=== PATIENT | male | born 1935 | race Caucasian/White ===

== ENCOUNTER 2022-12-15 14:58 | Emergency (ER) | payer MEDICARE ==
[2022-12-15] MEDS ORDERED: VERSED 5 MG/5 ML IV ONE (14:59)
[2022-12-15] MEDS ORDERED: Cordarone 150 MG/3 ML Injection IV ONE (14:59)
[2022-12-15] MEDS ORDERED: Cordarone 150 MG/3 ML Injection*** 150 MG in D5w 100ML Mini Bag 100 ML 100 ML IV ONE (15:03)
[2022-12-15] MEDS ORDERED: BABY ASPIRIN 81 MG CHEW PO ONE (15:03)
[2022-12-15] MEDS ORDERED: NEXTERONE 360 MG/200 ML BAG 360 MG/200 ML PLAST..BAG IV ONE ×2 (15:09→20:39)
[2022-12-15] MEDS ORDERED: Sodium Chloride 0.9% 1000 ML 1,000 ML IV SCH (15:15)
--- NOTE | 2022-12-15 15:29 | ERPHSYRPT ---
- History of Present Illness Time Seen by Provider: 12/15/22 15:24 Historian: patient, family Exam Limitations: clinical condition Physician History: Patient is an 87-year-old white male who presents with a complaint of chest pain. 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 The reports that he has had approximately 7 episodes of dizziness over the last couple of days this 1 did not resolve and this 1 caused chest pain. 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 Timing/Duration: yesterday Activities at Onset: other (Working on farm equipment) Quality: fullness, pressure Location: substernal Severity of Pain-Max: severe Severity of Pain-Current: none Modifying Factors: Improves With: exertion, nitroglycerin (2 nitroglycerin taken after the pain started was ineffective), aspirin (He has taken his usual daily aspirin.) Associated Symptoms: shortness of breath, dizziness Nitro Today/Relief: 0.4 mg x 2 (No help) Aspirin Treatment Today: 81 mg x 1 Allergies/Adverse Reactions: No Known Drug Allergies Allergy (Unverified 12/15/22 15:02) - Review of Systems Constitutional: Weakness, Other (Diaphoresis), No Fever, No Chills Eyes: No Symptoms Ears, Nose, & Throat: No Symptoms Respiratory: No Cough, No Dyspnea Cardiac: Chest Pain, No Edema, No Syncope Abdominal/Gastrointestinal: No Abdominal Pain, No Nausea, No Vomiting, No Diarrhea Genitourinary Symptoms: No Dysuria Musculoskeletal: No Back Pain, No Neck Pain Skin: No Rash Neurological: No Dizziness, No Focal Weakness, No Sensory Changes Psychological: No Symptoms Endocrine: No Symptoms All Other Systems: Reviewed and Negative - Nursing Vital Signs Nursing Vital Signs: Initial Vital Signs Temperature 95.8 F 12/15/22 15:03 Pulse Rate 172 H 12/15/22 15:03 Respiratory Rate 25 H 12/15/22 15:03 Blood Pressure 81/51 12/15/22 15:03 O2 Sat by Pulse Oximetry 94 L 12/15/22 15:03 Pain Scale Pain Intensity 0 - Physical Exam General Appearance: severe distress, other (Diaphoretic and ashen) Eye Exam: PERRL/EOMI, eyes nml inspection Ears, Nose, Throat Exam: normal ENT inspection, moist mucous membranes Neck Exam: normal inspection, non-tender, supple, full range of motion Respiratory Exam: normal breath sounds, lungs clear, No respiratory distress Cardiovascular Exam: tachycardia (Rate of 150) Gastrointestinal/Abdomen Exam: soft, No tenderness, No mass Back Exam: normal inspection, No CVA tenderness, No vertebral tenderness Extremity Exam: normal inspection, normal range of motion Neurologic Exam: alert, oriented x 3, cooperative Skin Exam: diaphoresis, pale SpO2 Interpretation: normal SpO2: 95 O2 Delivery: Room Air - Course Nursing assessment & vital signs reviewed: Yes EKG Interpreted by Me: RATE (patient had a wide-complex tachycardia consistent with V. tach rate of 150. After a 150 mg bolus of amiodarone patient was cardioverted after 4 mg of Versed at 100 J to a normal sinus rhythm with frequent PVCs. Second EKG did show some nonspecific ST-T wave changes.) - Radiology Exams Chest X-ray Interpretation: Reviewed by me Ordered Tests: Active Orders 24 hr Category Date Time Status EKG-ER Only STAT Care 12/15/22 15:03 Active IV Insertion STAT Care 12/15/22 15:03 Active CHEST 1 VIEW (PORTABLE) Stat Exams 12/15/22 15:04 Completed CBC W DIFF Stat Lab 12/15/22 15:15 Completed CMP Stat Lab 12/15/22 15:15 Completed D-DIMER QUANTITATIVE Stat Lab 12/15/22 15:15 Completed Lactic Acid Stat Lab 12/15/22 15:03 Completed MAGNESIUM Stat Lab 12/15/22 15:15 Completed NT PRO BNPII Stat Lab 12/15/22 15:15 Completed PROTIME WITH INR Stat Lab 12/15/22 15:15 Completed PTT Stat Lab 12/15/22 15:15 Completed TROPONIN Q4H Lab 12/15/22 15:15 Completed TROPONIN Q4H Lab 12/15/22 19:15 Ordered TROPONIN Q4H Lab 12/15/22 23:15 Ordered UA W/RFX UR CULTURE Stat Lab 12/15/22 16:03 Received Standby STAT RT 12/15/22 15:15 Completed Medication Summary Generic Name Dose Route Start Last Admin Trade Name Freq PRN Reason Stop Dose Admin Sodium Chloride 1,000 mls @ 50 mls/hr 12/15/22 15:15 12/15/22 15:55 Sodium Chloride 0.9% 1000 Ml IV 01/14/23 15:14 50 mls/hr .Q20H BOB Administration Discontinued Medications Generic Name Dose Route Start Last Admin Trade Name Dean PRN Reason Stop Dose Admin Amiodarone HCl 150 mg 12/15/22 14:59 Amiodarone Hcl 150 Mg/3 Ml Vial IV 12/15/22 15:00 .STK-MED ONE Aspirin 324 mg 12/15/22 15:03 12/15/22 15:52 Aspirin 81 Mg Tab.Chew PO 12/15/22 15:04 324 mg STAT ONE Administration Amiodarone HCl/Dextrose Confirm 12/15/22 15:09 Nexterone 360 Mg/200 Ml Bag Administered 12/15/22 15:10 Dose 360 mg in 200 mls @ ud IV .STK-MED ONE Amiodarone HCl 150 mg/ 103 mls @ 618 mls/hr 12/15/22 15:03 Dextrose IV 12/15/22 15:12 STAT ONE Midazolam HCl 5 mg 12/15/22 14:59 Midazolam Hcl 5 Mg/5 Ml Vial IV 12/15/22 15:00 .STK-MED ONE Lab/Rad Data: Laboratory Result Diagrams 12/15/22 15:15 12/15/22 15:15 Laboratory Results 12/15/22 12/15/22 12/15/22 Range/Units 15:15 15:15 15:15 WBC (4.0-10.5) x10^3/uL RBC (4.1-5.6) x10^6/uL Hgb (12.5-18.0) g/dL Hct (42-50) % MCV (78-100) fL MCH (26-32) pg MCHC (32-36) g/dL RDW (11.5-14.0) % Plt Count (150-450) x10^3/uL MPV (7.5-11.0) fL Gran % (36.0-66.0) % Immature Gran % (Auto) (0.00-0.4) % Nucleat RBC Rel Count (0.00-0.1) % Eos # (Auto) (0-0.5) x10^3/uL Immature Gran # (Auto) (0.00-0.03) x10^3u/L Absolute Lymphs (auto) (1.0-4.6) x10^3/uL Absolute Monos (auto) (0.0-1.3) x10^3/uL Absolute Nucleated RBC (0.00-0.01) x10^3u/L Lymphocytes % (24.0-44.0) % Monocytes % (0.0-12.0) % Eosinophils % (0.00-5.0) % Basophils % (0.0-0.4) % Absolute Granulocytes (1.4-6.9) x10^3/uL Basophils # (0-0.4) x10^3/uL PT 11.4 (9.4-12.5) SECONDS INR 1.05 (0.8-3.0) APTT 27.2 (25.1-36.5) SECONDS D-Dimer 1.47 H* (0.0-0.50) mg/L Sodium (137-145) mmol/L Potassium (3.5-5.1) mmol/L Chloride (98-107) mmol/L Carbon Dioxide (22-30) mmol/L Anion Gap (5-15) MEQ/L BUN (9-20) mg/dL Creatinine (0.66-1.25) mg/dL Estimated GFR ML/MIN Glucose (74-106) mg/dL Lactic Acid (0.4-2.0) Calcium (8.4-10.2) mg/dL Magnesium (1.6-2.3) mg/dL Total Bilirubin (0.2-1.3) mg/dL AST (17-59) U/L ALT (0-50) U/L Alkaline Phosphatase (38-126) U/L Troponin I 4.890 H* (0.000-0.034) ng/mL NT-Pro-B Natriuret Pep 5770 (<300) pg/mL Serum Total Protein (6.3-8.2) g/dL Albumin (3.5-5.0) g/dL 12/15/22 12/15/22 12/15/22 Range/Units 15:15 15:15 15:03 WBC 6.7 (4.0-10.5) x10^3/uL RBC 4.04 L (4.1-5.6) x10^6/uL Hgb 12.7 (12.5-18.0) g/dL Hct 40.0 L (42-50) % MCV 99.0 (78-100) fL MCH 31.4 (26-32) pg MCHC 31.8 L (32-36) g/dL RDW 14.2 H (11.5-14.0) % Plt Count 176 (150-450) x10^3/uL MPV 9.8 (7.5-11.0) fL Gran % 68.5 H (36.0-66.0) % Immature Gran % (Auto) 0.1 (0.00-0.4) % Nucleat RBC Rel Count 0.0 (0.00-0.1) % Eos # (Auto) 0.07 (0-0.5) x10^3/uL Immature Gran # (Auto) 0.01 (0.00-0.03) x10^3u/L Absolute Lymphs (auto) 1.40 (1.0-4.6) x10^3/uL Absolute Monos (auto) 0.59 (0.0-1.3) x10^3/uL Absolute Nucleated RBC 0.00 (0.00-0.01) x10^3u/L Lymphocytes % 20.9 L (24.0-44.0) % Monocytes % 8.8 (0.0-12.0) % Eosinophils % 1.0 (0.00-5.0) % Basophils % 0.7 (0.0-0.4) % Absolute Granulocytes 4.57 (1.4-6.9) x10^3/uL Basophils # 0.05 (0-0.4) x10^3/uL PT (9.4-12.5) SECONDS INR (0.8-3.0) APTT (25.1-36.5) SECONDS D-Dimer (0.0-0.50) mg/L Sodium 141 (137-145) mmol/L Potassium 4.1 (3.5-5.1) mmol/L Chloride 107 (98-107) mmol/L Carbon Dioxide 20 L (22-30) mmol/L Anion Gap 18.2 H (5-15) MEQ/L BUN 19 (9-20) mg/dL Creatinine 0.98 (0.66-1.25) mg/dL Estimated GFR > 60.0 ML/MIN Glucose 177 H (74-106) mg/dL Lactic Acid 3.0 H (0.4-2.0) Calcium 8.7 (8.4-10.2) mg/dL Magnesium 1.8 (1.6-2.3) mg/dL Total Bilirubin 1.20 (0.2-1.3) mg/dL AST 64 H (17-59) U/L ALT 58 H (0-50) U/L Alkaline Phosphatase 65 (38-126) U/L Troponin I (0.000-0.034) ng/mL NT-Pro-B Natriuret Pep (<300) pg/mL Serum Total Protein 7.1 (6.3-8.2) g/dL Albumin 4.1 (3.5-5.0) g/dL - Progress Progress: improved Air Movement: good Blood Culture(s) Obtained: No Antibiotics given: No Discussed with Dr.: Other (Dr. Apolinar Alberts hr administrator. He excepted this patient for admission at [facility] we are presently awaiting a bed notification from them. Plan is to transfer him expeditiously to the [facility].) Counseled pt/family regarding: lab results, diagnosis, need for follow-up Medical Desision Making - Independent Historian Additional History obtained from: Spouse, Family - Discussion of managment Care discussed with:: specialist (Dr. Apolinar Alberts) Reviewed:: Test results Agreed on:: Treatment plan, need for follow-up Will see patient: in hospital - Diagnostic Testing Diagnostic test were ordered, analyzed, and reviewed by me: Yes Radiological Interpretation: Interpreted by me - Risk of complications The pt has a high risk of morbidity or mortality based on: Drug therapy requiring intensive monitoring for toxicity, Decision regarding hospitilization or escalation of hosp level of care - Departure Departure Disposition: Transfer (Transfer will be made to the [address]) Clinical Impression: Ventricular tachycardia, Encounter for cardioversion procedure Condition: Critical Critical Care Time: Yes Critical Care Time(excluding separately billable procedures): Critical 30-74 mins (70 min) Referrals: HELEN OWENS [Primary Care Provider] - Follow up/PCP as directed
[2022-12-15 15:33] LABS: Absolute Neutrophil Ct (ANC) 4.57 x10^3/uL (1.4-6.9); BASOPHIL % 0.7 % (0.0-0.4); Basophil (Absolute #) 0.05 x10^3/uL (0-0.4); Eosinophil (Absolute #) 0.07 x10^3/uL (0-0.5); Hemoglobin 12.7 g/dL (12.5-18.0); IMMATURE GRAN # 0.01 x10^3u/L (0.00-0.03); IMMATURE GRAN % 0.1 % (0.00-0.4); Lymphocytes % 20.9 % (24.0-44.0); Mean Corpuscular Hemoglobin 31.4 pg (26-32); Mean Corpuscular Hgb Concent. 31.8 g/dL (32-36); Mean Platelet Volume 9.8 fL (7.5-11.0); Monocyte (Absolute #) 0.59 x10^3/uL (0.0-1.3); Monocytes % 8.8 % (0.0-12.0); Neutrophil % 68.5 % (36.0-66.0); Platelet Count 176 x10^3/uL (150-450); Red Blood Count 4.04 x10^6/uL (4.1-5.6); Red Cell Distribution Width 14.2 % (11.5-14.0); White Blood Count 6.7 x10^3/uL (4.0-10.5)
[2022-12-15 15:49] LABS: ALBUMIN 4.1 g/dL (3.5-5.0); ALKALINE PHOSPHATASE 65 U/L (38-126); ANION GAP 18.2 MEQ/L (5-15); BLOOD UREA NITROGEN 19 mg/dL (9-20); CHLORIDE 107 mmol/L (98-107); Calcium 8.7 mg/dL (8.4-10.2); Carbon Dioxide 20 mmol/L (22-30); Creatinine 1 0.98 mg/dL (0.66-1.25); EST GLOMERULAR FILTRATION RATE > 60.0 ML/MIN; Glucose 177 mg/dL (74-106); MAGNESIUM 1.8 mg/dL (1.6-2.3); Potassium 4.1 mmol/L (3.5-5.1); SGOT/AST 64 U/L (17-59); SGPT/ALT 58 U/L (0-50); SODIUM 141 mmol/L (137-145); Total Protein 7.1 g/dL (6.3-8.2)
[2022-12-15 15:58] LABS: INR 1.05 (0.8-3.0); PROTIME 11.4 SECONDS (9.4-12.5); PTT 27.2 SECONDS (25.1-36.5)
[2022-12-15 16:15] LABS: D-DIMER QUANTITATIVE 1.47 mg/L (0.0-0.50)
--- NOTE | 2022-12-15 16:23 | XRAY ---
Indication: Chest pain. Comparison: None Portable chest demonstrates mild right infrahilar infiltrate versus atelectasis without large effusion. Heart not enlarged for AP portable technique with left AICD. 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
[2022-12-15 16:41] LABS: Appearance Clear (Clear); Bilirubin Negative (Negative); Blood Negative (Negative); Glucose, Urine Negative (Negative); Ketones Negative (Negative); Leukocyte Esterase Negative (Negative); Nitrite Negative (Negative); Protein,Urine Dip 100 (Negative)
[2022-12-15 16:43] LABS: ADD URINE CULTURE? NO (NO); Bacteria Few /HPF (None Seen); Epithelial Cells Few /HPF (None Seen); Hyaline Casts 0-2 /LPF (0-2); RBC 0-2 /HPF (0-5)
[2022-12-15 17:10] VITALS: O2SAT 98
[2022-12-15 20:00] LABS: TROPONIN 7.75 ng/mL (0.000-0.034)
[2022-12-15 20:03] VITALS: BP 125/65; PULSE 62
[2022-12-15] MEDS ORDERED: NEXTERONE 360 MG/200 ML BAG 360 MG/200 ML PLAST..BAG IV SCH (20:45)
== END 2022-12-15 21:06 | disposition short-term general hospital (02) ==
LOC: ED 14:58
DX: I47.20 Ventricular tachycardia, unspecified (principal); R07.9 Chest pain, unspecified; R42 Dizziness and giddiness
CPT/HCPCS: 36000; 36415; 71045; 80053; 81001; 83605; 83735; 83880; 84484; 85025; 85379; 85610; 85730; 92960; 93005; 94799; 99285; 99291; J0282; J2250; A9270-GY

== ENCOUNTER 2023-12-12 10:24 | Observation (INO) | payer MEDICARE ==
--- NOTE | 2023-12-12 10:25 | ERPHSYRPT ---
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 Symptoms of dizziness and weakness were worse today and therefore his daughter brought him into the emergency department for evaluation. 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 Patient has a history of chronic congestive heart failure, hyperlipidemia and hypertension. Patient denies any pain. Specifically, he denies headache, he denies chest pain and he has no abdominal pain. Patient has not had any nausea vomiting or diarrhea symptoms. Timing/Duration: week(s) (4), intermittent, worse Associated Symptoms: loss of appetite, weakness, No nausea, No vomiting, No abdominal pain, No shortness of breath, No cough, No chest pain, No fever Allergies/Adverse Reactions: No Known Drug Allergies Allergy (Verified 12/12/23 10:48) Home Medications: Amiodarone HCl 200 mg [Cordarone 200 MG] 1 tab PO DAILY 12/12/23 [History] Carvedilol [Coreg ] 1 tab PO BID 12/12/23 [History] Finasteride 5 mg [Proscar 5 MG] 1 tab PO DAILY 12/12/23 [History] Leflunomide/Diclofenac Sodium [Lefluniclo 20 mg Tab-1% Gel Kt] 1 tab PO WEEKLY 12/12/23 [History] Levothyroxine Sodium 25 Mcg [Synthroid 25 Mcg] 1 tab PO DAILY 12/12/23 [History] Rosuvastatin Calcium 1 tab PO HS 12/12/23 [History] Silodosin 1 tab PO DAILY 12/12/23 [History] Spironolactone 25 mg [Aldactone 25 MG] 1 tab PO DAILY 12/12/23 [History] Hx Influenza Vaccination/Date Given: No Hx Pneumococcal Vaccination/Date Given: No Travel Risk - International Travel Have you traveled outside of the country in past 3 weeks: No - Emerging Infectious Disease Are you exhibiting symptoms associated with any current EIDs: No - Review of Systems Constitutional: Weakness Eyes: No Symptoms Ears, Nose, & Throat: No Symptoms Respiratory: No Symptoms Cardiac: No Symptoms Abdominal/Gastrointestinal: No Symptoms Genitourinary Symptoms: No Symptoms Musculoskeletal: No Symptoms Skin: No Symptoms Neurological: Dizziness Psychological: No Symptoms Endocrine: No Symptoms Hematologic/Lymphatic: No Symptoms Immunological/Allergic: No Symptoms All Other Systems: Reviewed and Negative - Past Medical History Pertinent Past Medical History: Yes ENT History: No Pertinent History Cardiac History: Congestive Heart Failure, High Cholesterol, Hypertension Endocrine Medical History: No Pertinent History Musculoskeletal History: Other GI Medical History: No Pertinent History History: No Pertinent History Psycho-Social History: No Pertinent History Male Reproductive Disorders: No Pertinent History Other Medical History: Chronic heart failure - Past Surgical History Past Surgical History: Yes Neuro Surgical History: No Pertinent History Cardiac: Cardiac Catheterization, Pacemaker Respiratory: No Pertinent History Gastrointestinal: No Pertinent History Genitourinary: No Pertinent History Musculoskeletal: No Pertinent History Male Surgical History: No Pertinent History - Social History Smoking Status: Never smoker Exposure to second hand smoke: No Drug Use: none Patient Lives Alone: No - Nursing Vital Signs Nursing Vital Signs: Initial Vital Signs Temperature 97.0 F 12/12/23 11:07 Pulse Rate 67 12/12/23 11:07 Respiratory Rate 20 12/12/23 11:07 Blood Pressure 124/84 12/12/23 11:07 O2 Sat by Pulse Oximetry 96 12/12/23 11:07 Pain Scale Pain Intensity 0 - Physical Exam General Appearance: no apparent distress, alert, obese Eye Exam: PERRL/EOMI, eyes nml inspection Ears, Nose, Throat Exam: normal ENT inspection, dry mucous membranes Neck Exam: normal inspection, non-tender, supple, full range of motion Respiratory Exam: normal breath sounds, lungs clear, airway intact, No chest tenderness, No respiratory distress Cardiovascular Exam: regular rate/rhythm, normal heart sounds, normal peripheral pulses Gastrointestinal/Abdomen Exam: soft, normal bowel sounds, No tenderness Rectal Exam: not done Back Exam: normal inspection, normal range of motion, No CVA tenderness, No vertebral tenderness Extremity Exam: normal inspection, normal range of motion, pelvis stable Neurologic Exam: alert, oriented x 3, cooperative, clinical trials data coordinator II-XII nml as tested, normal mood/affect, nml cerebellar function, nml station & gait, sensation nml Skin Exam: normal color, warm, dry Lymphatic Exam: No adenopathy SpO2 Interpretation: normal O2 Delivery: Room Air - Course Nursing assessment & vital signs reviewed: Yes EKG Interpreted by Me: RATE (74), prolonged QT interval (Also prolonged CA interval. Patient has atrial paced complexes and paired ventricular premature complexes. Compared to 12/15/2022 twelve-lead EKG, there is no longer normal sinus rhythm there is persistent ventricular premature complex and persistent CA interval prolongation. More irregular patter), Left Bundle Branch Block Ordered Tests: Active Orders 24 hr Category Date Time Status Cellular Biologist STAT Care 12/12/23 11:13 Active EKG-ER Only STAT Care 12/12/23 11:12 Active IV Insertion STAT Care 12/12/23 11:12 Active Pulse Oximetry (ED) STAT Care 12/12/23 11:12 Active CHEST 1 VIEW (PORTABLE) Stat Exams 12/12/23 11:13 Taken HEAD WITHOUT CONTRAST [CT] Stat Exams 12/12/23 11:14 Completed BLOOD CULTURE Stat Lab 12/12/23 11:40 Received CBC W DIFF Stat Lab 12/12/23 11:33 Completed CMP Stat Lab 12/12/23 11:33 Completed CULTURE,URINE Stat Lab 12/12/23 12:48 Received MAGNESIUM Stat Lab 12/12/23 11:33 Completed NT PRO BNPII Stat Lab 12/12/23 11:33 Completed TROPONIN Q4H Lab 12/12/23 11:33 Completed TROPONIN Q4H Lab 12/12/23 14:10 Completed TROPONIN Q4H Lab 12/12/23 19:15 Ordered TSH [TSH, 3RD Generation] Stat Lab 12/12/23 11:33 Completed UA W/RFX UR CULTURE Stat Lab 12/12/23 12:48 Completed Medication Summary Generic Name Dose Route Start Last Admin Trade Name Freq PRN Reason Stop Dose Admin Sodium Chloride 1,000 mls @ 100 mls/hr 12/12/23 11:15 12/12/23 11:24 Sodium Chloride 0.9% 1000 Ml IV 01/11/24 11:14 100 mls/hr .Q10H BOB Administration Discontinued Medications Generic Name Dose Route Start Last Admin Trade Name Freq PRN Reason Stop Dose Admin Ceftriaxone Sodium 1 gm in 100 mls @ 200 mls/hr 12/12/23 13:53 12/12/23 14:32 Rocephin 1 Gm / 100 Ml Nacl IV 12/12/23 14:22 Infused STAT ONE Infusion Ceftriaxone Sodium Confirm 12/12/23 14:02 Rocephin 1 Gm / 100 Ml Nacl Administered 12/12/23 14:03 Dose 1 gm in 100 mls @ ud IV .STK-MED ONE Lab/Rad Data: Laboratory Result Diagrams 12/12/23 11:33 12/12/23 11:33 Laboratory Results 12/12/23 12/12/23 12/12/23 Range/Units 14:10 12:48 11:33 WBC (4.23-9.07) x10^3/uL RBC (4.63-6.08) x10^6/uL Hgb (13.7-17.5) g/dL Hct (40.1-51.0) % MCV (79.0-92.2) fL MCH (25.7-32.2) pg MCHC (32.3-36.5) g/dL RDW (11.6-14.4) % Plt Count (163-337) x10^3/uL MPV (9.4-12.4) fL Gran % (34.0-67.9) % Immature Gran % (Auto) (0.001-0.429) % Nucleat RBC Rel Count (0.00-0.2) % Eos # (Auto) (0.04-0.54) x10^3/uL Immature Gran # (Auto) (0.001-0.031) x10^3u/L Absolute Lymphs (auto) (1.32-3.57) x10^3/uL Absolute Monos (auto) (0.30-0.82) x10^3/uL Absolute Nucleated RBC (0.00-0.012) x10^3u/L Lymphocytes % (21.8-53.1) % Monocytes % (5.3-12.2) % Eosinophils % (0.8-7.0) % Basophils % (0.2-1.2) % Absolute Granulocytes (1.78-5.38) x10^3/uL Basophils # (0.01-0.08) x10^3/uL Sodium (135-145) mmol/L Potassium (3.5-5.1) mmol/L Chloride (98-107) mmol/L Carbon Dioxide (22-30) mmol/L Anion Gap (5-15) MEQ/L BUN (9-20) mg/dL Creatinine (0.66-1.25) mg/dL Estimated GFR ML/MIN Glucose (74-106) mg/dL Calcium (8.4-10.2) mg/dL Magnesium (1.6-2.3) mg/dL Total Bilirubin (0.2-1.3) mg/dL AST (17-59) U/L ALT (0-50) U/L Alkaline Phosphatase (38-126) U/L Troponin I 0.069 H* (0.000-0.033) ng/mL NT-Pro-B Natriuret Pep (<300) pg/mL Serum Total Protein (6.3-8.2) g/dL Albumin (3.5-5.0) g/dL Free T4 1.24 (0.78-2.19) ng/dL TSH 3rd Generation (0.470-4.680) mIU/L Urine Color Yellow (Yellow) Urine Appearance Clear (Clear) Urine pH 5.5 (4.6-8.0) Ur Specific [place] 1.010 (1.005-1.030) Urine Protein Negative (Negative) Urine Glucose (UA) Negative (Negative) mg/dL Urine Ketones Negative (Negative) Urine Blood Negative (Negative) Urine Nitrite Negative (Negative) Urine Bilirubin Negative (Negative) Urine Urobilinogen 0.2 (0.2) mg/dL Ur Leukocyte Esterase Moderate A (Negative) U Hyaline Cast (Auto) 3-5 A (0-2) /LPF Urine Microscopic RBC 0-2 (0-5) /HPF Urine Microscopic WBC 21-50 A (0-5) /HPF Ur Epithelial Cells None Seen (None Seen) /HPF Urine Bacteria None Seen (None Seen) /HPF Urine Yeast (Budding) Few A (None Seen) /HPF Urine Culture Reflexed YES (NO) Influenza Type A Ag (NEGATIVE) Influenza Type B Ag (NEGATIVE) RSV (PCR) (NEGATIVE) SARS-CoV-2 (PCR) (NEGATIVE) 12/12/23 12/12/23 12/12/23 Range/Units 11:33 11:33 11:33 WBC (4.23-9.07) x10^3/uL RBC (4.63-6.08) x10^6/uL Hgb (13.7-17.5) g/dL Hct (40.1-51.0) % MCV (79.0-92.2) fL MCH (25.7-32.2) pg MCHC (32.3-36.5) g/dL RDW (11.6-14.4) % Plt Count (163-337) x10^3/uL MPV (9.4-12.4) fL Gran % (34.0-67.9) % Immature Gran % (Auto) (0.001-0.429) % Nucleat RBC Rel Count (0.00-0.2) % Eos # (Auto) (0.04-0.54) x10^3/uL Immature Gran # (Auto) (0.001-0.031) x10^3u/L Absolute Lymphs (auto) (1.32-3.57) x10^3/uL Absolute Monos (auto) (0.30-0.82) x10^3/uL Absolute Nucleated RBC (0.00-0.012) x10^3u/L Lymphocytes % (21.8-53.1) % Monocytes % (5.3-12.2) % Eosinophils % (0.8-7.0) % Basophils % (0.2-1.2) % Absolute Granulocytes (1.78-5.38) x10^3/uL Basophils # (0.01-0.08) x10^3/uL Sodium (135-145) mmol/L Potassium (3.5-5.1) mmol/L Chloride (98-107) mmol/L Carbon Dioxide (22-30) mmol/L Anion Gap (5-15) MEQ/L BUN (9-20) mg/dL Creatinine (0.66-1.25) mg/dL Estimated GFR ML/MIN Glucose (74-106) mg/dL Calcium (8.4-10.2) mg/dL Magnesium (1.6-2.3) mg/dL Total Bilirubin (0.2-1.3) mg/dL AST (17-59) U/L ALT (0-50) U/L Alkaline Phosphatase (38-126) U/L Troponin I 0.074 H* (0.000-0.033) ng/mL NT-Pro-B Natriuret Pep (<300) pg/mL Serum Total Protein (6.3-8.2) g/dL Albumin (3.5-5.0) g/dL Free T4 (0.78-2.19) ng/dL TSH 3rd Generation 8.141 H (0.470-4.680) mIU/L Urine Color (Yellow) Urine Appearance (Clear) Urine pH (4.6-8.0) Ur Specific [place] (1.005-1.030) Urine Protein (Negative) Urine Glucose (UA) (Negative) mg/dL Urine Ketones (Negative) Urine Blood (Negative) Urine Nitrite (Negative) Urine Bilirubin (Negative) Urine Urobilinogen (0.2) mg/dL Ur Leukocyte Esterase (Negative) U Hyaline Cast (Auto) (0-2) /LPF Urine Microscopic RBC (0-5) /HPF Urine Microscopic WBC (0-5) /HPF Ur Epithelial Cells (None Seen) /HPF Urine Bacteria (None Seen) /HPF Urine Yeast (Budding) (None Seen) /HPF Urine Culture Reflexed (NO) Influenza Type A Ag NEGATIVE (NEGATIVE) Influenza Type B Ag NEGATIVE (NEGATIVE) RSV (PCR) NEGATIVE (NEGATIVE) SARS-CoV-2 (PCR) NEGATIVE (NEGATIVE) 12/12/23 12/12/23 Range/Units 11:33 11:33 WBC 7.9 (4.23-9.07) x10^3/uL RBC 3.74 L (4.63-6.08) x10^6/uL Hgb 11.2 L (13.7-17.5) g/dL Hct 36.5 L (40.1-51.0) % MCV 97.6 H (79.0-92.2) fL MCH 29.9 (25.7-32.2) pg MCHC 30.7 L (32.3-36.5) g/dL RDW 15.3 H (11.6-14.4) % Plt Count 163 (163-337) x10^3/uL MPV 9.2 L (9.4-12.4) fL Gran % 70.3 H (34.0-67.9) % Immature Gran % (Auto) 0.4 (0.001-0.429) % Nucleat RBC Rel Count 0.0 (0.00-0.2) % Eos # (Auto) 0.11 (0.04-0.54) x10^3/uL Immature Gran # (Auto) 0.03 (0.001-0.031) x10^3u/L Absolute Lymphs (auto) 1.01 L (1.32-3.57) x10^3/uL Absolute Monos (auto) 1.13 H (0.30-0.82) x10^3/uL Absolute Nucleated RBC 0.00 (0.00-0.012) x10^3u/L Lymphocytes % 12.8 L (21.8-53.1) % Monocytes % 14.3 H (5.3-12.2) % Eosinophils % 1.4 (0.8-7.0) % Basophils % 0.8 (0.2-1.2) % Absolute Granulocytes 5.54 H (1.78-5.38) x10^3/uL Basophils # 0.06 (0.01-0.08) x10^3/uL Sodium 141 (135-145) mmol/L Potassium 4.8 (3.5-5.1) mmol/L Chloride 110 H (98-107) mmol/L Carbon Dioxide 21 L (22-30) mmol/L Anion Gap 15.4 H (5-15) MEQ/L BUN 31 H (9-20) mg/dL Creatinine 1.33 H (0.66-1.25) mg/dL Estimated GFR 51.7 ML/MIN Glucose 103 (74-106) mg/dL Calcium 8.9 (8.4-10.2) mg/dL Magnesium 2.0 (1.6-2.3) mg/dL Total Bilirubin 0.60 (0.2-1.3) mg/dL AST 23 (17-59) U/L ALT 14 (0-50) U/L Alkaline Phosphatase 60 (38-126) U/L Troponin I (0.000-0.033) ng/mL NT-Pro-B Natriuret Pep 1790 (<300) pg/mL Serum Total Protein 6.2 L (6.3-8.2) g/dL Albumin 3.3 L (3.5-5.0) g/dL Free T4 (0.78-2.19) ng/dL TSH 3rd Generation (0.470-4.680) mIU/L Urine Color (Yellow) Urine Appearance (Clear) Urine pH (4.6-8.0) Ur Specific [place] (1.005-1.030) Urine Protein (Negative) Urine Glucose (UA) (Negative) mg/dL Urine Ketones (Negative) Urine Blood (Negative) Urine Nitrite (Negative) Urine Bilirubin (Negative) Urine Urobilinogen (0.2) mg/dL Ur Leukocyte Esterase (Negative) U Hyaline Cast (Auto) (0-2) /LPF Urine Microscopic RBC (0-5) /HPF Urine Microscopic WBC (0-5) /HPF Ur Epithelial Cells (None Seen) /HPF Urine Bacteria (None Seen) /HPF Urine Yeast (Budding) (None Seen) /HPF Urine Culture Reflexed (NO) Influenza Type A Ag (NEGATIVE) Influenza Type B Ag (NEGATIVE) RSV (PCR) (NEGATIVE) SARS-CoV-2 (PCR) (NEGATIVE) - Progress Progress: improved, re-examined Progress Note: 12/12/23 11:55 My medical decision making and the [facility] based on review of the patient's past medical history, review the patient's medication list, review of patient drug allergy list, history of present illness and physical findings on examination. The workup in this patient includes placement of intravenous line, twelve-lead EKG, CBC, CMP, BNP, troponin level, chest x-ray, thyroid function test, CT scan of the head, urinalysis, magnesium level. 12/12/23 12:02 Differential diagnosis includes but not limited to arrhythmia, myocardial infarction, urinary tract infection, dehydration, electrolyte abnormalities, viral illness, depression, intracranial abnormality 12/12/23 13:26 I interpreted the patient's laboratory data results. The patient does have mild anemia that is likely chronic, he does have evidence of subclinical hypothyroidism with a normal T4 and an elevated TSH. His troponin level is mildly elevated at 0.074. I interpreted the patient's preliminary chest x-ray. There is a question of right base atelectasis versus early infiltrate and no evidence of pleural effusions. When compared to chest x-ray dated 12/15/2022, there is no significant difference. CT scan of the head without contrast was interpreted by the radiologist and I reviewed the impression. The impression states area of encephalomalacia in the right frontal lobe. This is likely a sequela of a previous vascular event. Patient has chronic microvascular ischemia and senile changes. 12/12/23 15:[address] Negron, the telehospitalist on-call at this time. I reviewed the patient presenting complaint, the patient's medical history, and the results of the patient's workup including the EKG findings, troponin findings, thyroid findings and the urinalysis findings. We will place this patient in observation and repeat laboratory data workup, including serial troponin levels and treat the urine infection with Levaquin intravenously. 12/12/23 15:23 I did interpret the patient's second (3-hour) twelve-lead EKG that was performed on 12/12/2023 at 1515. The heart rate is 60 bpm, there is atrial paced rhythm. There is normal axis deviation and normal intervals without evidence of any acute ischemic changes. The QTc is 465. Counseled pt/family regarding: lab results, diagnosis, rad results Medical Desision Making - Independent Historian Additional History obtained from: Child - Discussion of managment Care discussed with:: hospitalist Reviewed:: Test results, Need for additional workup Agreed on:: place in obs Will see patient: in hospital - Diagnostic Testing Diagnostic test were ordered, analyzed, and reviewed by me: Yes Radiological Interpretation: Interpreted by me - Risk of complications The pt has a high risk of morbidity or mortality based on: Decision regarding hospitilization or escalation of hosp level of care - Departure Departure Disposition: Observation Clinical Impression: UTI (urinary tract infection), Subclinical hypothyroidism, Elevated troponin Condition: Fair Critical Care Time: No Referrals: LUIS F VEGAS NP [Primary Care Provider] - Follow up/PCP as directed
[2023-12-12] MEDS ORDERED: Sodium Chloride 0.9% 1000 ML 1,000 ML ONE (11:23)
[2023-12-12] MEDS: Sodium Chloride 0.9% 1000 ML 1,000 ML IV SCH ×2 (11:24→20:44)
[2023-12-12 11:52] LABS: Absolute Neutrophil Ct (ANC) 5.54 x10^3/uL (1.78-5.38); BASOPHIL % 0.8 % (0.2-1.2); Basophil (Absolute #) 0.06 x10^3/uL (0.01-0.08); Eosinophil % 1.4 % (0.8-7.0); Eosinophil (Absolute #) 0.11 x10^3/uL (0.04-0.54); Hematocrit 36.5 % (40.1-51.0); Hemoglobin 11.2 g/dL (13.7-17.5); IMMATURE GRAN # 0.03 x10^3u/L (0.001-0.031); IMMATURE GRAN % 0.4 % (0.001-0.429); Lymphocyte (Absolute #) 1.01 x10^3/uL (1.32-3.57); Lymphocytes % 12.8 % (21.8-53.1); Mean Cell Volume 97.6 fL (79.0-92.2); Mean Corpuscular Hemoglobin 29.9 pg (25.7-32.2); Mean Corpuscular Hgb Concent. 30.7 g/dL (32.3-36.5); Mean Platelet Volume 9.2 fL (9.4-12.4); Monocyte (Absolute #) 1.13 x10^3/uL (0.30-0.82); Monocytes % 14.3 % (5.3-12.2); Neutrophil % 70.3 % (34.0-67.9); Platelet Count 163 x10^3/uL (163-337); Red Blood Count 3.74 x10^6/uL (4.63-6.08); Red Cell Distribution Width 15.3 % (11.6-14.4); White Blood Count 7.9 x10^3/uL (4.23-9.07)
[2023-12-12 12:11] LABS: ALBUMIN 3.3 g/dL (3.5-5.0); ANION GAP 15.4 MEQ/L (5-15); BILIRUBIN,TOTAL 0.6 mg/dL (0.2-1.3); Calcium 8.9 mg/dL (8.4-10.2); Creatinine 1 1.33 mg/dL (0.66-1.25); EST GLOMERULAR FILTRATION RATE 51.7 ML/MIN; Potassium 4.8 mmol/L (3.5-5.1); Total Protein 6.2 g/dL (6.3-8.2)
[2023-12-12 12:23] LABS: INFLUENZA A NEGATIVE (NEGATIVE); INFLUENZA B NEGATIVE (NEGATIVE); RESPIRATORY SYNCTIAL VIRUS NEGATIVE (NEGATIVE); SARS-CoV-2 Xpert Express NEGATIVE (NEGATIVE)
--- NOTE | 2023-12-12 13:21 | XRAY ---
CLINICAL HISTORY: Weakness; confusion COMPARISON: None. TECHNIQUE: An axial non-contrast CT scan of the brain was performed from the skull base to the high parietal region. Coronal and Sagittal reformat were obtained. One of the following dose reduction techniques was utilized for this exam: Automated exposure control, adjustment of the mA and/or kV according to patient size, and use of iterative reconstruction. FINDINGS: No intracerebral or extra axial hematoma. In the right frontal lobe, an area of encephalomalacia is identified, likely a sequela of a previous vascular event. There are few tiny ill-defined [id number] areas noted in the subcortical white matter bilaterally, suggestive of microvascular ischemic changes. The ventricular system, cortical sulci and basal cisterns are prominent and consistent with senile changes. No midline shifts or deformity. Normal CT appearance of the posterior fossa structures namely the cerebellar hemispheres, brainstem and cerebellar peduncles. The cerebello-pontine angles are clear. The pituitary gland, the pineal gland, the optic chiasm is unremarkable. The osseous structures in the skull base are unremarkable. No definite calvarium fractures. Few cysts are seen along the inferior wall of the left maxillary sinus. The rest scanned paranasal sinuses are clear. IMPRESSION: An area of encephalomalacia in the right frontal lobe is identified, likely a sequela of a previous vascular event. MRI DWI/Stroke protocol is advised to rule out acute ischemic infarction. Chronic microvascular ischemic and senile changes are noted. Electronically Signed by: Cecil Witt MD. (12/12/2023 13:16:34 EDT)
[2023-12-12 13:33] LABS: Appearance Clear (Clear); Bacteria None Seen /HPF (None Seen); Bilirubin Negative (Negative); Blood Negative (Negative); Epithelial Cells None Seen /HPF (None Seen); Glucose, Urine Negative (Negative); Ketones Negative (Negative); Leukocyte Esterase Moderate (Negative); Nitrite Negative (Negative); Ph 5.5 (4.6-8.0); Protein,Urine Dip Negative (Negative); RBC 0-2 /HPF (0-5); Urobilinogen 0.2 mg/dL (0.2); WBC 21-50 /HPF (0-5)
[2023-12-12 13:34] LABS: ADD URINE CULTURE? YES (NO); Budding Yeast Few /HPF (None Seen)
[2023-12-12] MEDS: ROCEPHIN 1 GM / 100 ML NaCl 1 GM/100 ML IVPB IV ONE (14:02)
[2023-12-12] MEDS ORDERED: ROCEPHIN 1 GM / 100 ML NaCl 1 GM/100 ML IVPB IV ONE (14:02)
[2023-12-12] MEDS ORDERED: TYLENOL 325 MG PO PRN (16:52)
[2023-12-12] MEDS ORDERED: Zofran 4 MG/2 ML VIAL IV PRN (16:52)
--- NOTE | 2023-12-12 17:15 | PCM.HP ---
History of Present Illness - Chief Complaint Chief Complaint: Elevated troponins, dizziness, unsteady gait Date: 12/12/23 History of Present Illness: Mr. Brewer is an 88 year old male with a pmhx of CHF, HLD, HTN, and VTach (pacemaker/defib) who presented to ED after experiencing about a two to three week history of intermittent dizziness and weakness that has gotten worse today. He endorses that he has sudden bouts of dizziness and trouble maintaining balance when episodes occurs. He denies room-spinning sensation, visual changes, cp, or feeling faint. He does report his legs feel "rubbery" at times and he has been having increased shortness of breath with a non-productive cough. 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 He follows with Dr. Burt (cardiology) at [facility] and reports that he recently had his pacemaker interrogated in August and it was working properly. In ED, vitals stable. EKG per ED physician interpretation atrial paced rhythm at 60bpm, no ST elevation/deviations. 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 MRI DWI/Stroke protocol is advised to rule out acute ischemic infarction. Chest xray with right base atelectasis vs early infiltrate. Lab findings remarkable for macrocytic anemia, wit hgb at 11.2, Gap acidosis, elevated troponin 0.069<0.074, TSH elevated, UA suspicious for infection, and PB. Ceftriaxone given in ED. The entirety of this encounter was performed via Telemedicine" This visit was performed using real-time audio and video connection between my location and thepatients locationwith the assistance of a surrogateat the patients location. Written or verbal consent was obtained from the patient/guardian to perform this visit using[employer] technology. Any patient questions regarding the telemedicine interaction were answered. - Review of Systems Constitutional: Fatigue, Weakness Eyes: No Symptoms Ears, Nose, & Throat: No Symptoms Respiratory: Cough, Short Of Breath Cardiac: No Symptoms Abdominal/Gastrointestinal: No Symptoms Genitourinary Symptoms: No Symptoms Musculoskeletal: No Symptoms Skin: No Symptoms Neurological: Dizziness, Gait Changes Psychological: No Symptoms Endocrine: No Symptoms Hematologic/Lymphatic: No Symptoms Immunological/Allergic: No Symptoms Medications & Allergies Home Medications: Home Medication List Amiodarone HCl 200 mg [Cordarone 200 MG] 1 tab PO DAILY 12/12/23 [History Confirmed 12/12/23] Carvedilol [Coreg ] 1 tab PO BID 12/12/23 [History Confirmed 12/12/23] Finasteride 5 mg [Proscar 5 MG] 1 tab PO DAILY 12/12/23 [History Confirmed 12/12/23] Leflunomide/Diclofenac Sodium [Lefluniclo 20 mg Tab-1% Gel Kt] 1 tab PO WEEKLY 12/12/23 [History Confirmed 12/12/23] Levothyroxine Sodium 25 Mcg [Synthroid 25 Mcg] 1 tab PO DAILY 12/12/23 [History Confirmed 12/12/23] Rosuvastatin Calcium 1 tab PO HS 12/12/23 [History Confirmed 12/12/23] Silodosin 1 tab PO DAILY 12/12/23 [History Confirmed 12/12/23] Spironolactone 25 mg [Aldactone 25 MG] 1 tab PO DAILY 12/12/23 [History Confirmed 12/12/23] Allergies/Adverse Reactions: Allergies Allergy/AdvReac Type Severity Reaction Status Date / Time No Known Drug Allergies Allergy Verified 12/12/23 10:48 - Past Medical History Past Medical History: Yes ENT History: No Pertinent History Cardiac History: Congestive Heart Failure, High Cholesterol, Hypertension Endocrine Medical History: No Pertinent History Musculoskelatal History: Other GI Medical History: No Pertinent History History: No Pertinent History Pyscho-Social History: No Pertinent History Male Reproductive Disorders: No Pertinent History Comment: Chronic heart failure - Past Surgical History Past Surgical History: Yes Neuro Surgical History: No Pertinent History Cardiac History: Cardiac Catheterization, Pacemaker Respiratory Surgery: No Pertinent History GI Surgical History: No Pertinent History Genitourinary Surgical Hx: No Pertinent History Musculskeletal Surgical Hx: No Pertinent History Male Surgical History: No Pertinent History - Social History Smoking Status: Never smoker Exposure to second hand smoke: No Alcohol: None Drug Use: none - Social Determinants of Health Will the patient participate in the screening: Yes Do you worry about a steady place to live?: No Do you have any problems with any of the following?: No known problems In the past 12 months,have you had to go without utilities?: No Have you or anyone in your house had to go without enough: No Transportation Issues: No Has anyone in your support network made you feel unsafe?: No - Physical Exam Vital Signs: Vital Signs - 24 hr Temp Pulse Resp BP BP Pulse Ox 12/12/23 16:02 74 20 111/51 92 L 12/12/23 15:30 80 12 152/127 95 12/12/23 15:01 148/79 12/12/23 14:30 60 30 H 135/62 87 L 12/12/23 14:00 78 15 134/80 96 12/12/23 13:31 69 15 131/60 91 L 12/12/23 13:00 66 23 126/63 95 12/12/23 12:30 64 17 123/71 97 12/12/23 12:25 66 13 106/47 95 12/12/23 11:12 96 12/12/23 11:10 60 15 124/84 96 12/12/23 11:07 97.0 F 67 20 124/84 96 General Appearance: no apparent distress Neurologic Exam: alert, oriented x 3, cooperative Eye Exam: PERRL/EOMI Ears, Nose, Throat Exam: normal ENT inspection Neck Exam: normal inspection Respiratory Exam: normal breath sounds, lungs clear Cardiovascular Exam: regular rate/rhythm, normal heart sounds Gastrointestinal/Abdomen Exam: soft, normal bowel sounds Rectal Exam: deferred Back Exam: normal inspection Extremity Exam: normal inspection Skin Exam: normal color Results - Labs Lab/Micro Results: Lab Results-Last 24 Hours 12/12/23 12/12/23 12/12/23 Range/Units 11:33 11:33 11:33 WBC 7.9 (4.23-9.07) x10^3/uL RBC 3.74 L (4.63-6.08) x10^6/uL Hgb 11.2 L (13.7-17.5) g/dL Hct 36.5 L (40.1-51.0) % MCV 97.6 H (79.0-92.2) fL MCH 29.9 (25.7-32.2) pg MCHC 30.7 L (32.3-36.5) g/dL RDW 15.3 H (11.6-14.4) % Plt Count 163 (163-337) x10^3/uL MPV 9.2 L (9.4-12.4) fL Gran % 70.3 H (34.0-67.9) % Immature Gran % (Auto) 0.4 (0.001-0.429) % Nucleat RBC Rel Count 0.0 (0.00-0.2) % Eos # (Auto) 0.11 (0.04-0.54) x10^3/uL Immature Gran # (Auto) 0.03 (0.001-0.031) x10^3u/L Absolute Lymphs (auto) 1.01 L (1.32-3.57) x10^3/uL Absolute Monos (auto) 1.13 H (0.30-0.82) x10^3/uL Absolute Nucleated RBC 0.00 (0.00-0.012) x10^3u/L Lymphocytes % 12.8 L (21.8-53.1) % Monocytes % 14.3 H (5.3-12.2) % Eosinophils % 1.4 (0.8-7.0) % Basophils % 0.8 (0.2-1.2) % Absolute Granulocytes 5.54 H (1.78-5.38) x10^3/uL Basophils # 0.06 (0.01-0.08) x10^3/uL Sodium 141 (135-145) mmol/L Potassium 4.8 (3.5-5.1) mmol/L Chloride 110 H (98-107) mmol/L Carbon Dioxide 21 L (22-30) mmol/L Anion Gap 15.4 H (5-15) MEQ/L BUN 31 H (9-20) mg/dL Creatinine 1.33 H (0.66-1.25) mg/dL Estimated GFR 51.7 ML/MIN Glucose 103 (74-106) mg/dL Calcium 8.9 (8.4-10.2) mg/dL Magnesium 2.0 (1.6-2.3) mg/dL Total Bilirubin 0.60 (0.2-1.3) mg/dL AST 23 (17-59) U/L ALT 14 (0-50) U/L Alkaline Phosphatase 60 (38-126) U/L Troponin I 0.074 H* (0.000-0.033) ng/mL NT-Pro-B Natriuret Pep 1790 (<300) pg/mL Serum Total Protein 6.2 L (6.3-8.2) g/dL Albumin 3.3 L (3.5-5.0) g/dL Free T4 (0.78-2.19) ng/dL TSH 3rd Generation (0.470-4.680) mIU/L Urine Color (Yellow) Urine Appearance (Clear) Urine pH (4.6-8.0) Ur Specific [place] (1.005-1.030) Urine Protein (Negative) Urine Glucose (UA) (Negative) mg/dL Urine Ketones (Negative) Urine Blood (Negative) Urine Nitrite (Negative) Urine Bilirubin (Negative) Urine Urobilinogen (0.2) mg/dL Ur Leukocyte Esterase (Negative) U Hyaline Cast (Auto) (0-2) /LPF Urine Microscopic RBC (0-5) /HPF Urine Microscopic WBC (0-5) /HPF Ur Epithelial Cells (None Seen) /HPF Urine Bacteria (None Seen) /HPF Urine Yeast (Budding) (None Seen) /HPF Urine Culture Reflexed (NO) Influenza Type A Ag (NEGATIVE) Influenza Type B Ag (NEGATIVE) RSV (PCR) (NEGATIVE) SARS-CoV-2 (PCR) (NEGATIVE) 12/12/23 12/12/23 12/12/23 Range/Units 11:33 11:33 11:33 WBC (4.23-9.07) x10^3/uL RBC (4.63-6.08) x10^6/uL Hgb (13.7-17.5) g/dL Hct (40.1-51.0) % MCV (79.0-92.2) fL MCH (25.7-32.2) pg MCHC (32.3-36.5) g/dL RDW (11.6-14.4) % Plt Count (163-337) x10^3/uL MPV (9.4-12.4) fL Gran % (34.0-67.9) % Immature Gran % (Auto) (0.001-0.429) % Nucleat RBC Rel Count (0.00-0.2) % Eos # (Auto) (0.04-0.54) x10^3/uL Immature Gran # (Auto) (0.001-0.031) x10^3u/L Absolute Lymphs (auto) (1.32-3.57) x10^3/uL Absolute Monos (auto) (0.30-0.82) x10^3/uL Absolute Nucleated RBC (0.00-0.012) x10^3u/L Lymphocytes % (21.8-53.1) % Monocytes % (5.3-12.2) % Eosinophils % (0.8-7.0) % Basophils % (0.2-1.2) % Absolute Granulocytes (1.78-5.38) x10^3/uL Basophils # (0.01-0.08) x10^3/uL Sodium (135-145) mmol/L Potassium (3.5-5.1) mmol/L Chloride (98-107) mmol/L Carbon Dioxide (22-30) mmol/L Anion Gap (5-15) MEQ/L BUN (9-20) mg/dL Creatinine (0.66-1.25) mg/dL Estimated GFR ML/MIN Glucose (74-106) mg/dL Calcium (8.4-10.2) mg/dL Magnesium (1.6-2.3) mg/dL Total Bilirubin (0.2-1.3) mg/dL AST (17-59) U/L ALT (0-50) U/L Alkaline Phosphatase (38-126) U/L Troponin I (0.000-0.033) ng/mL NT-Pro-B Natriuret Pep (<300) pg/mL Serum Total Protein (6.3-8.2) g/dL Albumin (3.5-5.0) g/dL Free T4 1.24 (0.78-2.19) ng/dL TSH 3rd Generation 8.141 H (0.470-4.680) mIU/L Urine Color (Yellow) Urine Appearance (Clear) Urine pH (4.6-8.0) Ur Specific [place] (1.005-1.030) Urine Protein (Negative) Urine Glucose (UA) (Negative) mg/dL Urine Ketones (Negative) Urine Blood (Negative) Urine Nitrite (Negative) Urine Bilirubin (Negative) Urine Urobilinogen (0.2) mg/dL Ur Leukocyte Esterase (Negative) U Hyaline Cast (Auto) (0-2) /LPF Urine Microscopic RBC (0-5) /HPF Urine Microscopic WBC (0-5) /HPF Ur Epithelial Cells (None Seen) /HPF Urine Bacteria (None Seen) /HPF Urine Yeast (Budding) (None Seen) /HPF Urine Culture Reflexed (NO) Influenza Type A Ag NEGATIVE (NEGATIVE) Influenza Type B Ag NEGATIVE (NEGATIVE) RSV (PCR) NEGATIVE (NEGATIVE) SARS-CoV-2 (PCR) NEGATIVE (NEGATIVE) 12/12/23 12/12/23 Range/Units 12:48 14:10 WBC (4.23-9.07) x10^3/uL RBC (4.63-6.08) x10^6/uL Hgb (13.7-17.5) g/dL Hct (40.1-51.0) % MCV (79.0-92.2) fL MCH (25.7-32.2) pg MCHC (32.3-36.5) g/dL RDW (11.6-14.4) % Plt Count (163-337) x10^3/uL MPV (9.4-12.4) fL Gran % (34.0-67.9) % Immature Gran % (Auto) (0.001-0.429) % Nucleat RBC Rel Count (0.00-0.2) % Eos # (Auto) (0.04-0.54) x10^3/uL Immature Gran # (Auto) (0.001-0.031) x10^3u/L Absolute Lymphs (auto) (1.32-3.57) x10^3/uL Absolute Monos (auto) (0.30-0.82) x10^3/uL Absolute Nucleated RBC (0.00-0.012) x10^3u/L Lymphocytes % (21.8-53.1) % Monocytes % (5.3-12.2) % Eosinophils % (0.8-7.0) % Basophils % (0.2-1.2) % Absolute Granulocytes (1.78-5.38) x10^3/uL Basophils # (0.01-0.08) x10^3/uL Sodium (135-145) mmol/L Potassium (3.5-5.1) mmol/L Chloride (98-107) mmol/L Carbon Dioxide (22-30) mmol/L Anion Gap (5-15) MEQ/L BUN (9-20) mg/dL Creatinine (0.66-1.25) mg/dL Estimated GFR ML/MIN Glucose (74-106) mg/dL Calcium (8.4-10.2) mg/dL Magnesium (1.6-2.3) mg/dL Total Bilirubin (0.2-1.3) mg/dL AST (17-59) U/L ALT (0-50) U/L Alkaline Phosphatase (38-126) U/L Troponin I 0.069 H* (0.000-0.033) ng/mL NT-Pro-B Natriuret Pep (<300) pg/mL Serum Total Protein (6.3-8.2) g/dL Albumin (3.5-5.0) g/dL Free T4 (0.78-2.19) ng/dL TSH 3rd Generation (0.470-4.680) mIU/L Urine Color Yellow (Yellow) Urine Appearance Clear (Clear) Urine pH 5.5 (4.6-8.0) Ur Specific [place] 1.010 (1.005-1.030) Urine Protein Negative (Negative) Urine Glucose (UA) Negative (Negative) mg/dL Urine Ketones Negative (Negative) Urine Blood Negative (Negative) Urine Nitrite Negative (Negative) Urine Bilirubin Negative (Negative) Urine Urobilinogen 0.2 (0.2) mg/dL Ur Leukocyte Esterase Moderate A (Negative) U Hyaline Cast (Auto) 3-5 A (0-2) /LPF Urine Microscopic RBC 0-2 (0-5) /HPF Urine Microscopic WBC 21-50 A (0-5) /HPF Ur Epithelial Cells None Seen (None Seen) /HPF Urine Bacteria None Seen (None Seen) /HPF Urine Yeast (Budding) Few A (None Seen) /HPF Urine Culture Reflexed YES (NO) Influenza Type A Ag (NEGATIVE) Influenza Type B Ag (NEGATIVE) RSV (PCR) (NEGATIVE) SARS-CoV-2 (PCR) (NEGATIVE) - Radiology Impressions Radiology Exams & Impressions: Radiology Procedures Category Date Time Status CHEST 1 VIEW (PORTABLE) Stat Exams 12/12/23 11:13 Taken HEAD WITHOUT CONTRAST [CT] Stat Exams 12/12/23 11:14 Completed - Other Procedures and Tests Respiratory Therapy 12/12/23 16:52 EKG REPEAT IN AM Assessment/Plan (1) UTI (urinary tract infection) Current Visit: Yes Status: Acute Assessment & Plan: -suspicious for infection -ceftriaxone given in ED, will continue and follow culture Code(s): N39.0 - URINARY TRACT INFECTION, SITE NOT SPECIFIED (2) Dizziness Current Visit: Yes Status: Acute Assessment & Plan: -CT head showing an 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, likely a sequela of a previous vascular event - follow up OP -no MRI with pacemaker -orthostatic vitals -tele -EKG -atrial paced, no ST elevations/deviations -med review -PT/OT consult -Echo - nothing recent on file - [place] with [place] -consider pacemaker interrogation -TSH elevated, will adjust Synthroid dose- of note TSH level was 20.200 10/02/23 - pt was started on 25mcg at that time per daughter Code(s): R42 - DIZZINESS AND GIDDINESS (3) Anemia, macrocytic Current Visit: Yes Status: Acute Assessment & Plan: -macrocytic -iron studies -trend Code(s): D53.9 - NUTRITIONAL ANEMIA, UNSPECIFIED (4) PB (acute kidney injury) Current Visit: Yes Status: Acute Assessment & Plan: -Most likely secondary to hypovolemia -gentle hydration -hold spironolactone -avoid RADHIKA/ARB/NSAIDs/diuretics Code(s): N17.9 - ACUTE KIDNEY FAILURE, UNSPECIFIED (5) Acidosis, unspecified Current Visit: Yes Status: Acute Assessment & Plan: -mild, continue to trend Code(s): E87.20 - ACIDOSIS, UNSPECIFIED (6) Elevated troponin Current Visit: Yes Status: Acute Assessment & Plan: -Denies CP - may be 2/2 to renal insufficiency -BNP at 1790 -downtrending 0.069<0.074 - trend -EKG -atrial paced with no ST elevation/deviation Code(s): R79.89 - OTHER SPECIFIED ABNORMAL FINDINGS OF BLOOD CHEMISTRY (7) CHF (congestive heart failure) Current Visit: Yes Status: Acute Assessment & Plan: -No echo on file - will obtain records - echo when available if not done recently -continue home meds -cxr right base atelectasis versus early infiltrate and no evidence of pleural e ffusions Code(s): I50.9 - HEART FAILURE, UNSPECIFIED (8) HTN (hypertension) Current Visit: Yes Status: Acute Assessment & Plan: -pt states BP has been running low at home, will monitor - current read is 111/51 -Check orthostatic vitals Code(s): I10 - ESSENTIAL (PRIMARY) HYPERTENSION (9) HLD (hyperlipidemia) Current Visit: Yes Status: Acute Assessment & Plan: -continue statin VTE: lovenox PPI: protonix Dispo: 1-2 days Full Code Code(s): E78.5 - HYPERLIPIDEMIA, UNSPECIFIED Telemedicine Encounter - Telemedicine Encounter Telemedicine Encounter: The entirety of this encounter was performed via Telemedicine"
--- NOTE | 2023-12-12 20:47 | XRAY ---
Indication: Weakness. Comparison: October 02, 2023 Portable chest again hyperinflated. No focal infiltrate, consolidation, or large effusion. Heart not enlarged for AP portable technique again with left AICD. Bony thorax intact again with osteopenia and degenerative changes. Impression: Continued nonacute hyperinflated chest with chronic features.
--- NOTE | 2023-12-13 06:03 | PCM.NOTE ---
Date and Time: 12/13/23601 Subjective Assessment: HPI: Mr. Brewer is an 88 year old male with a pmhx of CHF, HLD, HTN, and VTach (pacemaker/defib) who presented to ED after experiencing about a two to three week history of intermittent dizziness and weakness that has gotten worse today. He endorses that he has sudden bouts of dizziness and trouble maintaining balance when episodes occurs. He denies room-spinning sensation, visual changes, cp, or feeling faint. He does report his legs feel "rubbery" at times and he has been having increased shortness of breath with a non-productive cough. 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 He follows with Dr. Burt (cardiology) at [facility] and reports that he recently had his pacemaker interrogated in August and it was working properly. In ED, vitals stable. EKG per ED physician interpretation atrial paced rhythm at 60bpm, no ST elevation/deviations. 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 MRI DWI/Stroke protocol is advised to rule out acute ischemic infarction. Chest xray with right base atelectasis vs early infiltrate. Lab findings remarkable for macrocytic anemia, wit hgb at 11.2, Gap acidosis, elevated troponin 0.0 69<0.074, TSH elevated, UA suspicious for infection, and PB. Ceftriaxone given in ED. Objective Data Vital Signs: Vital Signs - 24 hr Temp Pulse Resp BP BP Pulse Ox 12/13/23 04:20 61 18 93 L 12/13/23 04:00 97.5 F 65 26 H 169/85 88 L 12/12/23 23:40 97.8 F 60 20 150/68 95 12/12/23 19:58 97.3 F 60 18 120/56 96 12/12/23 16:45 97.6 F 60 19 133/63 99 12/12/23 16:02 74 20 111/51 92 L 12/12/23 15:30 80 12 152/127 95 12/12/23 15:01 148/79 12/12/23 14:30 60 30 H 135/62 87 L 12/12/23 14:00 78 15 134/80 96 12/12/23 13:31 69 15 131/60 91 L 12/12/23 13:00 66 23 126/63 95 12/12/23 12:30 64 17 123/71 97 12/12/23 12:25 66 13 106/47 95 12/12/23 11:12 96 12/12/23 11:10 60 15 124/84 96 12/12/23 11:07 97.0 F 67 20 124/84 96 Pain Assessment - Last Documented Pain Intensity 0 Intake and Output: Intake & Output 12/10/23 12/11/23 12/12/23 12/13/23 11:59 11:59 11:59 11:59 Intake Total 1547 Balance 1547 Weight 77.2 kg 79 kg Lab Results: Lab Results-Last 24 Hours 12/12/23 12/12/23 12/12/23 Range/Units 11:33 11:33 11:33 WBC 7.9 (4.23-9.07) x10^3/uL RBC 3.74 L (4.63-6.08) x10^6/uL Hgb 11.2 L (13.7-17.5) g/dL Hct 36.5 L (40.1-51.0) % MCV 97.6 H (79.0-92.2) fL MCH 29.9 (25.7-32.2) pg MCHC 30.7 L (32.3-36.5) g/dL RDW 15.3 H (11.6-14.4) % Plt Count 163 (163-337) x10^3/uL MPV 9.2 L (9.4-12.4) fL Gran % 70.3 H (34.0-67.9) % Immature Gran % (Auto) 0.4 (0.001-0.429) % Nucleat RBC Rel Count 0.0 (0.00-0.2) % Eos # (Auto) 0.11 (0.04-0.54) x10^3/uL Immature Gran # (Auto) 0.03 (0.001-0.031) x10^3u/L Absolute Lymphs (auto) 1.01 L (1.32-3.57) x10^3/uL Absolute Monos (auto) 1.13 H (0.30-0.82) x10^3/uL Absolute Nucleated RBC 0.00 (0.00-0.012) x10^3u/L Lymphocytes % 12.8 L (21.8-53.1) % Monocytes % 14.3 H (5.3-12.2) % Eosinophils % 1.4 (0.8-7.0) % Basophils % 0.8 (0.2-1.2) % Absolute Granulocytes 5.54 H (1.78-5.38) x10^3/uL Basophils # 0.06 (0.01-0.08) x10^3/uL Sodium 141 (135-145) mmol/L Potassium 4.8 (3.5-5.1) mmol/L Chloride 110 H (98-107) mmol/L Carbon Dioxide 21 L (22-30) mmol/L Anion Gap 15.4 H (5-15) MEQ/L BUN 31 H (9-20) mg/dL Creatinine 1.33 H (0.66-1.25) mg/dL Estimated GFR 51.7 ML/MIN Glucose 103 (74-106) mg/dL Calcium 8.9 (8.4-10.2) mg/dL Magnesium 2.0 (1.6-2.3) mg/dL Total Bilirubin 0.60 (0.2-1.3) mg/dL AST 23 (17-59) U/L ALT 14 (0-50) U/L Alkaline Phosphatase 60 (38-126) U/L Troponin I 0.074 H* (0.000-0.033) ng/mL NT-Pro-B Natriuret Pep 1790 (<300) pg/mL Serum Total Protein 6.2 L (6.3-8.2) g/dL Albumin 3.3 L (3.5-5.0) g/dL Free T4 (0.78-2.19) ng/dL TSH 3rd Generation (0.470-4.680) mIU/L Urine Color (Yellow) Urine Appearance (Clear) Urine pH (4.6-8.0) Ur Specific [place] (1.005-1.030) Urine Protein (Negative) Urine Glucose (UA) (Negative) mg/dL Urine Ketones (Negative) Urine Blood (Negative) Urine Nitrite (Negative) Urine Bilirubin (Negative) Urine Urobilinogen (0.2) mg/dL Ur Leukocyte Esterase (Negative) U Hyaline Cast (Auto) (0-2) /LPF Urine Microscopic RBC (0-5) /HPF Urine Microscopic WBC (0-5) /HPF Ur Epithelial Cells (None Seen) /HPF Urine Bacteria (None Seen) /HPF Urine Yeast (Budding) (None Seen) /HPF Urine Culture Reflexed (NO) Influenza Type A Ag (NEGATIVE) Influenza Type B Ag (NEGATIVE) RSV (PCR) (NEGATIVE) SARS-CoV-2 (PCR) (NEGATIVE) 12/12/23 12/12/23 12/12/23 Range/Units 11:33 11:33 11:33 WBC (4.23-9.07) x10^3/uL RBC (4.63-6.08) x10^6/uL Hgb (13.7-17.5) g/dL Hct (40.1-51.0) % MCV (79.0-92.2) fL MCH (25.7-32.2) pg MCHC (32.3-36.5) g/dL RDW (11.6-14.4) % Plt Count (163-337) x10^3/uL MPV (9.4-12.4) fL Gran % (34.0-67.9) % Immature Gran % (Auto) (0.001-0.429) % Nucleat RBC Rel Count (0.00-0.2) % Eos # (Auto) (0.04-0.54) x10^3/uL Immature Gran # (Auto) (0.001-0.031) x10^3u/L Absolute Lymphs (auto) (1.32-3.57) x10^3/uL Absolute Monos (auto) (0.30-0.82) x10^3/uL Absolute Nucleated RBC (0.00-0.012) x10^3u/L Lymphocytes % (21.8-53.1) % Monocytes % (5.3-12.2) % Eosinophils % (0.8-7.0) % Basophils % (0.2-1.2) % Absolute Granulocytes (1.78-5.38) x10^3/uL Basophils # (0.01-0.08) x10^3/uL Sodium (135-145) mmol/L Potassium (3.5-5.1) mmol/L Chloride (98-107) mmol/L Carbon Dioxide (22-30) mmol/L Anion Gap (5-15) MEQ/L BUN (9-20) mg/dL Creatinine (0.66-1.25) mg/dL Estimated GFR ML/MIN Glucose (74-106) mg/dL Calcium (8.4-10.2) mg/dL Magnesium (1.6-2.3) mg/dL Total Bilirubin (0.2-1.3) mg/dL AST (17-59) U/L ALT (0-50) U/L Alkaline Phosphatase (38-126) U/L Troponin I (0.000-0.033) ng/mL NT-Pro-B Natriuret Pep (<300) pg/mL Serum Total Protein (6.3-8.2) g/dL Albumin (3.5-5.0) g/dL Free T4 1.24 (0.78-2.19) ng/dL TSH 3rd Generation 8.141 H (0.470-4.680) mIU/L Urine Color (Yellow) Urine Appearance (Clear) Urine pH (4.6-8.0) Ur Specific [place] (1.005-1.030) Urine Protein (Negative) Urine Glucose (UA) (Negative) mg/dL Urine Ketones (Negative) Urine Blood (Negative) Urine Nitrite (Negative) Urine Bilirubin (Negative) Urine Urobilinogen (0.2) mg/dL Ur Leukocyte Esterase (Negative) U Hyaline Cast (Auto) (0-2) /LPF Urine Microscopic RBC (0-5) /HPF Urine Microscopic WBC (0-5) /HPF Ur Epithelial Cells (None Seen) /HPF Urine Bacteria (None Seen) /HPF Urine Yeast (Budding) (None Seen) /HPF Urine Culture Reflexed (NO) Influenza Type A Ag NEGATIVE (NEGATIVE) Influenza Type B Ag NEGATIVE (NEGATIVE) RSV (PCR) NEGATIVE (NEGATIVE) SARS-CoV-2 (PCR) NEGATIVE (NEGATIVE) 12/12/23 12/12/23 12/12/23 Range/Units 12:48 14:10 18:15 WBC (4.23-9.07) x10^3/uL RBC (4.63-6.08) x10^6/uL Hgb (13.7-17.5) g/dL Hct (40.1-51.0) % MCV (79.0-92.2) fL MCH (25.7-32.2) pg MCHC (32.3-36.5) g/dL RDW (11.6-14.4) % Plt Count (163-337) x10^3/uL MPV (9.4-12.4) fL Gran % (34.0-67.9) % Immature Gran % (Auto) (0.001-0.429) % Nucleat RBC Rel Count (0.00-0.2) % Eos # (Auto) (0.04-0.54) x10^3/uL Immature Gran # (Auto) (0.001-0.031) x10^3u/L Absolute Lymphs (auto) (1.32-3.57) x10^3/uL Absolute Monos (auto) (0.30-0.82) x10^3/uL Absolute Nucleated RBC (0.00-0.012) x10^3u/L Lymphocytes % (21.8-53.1) % Monocytes % (5.3-12.2) % Eosinophils % (0.8-7.0) % Basophils % (0.2-1.2) % Absolute Granulocytes (1.78-5.38) x10^3/uL Basophils # (0.01-0.08) x10^3/uL Sodium (135-145) mmol/L Potassium (3.5-5.1) mmol/L Chloride (98-107) mmol/L Carbon Dioxide (22-30) mmol/L Anion Gap (5-15) MEQ/L BUN (9-20) mg/dL Creatinine (0.66-1.25) mg/dL Estimated GFR ML/MIN Glucose (74-106) mg/dL Calcium (8.4-10.2) mg/dL Magnesium (1.6-2.3) mg/dL Total Bilirubin (0.2-1.3) mg/dL AST (17-59) U/L ALT (0-50) U/L Alkaline Phosphatase (38-126) U/L Troponin I 0.069 H* 0.071 H* (0.000-0.033) ng/mL NT-Pro-B Natriuret Pep (<300) pg/mL Serum Total Protein (6.3-8.2) g/dL Albumin (3.5-5.0) g/dL Free T4 (0.78-2.19) ng/dL TSH 3rd Generation (0.470-4.680) mIU/L Urine Color Yellow (Yellow) Urine Appearance Clear (Clear) Urine pH 5.5 (4.6-8.0) Ur Specific [place] 1.010 (1.005-1.030) Urine Protein Negative (Negative) Urine Glucose (UA) Negative (Negative) mg/dL Urine Ketones Negative (Negative) Urine Blood Negative (Negative) Urine Nitrite Negative (Negative) Urine Bilirubin Negative (Negative) Urine Urobilinogen 0.2 (0.2) mg/dL Ur Leukocyte Esterase Moderate A (Negative) U Hyaline Cast (Auto) 3-5 A (0-2) /LPF Urine Microscopic RBC 0-2 (0-5) /HPF Urine Microscopic WBC 21-50 A (0-5) /HPF Ur Epithelial Cells None Seen (None Seen) /HPF Urine Bacteria None Seen (None Seen) /HPF Urine Yeast (Budding) Few A (None Seen) /HPF Urine Culture Reflexed YES (NO) Influenza Type A Ag (NEGATIVE) Influenza Type B Ag (NEGATIVE) RSV (PCR) (NEGATIVE) SARS-CoV-2 (PCR) (NEGATIVE) Radiology Exams: Radiology Procedures Category Date Time Status CHEST 1 VIEW (PORTABLE) Stat Exams 12/12/23 11:13 Completed HEAD WITHOUT CONTRAST [CT] Stat Exams 12/12/23 11:14 Completed Assessment/Plan (1) UTI (urinary tract infection) Current Visit: Yes Status: Acute Assessment & Plan: -suspicious for infection -ceftriaxone given in ED, will continue and follow culture Code(s): N39.0 - URINARY TRACT INFECTION, SITE NOT SPECIFIED (2) Dizziness Current Visit: Yes Status: Acute Assessment & Plan: -CT head showing an 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 Stevensr -consider pacemaker interrogation -TSH elevated, will adjust Synthroid dose- of note TSH level was 20.200 10/02/23 - pt was started on 25mcg at that time per daughter Code(s): R42 - DIZZINESS AND GIDDINESS (3) Anemia, macrocytic Current Visit: Yes Status: Acute Assessment & Plan: -macrocytic -iron studies -trend Code(s): D53.9 - NUTRITIONAL ANEMIA, UNSPECIFIED (4) PB (acute kidney injury) Current Visit: Yes Status: Acute Assessment & Plan: -Most likely secondary to hypovolemia -gentle hydration -hold spironolactone -avoid RADHIKA/ARB/NSAIDs/diuretics Code(s): N17.9 - ACUTE KIDNEY FAILURE, UNSPECIFIED (5) Acidosis, unspecified Current Visit: Yes Status: Acute Assessment & Plan: -mild, continue to trend Code(s): E87.20 - ACIDOSIS, UNSPECIFIED (6) Elevated troponin Current Visit: Yes Status: Acute Assessment & Plan: -Denies CP - may be 2/2 to renal insufficiency -BNP at 1790 -downtrending 0.069<0.074 - trend -EKG -atrial paced with no ST elevation/deviation Code(s): R79.89 - OTHER SPECIFIED ABNORMAL FINDINGS OF BLOOD CHEMISTRY (7) CHF (congestive heart failure) Current Visit: Yes Status: Acute Assessment & Plan: -No echo on file - will obtain records - echo when available if not done recently -continue home meds -cxr right base atelectasis versus early infiltrate and no evidence of pleural effusions Code(s): I50.9 - HEART FAILURE, UNSPECIFIED (8) HTN (hypertension) Current Visit: Yes Status: Acute Assessment & Plan: -pt states BP has been running low at home, will monitor - current read is 111/51 -Check orthostatic vitals Code(s): I10 - ESSENTIAL (PRIMARY) HYPERTENSION (9) HLD (hyperlipidemia) Current Visit: Yes Status: Acute Assessment & Plan: -continue statin VTE: lovenox PPI: protonix Dispo: 1-2 days Full Code Code(s): N39.0 - URINARY TRACT INFECTION, SITE NOT SPECIFIED (2) Dizziness Current Visit: Yes Status: Acute Code(s): R42 - DIZZINESS AND GIDDINESS (3) Anemia, macrocytic Current Visit: Yes Status: Acute Code(s): D53.9 - NUTRITIONAL ANEMIA, UNSPECIFIED (4) PB (acute kidney injury) Current Visit: Yes Status: Acute Code(s): N17.9 - ACUTE KIDNEY FAILURE, UNSPECIFIED (5) Acidosis, unspecified Current Visit: Yes Status: Acute Code(s): E87.20 - ACIDOSIS, UNSPECIFIED (6) Elevated troponin Current Visit: Yes Status: Acute Code(s): R79.89 - OTHER SPECIFIED ABNORMAL FINDINGS OF BLOOD CHEMISTRY (7) CHF (congestive heart failure) Current Visit: Yes Status: Acute Code(s): I50.9 - HEART FAILURE, UNSPECIFIED (8) HTN (hypertension) Current Visit: Yes Status: Acute Code(s): I10 - ESSENTIAL (PRIMARY) HYPERTENSION (9) HLD (hyperlipidemia) Current Visit: Yes Status: Acute Code(s): E78.5 - HYPERLIPIDEMIA, UNSPECIFIED
[2023-12-13 06:31] LABS: Absolute Neutrophil Ct (ANC) 6.34 x10^3/uL (1.78-5.38); BASOPHIL % 0.6 % (0.2-1.2); Basophil (Absolute #) 0.05 x10^3/uL (0.01-0.08); Eosinophil % 1.5 % (0.8-7.0); Eosinophil (Absolute #) 0.13 x10^3/uL (0.04-0.54); Hematocrit 35.4 % (40.1-51.0); Hemoglobin 11.1 g/dL (13.7-17.5); IMMATURE GRAN # 0.04 x10^3u/L (0.001-0.031); IMMATURE GRAN % 0.5 % (0.001-0.429); Lymphocyte (Absolute #) 1.03 x10^3/uL (1.32-3.57); Mean Cell Volume 95.9 fL (79.0-92.2); Mean Corpuscular Hemoglobin 30.1 pg (25.7-32.2); Mean Corpuscular Hgb Concent. 31.4 g/dL (32.3-36.5); Mean Platelet Volume 8.8 fL (9.4-12.4); Monocytes % 11.6 % (5.3-12.2); Neutrophil % 73.8 % (34.0-67.9); Platelet Count 179 x10^3/uL (163-337); Red Blood Count 3.69 x10^6/uL (4.63-6.08); Red Cell Distribution Width 15.2 % (11.6-14.4); White Blood Count 8.6 x10^3/uL (4.23-9.07)
[2023-12-13 06:54] LABS: ANION GAP 11.1 MEQ/L (5-15); BILIRUBIN,TOTAL 0.6 mg/dL (0.2-1.3); Calcium 8.3 mg/dL (8.4-10.2); Creatinine 1 1.09 mg/dL (0.66-1.25); EST GLOMERULAR FILTRATION RATE 65.7 ML/MIN; Potassium 4.1 mmol/L (3.5-5.1)
[2023-12-13] MEDS: ROCEPHIN 2 GM/100 ML NACL 2 GM/100 ML IVPB IV SCH (09:18)
[2023-12-13] MEDS: ENOXAPARIN SODIUM SQ SCH (09:25)
[2023-12-13] MEDS ORDERED: Levofloxacin 500MG/100ML D5W 500 MG/100 ML BAG IV SCH (10:00)
--- NOTE | 2023-12-13 11:41 | PCM.DS ---
Discharge Summary Date of Admission: 12/12/23 16:41 Date of Discharge: 12/13/23 Admitting Physician: GEN ROSADO MD Primary Care Provider: LUIS F VEGAS Allergies Allergies No Known Drug Allergies Allergy (Verified 12/12/23 10:48) Hospital Summary - Hospital Course Hospital Course: HPI: Mr. Brewer is an 88 year old male with a pmhx of CHF, HLD, HTN, and VTach (pacemaker/defib) who presented to ED after experiencing about a two to three week history of intermittent dizziness and weakness that has gotten worse today. He endorses that he has sudden bouts of dizziness and trouble maintaining balance when episodes occurs. He denies room-spinning sensation, visual changes, cp, or feeling faint. He does report his legs feel "rubbery" at times and he has been having increased shortness of breath with a non-productive cough. 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 He follows with Dr. Burt (cardiology) at [facility] and reports that he recently had his pacemaker interrogated in August and it was working properly. In ED, vitals stable. EKG per ED physician interpretation atrial paced rhythm at 60bpm, no ST elevation/deviations. 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 MRI DWI/Stroke protocol is advised to rule out acute ischemic infarction. Chest xray with right base atelectasis vs early infiltrate. Lab findings remarkable for macrocytic anemia, wit hgb at 11.2, Gap acidosis, elevated troponin 0.069<0.074, TSH elevated, UA suspicious for infection, and PB. Ceftriaxone given in ED. Patient doing well after overnight hydration/antibiotics. No further dizziness. Labs and vitals stable. Requesting discharge. Patient advised follow up with PCP will need to have TSH level evaluated and recheck urine for resolution of UTI. Will send home on cefdinir. Patient agreeable to plan and ready for discharge. 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 Greene -consider pacemaker interrogation -TSH elevated, will adjust Synthroid dose- of note TSH level was 20.200 10/02/23 - pt was started on 25mcg at that time per daughter- pt to follow up with pcp Code(s): R42 - DIZZINESS AND GIDDINESS (3) Anemia, macrocytic Current Visit: Yes Status: Acute Assessment & Plan: -macrocytic -iron studies -trend Code(s): D53.9 - NUTRITIONAL ANEMIA, UNSPECIFIED (4) PB (acute kidney injury) Current Visit: Yes Status: Acute Assessment & Plan: -Most likely secondary to hypovolemia -gentle hydration -hold spironolactone -avoid RADHIKA/ARB/NSAIDs/diuretics 12/12: -resolved Code(s): N17.9 - ACUTE KIDNEY FAILURE, UNSPECIFIED (5) Acidosis, unspecified Current Visit: Yes Status: Acute Assessment & Plan: -mild, continue to trend Code(s): E87.20 - ACIDOSIS, UNSPECIFIED (6) Elevated troponin Current Visit: Yes Status: Acute Assessment & Plan: -Denies CP - may be 2/2 to renal insufficiency -BNP at 1790 -downtrending 0.069<0.074 - trend -EKG -atrial paced with no ST elevation/deviation Code(s): R79.89 - OTHER SPECIFIED ABNORMAL FINDINGS OF BLOOD CHEMISTRY (7) CHF (congestive heart failure) Current Visit: Yes Status: Acute Assessment & Plan: -No echo on file - will obtain records - echo when available if not done recently -continue home meds -cxr right base atelectasis versus early infiltrate and no evidence of pleural effusions Code(s): I50.9 - HEART FAILURE, UNSPECIFIED (8) HTN (hypertension) Current Visit: Yes Status: Acute Assessment & Plan: -pt states BP has been running low at home, will monitor - current read is 111/51 -Check orthostatic vitals Code(s): I10 - ESSENTIAL (PRIMARY) HYPERTENSION (9) HLD (hyperlipidemia) Current Visit: Yes Status: Acute Assessment & Plan: -continue statin I spent 35 minutes [id number] with the patient on the day of discharge performing discharge exam, discussing hospital stay and discharge instructions with patient and caregivers, preparation of discharge records, prescriptions & referral forms and addressing any questions/concerns the patient had as documented above. - Vitals & Intake/Output Vital Signs: Vital Signs Temperature 97.6 F 12/13/23 08:00 Pulse Rate 64 12/13/23 08:00 Respiratory Rate 18 12/13/23 08:00 Blood Pressure 140/67 12/13/23 08:00 O2 Sat by Pulse Oximetry 91 L 12/13/23 08:00 Intake & Output: Intake & Output 12/10/23 12/11/23 12/12/23 12/13/23 11:59 11:59 11:59 11:59 Intake Total 1787 Balance 1787 Weight 77.2 kg 79 kg - Lab Result Diagrams: 12/13/23 06:20 12/13/23 06:20 Lab Results-Last 24 Hrs: Lab Results-Last 24 Hours 12/12/23 12/12/23 12/12/23 Range/Units 11:33 11:33 11:33 WBC 7.9 (4.23-9.07) x10^3/uL RBC 3.74 L (4.63-6.08) x10^6/uL Hgb 11.2 L (13.7-17.5) g/dL Hct 36.5 L (40.1-51.0) % MCV 97.6 H (79.0-92.2) fL MCH 29.9 (25.7-32.2) pg MCHC 30.7 L (32.3-36.5) g/dL RDW 15.3 H (11.6-14.4) % Plt Count 163 (163-337) x10^3/uL MPV 9.2 L (9.4-12.4) fL Gran % 70.3 H (34.0-67.9) % Immature Gran % (Auto) 0.4 (0.001-0.429) % Nucleat RBC Rel Count 0.0 (0.00-0.2) % Eos # (Auto) 0.11 (0.04-0.54) x10^3/uL Immature Gran # (Auto) 0.03 (0.001-0.031) x10^3u/L Absolute Lymphs (auto) 1.01 L (1.32-3.57) x10^3/uL Absolute Monos (auto) 1.13 H (0.30-0.82) x10^3/uL Absolute Nucleated RBC 0.00 (0.00-0.012) x10^3u/L Lymphocytes % 12.8 L (21.8-53.1) % Monocytes % 14.3 H (5.3-12.2) % Eosinophils % 1.4 (0.8-7.0) % Basophils % 0.8 (0.2-1.2) % Absolute Granulocytes 5.54 H (1.78-5.38) x10^3/uL Basophils # 0.06 (0.01-0.08) x10^3/uL Sodium 141 (135-145) mmol/L Potassium 4.8 (3.5-5.1) mmol/L Chloride 110 H (98-107) mmol/L Carbon Dioxide 21 L (22-30) mmol/L Anion Gap 15.4 H (5-15) MEQ/L BUN 31 H (9-20) mg/dL Creatinine 1.33 H (0.66-1.25) mg/dL Estimated GFR 51.7 ML/MIN Glucose 103 (74-106) mg/dL Calcium 8.9 (8.4-10.2) mg/dL Magnesium 2.0 (1.6-2.3) mg/dL Total Bilirubin 0.60 (0.2-1.3) mg/dL AST 23 (17-59) U/L ALT 14 (0-50) U/L Alkaline Phosphatase 60 (38-126) U/L Troponin I 0.074 H* (0.000-0.033) ng/mL NT-Pro-B Natriuret Pep 1790 (<300) pg/mL Serum Total Protein 6.2 L (6.3-8.2) g/dL Albumin 3.3 L (3.5-5.0) g/dL Free T4 (0.78-2.19) ng/dL TSH 3rd Generation (0.470-4.680) mIU/L Urine Color (Yellow) Urine Appearance (Clear) Urine pH (4.6-8.0) Ur Specific [place] (1.005-1.030) Urine Protein (Negative) Urine Glucose (UA) (Negative) mg/dL Urine Ketones (Negative) Urine Blood (Negative) Urine Nitrite (Negative) Urine Bilirubin (Negative) Urine Urobilinogen (0.2) mg/dL Ur Leukocyte Esterase (Negative) U Hyaline Cast (Auto) (0-2) /LPF Urine Microscopic RBC (0-5) /HPF Urine Microscopic WBC (0-5) /HPF Ur Epithelial Cells (None Seen) /HPF Urine Bacteria (None Seen) /HPF Urine Yeast (Budding) (None Seen) /HPF Urine Culture Reflexed (NO) Influenza Type A Ag (NEGATIVE) Influenza Type B Ag (NEGATIVE) RSV (PCR) (NEGATIVE) SARS-CoV-2 (PCR) (NEGATIVE) 12/12/23 12/12/23 12/12/23 Range/Units 11:33 11:33 11:33 WBC (4.23-9.07) x10^3/uL RBC (4.63-6.08) x10^6/uL Hgb (13.7-17.5) g/dL Hct (40.1-51.0) % MCV (79.0-92.2) fL MCH (25.7-32.2) pg MCHC (32.3-36.5) g/dL RDW (11.6-14.4) % Plt Count (163-337) x10^3/uL MPV (9.4-12.4) fL Gran % (34.0-67.9) % Immature Gran % (Auto) (0.001-0.429) % Nucleat RBC Rel Count (0.00-0.2) % Eos # (Auto) (0.04-0.54) x10^3/uL Immature Gran # (Auto) (0.001-0.031) x10^3u/L Absolute Lymphs (auto) (1.32-3.57) x10^3/uL Absolute Monos (auto) (0.30-0.82) x10^3/uL Absolute Nucleated RBC (0.00-0.012) x10^3u/L Lymphocytes % (21.8-53.1) % Monocytes % (5.3-12.2) % Eosinophils % (0.8-7.0) % Basophils % (0.2-1.2) % Absolute Granulocytes (1.78-5.38) x10^3/uL Basophils # (0.01-0.08) x10^3/uL Sodium (135-145) mmol/L Potassium (3.5-5.1) mmol/L Chloride (98-107) mmol/L Carbon Dioxide (22-30) mmol/L Anion Gap (5-15) MEQ/L BUN (9-20) mg/dL Creatinine (0.66-1.25) mg/dL Estimated GFR ML/MIN Glucose (74-106) mg/dL Calcium (8.4-10.2) mg/dL Magnesium (1.6-2.3) mg/dL Total Bilirubin (0.2-1.3) mg/dL AST (17-59) U/L ALT (0-50) U/L Alkaline Phosphatase (38-126) U/L Troponin I (0.000-0.033) ng/mL NT-Pro-B Natriuret Pep (<300) pg/mL Serum Total Protein (6.3-8.2) g/dL Albumin (3.5-5.0) g/dL Free T4 1.24 (0.78-2.19) ng/dL TSH 3rd Generation 8.141 H (0.470-4.680) mIU/L Urine Color (Yellow) Urine Appearance (Clear) Urine pH (4.6-8.0) Ur Specific [place] (1.005-1.030) Urine Protein (Negative) Urine Glucose (UA) (Negative) mg/dL Urine Ketones (Negative) Urine Blood (Negative) Urine Nitrite (Negative) Urine Bilirubin (Negative) Urine Urobilinogen (0.2) mg/dL Ur Leukocyte Esterase (Negative) U Hyaline Cast (Auto) (0-2) /LPF Urine Microscopic RBC (0-5) /HPF Urine Microscopic WBC (0-5) /HPF Ur Epithelial Cells (None Seen) /HPF Urine Bacteria (None Seen) /HPF Urine Yeast (Budding) (None Seen) /HPF Urine Culture Reflexed (NO) Influenza Type A Ag NEGATIVE (NEGATIVE) Influenza Type B Ag NEGATIVE (NEGATIVE) RSV (PCR) NEGATIVE (NEGATIVE) SARS-CoV-2 (PCR) NEGATIVE (NEGATIVE) 12/12/23 12/12/23 12/12/23 Range/Units 12:48 14:10 18:15 WBC (4.23-9.07) x10^3/uL RBC (4.63-6.08) x10^6/uL Hgb (13.7-17.5) g/dL Hct (40.1-51.0) % MCV (79.0-92.2) fL MCH (25.7-32.2) pg MCHC (32.3-36.5) g/dL RDW (11.6-14.4) % Plt Count (163-337) x10^3/uL MPV (9.4-12.4) fL Gran % (34.0-67.9) % Immature Gran % (Auto) (0.001-0.429) % Nucleat RBC Rel Count (0.00-0.2) % Eos # (Auto) (0.04-0.54) x10^3/uL Immature Gran # (Auto) (0.001-0.031) x10^3u/L Absolute Lymphs (auto) (1.32-3.57) x10^3/uL Absolute Monos (auto) (0.30-0.82) x10^3/uL Absolute Nucleated RBC (0.00-0.012) x10^3u/L Lymphocytes % (21.8-53.1) % Monocytes % (5.3-12.2) % Eosinophils % (0.8-7.0) % Basophils % (0.2-1.2) % Absolute Granulocytes (1.78-5.38) x10^3/uL Basophils # (0.01-0.08) x10^3/uL Sodium (135-145) mmol/L Potassium (3.5-5.1) mmol/L Chloride (98-107) mmol/L Carbon Dioxide (22-30) mmol/L Anion Gap (5-15) MEQ/L BUN (9-20) mg/dL Creatinine (0.66-1.25) mg/dL Estimated GFR ML/MIN Glucose (74-106) mg/dL Calcium (8.4-10.2) mg/dL Magnesium (1.6-2.3) mg/dL Total Bilirubin (0.2-1.3) mg/dL AST (17-59) U/L ALT (0-50) U/L Alkaline Phosphatase (38-126) U/L Troponin I 0.069 H* 0.071 H* (0.000-0.033) ng/mL NT-Pro-B Natriuret Pep (<300) pg/mL Serum Total Protein (6.3-8.2) g/dL Albumin (3.5-5.0) g/dL Free T4 (0.78-2.19) ng/dL TSH 3rd Generation (0.470-4.680) mIU/L Urine Color Yellow (Yellow) Urine Appearance Clear (Clear) Urine pH 5.5 (4.6-8.0) Ur Specific [place] 1.010 (1.005-1.030) Urine Protein Negative (Negative) Urine Glucose (UA) Negative (Negative) mg/dL Urine Ketones Negative (Negative) Urine Blood Negative (Negative) Urine Nitrite Negative (Negative) Urine Bilirubin Negative (Negative) Urine Urobilinogen 0.2 (0.2) mg/dL Ur Leukocyte Esterase Moderate A (Negative) U Hyaline Cast (Auto) 3-5 A (0-2) /LPF Urine Microscopic RBC 0-2 (0-5) /HPF Urine Microscopic WBC 21-50 A (0-5) /HPF Ur Epithelial Cells None Seen (None Seen) /HPF Urine Bacteria None Seen (None Seen) /HPF Urine Yeast (Budding) Few A (None Seen) /HPF Urine Culture Reflexed YES (NO) Influenza Type A Ag (NEGATIVE) Influenza Type B Ag (NEGATIVE) RSV (PCR) (NEGATIVE) SARS-CoV-2 (PCR) (NEGATIVE) 12/13/23 12/13/23 Range/Units 06:20 06:20 WBC 8.6 (4.23-9.07) x10^3/uL RBC 3.69 L (4.63-6.08) x10^6/uL Hgb 11.1 L (13.7-17.5) g/dL Hct 35.4 L (40.1-51.0) % MCV 95.9 H (79.0-92.2) fL MCH 30.1 (25.7-32.2) pg MCHC 31.4 L (32.3-36.5) g/dL RDW 15.2 H (11.6-14.4) % Plt Count 179 (163-337) x10^3/uL MPV 8.8 L (9.4-12.4) fL Gran % 73.8 H (34.0-67.9) % Immature Gran % (Auto) 0.5 H (0.001-0.429) % Nucleat RBC Rel Count 0.0 (0.00-0.2) % Eos # (Auto) 0.13 (0.04-0.54) x10^3/uL Immature Gran # (Auto) 0.04 H (0.001-0.031) x10^3u/L Absolute Lymphs (auto) 1.03 L (1.32-3.57) x10^3/uL Absolute Monos (auto) 1.00 H (0.30-0.82) x10^3/uL Absolute Nucleated RBC 0.00 (0.00-0.012) x10^3u/L Lymphocytes % 12.0 L (21.8-53.1) % Monocytes % 11.6 (5.3-12.2) % Eosinophils % 1.5 (0.8-7.0) % Basophils % 0.6 (0.2-1.2) % Absolute Granulocytes 6.34 H (1.78-5.38) x10^3/uL Basophils # 0.05 (0.01-0.08) x10^3/uL Sodium 142 (135-145) mmol/L Potassium 4.1 (3.5-5.1) mmol/L Chloride 114 H (98-107) mmol/L Carbon Dioxide 20 L (22-30) mmol/L Anion Gap 11.1 (5-15) MEQ/L BUN 24 H (9-20) mg/dL Creatinine 1.09 (0.66-1.25) mg/dL Estimated GFR 65.7 ML/MIN Glucose 94 (74-106) mg/dL Calcium 8.3 L (8.4-10.2) mg/dL Magnesium (1.6-2.3) mg/dL Total Bilirubin 0.60 (0.2-1.3) mg/dL AST 20 (17-59) U/L ALT 13 (0-50) U/L Alkaline Phosphatase 59 (38-126) U/L Troponin I (0.000-0.033) ng/mL NT-Pro-B Natriuret Pep 2820 (<300) pg/mL Serum Total Protein 6.0 L (6.3-8.2) g/dL Albumin 3.0 L (3.5-5.0) g/dL Free T4 (0.78-2.19) ng/dL TSH 3rd Generation (0.470-4.680) mIU/L Urine Color (Yellow) Urine Appearance (Clear) Urine pH (4.6-8.0) Ur Specific [place] (1.005-1.030) Urine Protein (Negative) Urine Glucose (UA) (Negative) mg/dL Urine Ketones (Negative) Urine Blood (Negative) Urine Nitrite (Negative) Urine Bilirubin (Negative) Urine Urobilinogen (0.2) mg/dL Ur Leukocyte Esterase (Negative) U Hyaline Cast (Auto) (0-2) /LPF Urine Microscopic RBC (0-5) /HPF Urine Microscopic WBC (0-5) /HPF Ur Epithelial Cells (None Seen) /HPF Urine Bacteria (None Seen) /HPF Urine Yeast (Budding) (None Seen) /HPF Urine Culture Reflexed (NO) Influenza Type A Ag (NEGATIVE) Influenza Type B Ag (NEGATIVE) RSV (PCR) (NEGATIVE) SARS-CoV-2 (PCR) (NEGATIVE) - Radiology Exams Ordered Rad Exams-Entire Visit: Radiology Procedures Category Date Time Status CHEST 1 VIEW (PORTABLE) Stat Exams 12/12/23 11:13 Completed HEAD WITHOUT CONTRAST [CT] Stat Exams 12/12/23 11:14 Completed - Procedures and Test Procedures and Tests throughout Hospitalization: Therapy Orders & Screens 12/12/23 16:52 EKG REPEAT IN AM Comment: 12/12/23 17:26 PT Eval & Treat ( Order) ONCE Reason for Eval:: weakness/unsteady gait Diagnosis: Elevated troponins, dizziness, unsteady gait Respiratory Therapy Consult ONCE Comment: Reason For Exam: Diagnosis: Elevated troponins, dizziness, unsteady gait OT Eval and Treat (MD Order) ONCE Comment: Physician Instructions: Reason For Exam: Diagnosis: Elevated troponins, dizziness, unsteady gait Discharge Exam General Appearance: no apparent distress Neurologic Exam: alert, oriented x 3, cooperative Eye Exam: PERRL Ears, Nose, Throat Exam: normal ENT inspection Neck Exam: normal inspection Respiratory Exam: normal breath sounds, lungs clear Cardiovascular Exam: regular rate/rhythm, normal heart sounds Gastrointestinal/Abdomen Exam: soft, normal bowel sounds Male Genitalia Exam: deferred Rectal Exam: deferred Extremity Exam: normal inspection Skin Exam: normal color Final Diagnosis/Problem List - Final Discharge Diagnosis/Problem (1) UTI (urinary tract infection) Current Visit: Yes Status: Acute Code(s): N39.0 - URINARY TRACT INFECTION, SITE NOT SPECIFIED (2) Dizziness Current Visit: Yes Status: Resolved Code(s): R42 - DIZZINESS AND GIDDINESS (3) Anemia, macrocytic Current Visit: Yes Status: Chronic Code(s): D53.9 - NUTRITIONAL ANEMIA, UNSPECIFIED (4) PB (acute kidney injury) Current Visit: Yes Status: Resolved Code(s): N17.9 - ACUTE KIDNEY FAILURE, UNSPECIFIED (5) Acidosis, unspecified Current Visit: Yes Status: Resolved Code(s): E87.20 - ACIDOSIS, UNSPECIFIED (6) Elevated troponin Current Visit: Yes Status: Acute Code(s): R79.89 - OTHER SPECIFIED ABNORMAL FINDINGS OF BLOOD CHEMISTRY (7) CHF (congestive heart failure) Current Visit: Yes Status: Chronic Code(s): I50.9 - HEART FAILURE, UNSPECIFIED (8) HTN (hypertension) Current Visit: Yes Status: Chronic Code(s): I10 - ESSENTIAL (PRIMARY) HYPERTENSION (9) HLD (hyperlipidemia) Current Visit: Yes Status: Chronic Code(s): E78.5 - HYPERLIPIDEMIA, UNSPECIFIED - Discharge Disposition: Home, Self-Care Condition: Stable Prescriptions: New Cefdinir 300 mg PO BID 7 Days #14 cap Continue Spironolactone 25 mg [Aldactone 25 MG] 1 tab PO DAILY Rosuvastatin Calcium 1 tab PO HS Levothyroxine Sodium 25 Mcg [Synthroid 25 Mcg] 1 tab PO DAILY Leflunomide/Diclofenac Sodium [Lefluniclo 20 mg Tab-1% Gel Kt] 1 tab PO WEEKLY Finasteride 5 mg [Proscar 5 MG] 1 tab PO DAILY Carvedilol [Coreg ] 1 tab PO BID Amiodarone HCl 200 mg [Cordarone 200 MG] 1 tab PO DAILY Silodosin 1 tab PO HS Follow up with: LUIS F VEGAS NP [Primary Care Provider] - COOPER GUTIERREZ MD [Family Provider] -
[2023-12-13 12:28] VITALS: BP 173/75; PULSE 70; RESP 17; TEMP 97.7; O2SAT 94
== END 2023-12-13 11:30 | disposition home or self-care (01) ==
LOC: ED 10:24 → MED SURG 16:41
PROVIDERS: ADMIT Internal Medicine; ATTEND Internal Medicine
DX: N39.0 Urinary tract infection, site not specified (principal); I11.0 Hypertensive heart disease with heart failure; I50.9 Heart failure, unspecified; E78.5 Hyperlipidemia, unspecified; R42 Dizziness and giddiness; D53.9 Nutritional anemia, unspecified; N17.9 Acute kidney failure, unspecified; E87.20 Acidosis, unspecified; R79.89 Other specified abnormal findings of blood chemistry; B96.5 Pseudomonas (aeruginosa) (mallei) (pseudomallei) as the cause of diseases classified elsewhere; R26.2 Difficulty in walking, not elsewhere classified; Z79.899 Other long term (current) drug therapy; Z86.79 Personal history of other diseases of the circulatory system
CPT/HCPCS: 0241U; 36000; 36415; 70450; 71045; 80053; 81001; 83735; 83880; 84439; 84443; 84484; 85025; 87040; 87077; 87086; 87186; 93005; 93041; 93268; 94760; 96360; 96365; 99285; G0378; Q3014; J0696; J1650

== ENCOUNTER 2024-02-28 07:10 | Emergency (ER) | payer MEDICARE ==
--- NOTE | 2024-02-28 07:28 | ERPHSYRPT ---
- History of Present Illness Time Seen by Provider: 02/28/24 07:28 Source: patient Exam Limitations: no limitations Physician History: 88-year-old male brought to the emergency department by his daughter. Patient has been weak and confused over the past 2 days. He has recently been under treatment for UTI and previously before that was sick with an upper respiratory infection. Daughter reports over the past 2 days he has become increasingly weak and confused. He has a history of congestive heart failure, but reports this has been well-controlled. History is difficult to obtain from patient as he continues to drowse off during questioning. He does deny any current source of pain, but does report shortness of breath. His oxygen saturation on arrival was in the 60s with good waveform. He was placed on a nonrebreather 100% and remained in the 70s. RT was called for possible BiPAP, but by the time they got to the room his oxygen saturation had improved to 100% on nonrebreather. After discussing CODE STATUS with the daughter she says that he is full code at this time. Timing/Duration: day(s) (2), worse Activities at Onset: rest Severity of Dyspnea-Max: severe Severity of Dyspnea-Current: severe Possible Cause: occasional episodes Modifying Factors: Improves With: oxygen. Worsens With: deep breath, exertion, lying down Associated Symptoms: constant, edema, insomnia, weakness, leg swelling, No chest pain/discomfort, No fever, No wheezing Allergies/Adverse Reactions: No Known Drug Allergies Allergy (Verified 02/28/24 09:03) Home Medications: Amiodarone HCl 200 mg [Cordarone 200 MG] 1 tab PO DAILY 12/12/23 [History] Carvedilol [Coreg ] 6.25 mg PO BID 12/12/23 [History] Finasteride 5 mg [Proscar 5 MG] 1 tab PO DAILY 12/12/23 [History] Levothyroxine Sodium 25 Mcg [Synthroid 25 Mcg] 50 mcg PO DAILY 12/12/23 [History] Rosuvastatin Calcium 20 mg PO HS 12/12/23 [History] Silodosin 8 mg PO HS 12/12/23 [History] Spironolactone 25 mg [Aldactone 25 MG] 1 tab PO DAILY 12/12/23 [History] Aspirin 81 mg PO DAILY 02/28/24 [History] Leflunomide [Arava] 20 mg PO UD 02/28/24 [History] Nitroglycerin 0.4 mg (Ed) [Nitrostat 0.4 MG (ED)] 0.4 mg SL UD 02/28/24 [History] Sacubitril/Valsartan [Entresto 24 mg-26 mg Tablet] 1 tab PO UD 02/28/24 [History] Hx Influenza Vaccination/Date Given: No Hx Pneumococcal Vaccination/Date Given: No Travel Risk - Emerging Infectious Disease Are you exhibiting symptoms associated with any current EIDs: No - Review of Systems All Other Systems: Reviewed and Negative - Past Medical History Pertinent Past Medical History: Yes Neurological History: TIA ENT History: No Pertinent History Cardiac History: Congestive Heart Failure, High Cholesterol, Hypertension Respiratory History: CHF Endocrine Medical History: Hypothyroidism Musculoskeletal History: Other GI Medical History: No Pertinent History History: No Pertinent History Psycho-Social History: No Pertinent History Male Reproductive Disorders: No Pertinent History Other Medical History: Chronic heart failure - Past Surgical History Past Surgical History: Yes Neuro Surgical History: No Pertinent History Cardiac: Cardiac Catheterization, Pacemaker Respiratory: No Pertinent History Gastrointestinal: No Pertinent History Genitourinary: No Pertinent History Musculoskeletal: No Pertinent History Male Surgical History: No Pertinent History - Social History Smoking Status: Former smoker Exposure to second hand smoke: No Drug Use: none Patient Lives Alone: No - Social Determinants of Health Will the patient participate in the screening: Yes Do you worry about a steady place to live?: No In the past 12 months,have you had to go without utilities?: No Transportation Issues: No Has anyone in your support network made you feel unsafe?: No Have you or anyone in your house had to go without enough: No - Nursing Vital Signs Nursing Vital Signs: Initial Vital Signs Temperature 97.2 F 02/28/24 07:23 Pulse Rate 67 02/28/24 07:23 Respiratory Rate 12 02/28/24 07:23 Blood Pressure 152/59 02/28/24 07:23 O2 Sat by Pulse Oximetry 71 L 02/28/24 07:23 Pain Scale Pain Intensity 7 - Physical Exam General Appearance: moderate distress, lethargy Eye Exam: PERRL/EOMI Ears, Nose, Throat Exam: hearing grossly normal Neck Exam: normal inspection, supple, full range of motion Respiratory Exam: airway intact, crackles/rales Cardiovascular/Chest Exam: normal heart sounds Abdominal/Gastrointestinal Exam: soft, No tenderness, No distention, No mass Extremity Exam: swelling Neurologic Exam: cooperative, disoriented, confusion, No motor deficits Skin Exam: dry, pale, No rash SpO2 Interpretation: hypoxic, O2 applied O2 Delivery: Non-rebreather - Course Nursing assessment & vital signs reviewed: Yes EKG Interpreted by Me: RATE (62), A-fib, Left Foster Deviation, prolonged QT interval (486), NORMAL ST-T - CT Exams Chest CT Interpretation: Tele-radiologist Report, No PE, Other (Cardiomegaly, bilateral moderate pleural effusions, basilar interlobular septal thickening, mild groundglass opacities, 68 mm x 43 mm cyst adjacent to left kidney) Ordered Tests: Medication Summary Discontinued Medications Generic Name Dose Route Start Last Admin Trade Name Freq PRN Reason Stop Dose Admin Albuterol/Ipratropium 3 ml 02/28/24 07:28 02/28/24 07:53 Ipratropium/Albuterol Sulfate 3 Ml Ampul.Neb IH 02/28/24 07:29 3 ml STAT ONE Administration Albuterol/Ipratropium Confirm 02/28/24 07:51 Ipratropium/Albuterol Sulfate 3 Ml Ampul.Neb Administered 02/28/24 07:52 Dose 3 ml IH .STK-MED ONE Clopidogrel Bisulfate 300 mg 02/28/24 09:26 02/28/24 09:35 Clopidogrel Bisulfate 75 Mg Tablet PO 02/28/24 09:27 300 mg STAT ONE Administration Clopidogrel Bisulfate Confirm 02/28/24 09:34 Clopidogrel Bisulfate 75 Mg Tablet Administered 02/28/24 09:35 Dose 300 mg .ROUTE .STK-MED ONE Methylprednisolone Sodium 0 mg 02/28/24 07:28 02/28/24 08:02 Succinate 125 mg/ Sterile IV 02/28/24 07:29 125 mg Water 2 ml STAT ONE Administration Furosemide 40 mg 02/28/24 07:42 02/28/24 08:02 Furosemide 40 Mg/4 Ml Vial IV 02/28/24 07:43 40 mg STAT ONE Administration Furosemide Confirm 02/28/24 07:59 Furosemide 40 Mg/4 Ml Vial Administered 02/28/24 08:00 Dose 40 mg .ROUTE .STK-MED ONE Ceftriaxone Sodium 2 gm in 100 mls @ 200 mls/hr 02/28/24 07:28 02/28/24 09:19 Rocephin 2 Gm/100 Ml Nacl IV 02/28/24 07:57 Infused STAT ONE Infusion Azithromycin 500 mg in 250 mls @ 250 mls/hr 02/28/24 07:28 02/28/24 12:53 Zithromax 500 Mg/ 250 Ml Nacl Premix IV 02/28/24 08:27 Infused STAT STA Infusion Sodium Chloride 1,000 mls @ 999 mls/hr 02/28/24 07:28 02/28/24 09:18 Sodium Chloride 0.9% 1000 Ml IV 02/28/24 08:28 Infused .Q1H1M STA Infusion Sodium Chloride Confirm 02/28/24 07:40 Sodium Chloride 0.9% 1000 Ml Administered 02/28/24 07:41 Dose 1,000 mls @ ud .ROUTE .STK-MED ONE Ceftriaxone Sodium Confirm 02/28/24 07:41 Rocephin 2 Gm/100 Ml Nacl Administered 02/28/24 07:42 Dose 2 gm in 100 mls @ ud IV .STK-MED ONE Azithromycin Confirm 02/28/24 08:09 Zithromax 500 Mg/ 250 Ml Nacl Premix Administered 02/28/24 08:10 Dose 500 mg in 250 mls @ ud IV .STK-MED ONE Fluconazole 100 mls @ 100 mls/hr 02/28/24 09:15 02/28/24 09:24 Diflucan/Saline 0.2g/100ml Premix IV 02/28/24 10:14 100 mls/hr STAT ONE Administration Methylprednisolone Sodium Succinate Confirm 02/28/24 07:59 Methylprednis Sod Succ 125 Mg/2 Ml Vial Administered 02/28/24 08:00 Dose 125 mg .ROUTE .STK-MED ONE Sterile Water Confirm 02/28/24 07:59 Water For Injection,Sterile 10 Ml Vial Administered 02/28/24 08:00 Dose 10 ml IJ .STK-MED ONE Lab/Rad Data: Laboratory Result Diagrams 02/28/24 08:08 02/28/24 08:08 Laboratory Results 02/28/24 02/28/24 02/28/24 Range/Units Unknown Unknown 11:05 WBC (4.23-9.07) x10^3/uL RBC (4.63-6.08) x10^6/uL Hgb (13.7-17.5) g/dL Hct (40.1-51.0) % MCV (79.0-92.2) fL MCH (25.7-32.2) pg MCHC (32.3-36.5) g/dL RDW (11.6-14.4) % Plt Count (163-337) x10^3/uL MPV (9.4-12.4) fL Gran % (34.0-67.9) % Immature Gran % (Auto) (0.001-0.429) % Nucleat RBC Rel Count (0.00-0.2) % Eos # (Auto) (0.04-0.54) x10^3/uL Immature Gran # (Auto) (0.001-0.031) x10^3u/L Absolute Lymphs (auto) (1.32-3.57) x10^3/uL Absolute Monos (auto) (0.30-0.82) x10^3/uL Absolute Nucleated RBC (0.00-0.012) x10^3u/L Lymphocytes % (21.8-53.1) % Monocytes % (5.3-12.2) % Eosinophils % (0.8-7.0) % Basophils % (0.2-1.2) % Absolute Granulocytes (1.78-5.38) x10^3/uL Basophils # (0.01-0.08) x10^3/uL Puncture Site pCO2 (35-45) mmHg pO2 (75-100) mmHg Base Excess (-2.0-2.0) O2 Saturation (94-100) g/dF ABG pH (7.35-7.45) ABG HCO3 (22-28) ABG O2 Sat (Measured) (95-100) % Josiah Test A-a Gradient a/A Ratio Hemoglobin Carboxyhemoglobin (0.0-6.9) % THgb Methemoglobin (1.4-1.5) % Potassium (3.5-5.1) Temperature C POC O2 Flow Rate % Sodium (135-145) mmol/L Chloride (98-107) mmol/L Carbon Dioxide (22-30) mmol/L Anion Gap (5-15) MEQ/L BUN (9-20) mg/dL Creatinine (0.66-1.25) mg/dL Estimated GFR ML/MIN Glucose (74-106) mg/dL Hemoglobin A1c 6.28 H (4.5-6.0) % Lactic Acid (0.4-2.0) Calcium (8.4-10.2) mg/dL Phosphorus (2.5-4.5) mg/dL Magnesium (1.6-2.3) mg/dL Total Bilirubin (0.2-1.3) mg/dL AST (17-59) U/L ALT (0-50) U/L Alkaline Phosphatase (38-126) U/L Ammonia (9-30) umol/L Troponin I 0.077 H* (0.000-0.033) ng/mL NT-Pro-B Natriuret Pep (<300) pg/mL Serum Total Protein (6.3-8.2) g/dL Albumin (3.5-5.0) g/dL TSH 3rd Generation 3.146 (0.470-4.680) mIU/L Urine Color (Yellow) Urine Appearance (Clear) Urine pH (4.6-8.0) Ur Specific Danielson (1.005-1.030) Urine Protein (Negative) Urine Glucose (UA) (Negative) mg/dL Urine Ketones (Negative) Urine Blood (Negative) Urine Nitrite (Negative) Urine Bilirubin (Negative) Urine Urobilinogen (0.2) mg/dL Ur Leukocyte Esterase (Negative) U Hyaline Cast (Auto) (0-2) /LPF Urine Microscopic RBC (0-5) /HPF Urine Microscopic WBC (0-5) /HPF Ur Epithelial Cells (None Seen) /HPF Uric Acid Crystals (None Seen) /HPF Urine Bacteria (None Seen) /HPF Ur Yeast w Hyphae (None Seen) /HPF Urine Yeast (Budding) (None Seen) /HPF Urine Culture Reflexed (NO) Influenza Type A Ag (NEGATIVE) Influenza Type B Ag (NEGATIVE) RSV (PCR) (NEGATIVE) SARS-CoV-2 (PCR) (NEGATIVE) 02/28/24 02/28/24 02/28/24 Range/Units 08:08 08:08 08:08 WBC (4.23-9.07) x10^3/uL RBC (4.63-6.08) x10^6/uL Hgb (13.7-17.5) g/dL Hct (40.1-51.0) % MCV (79.0-92.2) fL MCH (25.7-32.2) pg MCHC (32.3-36.5) g/dL RDW (11.6-14.4) % Plt Count (163-337) x10^3/uL MPV (9.4-12.4) fL Gran % (34.0-67.9) % Immature Gran % (Auto) (0.001-0.429) % Nucleat RBC Rel Count (0.00-0.2) % Eos # (Auto) (0.04-0.54) x10^3/uL Immature Gran # (Auto) (0.001-0.031) x10^3u/L Absolute Lymphs (auto) (1.32-3.57) x10^3/uL Absolute Monos (auto) (0.30-0.82) x10^3/uL Absolute Nucleated RBC (0.00-0.012) x10^3u/L Lymphocytes % (21.8-53.1) % Monocytes % (5.3-12.2) % Eosinophils % (0.8-7.0) % Basophils % (0.2-1.2) % Absolute Granulocytes (1.78-5.38) x10^3/uL Basophils # (0.01-0.08) x10^3/uL Puncture Site pCO2 (35-45) mmHg pO2 (75-100) mmHg Base Excess (-2.0-2.0) O2 Saturation (94-100) g/dF ABG pH (7.35-7.45) ABG HCO3 (22-28) ABG O2 Sat (Measured) (95-100) % Josiah Test A-a Gradient a/A Ratio Hemoglobin Carboxyhemoglobin (0.0-6.9) % THgb Methemoglobin (1.4-1.5) % Potassium (3.5-5.1) Temperature C POC O2 Flow Rate % Sodium (135-145) mmol/L Chloride (98-107) mmol/L Carbon Dioxide (22-30) mmol/L Anion Gap (5-15) MEQ/L BUN (9-20) mg/dL Creatinine (0.66-1.25) mg/dL Estimated GFR ML/MIN Glucose (74-106) mg/dL Hemoglobin A1c (4.5-6.0) % Lactic Acid (0.4-2.0) Calcium (8.4-10.2) mg/dL Phosphorus (2.5-4.5) mg/dL Magnesium (1.6-2.3) mg/dL Total Bilirubin (0.2-1.3) mg/dL AST (17-59) U/L ALT (0-50) U/L Alkaline Phosphatase (38-126) U/L Ammonia < 9 L (9-30) umol/L Troponin I 0.072 H* (0.000-0.033) ng/mL NT-Pro-B Natriuret Pep 4570 (<300) pg/mL Serum Total Protein (6.3-8.2) g/dL Albumin (3.5-5.0) g/dL TSH 3rd Generation (0.470-4.680) mIU/L Urine Color (Yellow) Urine Appearance (Clear) Urine pH (4.6-8.0) Ur Specific Danielson (1.005-1.030) Urine Protein (Negative) Urine Glucose (UA) (Negative) mg/dL Urine Ketones (Negative) Urine Blood (Negative) Urine Nitrite (Negative) Urine Bilirubin (Negative) Urine Urobilinogen (0.2) mg/dL Ur Leukocyte Esterase (Negative) U Hyaline Cast (Auto) (0-2) /LPF Urine Microscopic RBC (0-5) /HPF Urine Microscopic WBC (0-5) /HPF Ur Epithelial Cells (None Seen) /HPF Uric Acid Crystals (None Seen) /HPF Urine Bacteria (None Seen) /HPF Ur Yeast w Hyphae (None Seen) /HPF Urine Yeast (Budding) (None Seen) /HPF Urine Culture Reflexed (NO) Influenza Type A Ag (NEGATIVE) Influenza Type B Ag (NEGATIVE) RSV (PCR) (NEGATIVE) SARS-CoV-2 (PCR) (NEGATIVE) 02/28/24 02/28/24 02/28/24 Range/Units 08:08 08:08 08:06 WBC 6.2 (4.23-9.07) x10^3/uL RBC 3.38 L (4.63-6.08) x10^6/uL Hgb 10.1 L (13.7-17.5) g/dL Hct 31.9 L (40.1-51.0) % MCV 94.4 H (79.0-92.2) fL MCH 29.9 (25.7-32.2) pg MCHC 31.7 L (32.3-36.5) g/dL RDW 16.7 H (11.6-14.4) % Plt Count 138 L (163-337) x10^3/uL MPV 9.1 L (9.4-12.4) fL Gran % 77.4 H (34.0-67.9) % Immature Gran % (Auto) 0.3 (0.001-0.429) % Nucleat RBC Rel Count 0.0 (0.00-0.2) % Eos # (Auto) 0 L (0.04-0.54) x10^3/uL Immature Gran # (Auto) 0.02 (0.001-0.031) x10^3u/L Absolute Lymphs (auto) 0.64 L (1.32-3.57) x10^3/uL Absolute Monos (auto) 0.73 (0.30-0.82) x10^3/uL Absolute Nucleated RBC 0.00 (0.00-0.012) x10^3u/L Lymphocytes % 10.3 L (21.8-53.1) % Monocytes % 11.8 (5.3-12.2) % Eosinophils % 0.0 L (0.8-7.0) % Basophils % 0.2 (0.2-1.2) % Absolute Granulocytes 4.81 (1.78-5.38) x10^3/uL Basophils # 0.01 (0.01-0.08) x10^3/uL Puncture Site pCO2 (35-45) mmHg pO2 (75-100) mmHg Base Excess (-2.0-2.0) O2 Saturation (94-100) g/dF ABG pH (7.35-7.45) ABG HCO3 (22-28) ABG O2 Sat (Measured) (95-100) % Josiah Test A-a Gradient a/A Ratio Hemoglobin Carboxyhemoglobin (0.0-6.9) % THgb Methemoglobin (1.4-1.5) % Potassium 3.9 (3.5-5.1) Temperature C POC O2 Flow Rate % Sodium 126 L (135-145) mmol/L Chloride 97 L (98-107) mmol/L Carbon Dioxide 20 L (22-30) mmol/L Anion Gap 13.2 (5-15) MEQ/L BUN 29 H (9-20) mg/dL Creatinine 1.00 (0.66-1.25) mg/dL Estimated GFR 72.8 ML/MIN Glucose 153 H (74-106) mg/dL Hemoglobin A1c (4.5-6.0) % Lactic Acid (0.4-2.0) Calcium 7.8 L (8.4-10.2) mg/dL Phosphorus 4.7 H (2.5-4.5) mg/dL Magnesium 2.1 (1.6-2.3) mg/dL Total Bilirubin 0.40 (0.2-1.3) mg/dL AST 21 (17-59) U/L ALT 19 (0-50) U/L Alkaline Phosphatase 44 (38-126) U/L Ammonia (9-30) umol/L Troponin I (0.000-0.033) ng/mL NT-Pro-B Natriuret Pep (<300) pg/mL Serum Total Protein 5.8 L (6.3-8.2) g/dL Albumin 3.3 L (3.5-5.0) g/dL TSH 3rd Generation (0.470-4.680) mIU/L Urine Color (Yellow) Urine Appearance (Clear) Urine pH (4.6-8.0) Ur Specific Danielson (1.005-1.030) Urine Protein (Negative) Urine Glucose (UA) (Negative) mg/dL Urine Ketones (Negative) Urine Blood (Negative) Urine Nitrite (Negative) Urine Bilirubin (Negative) Urine Urobilinogen (0.2) mg/dL Ur Leukocyte Esterase (Negative) U Hyaline Cast (Auto) (0-2) /LPF Urine Microscopic RBC (0-5) /HPF Urine Microscopic WBC (0-5) /HPF Ur Epithelial Cells (None Seen) /HPF Uric Acid Crystals (None Seen) /HPF Urine Bacteria (None Seen) /HPF Ur Yeast w Hyphae (None Seen) /HPF Urine Yeast (Budding) (None Seen) /HPF Urine Culture Reflexed (NO) Influenza Type A Ag (NEGATIVE) Influenza Type B Ag (NEGATIVE) RSV (PCR) (NEGATIVE) SARS-CoV-2 (PCR) (NEGATIVE) 02/28/24 02/28/24 02/28/24 Range/Units 08:06 08:06 08:00 WBC (4.23-9.07) x10^3/uL RBC (4.63-6.08) x10^6/uL Hgb (13.7-17.5) g/dL Hct (40.1-51.0) % MCV (79.0-92.2) fL MCH (25.7-32.2) pg MCHC (32.3-36.5) g/dL RDW (11.6-14.4) % Plt Count (163-337) x10^3/uL MPV (9.4-12.4) fL Gran % (34.0-67.9) % Immature Gran % (Auto) (0.001-0.429) % Nucleat RBC Rel Count (0.00-0.2) % Eos # (Auto) (0.04-0.54) x10^3/uL Immature Gran # (Auto) (0.001-0.031) x10^3u/L Absolute Lymphs (auto) (1.32-3.57) x10^3/uL Absolute Monos (auto) (0.30-0.82) x10^3/uL Absolute Nucleated RBC (0.00-0.012) x10^3u/L Lymphocytes % (21.8-53.1) % Monocytes % (5.3-12.2) % Eosinophils % (0.8-7.0) % Basophils % (0.2-1.2) % Absolute Granulocytes (1.78-5.38) x10^3/uL Basophils # (0.01-0.08) x10^3/uL Puncture Site RIGHT BRACHIAL pCO2 32 L (35-45) mmHg pO2 101 H (75-100) mmHg Base Excess -3.0 L (-2.0-2.0) O2 Saturation 91.8 L (94-100) g/dF ABG pH 7.42 (7.35-7.45) ABG HCO3 20.8 L (22-28) ABG O2 Sat (Measured) 97.6 (95-100) % Josiah Test NOT APPLICABLE A-a Gradient 572 a/A Ratio 0.15 Hemoglobin 10.6 Carboxyhemoglobin 6.0 (0.0-6.9) % THgb Methemoglobin 0.0 L (1.4-1.5) % Potassium 4.0 (3.5-5.1) Temperature 37.0 C POC O2 Flow Rate 100 % Sodium (135-145) mmol/L Chloride (98-107) mmol/L Carbon Dioxide (22-30) mmol/L Anion Gap (5-15) MEQ/L BUN (9-20) mg/dL Creatinine (0.66-1.25) mg/dL Estimated GFR ML/MIN Glucose (74-106) mg/dL Hemoglobin A1c (4.5-6.0) % Lactic Acid 0.7 (0.4-2.0) Calcium (8.4-10.2) mg/dL Phosphorus (2.5-4.5) mg/dL Magnesium (1.6-2.3) mg/dL Total Bilirubin (0.2-1.3) mg/dL AST (17-59) U/L ALT (0-50) U/L Alkaline Phosphatase (38-126) U/L Ammonia (9-30) umol/L Troponin I (0.000-0.033) ng/mL NT-Pro-B Natriuret Pep (<300) pg/mL Serum Total Protein (6.3-8.2) g/dL Albumin (3.5-5.0) g/dL TSH 3rd Generation (0.470-4.680) mIU/L Urine Color (Yellow) Urine Appearance (Clear) Urine pH (4.6-8.0) Ur Specific Danielson (1.005-1.030) Urine Protein (Negative) Urine Glucose (UA) (Negative) mg/dL Urine Ketones (Negative) Urine Blood (Negative) Urine Nitrite (Negative) Urine Bilirubin (Negative) Urine Urobilinogen (0.2) mg/dL Ur Leukocyte Esterase (Negative) U Hyaline Cast (Auto) (0-2) /LPF Urine Microscopic RBC (0-5) /HPF Urine Microscopic WBC (0-5) /HPF Ur Epithelial Cells (None Seen) /HPF Uric Acid Crystals (None Seen) /HPF Urine Bacteria (None Seen) /HPF Ur Yeast w Hyphae (None Seen) /HPF Urine Yeast (Budding) (None Seen) /HPF Urine Culture Reflexed (NO) Influenza Type A Ag NEGATIVE (NEGATIVE) Influenza Type B Ag NEGATIVE (NEGATIVE) RSV (PCR) NEGATIVE (NEGATIVE) SARS-CoV-2 (PCR) POSITIVE A (NEGATIVE) 02/28/24 Range/Units 07:53 WBC (4.23-9.07) x10^3/uL RBC (4.63-6.08) x10^6/uL Hgb (13.7-17.5) g/dL Hct (40.1-51.0) % MCV (79.0-92.2) fL MCH (25.7-32.2) pg MCHC (32.3-36.5) g/dL RDW (11.6-14.4) % Plt Count (163-337) x10^3/uL MPV (9.4-12.4) fL Gran % (34.0-67.9) % Immature Gran % (Auto) (0.001-0.429) % Nucleat RBC Rel Count (0.00-0.2) % Eos # (Auto) (0.04-0.54) x10^3/uL Immature Gran # (Auto) (0.001-0.031) x10^3u/L Absolute Lymphs (auto) (1.32-3.57) x10^3/uL Absolute Monos (auto) (0.30-0.82) x10^3/uL Absolute Nucleated RBC (0.00-0.012) x10^3u/L Lymphocytes % (21.8-53.1) % Monocytes % (5.3-12.2) % Eosinophils % (0.8-7.0) % Basophils % (0.2-1.2) % Absolute Granulocytes (1.78-5.38) x10^3/uL Basophils # (0.01-0.08) x10^3/uL Puncture Site pCO2 (35-45) mmHg pO2 (75-100) mmHg Base Excess (-2.0-2.0) O2 Saturation (94-100) g/dF ABG pH (7.35-7.45) ABG HCO3 (22-28) ABG O2 Sat (Measured) (95-100) % Josiah Test A-a Gradient a/A Ratio Hemoglobin Carboxyhemoglobin (0.0-6.9) % THgb Methemoglobin (1.4-1.5) % Potassium (3.5-5.1) Temperature C POC O2 Flow Rate % Sodium (135-145) mmol/L Chloride (98-107) mmol/L Carbon Dioxide (22-30) mmol/L Anion Gap (5-15) MEQ/L BUN (9-20) mg/dL Creatinine (0.66-1.25) mg/dL Estimated GFR ML/MIN Glucose (74-106) mg/dL Hemoglobin A1c (4.5-6.0) % Lactic Acid (0.4-2.0) Calcium (8.4-10.2) mg/dL Phosphorus (2.5-4.5) mg/dL Magnesium (1.6-2.3) mg/dL Total Bilirubin (0.2-1.3) mg/dL AST (17-59) U/L ALT (0-50) U/L Alkaline Phosphatase (38-126) U/L Ammonia (9-30) umol/L Troponin I (0.000-0.033) ng/mL NT-Pro-B Natriuret Pep (<300) pg/mL Serum Total Protein (6.3-8.2) g/dL Albumin (3.5-5.0) g/dL TSH 3rd Generation (0.470-4.680) mIU/L Urine Color Yellow (Yellow) Urine Appearance Turbid A (Clear) Urine pH 5.5 (4.6-8.0) Ur Specific Danielson 1.020 (1.005-1.030) Urine Protein Negative (Negative) Urine Glucose (UA) Negative (Negative) mg/dL Urine Ketones Negative (Negative) Urine Blood Small A (Negative) Urine Nitrite Negative (Negative) Urine Bilirubin Negative (Negative) Urine Urobilinogen 0.2 (0.2) mg/dL Ur Leukocyte Esterase Small A (Negative) U Hyaline Cast (Auto) 3-5 A (0-2) /LPF Urine Microscopic RBC 21-50 A (0-5) /HPF Urine Microscopic WBC 21-50 A (0-5) /HPF Ur Epithelial Cells None Seen (None Seen) /HPF Uric Acid Crystals 3-5 A (None Seen) /HPF Urine Bacteria None Seen (None Seen) /HPF Ur Yeast w Hyphae Few A (None Seen) /HPF Urine Yeast (Budding) Moderate A (None Seen) /HPF Urine Culture Reflexed ORDERED SEPARATELY (NO) Influenza Type A Ag (NEGATIVE) Influenza Type B Ag (NEGATIVE) RSV (PCR) (NEGATIVE) SARS-CoV-2 (PCR) (NEGATIVE) - Progress Progress: improved Air Movement: fair Progress Note: EKG showed atrial fibrillation with a heart rate of 62. Patient's ABG largely unremarkable with no elevation in CO2 at this time with normal pH. Laboratory evaluation showed anemia with hemoglobin of 10.1, hyponatremia with a sodium of 126, hypocalcemia with a calcium of 7.8, hyperglycemia with a glucose of 152, BNP 4570, Troponin 0.072, COVID positive and UA with evidence of yeast UTI. Lactate wnl, blood cx obtained. Rocephin and Azithro given empirically. Lasix 40mg IV given, edwards in place. Placed on BIPAP to help move fluid out of alveoli. Discussed transfer with Dr. Singh at 0924 who accepts, pending bed for transfer at this time. 02/28/24 09:27 Blood Culture(s) Obtained: Yes Antibiotics given: Yes Discussed with : Other (Francisco) Counseled pt/family regarding: lab results, diagnosis, need for follow-up, rad results Medical Desision Making - Discussion of managment Care discussed with:: hospitalist Reviewed:: Test results Agreed on:: Treatment plan, decision to admit Will see patient: in hospital - Diagnostic Testing Diagnostic test were ordered, analyzed, and reviewed by me: Yes Radiological Interpretation: Interpreted by me, Reviewed by me, Teleradiologist Report - Risk of complications The pt has a mod risk of morbidity or mortality based on: Need for prescription drug management The pt has a high risk of morbidity or mortality based on: Decision regarding hospitilization or escalation of hosp level of care - Departure Departure Disposition: Transfer ([facility]) Clinical Impression: Anemia, Hyponatremia, Hypochloremia, Hyperglycemia, Hypocalcemia, Confusion, Shortness of breath, Acute exacerbation of CHF (congestive heart failure), Afib, Elevated troponin, Pneumonia due to COVID-19 virus, UTI (urinary tract infection), Yeast UTI, Acute hypoxic respiratory failure, NSTEMI (non-ST elevated myocardial infarction) Condition: Stable Critical Care Time: No Referrals: LUIS F VEGAS BOBBIN DRIER [Primary Care Provider] - Follow up/PCP as directed Instructions: Heart Failure, Heart Failure ED
[2024-02-28 07:29] VITALS: TEMP 97.2
[2024-02-28] MEDS ORDERED: Sodium Chloride 0.9% 1000 ML 1,000 ML ONE (07:40)
[2024-02-28] MEDS ORDERED: ROCEPHIN 2 GM/100 ML NACL 2 GM/100 ML IVPB IV ONE (07:41)
[2024-02-28] MEDS: Sodium Chloride 0.9% 1000 ML 1,000 ML IV STA (07:42)
[2024-02-28] MEDS ORDERED: DUONEB 0.5-3 MG/3 ml Neb IH ONE (07:51)
[2024-02-28] MEDS: DUONEB 0.5-3 MG/3 ml Neb IH ONE (07:53)
[2024-02-28 07:54] VITALS: PULSE 60
[2024-02-28] MEDS ORDERED: solu-MEDROL ONE (07:59)
[2024-02-28] MEDS ORDERED: Lasix 40 MG/4 ML ONE (07:59)
[2024-02-28] MEDS ORDERED: Sterile H2O 10 ml IJ ONE (07:59)
[2024-02-28] MEDS: Lasix 40 MG/4 ML IV ONE (08:02)
[2024-02-28] MEDS: solu-MEDROL 125 MG, Sterile H2O 10 ml 2 ML IV ONE (08:02)
[2024-02-28] MEDS ORDERED: Zithromax 500 MG/ 250 ML NaCl Premix 500 MG/250 ML IVPB IV ONE (08:09)
[2024-02-28] MEDS: ROCEPHIN 2 GM/100 ML NACL 2 GM/100 ML IVPB IV ONE (08:13)
[2024-02-28 08:14] LABS: A-aADO2 572; ABG HEMOGLOBIN 10.6; ABG SITE RIGHT BRACHIAL; ARTERIAL BLD GAS O2 SATURATION 97.6 % (95-100); ARTERIAL BLOOD GAS FIO2 100 %; ARTERIAL BLOOD GAS PCO2 32 mmHg (35-45); ARTERIAL BLOOD GAS PO2 101 mmHg (75-100); ARTERIAL BLOOD GAS pH 7.42 (7.35-7.45); HCO3- 20.8 (22-28); HGB O2 SAT 91.8 g/dF (94-100); paO2 pAO1 0.15
[2024-02-28] MEDS: Zithromax 500 MG/ 250 ML NaCl Premix 500 MG/250 ML IVPB IV STA (08:14)
[2024-02-28 08:15] LABS: Absolute Neutrophil Ct (ANC) 4.81 x10^3/uL (1.78-5.38); BASOPHIL % 0.2 % (0.2-1.2); Basophil (Absolute #) 0.01 x10^3/uL (0.01-0.08); Eosinophil (Absolute #) 0 x10^3/uL (0.04-0.54); Hematocrit 31.9 % (40.1-51.0); Hemoglobin 10.1 g/dL (13.7-17.5); IMMATURE GRAN # 0.02 x10^3u/L (0.001-0.031); IMMATURE GRAN % 0.3 % (0.001-0.429); Lymphocyte (Absolute #) 0.64 x10^3/uL (1.32-3.57); Lymphocytes % 10.3 % (21.8-53.1); Mean Cell Volume 94.4 fL (79.0-92.2); Mean Corpuscular Hemoglobin 29.9 pg (25.7-32.2); Mean Corpuscular Hgb Concent. 31.7 g/dL (32.3-36.5); Mean Platelet Volume 9.1 fL (9.4-12.4); Monocyte (Absolute #) 0.73 x10^3/uL (0.30-0.82); Monocytes % 11.8 % (5.3-12.2); Neutrophil % 77.4 % (34.0-67.9); Platelet Count 138 x10^3/uL (163-337); Red Blood Count 3.38 x10^6/uL (4.63-6.08); Red Cell Distribution Width 16.7 % (11.6-14.4); White Blood Count 6.2 x10^3/uL (4.23-9.07)
[2024-02-28 08:27] LABS: ALBUMIN 3.3 g/dL (3.5-5.0); ANION GAP 13.2 MEQ/L (5-15); BILIRUBIN,TOTAL 0.4 mg/dL (0.2-1.3); Calcium 7.8 mg/dL (8.4-10.2); EST GLOMERULAR FILTRATION RATE 72.8 ML/MIN; MAGNESIUM 2.1 mg/dL (1.6-2.3); Potassium 3.9 mmol/L (3.5-5.1); Total Protein 5.8 g/dL (6.3-8.2)
[2024-02-28 08:49] LABS: Appearance Turbid (Clear); Bacteria None Seen /HPF (None Seen); Bilirubin Negative (Negative); Blood Small (Negative); Epithelial Cells None Seen /HPF (None Seen); Glucose, Urine Negative (Negative); Ketones Negative (Negative); Leukocyte Esterase Small (Negative); Nitrite Negative (Negative); Ph 5.5 (4.6-8.0); Protein,Urine Dip Negative (Negative); RBC 21-50 /HPF (0-5); Urobilinogen 0.2 mg/dL (0.2); WBC 21-50 /HPF (0-5)
[2024-02-28 09:03] LABS: INFLUENZA A NEGATIVE (NEGATIVE); INFLUENZA B NEGATIVE (NEGATIVE); RESPIRATORY SYNCTIAL VIRUS NEGATIVE (NEGATIVE)
[2024-02-28 09:04] LABS: Budding Yeast Moderate /HPF (None Seen); Hyphae Yeast Few /HPF (None Seen)
[2024-02-28 09:05] LABS: ADD URINE CULTURE? ORDERED SEPARATELY (NO)
[2024-02-28 09:06] LABS: SARS-CoV-2 Xpert Express POSITIVE (NEGATIVE)
[2024-02-28] MEDS: Diflucan/Saline 0.2G/100ML PREMIX*** 100 ML IV ONE (09:24)
[2024-02-28] MEDS ORDERED: PLAVIX Tablet ONE (09:34)
[2024-02-28] MEDS: PLAVIX Tablet PO ONE (09:35)
--- NOTE | 2024-02-28 10:16 | XRAY ---
CLINICAL HISTORY: sob, cp COMPARISON: None. TECHNIQUE: Axial CT images of the chest with angiographic images were acquired with administration of 80cc of Isovue-370mg/ml intravenous contrast. Coronal and sagittal reconstructions were obtained. one of the following dose reduction techniques were utilized for this exam: Automated exposure control, adjustment of the mA and/or kV according to patient size, use of iterative reconstruction. One of these 3D techniques was utilized: Maximum Intensity Pixel (MIP), 3D Reconstructed Images, Volume Rendered Images, Surface Shaded Rendering. FINDINGS: Expiratory study evidenced by the collapse of the posterior tracheal wall. A posterior tracheal band/secretions are noted. A pace-maker is noted. No evidence of pulmonary emboli in the pulmonary trunk, main branches as well as the segmental branches. The main pulmonary diameter measures about 25 mm. The heart is enlarged in size. Moderate bilateral pleural effusions are noted with mild atelectasis of the overlying lung segments bilaterally as well as basal interlobular septal thickening and mild ground glassing in the aerated upper lobes. Bronchial wall thickening/edema is also noted. Centrilobular emphysematous changes are noted most appreciated in the upper lobes. A calcified left lower lobar granuloma (6 mm) as well as a left hilar lymph node are seen, sequelae of the previous granulomatous process. No suspiciously enlarged mediastinal lymph nodes. Atherosclerotic calcifications of the aorta is noted. Spondylodegenerative changes of the visualized spine, no gross lytic or sclerotic lesions. Reduced bone density. Upper abdominal cuts reveal few tiny calcified splenic granulomas and bilateral renal cysts. A 68 x 43 mm cyst is seen adjacent to the left kidney, not clear whether renal in origin. IMPRESSION: 1. No evidence of pulmonary embolism. 2. Cardiomegaly, bilateral moderate pleural effusions as well as basal interlobular septal thickening and mild ground glassing in the aerated upper lobes suggesting an element of cardiac compromise (cardiogenic pulmonary edema). Superimposed inflammatory changes can't be excluded. 3. Emphysematous lung changes. 4. Evidence of previously healed granulomatous lung process (left lower lobar granuloma and left hilar calcified node). 5. A subtle intraluminal tracheal band/secretions is noted. 6. A 68 x 43 mm cyst is seen adjacent to the left kidney, not clear whether renal in origin. Dedicated study is advised. [facility] called at [phone] at 9:09 AM [employer]ATOR, 02/28/[address] Vail was informed regarding the presence of Significant Medical Findings in the report. Electronically Signed by: Cecil Witt MD. (02/28/2024 10:12:15 EDT)
[2024-02-28 10:25] VITALS: O2SAT 99
[2024-02-28 13:04] VITALS: BP 138/64; RESP 14
== END 2024-02-28 13:30 | disposition short-term general hospital (02) ==
LOC: ED 07:10
DX: I21.4 Non-ST elevation (NSTEMI) myocardial infarction (principal); U07.1 COVID-19; J12.82 Pneumonia due to coronavirus disease 2019; J96.01 Acute respiratory failure with hypoxia; D64.9 Anemia, unspecified; E87.1 Hypo-osmolality and hyponatremia; E87.8 Other disorders of electrolyte and fluid balance, not elsewhere classified; R73.9 Hyperglycemia, unspecified; E83.51 Hypocalcemia; R41.0 Disorientation, unspecified; I11.0 Hypertensive heart disease with heart failure; I50.9 Heart failure, unspecified; I48.91 Unspecified atrial fibrillation; R77.8 Other specified abnormalities of plasma proteins; B37.49 Other urogenital candidiasis; Z79.899 Other long term (current) drug therapy
CPT/HCPCS: 0241U; 36000; 36415; 36600; 71260; 80053; 81001; 82140; 82375; 82803; 83036; 83605; 83735; 83880; 84100; 84443; 84484; 85025; 87040; 87077; 87086; 93005; 93041; 94640; 96360; 96365; 96368; 96374; 96375; 99285; J0456; J0696; J1450; J1940; J2919; A9270-GY

== ENCOUNTER 2024-08-23 09:45 | Emergency (ER) | payer MEDICARE ==
[2024-08-23 09:55] VITALS: RESP 18; TEMP 97.1
--- NOTE | 2024-08-23 10:05 | ERPHSYRPT ---
- History of Present Illness Time Seen by Provider: 08/23/24 10:01 Source: patient Exam Limitations: no limitations Patient Subjective Stated Complaint: Pt states "I was sitting on the toilet and was pulling a sock on and just fell over and hit my head." Triage Nursing Assessment: Pt presented alert and oriented X 3, skin pwd. Pt ambulates with assist of 1. PT has abrasion noted to left forehead. Physician History: 89-year-old male presents to our ED for an evaluation. Patient states he was sitting down. Patient leaned forward to put his socks on lost his balance fell forward and hit his head. Patient has an abrasion to left scalp just behind the hairline.. Patient stated he vomited once after hitting his head. No LOC no neck pain. Cervical spine cleared clinically. Injury occurred just prior to arrival. Patient otherwise feels well. He has no other complaints. The fall was mechanical and not associated with any sort of neuro cardiovascular symptomology. No associated chest pain or shortness of breath. No nausea vomiting or diaphoresis. No associated numbness tingling or weakness. Patient is currently asymptomatic. Patient voices no other complaints or concerns at this time. Portions of this note were created with voice recognition technology. There may be grammatical, spelling, punctuation or sound alike errors Timing/Duration: today Severity: mild Modifying Factors: Improves With: nothing Associated Symptoms: denies symptoms Allergies/Adverse Reactions: No Known Drug Allergies Allergy (Verified 03/09/24 11:21) Home Medications: Amiodarone HCl 200 mg [Cordarone 200 MG] 1 tab PO DAILY 12/12/23 [History] Carvedilol [Coreg ] 6.25 mg PO BID 12/12/23 [History] Finasteride 5 mg [Proscar 5 MG] 1 tab PO DAILY 12/12/23 [History] Levothyroxine Sodium 25 Mcg [Synthroid 25 Mcg] 50 mcg PO DAILY 12/12/23 [History] Rosuvastatin Calcium 20 mg PO HS 12/12/23 [History] Silodosin 8 mg PO HS 12/12/23 [History] Spironolactone 25 mg [Aldactone 25 MG] 1 tab PO DAILY 12/12/23 [History] Aspirin 81 mg PO DAILY 02/28/24 [History] Leflunomide [Arava] 20 mg PO UD 02/28/24 [History] Nitroglycerin 0.4 mg (Ed) [Nitrostat 0.4 MG (ED)] 0.4 mg SL UD 02/28/24 [History] Sacubitril/Valsartan [Entresto 24 mg-26 mg Tablet] 1 tab PO UD 02/28/24 [History] Furosemide [Lasix] 20 mg PO 03/09/24 [History] Potassium Chloride 03/09/24 [History] Hx Tetanus, Diphtheria Vaccination/Date Given: No Hx Influenza Vaccination/Date Given: No Hx Pneumococcal Vaccination/Date Given: No Immunizations Up to Date: No Travel Risk - International Travel Have you traveled outside of the country in past 3 weeks: No - Emerging Infectious Disease Are you exhibiting symptoms associated with any current EIDs: No - Review of Systems Constitutional: No Symptoms, No Fever, No Chills Eyes: No Symptoms Ears, Nose, & Throat: No Symptoms Respiratory: No Symptoms, No Cough, No Dyspnea Cardiac: No Symptoms, No Chest Pain, No Edema, No Syncope Abdominal/Gastrointestinal: No Symptoms, No Abdominal Pain, No Nausea, No Vomiting, No Diarrhea Genitourinary Symptoms: No Symptoms, No Dysuria Musculoskeletal: No Symptoms, No Back Pain, No Neck Pain Skin: No Symptoms, No Rash Neurological: No Symptoms, No Dizziness, No Focal Weakness, No Sensory Changes Psychological: No Symptoms Endocrine: No Symptoms Hematologic/Lymphatic: No Symptoms Immunological/Allergic: No Symptoms All Other Systems: Reviewed and Negative - Past Medical History Pertinent Past Medical History: Yes Neurological History: TIA ENT History: No Pertinent History Cardiac History: Congestive Heart Failure, High Cholesterol, Hypertension Respiratory History: CHF Endocrine Medical History: Hypothyroidism Musculoskeletal History: Other GI Medical History: No Pertinent History History: No Pertinent History Psycho-Social History: No Pertinent History Male Reproductive Disorders: No Pertinent History Other Medical History: PACEMAKER (AICD), CHF, HTN, CAD, HLD, HYPOTHYROIDISM, UTI WITH ESBL, 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 - Past Surgical History Past Surgical History: Yes Neuro Surgical History: No Pertinent History Cardiac: Cardiac Catheterization, Pacemaker Respiratory: No Pertinent History Gastrointestinal: No Pertinent History Genitourinary: No Pertinent History Musculoskeletal: No Pertinent History Male Surgical History: No Pertinent History - Social History Smoking Status: Unknown if ever smoked Exposure to second hand smoke: No Drug Use: none - Social Determinants of Health Will the patient participate in the screening: Yes Do you worry about a steady place to live?: No Do you have any problems with any of the following?: No known problems In the past 12 months,have you had to go without utilities?: No Transportation Issues: No Has anyone in your support network made you feel unsafe?: No Have you or anyone in your house had to go w/o enough food: No - Nursing Vital Signs Nursing Vital Signs: Initial Vital Signs Temperature 97.1 F 08/23/24 09:51 Pulse Rate 75 08/23/24 09:51 Respiratory Rate 18 08/23/24 09:51 Blood Pressure 111/61 08/23/24 09:51 O2 Sat by Pulse Oximetry 98 08/23/24 09:51 Pain Scale Pain Intensity 0 - Physical Exam General Appearance: no apparent distress, alert Eye Exam: PERRL/EOMI, eyes nml inspection Ears, Nose, Throat Exam: normal ENT inspection, TMs normal, pharynx normal, moist mucous membranes Neck Exam: normal inspection, non-tender, supple, full range of motion Respiratory Exam: normal breath sounds, lungs clear, No respiratory distress Cardiovascular Exam: regular rate/rhythm, normal heart sounds, normal peripheral pulses Gastrointestinal/Abdomen Exam: soft, normal bowel sounds, No tenderness, No mass Back Exam: normal inspection, normal range of motion, No CVA tenderness, No vertebral tenderness Extremity Exam: normal inspection, normal range of motion, pelvis stable Neurologic Exam: alert, oriented x 3, cooperative, normal mood/affect, sensation nml, No motor deficits Skin Exam: normal color, warm, dry, abrasion (Superficial abrasion left forehead), No rash Lymphatic Exam: No adenopathy SpO2 Interpretation: normal SpO2: 98 O2 Delivery: Room Air - Course Nursing assessment & vital signs reviewed: Yes - CT Exams Head CT Interpretation: Tele-radiologist Report (No acute intracranial pathology. Remote lacunar infarct. Left maxillary sinus/retention cyst) Ordered Tests: Active Orders 24 hr Category Date Time Status HEAD WITHOUT CONTRAST [CT] Stat Exams 08/23/24 10:00 Completed Medication Summary Discontinued Medications Generic Name Dose Route Start Last Admin Trade Name Freq PRN Reason Stop Dose Admin Acetaminophen 975 mg 02/25/25 10:22 08/23/24 10:57 Acetaminophen 325 Mg Tablet PO 08/23/24 10:23 975 mg STAT ONE Administration Acetaminophen Confirm 08/23/24 10:54 Acetaminophen 325 Mg Tablet Administered 08/23/24 10:55 Dose 975 mg [facility] - Progress Progress: improved Progress Note: 89-year-old male presents to emergency department for evaluation of a head injury. Patient states he was putting on his socks. Patient leaned over a little too far causing himself to fall forward. Patient hit his head on the bathtub. Patient vomited once. Patient has an abrasion to the top left of his head. Neurologic exam normal. CT head negative for acute intracranial pathology. Incidental left maxillary retention cyst versus polyp. 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 Patient is neurologically normal. Patient complained of a slight headache in our ED. Patient received an oral dose of Tylenol. Headache resolved. Daughter at bedside. Patient states he feels well has no complaints and is requesting to be discharged home. Patient agrees to follow-up with his primary care doctor within 48 hours for reevaluation. Patient daughter voiced no other complaints or concerns at this time. Portions of this note were created with voice recognition technology. There may be grammatical, spelling, punctuation or sound alike errors Complexity of problem addressed is moderate acute complicated. No critical care time. Complexity of data reviewed and analyzed is moderate. Test ordered test reviewed results analyzed and correlated clinically with history and physical exam. Risk of complication and or risk of morbidity/mortality of patient management is low. Vital stable. Time spent to discharge patient is approximately 15 minutes. Plan of care established for shared decision making. No social determinants of health present to impede follow-up. Portions of this note were created with voice recognition technology. There may be grammatical, spelling, punctuation or sound alike errors 08/23/24 12:15 Counseled pt/family regarding: diagnosis, need for follow-up, rad results - Departure Departure Disposition: Home Clinical Impression: Fall, Concussion, Maxillary sinus polyp/retention cyst Condition: Stable Critical Care Time: No Referrals: LUIS F VEGAS NP [Primary Care Provider] - Follow up/PCP as directed Additional Instructions: Discharge/Care Plan MIKE GOIDNEZ was seen on 08/23/24 in the Emergency Room. The patient was counseled regarding Diagnosis,Lab results, Imaging studies, need for follow up and when to return to the Emergency Room. Prescriptions given: Discharge Note I have spoken with the patient and/or caregivers. I have explained the patient's condition, diagnosis and treatment plan based on the information available to me at this time. I have answered the patient's and/or caregiver's questions and addressed any concerns. The patient and/or caregivers have as good understanding of the patient's diagnosis, condition and treatment plan as can be expected at this point. The vital signs have been stable. The patient's condition is stable and appropriate for discharge from the emergency department. The patient will pursue further outpatient evaluation with the primary care physician or other designated or consulting physician as outlined in the discharge instructions. The patient and/or caregivers are agreeable to this plan of care and follow-up instructions have been explained in detail. The patient and/or caregivers have received these instruction. The patient/and or caregivers are aware that any significant change in condition or worsening of symptoms should prompt an immediate return to this or the closest emergency department or call 911.
[2024-08-23] MEDS ORDERED: TYLENOL 325 MG ONE (10:54)
[2024-08-23] MEDS: TYLENOL 325 MG PO ONE (10:57)
[2024-08-23 11:07] VITALS: PULSE 60
--- NOTE | 2024-08-23 11:36 | XRAY ---
Indication: Left head injury following fall. Multiple contiguous axial images obtained through the head without contrast. Comparison: December 12, 2023 Again age-appropriate global atrophy, mild periventricular degenerative micro-ischemia bilaterally, and remote lacunar infarct right basal ganglia. No acute intracranial hemorrhage, abnormal extra-axial fluid collection, or mass effect. Fourth ventricle is midline without hydrocephalus. Bony calvarium intact. Visualized paranasal sinuses again demonstrates 2.5 cm left maxillary sinus polyp/retention cyst. Impression: Continued nonacute senile brain with remote lacunar infarct right basal ganglia. Again incidental left maxillary sinus polyp/retention cyst.
[2024-08-23 12:07] VITALS: O2SAT 98
[2024-08-23 12:12] VITALS: BP 126/89
== END 2024-08-23 12:22 | disposition home or self-care (01) ==
LOC: ED 09:45
DX: S06.0X0A Concussion without loss of consciousness, initial encounter (principal); W08.XXXA Fall from other furniture, initial encounter; Y92.002 Bathroom of unspecified non-institutional (private) residence as the place of occurrence of the external cause; J33.8 Other polyp of sinus; I11.0 Hypertensive heart disease with heart failure; I50.9 Heart failure, unspecified; E78.5 Hyperlipidemia, unspecified; Z79.899 Other long term (current) drug therapy
CPT/HCPCS: 70450; 99284; A9270-GY

== ENCOUNTER 2024-09-12 11:43 | Observation (INO) | payer MEDICARE ==
--- NOTE | 2024-09-12 12:06 | ERPHSYRPT ---
- History of Present Illness Time Seen by Provider: 09/12/24 12:02 Exam Limitations: no limitations Physician History: Patient is an 89-year-old male who lives with his daughter presents to our ED for evaluation of confusion and generalized weakness that began 2 days ago. Daughter reports that he has a history of recurrent UTIs. She is concerned that she may have another UTI causing his confusion. Daughter reports that patient appeared short of breath this morning. Patient admits that he was short winded. O2 sat on room air is 90% with a good pleth. Patient normally does not require oxygen at home. No fever. No trauma. Daughter reports patient takes an aspirin daily. Patient denies pain. They voiced no other complaints or concerns at this time. Portions of this note were created with voice recognition technology. There may be grammatical, spelling, punctuation or sound alike errors Timing/Duration: day(s) (2 days ago) Severity: moderate Modifying Factors: Improves With: nothing Associated Symptoms: denies symptoms Allergies/Adverse Reactions: No Known Drug Allergies Allergy (Verified 03/09/24 11:21) Home Medications: Amiodarone HCl 200 mg [Cordarone 200 MG] 1 tab PO DAILY 12/12/23 [History] Carvedilol [Coreg ] 6.25 mg PO BID 12/12/23 [History] Finasteride 5 mg [Proscar 5 MG] 1 tab PO DAILY 12/12/23 [History] Levothyroxine Sodium 25 Mcg [Synthroid 25 Mcg] 50 mcg PO DAILY 12/12/23 [History] Rosuvastatin Calcium 20 mg PO HS 12/12/23 [History] Silodosin 8 mg PO HS 12/12/23 [History] Spironolactone 25 mg [Aldactone 25 MG] 1 tab PO DAILY 12/12/23 [History] Aspirin 81 mg PO DAILY 02/28/24 [History] Leflunomide [Arava] 20 mg PO UD 02/28/24 [History] Nitroglycerin 0.4 mg (Ed) [Nitrostat 0.4 MG (ED)] 0.4 mg SL UD 02/28/24 [History] Sacubitril/Valsartan [Entresto 24 mg-26 mg Tablet] 1 tab PO UD 02/28/24 [History] Furosemide [Lasix] 20 mg PO 03/09/24 [History] Potassium Chloride 03/09/24 [History] Hx Tetanus, Diphtheria Vaccination/Date Given: No Hx Influenza Vaccination/Date Given: No Hx Pneumococcal Vaccination/Date Given: No Travel Risk - Emerging Infectious Disease Are you exhibiting symptoms associated with any current EIDs: No - Review of Systems Constitutional: No Symptoms, No Fever, No Chills Eyes: No Symptoms Ears, Nose, & Throat: No Symptoms Respiratory: No Symptoms, No Cough, No Dyspnea Cardiac: No Symptoms, No Chest Pain, No Edema, No Syncope Abdominal/Gastrointestinal: No Symptoms, No Abdominal Pain, No Nausea, No Vomiting, No Diarrhea Genitourinary Symptoms: No Symptoms, No Dysuria Musculoskeletal: No Symptoms, No Back Pain, No Neck Pain Skin: No Symptoms, No Rash Neurological: No Symptoms, No Dizziness, No Focal Weakness, No Sensory Changes Psychological: No Symptoms Endocrine: No Symptoms Hematologic/Lymphatic: No Symptoms Immunological/Allergic: No Symptoms All Other Systems: Reviewed and Negative - Past Medical History Pertinent Past Medical History: Yes Neurological History: TIA ENT History: No Pertinent History Cardiac History: Congestive Heart Failure, High Cholesterol, Hypertension Respiratory History: CHF Endocrine Medical History: Hypothyroidism Musculoskeletal History: Other GI Medical History: No Pertinent History History: No Pertinent History Psycho-Social History: No Pertinent History Male Reproductive Disorders: No Pertinent History Other Medical History: PACEMAKER (AICD), CHF, HTN, CAD, HLD, HYPOTHYROIDISM, UTI WITH ESBL, TYPE 2 [place], ENCEPHALOPATHY, COVID. - Past Surgical History Past Surgical History: Yes Neuro Surgical History: No Pertinent History Cardiac: Cardiac Catheterization, Pacemaker Respiratory: No Pertinent History Gastrointestinal: No Pertinent History Genitourinary: No Pertinent History Musculoskeletal: No Pertinent History Male Surgical History: No Pertinent History - Social History Smoking Status: Unknown if ever smoked Exposure to second hand smoke: No Drug Use: none - Social Determinants of Health Will the patient participate in the screening: Yes Do you worry about a steady place to live?: No In the past 12 months,have you had to go without utilities?: No Transportation Issues: No Has anyone in your support network made you feel unsafe?: No Have you or anyone in your house had to go w/o enough food: No - Nursing Vital Signs Nursing Vital Signs: Initial Vital Signs Temperature 96.8 F 09/12/24 11:59 Pulse Rate 61 09/12/24 11:59 Respiratory Rate 16 09/12/24 11:59 Blood Pressure 106/45 09/12/24 11:59 O2 Sat by Pulse Oximetry 92 L 09/12/24 11:59 Pain Scale Pain Intensity 0 - Physical Exam General Appearance: no apparent distress, alert Eye Exam: PERRL/EOMI, eyes nml inspection Ears, Nose, Throat Exam: normal ENT inspection, TMs normal, pharynx normal, moist mucous membranes Neck Exam: normal inspection, non-tender, supple, full range of motion Respiratory Exam: normal breath sounds, lungs clear, airway intact, No respiratory distress Cardiovascular Exam: regular rate/rhythm, normal heart sounds, normal peripheral pulses Gastrointestinal/Abdomen Exam: soft, normal bowel sounds, No tenderness, No mass Back Exam: normal inspection, normal range of motion, No CVA tenderness, No vertebral tenderness Extremity Exam: normal inspection, normal range of motion, pelvis stable Neurologic Exam: alert, oriented x 3, cooperative, normal mood/affect, sensation nml, No motor deficits Skin Exam: normal color, warm, dry, No rash Lymphatic Exam: No adenopathy SpO2 Interpretation: normal SpO2: 92 O2 Delivery: Room Air - Course Nursing assessment & vital signs reviewed: Yes EKG Interpreted by Me: RATE (62), Sinus Rhythm, NORMAL AXIS, NORMAL INTERVALS, NORMAL QRS - Radiology Exams Chest X-ray Interpretation: Teleradiologist Report (New left base infiltrate with effusion) - CT Exams Head CT Interpretation: Tele-radiologist Report (Remote lacunar infarct right basal ganglia. Left maxillary retention cyst versus polyp.) Ordered Tests: Active Orders 24 hr Category Date Time Status Certified Professional Controller STAT Care 09/12/24 12:01 Active EKG-ER Only STAT Care 09/12/24 12:00 Active IV Insertion STAT Care 09/12/24 12:00 Active Pulse Oximetry (ED) STAT Care 09/12/24 12:00 Active CHEST 1 VIEW (PORTABLE) Stat Exams 09/12/24 12:01 Completed HEAD WITHOUT CONTRAST [CT] Stat Exams 09/12/24 12:30 Completed BLOOD CULTURE Stat Lab 09/12/24 14:19 Ordered CBC W DIFF Stat Lab 09/12/24 12:19 Completed CMP Stat Lab 09/12/24 12:19 Completed TROPONIN Q4H Lab 09/12/24 12:19 Completed TROPONIN Q4H Lab 09/12/24 14:19 Completed TROPONIN Q4H Lab 09/12/24 20:00 Ordered UA W/RFX UR CULTURE Stat Lab 09/12/24 13:30 Completed Medication Summary Discontinued Medications Generic Name Dose Route Start Last Admin Trade Name Dean PRN Reason Stop Dose Admin Azithromycin Confirm 09/12/24 14:28 Azithromycin Inj Administered 09/12/24 14:29 Dose 500 mg IV .STK-MED ONE Azithromycin 500 mg/ Sodium 250 mls @ 250 mls/hr 09/12/24 13:41 09/12/24 14:44 Chloride IV 09/12/24 14:40 250 ml/hr STAT STA 250 mls/hr Administration Ceftriaxone Sodium 2 gm in 100 mls @ 200 mls/hr 09/12/24 13:41 09/12/24 14:40 Rocephin 2 Gm/100 Ml Nacl IV 09/12/24 14:10 200 ml/hr STAT ONE 200 mls/hr Administration Sodium Chloride Confirm 09/12/24 14:28 Sodium Chloride 0.9% 250 Ml Administered 09/12/24 14:29 Dose 250 mls @ ud IV .STK-MED ONE Ceftriaxone Sodium Confirm 09/12/24 14:28 Rocephin 2 Gm/100 Ml Nacl Administered 09/12/24 14:29 Dose 2 gm in 100 mls @ ud IV .STK-MED ONE Lab/Rad Data: Laboratory Result Diagrams 09/12/24 12:19 09/12/24 12:19 Laboratory Results 09/12/24 09/12/24 09/12/24 Range/Units 14:19 13:30 12:59 WBC (4.23-9.07) x10^3/uL RBC (4.63-6.08) x10^6/uL Hgb (13.7-17.5) g/dL Hct (40.1-51.0) % MCV (79.0-92.2) fL MCH (25.7-32.2) pg MCHC (32.3-36.5) g/dL RDW (11.6-14.4) % Plt Count (163-337) x10^3/uL MPV (9.4-12.4) fL Gran % (34.0-67.9) % Immature Gran % (Auto) (0.001-0.429) % Nucleat RBC Rel Count (0.00-0.2) % Eos # (Auto) (0.04-0.54) x10^3/uL Immature Gran # (Auto) (0.001-0.031) x10^3u/L Absolute Lymphs (auto) (1.32-3.57) x10^3/uL Absolute Monos (auto) (0.30-0.82) x10^3/uL Absolute Nucleated RBC (0.00-0.012) x10^3u/L Lymphocytes % (21.8-53.1) % Monocytes % (5.3-12.2) % Eosinophils % (0.8-7.0) % Basophils % (0.2-1.2) % Absolute Granulocytes (1.78-5.38) x10^3/uL Basophils # (0.01-0.08) x10^3/uL Sodium (135-145) mmol/L Potassium (3.5-5.1) mmol/L Chloride (98-107) mmol/L Carbon Dioxide (22-30) mmol/L Anion Gap (5-15) MEQ/L BUN (9-20) mg/dL Creatinine (0.66-1.25) mg/dL Estimated GFR ML/MIN Glucose (74-106) mg/dL Calcium (8.4-10.2) mg/dL Total Bilirubin (0.2-1.3) mg/dL AST (17-59) U/L ALT (0-50) U/L Alkaline Phosphatase (38-126) U/L Troponin I 0.076 H* (0.000-0.033) ng/mL Serum Total Protein (6.3-8.2) g/dL Albumin (3.5-5.0) g/dL Urine Color Yellow (Yellow) Urine Appearance Clear (Clear) Urine pH 5.0 (4.6-8.0) Ur Specific [place] 1.015 (1.005-1.030) Urine Protein Negative (Negative) Urine Glucose (UA) Negative (Negative) mg/dL Urine Ketones Negative (Negative) Urine Blood Negative (Negative) Urine Nitrite Negative (Negative) Urine Bilirubin Negative (Negative) Urine Urobilinogen 0.2 (0.2) mg/dL Ur Leukocyte Esterase Trace A (Negative) U Hyaline Cast (Auto) NONE SEEN (0-2) /LPF Urine Microscopic RBC 0-2 (0-5) /HPF Urine Microscopic WBC 3-5 (0-5) /HPF Ur Epithelial Cells None Seen (None Seen) /HPF Urine Bacteria None Seen (None Seen) /HPF Urine Culture Reflexed NO (NO) ABO Group O Rh Factor NEGATIVE Antibody Screen NEGATIVE (NEGATIVE) 09/12/24 09/12/24 Range/Units 12:19 12:19 WBC 7.5 (4.23-9.07) x10^3/uL RBC 2.89 L (4.63-6.08) x10^6/uL Hgb 8.7 L (13.7-17.5) g/dL Hct 29.6 L (40.1-51.0) % MCV 102.4 H (79.0-92.2) fL MCH 30.1 (25.7-32.2) pg MCHC 29.4 L (32.3-36.5) g/dL RDW 17.4 H (11.6-14.4) % Plt Count 155 L (163-337) x10^3/uL MPV 8.9 L (9.4-12.4) fL Gran % 77.4 H (34.0-67.9) % Immature Gran % (Auto) 0.3 (0.001-0.429) % Nucleat RBC Rel Count 0.0 (0.00-0.2) % Eos # (Auto) 0.15 (0.04-0.54) x10^3/uL Immature Gran # (Auto) 0.02 (0.001-0.031) x10^3u/L Absolute Lymphs (auto) 0.68 L (1.32-3.57) x10^3/uL Absolute Monos (auto) 0.80 (0.30-0.82) x10^3/uL Absolute Nucleated RBC 0.00 (0.00-0.012) x10^3u/L Lymphocytes % 9.0 L (21.8-53.1) % Monocytes % 10.6 (5.3-12.2) % Eosinophils % 2.0 (0.8-7.0) % Basophils % 0.7 (0.2-1.2) % Absolute Granulocytes 5.83 H (1.78-5.38) x10^3/uL Basophils # 0.05 (0.01-0.08) x10^3/uL Sodium 142 (135-145) mmol/L Potassium 3.8 (3.5-5.1) mmol/L Chloride 107 (98-107) mmol/L Carbon Dioxide 23 (22-30) mmol/L Anion Gap 15.3 H (5-15) MEQ/L BUN 22 H (9-20) mg/dL Creatinine 1.10 (0.66-1.25) mg/dL Estimated GFR 64.6 ML/MIN Glucose 100 (74-106) mg/dL Calcium 7.7 L (8.4-10.2) mg/dL Total Bilirubin 0.60 (0.2-1.3) mg/dL AST 24 (17-59) U/L ALT 21 (0-50) U/L Alkaline Phosphatase 57 (38-126) U/L Troponin I 0.075 H* (0.000-0.033) ng/mL Serum Total Protein 6.0 L (6.3-8.2) g/dL Albumin 3.5 (3.5-5.0) g/dL Urine Color (Yellow) Urine Appearance (Clear) Urine pH (4.6-8.0) Ur Specific [place] (1.005-1.030) Urine Protein (Negative) Urine Glucose (UA) (Negative) mg/dL Urine Ketones (Negative) Urine Blood (Negative) Urine Nitrite (Negative) Urine Bilirubin (Negative) Urine Urobilinogen (0.2) mg/dL Ur Leukocyte Esterase (Negative) U Hyaline Cast (Auto) (0-2) /LPF Urine Microscopic RBC (0-5) /HPF Urine Microscopic WBC (0-5) /HPF Ur Epithelial Cells (None Seen) /HPF Urine Bacteria (None Seen) /HPF Urine Culture Reflexed (NO) ABO Group Rh Factor Antibody Screen (NEGATIVE) - Progress Progress: improved Progress Note: 89-year-old male presents to our ED with his daughter for evaluation of confusion and shortness of breath. Physical exam revealed patient to be hypoxic on room air. Patient normally does not require oxygen. Lungs appear clear otherwise. No respiratory distress no fever no other systemic manifestations no nausea no vomiting no diarrhea no rash. Chest x-ray reveals a pneumonia with a effusion. Blood cultures obtained. Antibiotics initiated. UA negative for UTI. Patient has chronically elevated troponin. We trended patient's troponin and appears to be at around his baseline. Patient has no chest pain. Case discussed with hospitalist who accepts admission to observation at 3:29 PM. Plan of care discussed with patient and his daughter who is at the bedside. They agree to admission to [facility] for further evaluation and treatment. They voiced no other complaints or concerns at this time. Portions of this note were created with voice recognition technology. There may be grammatical, spelling, punctuation or sound alike errors Complexity of problem addressed is moderate acute complicated. No critical care time. Complex of data reviewed and analyzed is extensive. Test ordered chest reviewed results analyzed and correlated clinically with history and physical exam. Management discussed with hospitalist who accepts admission to observation at 3:29 PM. Risk of complication and or risk of morbidity/mortality of patient management is high. Patient requires hospitalization for further evaluation and treatment. Vital stable. Time spent admit patient is approximately 20 minutes. Plan of care established for shared decision making. No social determinants of health present to impede follow-up. Portions of this note were created with voice recognition technology. There may be grammatical, spelling, punctuation or sound alike errors 09/12/24 15:32 Counseled pt/family regarding: lab results, diagnosis, rad results - Departure Departure Disposition: Observation Clinical Impression: Confusion, Hypoxia, Macrocytic anemia, Generalized weakness, Elevated troponin, Left lower lobe pneumonia Condition: Stable Critical Care Time: No Referrals: LUIS F VEGAS NP [Primary Care Provider] - Follow up/PCP as directed
[2024-09-12 12:24] LABS: Absolute Neutrophil Ct (ANC) 5.83 x10^3/uL (1.78-5.38); BASOPHIL % 0.7 % (0.2-1.2); Basophil (Absolute #) 0.05 x10^3/uL (0.01-0.08); Eosinophil (Absolute #) 0.15 x10^3/uL (0.04-0.54); Hematocrit 29.6 % (40.1-51.0); Hemoglobin 8.7 g/dL (13.7-17.5); IMMATURE GRAN # 0.02 x10^3u/L (0.001-0.031); IMMATURE GRAN % 0.3 % (0.001-0.429); Lymphocyte (Absolute #) 0.68 x10^3/uL (1.32-3.57); Mean Cell Volume 102.4 fL (79.0-92.2); Mean Corpuscular Hemoglobin 30.1 pg (25.7-32.2); Mean Corpuscular Hgb Concent. 29.4 g/dL (32.3-36.5); Mean Platelet Volume 8.9 fL (9.4-12.4); Monocytes % 10.6 % (5.3-12.2); Neutrophil % 77.4 % (34.0-67.9); Platelet Count 155 x10^3/uL (163-337); Red Blood Count 2.89 x10^6/uL (4.63-6.08); Red Cell Distribution Width 17.4 % (11.6-14.4); White Blood Count 7.5 x10^3/uL (4.23-9.07)
[2024-09-12 12:49] LABS: ALBUMIN 3.5 g/dL (3.5-5.0); ANION GAP 15.3 MEQ/L (5-15); BILIRUBIN,TOTAL 0.6 mg/dL (0.2-1.3); Calcium 7.7 mg/dL (8.4-10.2); Creatinine 1 1.1 mg/dL (0.66-1.25); EST GLOMERULAR FILTRATION RATE 64.6 ML/MIN; Potassium 3.8 mmol/L (3.5-5.1)
--- NOTE | 2024-09-12 13:08 | XRAY ---
Indication: Confusion. Multiple contiguous axial images obtained through the head without contrast. Comparison: August 23, 2024 Stable age-appropriate global atrophy, mild periventricular degenerative micro-ischemia bilaterally, and remote lacunar infarct right basal ganglia. Again no acute intracranial hemorrhage, abnormal extra-axial fluid collection, or mass effect. Fourth ventricle is midline without hydrocephalus. Bony calvarium intact. Visualized paranasal sinuses demonstrates stable left maxillary sinus polyp/retention cyst. Impression: Stable nonacute senile brain with remote lacunar infarct right basal ganglia and incidental left maxillary polyp/retention cyst.
[2024-09-12 13:11] LABS: TROPONIN 0.075 ng/mL (0.000-0.033)
--- NOTE | 2024-09-12 13:16 | XRAY ---
Indication: Short of breath. Comparison: December 12, 2023 Portable chest demonstrates new minimal left base infiltrate/atelectasis/effusion. Remaining heart and right lung unremarkable again with left AICD. Bony thorax intact again with osteopenia and degenerative changes.
[2024-09-12 13:58] LABS: ABO TYPING O; Antibody Screen NEGATIVE (NEGATIVE); RH TYPING NEGATIVE
[2024-09-12 14:05] LABS: Appearance Clear (Clear); Bacteria None Seen /HPF (None Seen); Bilirubin Negative (Negative); Blood Negative (Negative); Epithelial Cells None Seen /HPF (None Seen); Glucose, Urine Negative (Negative); Hyaline Casts NONE SEEN /LPF (0-2); Ketones Negative (Negative); Leukocyte Esterase Trace (Negative); Nitrite Negative (Negative); Protein,Urine Dip Negative (Negative); RBC 0-2 /HPF (0-5); Specific Gravity 1.015 (1.005-1.030); Urobilinogen 0.2 mg/dL (0.2)
[2024-09-12] MEDS ORDERED: ROCEPHIN 2 GM/100 ML NACL 2 GM/100 ML IVPB IV ONE (14:28)
[2024-09-12] MEDS ORDERED: Sodium Chloride 0.9% 250 ML 250 ML IV ONE (14:28)
[2024-09-12] MEDS ORDERED: ZITHROMAX IV IV ONE (14:28)
[2024-09-12] MEDS: ROCEPHIN 2 GM/100 ML NACL 2 GM/100 ML IVPB IV ONE (14:40)
[2024-09-12] MEDS: ZITHROMAX IV*** 500 MG in Sodium Chloride 0.9% 250 ML 250 ML IV STA (14:44)
--- NOTE | 2024-09-12 16:57 | PCM.HP ---
History of Present Illness - Chief Complaint Chief Complaint: Hypoxia, pneumonia Date: 09/12/24 History of Present Illness: Mr. Brewer is an 89-year-old male with a history of CHF, HLD, HTN, and hypothyroidism who presented to the ED09/12/24 with generalized weakness, confusion, and reported shortness of breath. His daughter, noting a history of recurrent UTIs, was concerned about another infection contributing to his symptoms. On arrival, he was hypoxic and placed on 2L oxygen. EKG was unremarkable, while CXR revealed a new minimal left base infiltrate/atelectasis/effusion. CT head showed stable chronic changes with an incidental maxillary polyp. Labs were notable for macrocytic anemia, gap acidosis, elevated troponin, and hypocalcemia. He was treated in the ED with a 250mL fluid bolus, ceftriaxone, and azithromycin for pneumonia. Admit for acute respiratory failure secondary to pneumonia. Medications & Allergies Home Medications: Home Medication List Amiodarone HCl 200 mg [Cordarone 200 MG] 1 tab PO DAILY 12/12/23 [History Confirmed 02/28/24] Carvedilol [Coreg ] 6.25 mg PO BID 12/12/23 [History Confirmed 02/28/24] Finasteride 5 mg [Proscar 5 MG] 1 tab PO DAILY 12/12/23 [History Confirmed 02/28/24] Levothyroxine Sodium 25 Mcg [Synthroid 25 Mcg] 50 mcg PO DAILY 12/12/23 [History Confirmed 02/28/24] Rosuvastatin Calcium 20 mg PO HS 12/12/23 [History Confirmed 02/28/24] Silodosin 8 mg PO HS 12/12/23 [History Confirmed 02/28/24] Spironolactone 25 mg [Aldactone 25 MG] 1 tab PO DAILY 12/12/23 [History Confirmed 02/28/24] Aspirin 81 mg PO DAILY 02/28/24 [History Confirmed 02/28/24] Leflunomide [Arava] 20 mg PO UD 02/28/24 [History Confirmed 02/28/24] Nitroglycerin 0.4 mg (Ed) [Nitrostat 0.4 MG (ED)] 0.4 mg SL UD 02/28/24 [History Confirmed 02/28/24] Sacubitril/Valsartan [Entresto 24 mg-26 mg Tablet] 1 tab PO UD 02/28/24 [History Confirmed 02/28/24] Furosemide [Lasix] 20 mg PO 03/09/24 [History] Potassium Chloride 03/09/24 [History] Allergies/Adverse Reactions: Allergies Allergy/AdvReac Type Severity Reaction Status Date / Time No Known Drug Allergies Allergy Verified 03/09/24 11:21 - Past Medical History Past Medical History: Yes Neurological History: TIA ENT History: No Pertinent History Cardiac History: Congestive Heart Failure, High Cholesterol, Hypertension Respiratory History: CHF Endocrine Medical History: Hypothyroidism Musculoskelatal History: Other GI Medical History: No Pertinent History History: No Pertinent History Pyscho-Social History: No Pertinent History Male Reproductive Disorders: No Pertinent History Comment: PACEMAKER (AICD), CHF, HTN, CAD, HLD, HYPOTHYROIDISM, UTI WITH ESBL, TYPE 2 [place], ENCEPHALOPATHY, COVID. - Past Surgical History Past Surgical History: Yes Neuro Surgical History: No Pertinent History Cardiac History: Cardiac Catheterization, Pacemaker Respiratory Surgery: No Pertinent History GI Surgical History: No Pertinent History Genitourinary Surgical Hx: No Pertinent History Musculskeletal Surgical Hx: No Pertinent History Male Surgical History: No Pertinent History - Social History Smoking Status: Unknown if ever smoked Exposure to second hand smoke: No Alcohol: None Drug Use: none - Social Determinants of Health Will the patient participate in the screening: Yes Do you worry about a steady place to live?: No Do you have any problems with any of the following?: No known problems In the past 12 months,have you had to go without utilities?: No Have you or anyone in your house had to go without enough: No Transportation Issues: No Has anyone in your support network made you feel unsafe?: No Does the patient want assistance with any of the above?: No - Physical Exam Vital Signs: Vital Signs - 24 hr Temp Pulse Resp BP BP Pulse Ox 09/12/24 16:39 96 09/12/24 16:00 61 19 138/58 98 09/12/24 15:34 92 L 09/12/24 15:30 60 20 114/83 98 09/12/24 15:00 60 17 126/46 97 09/12/24 14:30 60 20 128/61 98 09/12/24 14:00 60 20 128/47 89 L 09/12/24 13:30 63 17 121/79 89 L 09/12/24 13:01 60 22 123/91 100 09/12/24 12:37 60 19 118/72 100 09/12/24 12:14 94 L 09/12/24 12:00 106/48 09/12/24 11:59 96.8 F 61 16 106/45 92 L Results - Labs Lab/Micro Results: Lab Results-Last 24 Hours 09/12/24 09/12/24 09/12/24 Range/Units 12:19 12:19 12:59 WBC 7.5 (4.23-9.07) x10^3/uL RBC 2.89 L (4.63-6.08) x10^6/uL Hgb 8.7 L (13.7-17.5) g/dL Hct 29.6 L (40.1-51.0) % MCV 102.4 H (79.0-92.2) fL MCH 30.1 (25.7-32.2) pg MCHC 29.4 L (32.3-36.5) g/dL RDW 17.4 H (11.6-14.4) % Plt Count 155 L (163-337) x10^3/uL MPV 8.9 L (9.4-12.4) fL Gran % 77.4 H (34.0-67.9) % Immature Gran % (Auto) 0.3 (0.001-0.429) % Nucleat RBC Rel Count 0.0 (0.00-0.2) % Eos # (Auto) 0.15 (0.04-0.54) x10^3/uL Immature Gran # (Auto) 0.02 (0.001-0.031) x10^3u/L Absolute Lymphs (auto) 0.68 L (1.32-3.57) x10^3/uL Absolute Monos (auto) 0.80 (0.30-0.82) x10^3/uL Absolute Nucleated RBC 0.00 (0.00-0.012) x10^3u/L Lymphocytes % 9.0 L (21.8-53.1) % Monocytes % 10.6 (5.3-12.2) % Eosinophils % 2.0 (0.8-7.0) % Basophils % 0.7 (0.2-1.2) % Absolute Granulocytes 5.83 H (1.78-5.38) x10^3/uL Basophils # 0.05 (0.01-0.08) x10^3/uL Sodium 142 (135-145) mmol/L Potassium 3.8 (3.5-5.1) mmol/L Chloride 107 (98-107) mmol/L Carbon Dioxide 23 (22-30) mmol/L Anion Gap 15.3 H (5-15) MEQ/L BUN 22 H (9-20) mg/dL Creatinine 1.10 (0.66-1.25) mg/dL Estimated GFR 64.6 ML/MIN Glucose 100 (74-106) mg/dL Calcium 7.7 L (8.4-10.2) mg/dL Total Bilirubin 0.60 (0.2-1.3) mg/dL AST 24 (17-59) U/L ALT 21 (0-50) U/L Alkaline Phosphatase 57 (38-126) U/L Troponin I 0.075 H* (0.000-0.033) ng/mL Serum Total Protein 6.0 L (6.3-8.2) g/dL Albumin 3.5 (3.5-5.0) g/dL Urine Color (Yellow) Urine Appearance (Clear) Urine pH (4.6-8.0) Ur Specific [place] (1.005-1.030) Urine Protein (Negative) Urine Glucose (UA) (Negative) mg/dL Urine Ketones (Negative) Urine Blood (Negative) Urine Nitrite (Negative) Urine Bilirubin (Negative) Urine Urobilinogen (0.2) mg/dL Ur Leukocyte Esterase (Negative) U Hyaline Cast (Auto) (0-2) /LPF Urine Microscopic RBC (0-5) /HPF Urine Microscopic WBC (0-5) /HPF Ur Epithelial Cells (None Seen) /HPF Urine Bacteria (None Seen) /HPF Urine Culture Reflexed (NO) ABO Group O Rh Factor NEGATIVE Antibody Screen NEGATIVE (NEGATIVE) 09/12/24 09/12/24 Range/Units 13:30 14:19 WBC (4.23-9.07) x10^3/uL RBC (4.63-6.08) x10^6/uL Hgb (13.7-17.5) g/dL Hct (40.1-51.0) % MCV (79.0-92.2) fL MCH (25.7-32.2) pg MCHC (32.3-36.5) g/dL RDW (11.6-14.4) % Plt Count (163-337) x10^3/uL MPV (9.4-12.4) fL Gran % (34.0-67.9) % Immature Gran % (Auto) (0.001-0.429) % Nucleat RBC Rel Count (0.00-0.2) % Eos # (Auto) (0.04-0.54) x10^3/uL Immature Gran # (Auto) (0.001-0.031) x10^3u/L Absolute Lymphs (auto) (1.32-3.57) x10^3/uL Absolute Monos (auto) (0.30-0.82) x10^3/uL Absolute Nucleated RBC (0.00-0.012) x10^3u/L Lymphocytes % (21.8-53.1) % Monocytes % (5.3-12.2) % Eosinophils % (0.8-7.0) % Basophils % (0.2-1.2) % Absolute Granulocytes (1.78-5.38) x10^3/uL Basophils # (0.01-0.08) x10^3/uL Sodium (135-145) mmol/L Potassium (3.5-5.1) mmol/L Chloride (98-107) mmol/L Carbon Dioxide (22-30) mmol/L Anion Gap (5-15) MEQ/L BUN (9-20) mg/dL Creatinine (0.66-1.25) mg/dL Estimated GFR ML/MIN Glucose (74-106) mg/dL Calcium (8.4-10.2) mg/dL Total Bilirubin (0.2-1.3) mg/dL AST (17-59) U/L ALT (0-50) U/L Alkaline Phosphatase (38-126) U/L Troponin I 0.076 H* (0.000-0.033) ng/mL Serum Total Protein (6.3-8.2) g/dL Albumin (3.5-5.0) g/dL Urine Color Yellow (Yellow) Urine Appearance Clear (Clear) Urine pH 5.0 (4.6-8.0) Ur Specific [place] 1.015 (1.005-1.030) Urine Protein Negative (Negative) Urine Glucose (UA) Negative (Negative) mg/dL Urine Ketones Negative (Negative) Urine Blood Negative (Negative) Urine Nitrite Negative (Negative) Urine Bilirubin Negative (Negative) Urine Urobilinogen 0.2 (0.2) mg/dL Ur Leukocyte Esterase Trace A (Negative) U Hyaline Cast (Auto) NONE SEEN (0-2) /LPF Urine Microscopic RBC 0-2 (0-5) /HPF Urine Microscopic WBC 3-5 (0-5) /HPF Ur Epithelial Cells None Seen (None Seen) /HPF Urine Bacteria None Seen (None Seen) /HPF Urine Culture Reflexed NO (NO) ABO Group Rh Factor Antibody Screen (NEGATIVE) Microbiology 09/12/24 13:41 Blood Culture Gram Stain - Final Blood Not Reportable - Radiology Impressions Radiology Exams & Impressions: Radiology Procedures Category Date Time Status CHEST 1 VIEW (PORTABLE) Stat Exams 09/12/24 12:01 Completed HEAD WITHOUT CONTRAST [CT] Stat Exams 09/12/24 12:30 Completed - Other Procedures and Tests Respiratory Therapy 09/12/24 16:38 Oxygen NASAL CANNULA 2 lpm Telemedicine Encounter - Telemedicine Encounter Telemedicine Encounter: "The entirety of this encounter was performed via Telemedicine" This visit was performed using real-time audio and video connection between my location and thepatients locationwith the assistance of a surrogateat the patients location. Written or verbal consent was obtained from the patient/guardian to perform this visit using[employer] technology. Any patient questions regarding the telemedicine interaction were answered.
--- NOTE | 2024-09-12 17:10 | PCM.HP ---
History of Present Illness - Chief Complaint Chief Complaint: Hypoxia, pneumonia Date: 09/12/24 History of Present Illness: Mr. Hedrick is an 89-year-old male with a history of CHF, HLD, HTN, and hypothyroidism presented to the ED with generalized weakness, confusion, and reported shortness of breath. His daughter, noting a history of recurrent UTIs, was concerned about another infection contributing to his symptoms. She reports patient has been having trouble finding his words and thought his was in the room. These symptoms just started today. Shortness of breath has been progressive and patient has been unable to complete ADLs due to severe weakness and shortness of breath. No fever. Mild intermittent cough. Denies nausea, vomiting, abdominal pain, dizziness, headache, or urinary symptoms. On arrival, he was hypoxic and placed on 2L oxygen. EKG was unremarkable, while CXR revealed a new minimal left base infiltrate/atelectasis/effusion. CT head showed stable chronic changes with an incidental maxillary polyp. Labs were notable for macr ocytic anemia, gap acidosis, elevated troponin, and hypocalcemia. He was treated in the ED with a 250mL fluid bolus, ceftriaxone, and azithromycin. Admit for Acute respiratory failure with hypoxia secondaryt to pneumonia/ possible CHF exacerbation. - Review of Systems Constitutional: Weakness Eyes: No Symptoms Ears, Nose, & Throat: No Symptoms Respiratory: Cough, Short Of Breath, Wheezing Cardiac: Edema Abdominal/Gastrointestinal: No Symptoms Genitourinary Symptoms: No Symptoms Musculoskeletal: No Symptoms Skin: No Symptoms Neurological: No Symptoms Psychological: No Symptoms Endocrine: No Symptoms Hematologic/Lymphatic: No Symptoms Immunological/Allergic: No Symptoms Medications & Allergies Home Medications: Home Medication List Amiodarone HCl 200 mg [Cordarone 200 MG] 1 tab PO DAILY 12/12/23 [History Confirmed 02/28/24] Carvedilol [Coreg ] 6.25 mg PO BID 12/12/23 [History Confirmed 02/28/24] Finasteride 5 mg [Proscar 5 MG] 1 tab PO DAILY 12/12/23 [History Confirmed 02/28/24] Levothyroxine Sodium 25 Mcg [Synthroid 25 Mcg] 50 mcg PO DAILY 12/12/23 [History Confirmed 02/28/24] Rosuvastatin Calcium 20 mg PO HS 12/12/23 [History Confirmed 02/28/24] Silodosin 8 mg PO HS 12/12/23 [History Confirmed 02/28/24] Spironolactone 25 mg [Aldactone 25 MG] 1 tab PO DAILY 12/12/23 [History Confirmed 02/28/24] Aspirin 81 mg PO DAILY 02/28/24 [History Confirmed 02/28/24] Leflunomide [Arava] 20 mg PO UD 02/28/24 [History Confirmed 02/28/24] Nitroglycerin 0.4 mg (Ed) [Nitrostat 0.4 MG (ED)] 0.4 mg SL UD 02/28/24 [History Confirmed 02/28/24] Sacubitril/Valsartan [Entresto 24 mg-26 mg Tablet] 1 tab PO UD 02/28/24 [History Confirmed 02/28/24] Furosemide [Lasix] 20 mg PO 03/09/24 [History] Potassium Chloride 03/09/24 [History] Allergies/Adverse Reactions: Allergies Allergy/AdvReac Type Severity Reaction Status Date / Time No Known Drug Allergies Allergy Verified 03/09/24 11:21 - Past Medical History Past Medical History: Yes Neurological History: TIA ENT History: No Pertinent History Cardiac History: Congestive Heart Failure, High Cholesterol, Hypertension Respiratory History: CHF Endocrine Medical History: Hypothyroidism Musculoskelatal History: Other GI Medical History: No Pertinent History History: No Pertinent History Pyscho-Social History: No Pertinent History Male Reproductive Disorders: No Pertinent History Comment: PACEMAKER (AICD), CHF, HTN, CAD, HLD, HYPOTHYROIDISM, UTI WITH ESBL, TYPE 2 SC, ENCEPHALOPATHY, COVID. - Past Surgical History Past Surgical History: Yes Neuro Surgical History: No Pertinent History Cardiac History: Cardiac Catheterization, Pacemaker Respiratory Surgery: No Pertinent History GI Surgical History: No Pertinent History Genitourinary Surgical Hx: No Pertinent History Musculskeletal Surgical Hx: No Pertinent History Male Surgical History: No Pertinent History Significant Family History: heart disease - Social History Smoking Status: Unknown if ever smoked Exposure to second hand smoke: No Alcohol: None Drug Use: none - Social Determinants of Health Will the patient participate in the screening: Yes Do you worry about a steady place to live?: No Do you have any problems with any of the following?: No known problems In the past 12 months,have you had to go without utilities?: No Have you or anyone in your house had to go without enough: No Transportation Issues: No Has anyone in your support network made you feel unsafe?: No Does the patient want assistance with any of the above?: No - Physical Exam Vital Signs: Vital Signs - 24 hr Temp Pulse Resp BP BP Pulse Ox 09/12/24 16:39 96 09/12/24 16:00 61 19 138/58 98 09/12/24 15:34 92 L 09/12/24 15:30 60 20 114/83 98 09/12/24 15:00 60 17 126/46 97 09/12/24 14:30 60 20 128/61 98 09/12/24 14:00 60 20 128/47 89 L 09/12/24 13:30 63 17 121/79 89 L 09/12/24 13:01 60 22 123/91 100 09/12/24 12:37 60 19 118/72 100 09/12/24 12:14 94 L 09/12/24 12:00 106/48 09/12/24 11:59 96.8 F 61 16 106/45 92 L General Appearance: no apparent distress Neurologic Exam: alert, oriented x 3, cooperative, confusion Eye Exam: PERRL/EOMI Ears, Nose, Throat Exam: normal ENT inspection Neck Exam: normal inspection Respiratory Exam: crackles/rales, wheezing Cardiovascular Exam: regular rate/rhythm, normal heart sounds Gastrointestinal/Abdomen Exam: soft, normal bowel sounds Rectal Exam: deferred Back Exam: normal inspection Extremity Exam: swelling Skin Exam: normal color Results - Labs Lab/Micro Results: Lab Results-Last 24 Hours 09/12/24 09/12/24 09/12/24 Range/Units 12:19 12:19 12:59 WBC 7.5 (4.23-9.07) x10^3/uL RBC 2.89 L (4.63-6.08) x10^6/uL Hgb 8.7 L (13.7-17.5) g/dL Hct 29.6 L (40.1-51.0) % MCV 102.4 H (79.0-92.2) fL MCH 30.1 (25.7-32.2) pg MCHC 29.4 L (32.3-36.5) g/dL RDW 17.4 H (11.6-14.4) % Plt Count 155 L (163-337) x10^3/uL MPV 8.9 L (9.4-12.4) fL Gran % 77.4 H (34.0-67.9) % Immature Gran % (Auto) 0.3 (0.001-0.429) % Nucleat RBC Rel Count 0.0 (0.00-0.2) % Eos # (Auto) 0.15 (0.04-0.54) x10^3/uL Immature Gran # (Auto) 0.02 (0.001-0.031) x10^3u/L Absolute Lymphs (auto) 0.68 L (1.32-3.57) x10^3/uL Absolute Monos (auto) 0.80 (0.30-0.82) x10^3/uL Absolute Nucleated RBC 0.00 (0.00-0.012) x10^3u/L Lymphocytes % 9.0 L (21.8-53.1) % Monocytes % 10.6 (5.3-12.2) % Eosinophils % 2.0 (0.8-7.0) % Basophils % 0.7 (0.2-1.2) % Absolute Granulocytes 5.83 H (1.78-5.38) x10^3/uL Basophils # 0.05 (0.01-0.08) x10^3/uL Sodium 142 (135-145) mmol/L Potassium 3.8 (3.5-5.1) mmol/L Chloride 107 (98-107) mmol/L Carbon Dioxide 23 (22-30) mmol/L Anion Gap 15.3 H (5-15) MEQ/L BUN 22 H (9-20) mg/dL Creatinine 1.10 (0.66-1.25) mg/dL Estimated GFR 64.6 ML/MIN Glucose 100 (74-106) mg/dL Calcium 7.7 L (8.4-10.2) mg/dL Total Bilirubin 0.60 (0.2-1.3) mg/dL AST 24 (17-59) U/L ALT 21 (0-50) U/L Alkaline Phosphatase 57 (38-126) U/L Troponin I 0.075 H* (0.000-0.033) ng/mL Serum Total Protein 6.0 L (6.3-8.2) g/dL Albumin 3.5 (3.5-5.0) g/dL Urine Color (Yellow) Urine Appearance (Clear) Urine pH (4.6-8.0) Ur Specific [place] (1.005-1.030) Urine Protein (Negative) Urine Glucose (UA) (Negative) mg/dL Urine Ketones (Negative) Urine Blood (Negative) Urine Nitrite (Negative) Urine Bilirubin (Negative) Urine Urobilinogen (0.2) mg/dL Ur Leukocyte Esterase (Negative) U Hyaline Cast (Auto) (0-2) /LPF Urine Microscopic RBC (0-5) /HPF Urine Microscopic WBC (0-5) /HPF Ur Epithelial Cells (None Seen) /HPF Urine Bacteria (None Seen) /HPF Urine Culture Reflexed (NO) ABO Group O Rh Factor NEGATIVE Antibody Screen NEGATIVE (NEGATIVE) 09/12/24 09/12/24 Range/Units 13:30 14:19 WBC (4.23-9.07) x10^3/uL RBC (4.63-6.08) x10^6/uL Hgb (13.7-17.5) g/dL Hct (40.1-51.0) % MCV (79.0-92.2) fL MCH (25.7-32.2) pg MCHC (32.3-36.5) g/dL RDW (11.6-14.4) % Plt Count (163-337) x10^3/uL MPV (9.4-12.4) fL Gran % (34.0-67.9) % Immature Gran % (Auto) (0.001-0.429) % Nucleat RBC Rel Count (0.00-0.2) % Eos # (Auto) (0.04-0.54) x10^3/uL Immature Gran # (Auto) (0.001-0.031) x10^3u/L Absolute Lymphs (auto) (1.32-3.57) x10^3/uL Absolute Monos (auto) (0.30-0.82) x10^3/uL Absolute Nucleated RBC (0.00-0.012) x10^3u/L Lymphocytes % (21.8-53.1) % Monocytes % (5.3-12.2) % Eosinophils % (0.8-7.0) % Basophils % (0.2-1.2) % Absolute Granulocytes (1.78-5.38) x10^3/uL Basophils # (0.01-0.08) x10^3/uL Sodium (135-145) mmol/L Potassium (3.5-5.1) mmol/L Chloride (98-107) mmol/L Carbon Dioxide (22-30) mmol/L Anion Gap (5-15) MEQ/L BUN (9-20) mg/dL Creatinine (0.66-1.25) mg/dL Estimated GFR ML/MIN Glucose (74-106) mg/dL Calcium (8.4-10.2) mg/dL Total Bilirubin (0.2-1.3) mg/dL AST (17-59) U/L ALT (0-50) U/L Alkaline Phosphatase (38-126) U/L Troponin I 0.076 H* (0.000-0.033) ng/mL Serum Total Protein (6.3-8.2) g/dL Albumin (3.5-5.0) g/dL Urine Color Yellow (Yellow) Urine Appearance Clear (Clear) Urine pH 5.0 (4.6-8.0) Ur Specific [place] 1.015 (1.005-1.030) Urine Protein Negative (Negative) Urine Glucose (UA) Negative (Negative) mg/dL Urine Ketones Negative (Negative) Urine Blood Negative (Negative) Urine Nitrite Negative (Negative) Urine Bilirubin Negative (Negative) Urine Urobilinogen 0.2 (0.2) mg/dL Ur Leukocyte Esterase Trace A (Negative) U Hyaline Cast (Auto) NONE SEEN (0-2) /LPF Urine Microscopic RBC 0-2 (0-5) /HPF Urine Microscopic WBC 3-5 (0-5) /HPF Ur Epithelial Cells None Seen (None Seen) /HPF Urine Bacteria None Seen (None Seen) /HPF Urine Culture Reflexed NO (NO) ABO Group Rh Factor Antibody Screen (NEGATIVE) Microbiology 09/12/24 13:41 Blood Culture Gram Stain - Final Blood Not Reportable - Radiology Impressions Radiology Exams & Impressions: Radiology Procedures Category Date Time Status CHEST 1 VIEW (PORTABLE) Stat Exams 09/12/24 12:01 Completed HEAD WITHOUT CONTRAST [CT] Stat Exams 09/12/24 12:30 Completed - Other Procedures and Tests Respiratory Therapy 09/12/24 16:38 Oxygen NASAL CANNULA 2 lpm Assessment/Plan (1) Acute hypoxic respiratory failure Current Visit: No Status: Acute Assessment & Plan: -2/2 pneumonia- ceftriaxone/azithromycin started in ED, will continue -Supplemental oxygen with goal spo2 > 92% - baseline RA- currently at 2L NC -CXR with minimal left base infiltrate/atelectasis/effusion -DuoNebs/INH-solumedrol -RT eval and follow -Consider CT if no improvement Code(s): J96.01 - ACUTE RESPIRATORY FAILURE WITH HYPOXIA (2) Left lower lobe pneumonia Current Visit: Yes Status: Acute Assessment & Plan: -see above Code(s): J18.9 - PNEUMONIA, UNSPECIFIED ORGANISM (3) Confusion Current Visit: Yes Status: Acute Assessment & Plan: -CT head reviewed with stable chronic changes with an incidental maxillary polyp -Most likely secondary to pneumonia - see ARF for treatment simran -If no improvement - consider MRI/neuro consult Code(s): R41.0 - DISORIENTATION, UNSPECIFIED (4) Elevated troponin Current Visit: Yes Status: Acute Assessment & Plan: -EKG NS with no ST elevations/deviations -Continue troponin series - may reflect demand ischemia -DDimer -Denies chest pain -Consider cardiology consult Code(s): R79.89 - OTHER SPECIFIED ABNORMAL FINDINGS OF BLOOD CHEMISTRY (5) Generalized weakness Current Visit: Yes Status: Acute Assessment & Plan: -Most likely secondary to pneumonia -PT eval Code(s): R53.1 - WEAKNESS (6) Anemia, macrocytic Current Visit: Yes Status: Chronic Assessment & Plan: -Hgb reviewed at 8.7- trend -iron studies -Transfuse if hgb < 7 Code(s): D53.9 - NUTRITIONAL ANEMIA, UNSPECIFIED (7) Hypocalcemia Current Visit: No Status: Acute Assessment & Plan: -Corrected Calcium 8.1- monitor Code(s): E83.51 - HYPOCALCEMIA (8) HLD (hyperlipidemia) Current Visit: No Status: Chronic Assessment & Plan: -Continue statin Code(s): E78.5 - HYPERLIPIDEMIA, UNSPECIFIED (9) HTN (hypertension) Current Visit: No Status: Chronic Assessment & Plan: -BP stable - continue home meds Code(s): I10 - ESSENTIAL (PRIMARY) HYPERTENSION (10) CHF (congestive heart failure) Current Visit: No Status: Chronic Assessment & Plan: -No echo on file - obtain -CXR as stated above -BNP -monitor volume status- consider diuresis VTE: lovenox PPI: protonix Dispo: 1-2 days Code(s): I50.9 - HEART FAILURE, UNSPECIFIED Telemedicine Encounter - Telemedicine Encounter Telemedicine Encounter: "The entirety of this encounter was performed via Telemedicine" This visit was performed using real-time audio and video connection between my location and thepatients locationwith the assistance of a surrogateat the patients location. Written or verbal consent was obtained from the patient/guardian to perform this visit [facility] technology. Any patient questions regarding the telemedicine interaction were answered.
[2024-09-12] MEDS ORDERED: TYLENOL 325 MG PO PRN (17:22)
[2024-09-12] MEDS ORDERED: DUONEB 0.5-3 MG/3 ml Neb IH PRN (17:38)
[2024-09-12] MEDS ORDERED: Nitrostat 0.4 MG (ED) SL PRN (17:49)
[2024-09-12 17:59] LABS: Iron 26 ug/dL (49-181); Iron Saturation 11 % (20-39); TIBC 229 ug/dL (261-497)
[2024-09-12] MEDS: Lasix 40 MG/4 ML IV SCH (18:40)
[2024-09-12] MEDS ORDERED: DUONEB 0.5-3 MG/3 ml Neb IH SCH (19:00)
[2024-09-12 20:47] LABS: Ferritin 91.7 ng/mL (17.9-464); Folate (Folic Acid) 10.2 ng/mL (2.76 - >20)
[2024-09-12] MEDS ORDERED: solu-MEDROL ONE (22:00)
[2024-09-12] MEDS ORDERED: Sterile H2O 10 ml IJ ONE (22:01)
[2024-09-12] MEDS: solu-MEDROL 40 MG, Sterile H2O 10 ml 1 ML IV SCH (22:30)
[2024-09-12] MEDS: BENTYL 20 MG PO SCH (22:30)
[2024-09-12] MEDS: NON-FORMULARY ITEM (Rosuvastatin Calcium [Rosuvastatin Calcium] 20 MG Tablet) PO SCH (22:30)
[2024-09-12] MEDS: Coreg PO SCH (22:30)
--- NOTE | 2024-09-13 01:14 | XRAY ---
CLINICAL HISTORY: hypoxia, elevated D-dimer COMPARISON: CT 02/28/2024 TECHNIQUE: Contiguous 3.[address] images of the chest were acquired with administration of 80ml ISOVUE 370 intravenous contrast. Coronal and sagittal reconstructions were obtained. One of the following dose reduction techniques were utilized for this exam: Automated exposure control, adjustment of the mA and/or kV according to patient size, and use of iterative reconstruction FINDINGS: Lungs: Centrilobular emphysematous changes are noted most appreciated in the upper lobes. unchanged Diffuse bilateral ground-glass opacities with interstitial changes mainly affecting right lung. relatively new finding. Bilateral mild pleural effusion More on left side. interval decrease. Mediastinum: No mediastinal mass or abnormal lymphadenopathy. Normal appearance of the thymus. Hilar Structures: Normal size and configuration, no enlargement. A calcified left lower lobar granuloma (6 mm), as well as a left hilar lymph node, are seen, sequelae of the previous granulomatous process. Heart and Great Vessels: Left-sided pacemaker. The heart is enlarged in size. No pericardial effusion. Normal caliber and course of the thoracic aorta and other great vessels. Moderate atherosclerosis of aorta and coronaries. Normal enhancement of the great vessels post-contrast. Pulmonary Arteries: No evidence of pulmonary embolism. Normal size and course of the pulmonary arteries. Esophagus: Normal course and caliber. No masses or dilatation. Bones: Spondylodegenerative changes of the visualized spine, no gross lytic or sclerotic lesions. Reduced bone density. unchanged No evidence of rib fractures. Chest Wall: No masses or soft tissue abnormalities. Upper Abdomen Upper abdominal cuts reveal few tiny calcified splenic granulomas A 68 x 43 mm cyst is seen adjacent to the left kidney, not clear whether renal in origin. Thyroid: Normal size and morphology. No nodules or masses. IMPRESSION: 1. No evidence of pulmonary embolism. 2. Centrilobular emphysematous changes are noted most appreciated in the upper lobes. unchanged. 3. Previously noted moderate bilateral pleural effusion with ground glass haziness and septal thickening shows interval reduction However patchy bilateral ground-glass opacities with interstitial changes mainly affecting the right lung are still present. Findings represent resolving pulmonary edema with superimposed infection. 4. Cardiomegaly with pacemaker. Electronically Signed by: Cecil Witt MD. (09/13/2024 01:10:53 EDT)
[2024-09-13 05:06] LABS: Hematocrit 29.1 % (40.1-51.0); Hemoglobin 8.8 g/dL (13.7-17.5); Mean Corpuscular Hemoglobin 29.9 pg (25.7-32.2); Mean Corpuscular Hgb Concent. 30.2 g/dL (32.3-36.5); Mean Platelet Volume 9.1 fL (9.4-12.4); Platelet Count 145 x10^3/uL (163-337); Red Blood Count 2.94 x10^6/uL (4.63-6.08); Red Cell Distribution Width 17.1 % (11.6-14.4); White Blood Count 7.7 x10^3/uL (4.23-9.07)
--- NOTE | 2024-09-13 05:30 | PCM.NOTE ---
Date and Time: 09/13/24 0524 Subjective Assessment: Mr. Hedrick is an 89-year-old male with a history of CHF, HLD, HTN, and hypothyroidism presented to the ED with generalized weakness, confusion, and reported shortness of breath. His daughter, noting a history of recurrent UTIs, was concerned about another infection contributing to his symptoms. She reports patient has been having trouble finding his words and thought his was in the room. These symptoms just started today. Shortness of breath has been progressive and patient has been unable to complete ADLs due to severe weakness and shortness of breath. No fever. Mild intermittent cough. Denies nausea, vomiting, abdominal pain, dizziness, headache, or urinary symptoms. On arrival, he was hypoxic and placed on 2L oxygen. EKG was unremarkable, while CXR revealed a new minimal left base infiltrate/atelectasis/effusion. CT head showed stable chronic changes with an incidental maxillary polyp. Labs were notable for macrocytic anemia, gap acidosis, elevated troponin, and hypocalcemia. He was treated in the ED with a 250mL fluid bolus, ceftriaxone, and azithromycin. Admit for Acute respiratory failure with hypoxia secondary to pneumonia/ possible CHF exacerbation. 09/13/24: The patient reports improved dyspnea and a non-productive cough, currently requiring 2L oxygen despite a baseline of room air. Treatment with antibiotics and steroids continues, with discharge anticipated pending clinical response. - Review of Systems Constitutional: No Symptoms Eyes: No Symptoms Ears, Nose, & Throat: No Symptoms Respiratory: Cough, Short Of Breath, Wheezing Cardiac: No Symptoms Abdominal/Gastrointestinal: No Symptoms Genitourinary Symptoms: No Symptoms Musculoskeletal: No Symptoms Skin: No Symptoms Neurological: No Symptoms Psychological: No Symptoms Endocrine: No Symptoms Hematologic/Lymphatic: No Symptoms Immunological/Allergic: No Symptoms Objective Exam General Appearance: no apparent distress Neurologic Exam: alert, oriented x 3, cooperative Skin Exam: normal color Eye Exam: PERRL Ears, Nose, Throat Exam: normal ENT inspection Neck Exam: normal inspection Respiratory Exam: diminished breath sounds, wheezing Cardiovascular Exam: regular rate/rhythm, normal heart sounds Gastrointestinal/Abdomen Exam: soft, normal bowel sounds Extremity Exam: normal inspection Back Exam: normal inspection Male Genitalia Exam: deferred Rectal Exam: deferred Objective Data Vital Signs: Vital Signs - 24 hr Temp Pulse Resp BP BP Pulse Ox 09/13/24 04:00 98.8 F 64 25 H 145/63 91 L 09/12/24 23:54 98.7 F 72 22 158/67 92 L 09/12/24 20:35 98.7 F 74 24 159/69 91 L 09/12/24 17:38 62 16 96 09/12/24 16:43 97.6 F 62 16 165/65 97 09/12/24 16:39 96 09/12/24 16:35 97.6 F 62 16 165/65 97 09/12/24 16:00 61 19 138/58 98 09/12/24 15:34 92 L 09/12/24 15:30 60 20 114/83 98 09/12/24 15:00 60 17 126/46 97 09/12/24 14:30 60 20 128/61 98 09/12/24 14:00 60 20 128/47 89 L 09/12/24 13:30 63 17 121/79 89 L 09/12/24 13:01 60 22 123/91 100 09/12/24 12:37 60 19 118/72 100 09/12/24 12:14 94 L 09/12/24 12:00 106/48 09/12/24 11:59 96.8 F 61 16 106/45 92 L Pain Assessment - Last Documented Pain Intensity 0 Intake and Output: Intake & Output 09/10/24 09/11/24 09/12/24 09/13/24 11:59 11:59 11:59 11:59 Intake Total 50 Output Total 350 Balance -300 Weight 75.3 kg Lab Results: Lab Results-Last 24 Hours 09/12/24 09/12/24 09/12/24 Range/Units 12:19 12:19 12:19 WBC 7.5 (4.23-9.07) x10^3/uL RBC 2.89 L (4.63-6.08) x10^6/uL Hgb 8.7 L (13.7-17.5) g/dL Hct 29.6 L (40.1-51.0) % MCV 102.4 H (79.0-92.2) fL MCH 30.1 (25.7-32.2) pg MCHC 29.4 L (32.3-36.5) g/dL RDW 17.4 H (11.6-14.4) % Plt Count 155 L (163-337) x10^3/uL MPV 8.9 L (9.4-12.4) fL Gran % 77.4 H (34.0-67.9) % Immature Gran % (Auto) 0.3 (0.001-0.429) % Nucleat RBC Rel Count 0.0 (0.00-0.2) % Eos # (Auto) 0.15 (0.04-0.54) x10^3/uL Immature Gran # (Auto) 0.02 (0.001-0.031) x10^3u/L Absolute Lymphs (auto) 0.68 L (1.32-3.57) x10^3/uL Absolute Monos (auto) 0.80 (0.30-0.82) x10^3/uL Absolute Nucleated RBC 0.00 (0.00-0.012) x10^3u/L Lymphocytes % 9.0 L (21.8-53.1) % Monocytes % 10.6 (5.3-12.2) % Eosinophils % 2.0 (0.8-7.0) % Basophils % 0.7 (0.2-1.2) % Absolute Granulocytes 5.83 H (1.78-5.38) x10^3/uL Basophils # 0.05 (0.01-0.08) x10^3/uL D-Dimer (0.0-0.50) mg/L Sodium 142 (135-145) mmol/L Potassium 3.8 (3.5-5.1) mmol/L Chloride 107 (98-107) mmol/L Carbon Dioxide 23 (22-30) mmol/L Anion Gap 15.3 H (5-15) MEQ/L BUN 22 H (9-20) mg/dL Creatinine 1.10 (0.66-1.25) mg/dL Estimated GFR 64.6 ML/MIN Glucose 100 (74-106) mg/dL Calcium 7.7 L (8.4-10.2) mg/dL Iron (49-181) ug/dL TIBC (261-497) ug/dL Iron Saturation (20-39) % Ferritin (17.9-464) ng/mL Total Bilirubin 0.60 (0.2-1.3) mg/dL AST 24 (17-59) U/L ALT 21 (0-50) U/L Alkaline Phosphatase 57 (38-126) U/L Troponin I 0.075 H* (0.000-0.033) ng/mL NT-Pro-B Natriuret Pep 8010 (<300) pg/mL Serum Total Protein 6.0 L (6.3-8.2) g/dL Albumin 3.5 (3.5-5.0) g/dL Vitamin B12 (239-931) pg/mL Folic Acid (2.76 - >20) ng/mL TSH 3rd Generation (0.470-4.680) mIU/L Urine Color (Yellow) Urine Appearance (Clear) Urine pH (4.6-8.0) Ur Specific Lissie (1.005-1.030) Urine Protein (Negative) Urine Glucose (UA) (Negative) mg/dL Urine Ketones (Negative) Urine Blood (Negative) Urine Nitrite (Negative) Urine Bilirubin (Negative) Urine Urobilinogen (0.2) mg/dL Ur Leukocyte Esterase (Negative) U Hyaline Cast (Auto) (0-2) /LPF Urine Microscopic RBC (0-5) /HPF Urine Microscopic WBC (0-5) /HPF Ur Epithelial Cells (None Seen) /HPF Urine Bacteria (None Seen) /HPF Urine Culture Reflexed (NO) ABO Group Rh Factor Antibody Screen (NEGATIVE) 09/12/24 09/12/24 09/12/24 Range/Units 12:19 12:19 12:19 WBC (4.23-9.07) x10^3/uL RBC (4.63-6.08) x10^6/uL Hgb (13.7-17.5) g/dL Hct (40.1-51.0) % MCV (79.0-92.2) fL MCH (25.7-32.2) pg MCHC (32.3-36.5) g/dL RDW (11.6-14.4) % Plt Count (163-337) x10^3/uL MPV (9.4-12.4) fL Gran % (34.0-67.9) % Immature Gran % (Auto) (0.001-0.429) % Nucleat RBC Rel Count (0.00-0.2) % Eos # (Auto) (0.04-0.54) x10^3/uL Immature Gran # (Auto) (0.001-0.031) x10^3u/L Absolute Lymphs (auto) (1.32-3.57) x10^3/uL Absolute Monos (auto) (0.30-0.82) x10^3/uL Absolute Nucleated RBC (0.00-0.012) x10^3u/L Lymphocytes % (21.8-53.1) % Monocytes % (5.3-12.2) % Eosinophils % (0.8-7.0) % Basophils % (0.2-1.2) % Absolute Granulocytes (1.78-5.38) x10^3/uL Basophils # (0.01-0.08) x10^3/uL D-Dimer (0.0-0.50) mg/L Sodium (135-145) mmol/L Potassium (3.5-5.1) mmol/L Chloride (98-107) mmol/L Carbon Dioxide (22-30) mmol/L Anion Gap (5-15) MEQ/L BUN (9-20) mg/dL Creatinine (0.66-1.25) mg/dL Estimated GFR ML/MIN Glucose (74-106) mg/dL Calcium (8.4-10.2) mg/dL Iron 26 L (49-181) ug/dL TIBC 229 L (261-497) ug/dL Iron Saturation 11 L (20-39) % Ferritin 91.7 (17.9-464) ng/mL Total Bilirubin (0.2-1.3) mg/dL AST (17-59) U/L ALT (0-50) U/L Alkaline Phosphatase (38-126) U/L Troponin I (0.000-0.033) ng/mL NT-Pro-B Natriuret Pep (<300) pg/mL Serum Total Protein (6.3-8.2) g/dL Albumin (3.5-5.0) g/dL Vitamin B12 222 L (239-931) pg/mL Folic Acid 10.2 (2.76 - >20) ng/mL TSH 3rd Generation 4.183 (0.470-4.680) mIU/L Urine Color (Yellow) Urine Appearance (Clear) Urine pH (4.6-8.0) Ur Specific Lissie (1.005-1.030) Urine Protein (Negative) Urine Glucose (UA) (Negative) mg/dL Urine Ketones (Negative) Urine Blood (Negative) Urine Nitrite (Negative) Urine Bilirubin (Negative) Urine Urobilinogen (0.2) mg/dL Ur Leukocyte Esterase (Negative) U Hyaline Cast (Auto) (0-2) /LPF Urine Microscopic RBC (0-5) /HPF Urine Microscopic WBC (0-5) /HPF Ur Epithelial Cells (None Seen) /HPF Urine Bacteria (None Seen) /HPF Urine Culture Reflexed (NO) ABO Group Rh Factor Antibody Screen (NEGATIVE) 09/12/24 09/12/24 09/12/24 Range/Units 12:59 13:30 14:19 WBC (4.23-9.07) x10^3/uL RBC (4.63-6.08) x10^6/uL Hgb (13.7-17.5) g/dL Hct (40.1-51.0) % MCV (79.0-92.2) fL MCH (25.7-32.2) pg MCHC (32.3-36.5) g/dL RDW (11.6-14.4) % Plt Count (163-337) x10^3/uL MPV (9.4-12.4) fL Gran % (34.0-67.9) % Immature Gran % (Auto) (0.001-0.429) % Nucleat RBC Rel Count (0.00-0.2) % Eos # (Auto) (0.04-0.54) x10^3/uL Immature Gran # (Auto) (0.001-0.031) x10^3u/L Absolute Lymphs (auto) (1.32-3.57) x10^3/uL Absolute Monos (auto) (0.30-0.82) x10^3/uL Absolute Nucleated RBC (0.00-0.012) x10^3u/L Lymphocytes % (21.8-53.1) % Monocytes % (5.3-12.2) % Eosinophils % (0.8-7.0) % Basophils % (0.2-1.2) % Absolute Granulocytes (1.78-5.38) x10^3/uL Basophils # (0.01-0.08) x10^3/uL D-Dimer (0.0-0.50) mg/L Sodium (135-145) mmol/L Potassium (3.5-5.1) mmol/L Chloride (98-107) mmol/L Carbon Dioxide (22-30) mmol/L Anion Gap (5-15) MEQ/L BUN (9-20) mg/dL Creatinine (0.66-1.25) mg/dL Estimated GFR ML/MIN Glucose (74-106) mg/dL Calcium (8.4-10.2) mg/dL Iron (49-181) ug/dL TIBC (261-497) ug/dL Iron Saturation (20-39) % Ferritin (17.9-464) ng/mL Total Bilirubin (0.2-1.3) mg/dL AST (17-59) U/L ALT (0-50) U/L Alkaline Phosphatase (38-126) U/L Troponin I 0.076 H* (0.000-0.033) ng/mL NT-Pro-B Natriuret Pep (<300) pg/mL Serum Total Protein (6.3-8.2) g/dL Albumin (3.5-5.0) g/dL Vitamin B12 (239-931) pg/mL Folic Acid (2.76 - >20) ng/mL TSH 3rd Generation (0.470-4.680) mIU/L Urine Color Yellow (Yellow) Urine Appearance Clear (Clear) Urine pH 5.0 (4.6-8.0) Ur Specific Lissie 1.015 (1.005-1.030) Urine Protein Negative (Negative) Urine Glucose (UA) Negative (Negative) mg/dL Urine Ketones Negative (Negative) Urine Blood Negative (Negative) Urine Nitrite Negative (Negative) Urine Bilirubin Negative (Negative) Urine Urobilinogen 0.2 (0.2) mg/dL Ur Leukocyte Esterase Trace A (Negative) U Hyaline Cast (Auto) NONE SEEN (0-2) /LPF Urine Microscopic RBC 0-2 (0-5) /HPF Urine Microscopic WBC 3-5 (0-5) /HPF Ur Epithelial Cells None Seen (None Seen) /HPF Urine Bacteria None Seen (None Seen) /HPF Urine Culture Reflexed NO (NO) ABO Group O Rh Factor NEGATIVE Antibody Screen NEGATIVE (NEGATIVE) 09/12/24 09/12/24 09/13/24 Range/Units 19:27 19:27 05:01 WBC 7.7 (4.23-9.07) x10^3/uL RBC 2.94 L (4.63-6.08) x10^6/uL Hgb 8.8 L (13.7-17.5) g/dL Hct 29.1 L (40.1-51.0) % MCV 99.0 H (79.0-92.2) fL MCH 29.9 (25.7-32.2) pg MCHC 30.2 L (32.3-36.5) g/dL RDW 17.1 H (11.6-14.4) % Plt Count 145 L (163-337) x10^3/uL MPV 9.1 L (9.4-12.4) fL Gran % (34.0-67.9) % Immature Gran % (Auto) (0.001-0.429) % Nucleat RBC Rel Count (0.00-0.2) % Eos # (Auto) (0.04-0.54) x10^3/uL Immature Gran # (Auto) (0.001-0.031) x10^3u/L Absolute Lymphs (auto) (1.32-3.57) x10^3/uL Absolute Monos (auto) (0.30-0.82) x10^3/uL Absolute Nucleated RBC (0.00-0.012) x10^3u/L Lymphocytes % (21.8-53.1) % Monocytes % (5.3-12.2) % Eosinophils % (0.8-7.0) % Basophils % (0.2-1.2) % Absolute Granulocytes (1.78-5.38) x10^3/uL Basophils # (0.01-0.08) x10^3/uL D-Dimer 1.54 H* (0.0-0.50) mg/L Sodium (135-145) mmol/L Potassium (3.5-5.1) mmol/L Chloride (98-107) mmol/L Carbon Dioxide (22-30) mmol/L Anion Gap (5-15) MEQ/L BUN (9-20) mg/dL Creatinine (0.66-1.25) mg/dL Estimated GFR ML/MIN Glucose (74-106) mg/dL Calcium (8.4-10.2) mg/dL Iron (49-181) ug/dL TIBC (261-497) ug/dL Iron Saturation (20-39) % Ferritin (17.9-464) ng/mL Total Bilirubin (0.2-1.3) mg/dL AST (17-59) U/L ALT (0-50) U/L Alkaline Phosphatase (38-126) U/L Troponin I 0.076 H* (0.000-0.033) ng/mL NT-Pro-B Natriuret Pep (<300) pg/mL Serum Total Protein (6.3-8.2) g/dL Albumin (3.5-5.0) g/dL Vitamin B12 (239-931) pg/mL Folic Acid (2.76 - >20) ng/mL TSH 3rd Generation (0.470-4.680) mIU/L Urine Color (Yellow) Urine Appearance (Clear) Urine pH (4.6-8.0) Ur Specific Lissie (1.005-1.030) Urine Protein (Negative) Urine Glucose (UA) (Negative) mg/dL Urine Ketones (Negative) Urine Blood (Negative) Urine Nitrite (Negative) Urine Bilirubin (Negative) Urine Urobilinogen (0.2) mg/dL Ur Leukocyte Esterase (Negative) U Hyaline Cast (Auto) (0-2) /LPF Urine Microscopic RBC (0-5) /HPF Urine Microscopic WBC (0-5) /HPF Ur Epithelial Cells (None Seen) /HPF Urine Bacteria (None Seen) /HPF Urine Culture Reflexed (NO) ABO Group Rh Factor Antibody Screen (NEGATIVE) Radiology Exams: Radiology Procedures Category Date Time Status CHEST 1 VIEW (PORTABLE) Stat Exams 09/12/24 12:01 Completed CHEST WITH CONTRAST [CT] Stat Exams 09/12/24 20:13 Completed ECHO W/2D AND DOPPLER [US] Routine Exams 09/13/24 17:22 Ordered HEAD WITHOUT CONTRAST [CT] Stat Exams 09/12/24 12:30 Completed Assessment/Plan (1) Acute hypoxic respiratory failure Current Visit: No Status: Acute Assessment & Plan: -2/2 pneumonia- ceftriaxone/azithromycin started in ED, will continue -Supplemental oxygen with goal spo2 > 92% - baseline RA- currently at 2L NC -CXR with minimal left base infiltrate/atelectasis/effusion -DuoNebs/INH-solumedrol -RT eval and follow -Consider CT if no improvement 09/13/24: -CT chest reviewed- imaging shows no pulmonary embolism and stable centrilobular emphysema, most pronounced in the upper lobes. Previously noted bilateral pleural effusions with ground-glass haziness and septal thickening have improved, though persistent patchy ground-glass opacities with interstitial changes in the right lung suggest resolving pulmonary edema with superimposed infection. 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 -Continue cefuroxime/azithromycin/prednisone as pt has no IV access -Continue Lasix Code(s): J96.01 - ACUTE RESPIRATORY FAILURE WITH HYPOXIA (2) Left lower lobe pneumonia Current Visit: Yes Status: Acute Assessment & Plan: -see above Code(s): J18.9 - PNEUMONIA, UNSPECIFIED ORGANISM (3) Confusion Current Visit: Yes Status: Acute Assessment & Plan: -CT head reviewed with stable chronic changes with an incidental maxillary polyp -Most likely secondary to pneumonia - see ARF for treatment simran -If no improvement - consider MRI/neuro consult Code(s): R41.0 - DISORIENTATION, UNSPECIFIED (4) Elevated troponin Current Visit: Yes Status: Acute Assessment & Plan: -EKG NS with no ST elevations/deviations -Continue troponin series - may reflect demand ischemia -DDimer -Denies chest pain -Consider cardiology consult Code(s): R79.89 - OTHER SPECIFIED ABNORMAL FINDINGS OF BLOOD CHEMISTRY (5) Generalized weakness Current Visit: Yes Status: Acute Assessment & Plan: -Most likely secondary to pneumonia -PT eval Code(s): R53.1 - WEAKNESS (6) Anemia, macrocytic Current Visit: Yes Status: Chronic Assessment & Plan: -Hgb reviewed- stable at 8.8>8.7- trend -iron studies with saturation at 11% - venofer/ferrous sulfate -Transfuse if hgb < 7 Code(s): D53.9 - NUTRITIONAL ANEMIA, UNSPECIFIED (7) Hypocalcemia Current Visit: No Status: Acute Assessment & Plan: -Corrected Calcium 8.1- monitor Code(s): E83.51 - HYPOCALCEMIA (8) HLD (hyperlipidemia) Current Visit: No Status: Chronic Assessment & Plan: -Continue statin Code(s): E78.5 - HYPERLIPIDEMIA, UNSPECIFIED (9) HTN (hypertension) Current Visit: No Status: Chronic Assessment & Plan: -BP stable - continue home meds Code(s): I10 - ESSENTIAL (PRIMARY) HYPERTENSION (10) CHF (congestive heart failure) Current Visit: No Status: Chronic Assessment & Plan: -Echo pending -CXR as stated above -CT as stated above -BNP reviewed at 8010 -monitor volume status- -Lasix 40mg BID - continue VTE: lovenox PPI: protonix Dispo: 1-2 days Code(s): J96.01 - ACUTE RESPIRATORY FAILURE WITH HYPOXIA (2) Left lower lobe pneumonia Current Visit: Yes Status: Acute Code(s): J18.9 - PNEUMONIA, UNSPECIFIED ORGANISM (3) Confusion Current Visit: Yes Status: Acute Code(s): R41.0 - DISORIENTATION, UNSPECIFIED (4) Elevated troponin Current Visit: Yes Status: Acute Code(s): R79.89 - OTHER SPECIFIED ABNORMAL FINDINGS OF BLOOD CHEMISTRY (5) Generalized weakness Current Visit: Yes Status: Acute Code(s): R53.1 - WEAKNESS (6) Anemia, macrocytic Current Visit: Yes Status: Chronic Code(s): D53.9 - NUTRITIONAL ANEMIA, UNSPECIFIED (7) Hypocalcemia Current Visit: No Status: Acute Code(s): E83.51 - HYPOCALCEMIA (8) HLD (hyperlipidemia) Current Visit: No Status: Chronic Code(s): E78.5 - HYPERLIPIDEMIA, UNSPECIFIED (9) HTN (hypertension) Current Visit: No Status: Chronic Code(s): I10 - ESSENTIAL (PRIMARY) HYPERTENSION (10) CHF (congestive heart failure) Current Visit: No Status: Chronic Code(s): I50.9 - HEART FAILURE, UNSPECIFIED
[2024-09-13 05:38] LABS: ANION GAP 13.9 MEQ/L (5-15); Creatinine 1 1.18 mg/dL (0.66-1.25); EST GLOMERULAR FILTRATION RATE 59.4 ML/MIN; Potassium 3.6 mmol/L (3.5-5.1)
[2024-09-13] MEDS: ROCEPHIN 2 GM/100 ML NACL 2 GM/100 ML IVPB IV SCH (08:24)
[2024-09-13] MEDS: ENOXAPARIN SODIUM SQ SCH (08:25)
[2024-09-13] MEDS: Aldactone 25 MG PO SCH (08:29)
[2024-09-13] MEDS: ECOTRIN 81 MG PO SCH (08:29)
[2024-09-13] MEDS: Protonix 40MG Tablet PO SCH (08:30)
[2024-09-13] MEDS: Cordarone 200 MG PO SCH (08:31)
[2024-09-13] MEDS: ZITHROMAX IV*** 500 MG in Sodium Chloride 0.9% 250 ML 250 ML IV SCH (08:32)
[2024-09-13] MEDS: SYNTHROID 50 MCG PO SCH (08:32)
[2024-09-13] MEDS ORDERED: SYNTHROID 25 MCG PO SCH (10:00)
[2024-09-13] MEDS ORDERED: BABY ASPIRIN 81 MG CHEW PO SCH (10:00)
[2024-09-13] MEDS ORDERED: Protonix 40MG Tablet PO SCH (10:00)
[2024-09-13] MEDS: ENTRESTO 49 MG-51 MG TABLET PO SCH (10:37)
[2024-09-13] MEDS: CEFTIN 500 MG PO ONE (11:59)
[2024-09-13] MEDS: Lasix 40 MG/4 ML IV SCH (18:33)
[2024-09-13] MEDS: Lasix 40 MG PO SCH (18:44)
[2024-09-13] MEDS: DELTASONE 20 MG PO SCH (20:51)
[2024-09-13] MEDS: ZOCOR 20MG PO SCH (20:51)
--- NOTE | 2024-09-14 05:09 | PCM.NOTE ---
Date and Time: 09/14/24 0508 Subjective Assessment: Mr. Hedrick is an 89-year-old male with a history of CHF, HLD, HTN, and hypothyroidism presented to the ED with generalized weakness, confusion, and reported shortness of breath. His daughter, noting a history of recurrent UTIs, was concerned about another infection contributing to his symptoms. She reports patient has been having trouble finding his words and thought his was in the room. These symptoms just started today. Shortness of breath has been progressive and patient has been unable to complete ADLs due to severe weakness and shortness of breath. No fever. Mild intermittent cough. Denies nausea, vomiting, abdominal pain, dizziness, headache, or urinary symptoms. On arrival, he was hypoxic and placed on 2L oxygen. EKG was unremarkable, while CXR revealed a new minimal left base infiltrate/atelectasis/effusion. CT head showed stable chronic changes with an incidental maxillary polyp. Labs were notable for macrocytic anemia, gap acidosis, elevated troponin, and hypocalcemia. He was treated in the ED with a 250mL fluid bolus, ceftriaxone, and azithromycin. Admit for Acute respiratory failure with hypoxia secondary to pneumonia/ possible CHF exacerbation. 09/13/24: The patient reports improved dyspnea and a non-productive cough, currently requiring 2L oxygen despite a baseline of room air. Treatment with antibiotics and steroids continues, with discharge anticipated pending clinical response. Objective Data Vital Signs: Vital Signs - 24 hr Temp Pulse Resp BP Pulse Ox 09/14/24 00:00 97.8 F 61 18 106/57 90 L 09/13/24 20:00 97.0 F 60 16 115/55 96 09/13/24 18:30 60 16 95 09/13/24 12:00 97.7 F 63 16 103/68 91 L 09/13/24 11:53 93 L 09/13/24 07:29 98.0 F 60 16 123/58 95 09/13/24 06:30 62 16 98 Pain Assessment - Last Documented Pain Intensity 0 Intake and Output: Intake & Output 09/11/24 09/12/24 09/13/24 09/14/24 11:59 11:59 11:59 11:59 Intake Total 530 1100 Output Total 900 750 Balance -370 350 Weight 75.3 kg Lab Results: Lab Results-Last 24 Hours 09/13/24 09/13/24 09/13/24 Range/Units 05:01 05:01 05:01 WBC 7.7 (4.23-9.07) x10^3/uL RBC 2.94 L (4.63-6.08) x10^6/uL Hgb 8.8 L (13.7-17.5) g/dL Hct 29.1 L (40.1-51.0) % MCV 99.0 H (79.0-92.2) fL MCH 29.9 (25.7-32.2) pg MCHC 30.2 L (32.3-36.5) g/dL RDW 17.1 H (11.6-14.4) % Plt Count 145 L (163-337) x10^3/uL MPV 9.1 L (9.4-12.4) fL Sodium 139 (135-145) mmol/L Potassium 3.6 (3.5-5.1) mmol/L Chloride 103 (98-107) mmol/L Carbon Dioxide 26 (22-30) mmol/L Anion Gap 13.9 (5-15) MEQ/L BUN 21 H (9-20) mg/dL Creatinine 1.18 (0.66-1.25) mg/dL Estimated GFR 59.4 ML/MIN Glucose 115 H (74-106) mg/dL Calcium 8.0 L (8.4-10.2) mg/dL Procalcitonin 0.164 H (0.030-0.080) ng/mL Radiology Exams: Radiology Procedures Category Date Time Status CHEST 1 VIEW (PORTABLE) Stat Exams 09/12/24 12:01 Completed CHEST WITH CONTRAST [CT] Stat Exams 09/12/24 20:13 Completed ECHO W/2D AND DOPPLER [US] Routine Exams 09/13/24 17:22 Taken HEAD WITHOUT CONTRAST [CT] Stat Exams 09/12/24 12:30 Completed Multi-Disciplinary Progress Notes: Multi-Disciplinary Progress Notes 09/13/24 12:32 Respiratory Note by Amaya Gibbs PT'S O2 SAT ON ROOM AIR WHILE AT REST WAS 85%. PT WAS PLACED BACK ON 2LPM VIA NASAL CANNULA. O2 SAT INCREASED TO 92%. Initialized on 09/13/24 12:32 - END OF NOTE Assessment/Plan (1) Acute hypoxic respiratory failure Current Visit: No Status: Acute Assessment & Plan: -2/2 pneumonia- ceftriaxone/azithromycin started in ED, will continue -Supplemental oxygen with goal spo2 > 92% - baseline RA- currently at 2L NC -CXR with minimal left base infiltrate/atelectasis/effusion -DuoNebs/INH-solumedrol -RT eval and follow -Consider CT if no improvement 09/13/24: -CT chest reviewed- imaging shows no pulmonary embolism and stable centrilobular emphysema, most pronounced in the upper lobes. Previously noted bilateral pleural effusions with ground-glass haziness and septal thickening have i mproved, though persistent patchy ground-glass opacities with interstitial changes in the right lung suggest resolving pulmonary edema with superimposed infection. 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 -Continue cefuroxime/azithromycin/prednisone as pt has no IV access -Continue Lasix Code(s): J96.01 - ACUTE RESPIRATORY FAILURE WITH HYPOXIA (2) Left lower lobe pneumonia Current Visit: Yes Status: Acute Assessment & Plan: -see above Code(s): J18.9 - PNEUMONIA, UNSPECIFIED ORGANISM (3) Confusion Current Visit: Yes Status: Acute Assessment & Plan: -CT head reviewed with stable chronic changes with an incidental maxillary polyp -Most likely secondary to pneumonia - see ARF for treatment simran -If no improvement - consider MRI/neuro consult Code(s): R41.0 - DISORIENTATION, UNSPECIFIED (4) Elevated troponin Current Visit: Yes Status: Acute Assessment & Plan: -EKG NS with no ST elevations/deviations -Continue troponin series - may reflect demand ischemia -DDimer -Denies chest pain -Consider cardiology consult Code(s): R79.89 - OTHER SPECIFIED ABNORMAL FINDINGS OF BLOOD CHEMISTRY (5) Generalized weakness Current Visit: Yes Status: Acute Assessment & Plan: -Most likely secondary to pneumonia -PT eval Code(s): R53.1 - WEAKNESS (6) Anemia, macrocytic Current Visit: Yes Status: Chronic Assessment & Plan: -Hgb reviewed- stable at 8.8>8.7- trend -iron studies with saturation at 11% - venofer/ferrous sulfate -Transfuse if hgb < 7 Code(s): D53.9 - NUTRITIONAL ANEMIA, UNSPECIFIED (7) Hypocalcemia Current Visit: No Status: Acute Assessment & Plan: -Corrected Calcium 8.1- monitor Code(s): E83.51 - HYPOCALCEMIA (8) HLD (hyperlipidemia) Current Visit: No Status: Chronic Assessment & Plan: -Continue statin Code(s): E78.5 - HYPERLIPIDEMIA, UNSPECIFIED (9) HTN (hypertension) Current Visit: No Status: Chronic Assessment & Plan: -BP stable - continue home meds Code(s): I10 - ESSENTIAL (PRIMARY) HYPERTENSION (10) CHF (congestive heart failure) Current Visit: No Status: Chronic Assessment & Plan: -Echo pending -CXR as stated above -CT as stated above -BNP reviewed at 8010 -monitor volume status- -Lasix 40mg BID - continue VTE: lovenox PPI: protonix Dispo: 1-2 days Code(s): J96.01 - ACUTE RESPIRATORY FAILURE WITH HYPOXIA Code(s): J96.01 - ACUTE RESPIRATORY FAILURE WITH HYPOXIA (2) Left lower lobe pneumonia Current Visit: Yes Status: Acute Code(s): J18.9 - PNEUMONIA, UNSPECIFIED ORGANISM (3) Confusion Current Visit: Yes Status: Acute Code(s): R41.0 - DISORIENTATION, UNSPECIFIED (4) Elevated troponin Current Visit: Yes Status: Acute Code(s): R79.89 - OTHER SPECIFIED ABNORMAL FINDINGS OF BLOOD CHEMISTRY (5) Generalized weakness Current Visit: Yes Status: Acute Code(s): R53.1 - WEAKNESS (6) Anemia, macrocytic Current Visit: Yes Status: Chronic Code(s): D53.9 - NUTRITIONAL ANEMIA, UNSPECIFIED (7) Hypocalcemia Current Visit: No Status: Acute Code(s): E83.51 - HYPOCALCEMIA (8) HLD (hyperlipidemia) Current Visit: No Status: Chronic Code(s): E78.5 - HYPERLIPIDEMIA, UNSPECIFIED (9) HTN (hypertension) Current Visit: No Status: Chronic Code(s): I10 - ESSENTIAL (PRIMARY) HYPERTENSION (10) CHF (congestive heart failure) Current Visit: No Status: Chronic Code(s): I50.9 - HEART FAILURE, UNSPECIFIED
[2024-09-14 07:51] LABS: Absolute Neutrophil Ct (ANC) 11.89 x10^3/uL (1.78-5.38); BASOPHIL % 0.2 % (0.2-1.2); Basophil (Absolute #) 0.02 x10^3/uL (0.01-0.08); Eosinophil (Absolute #) 0 x10^3/uL (0.04-0.54); Hematocrit 29.9 % (40.1-51.0); Hemoglobin 9.3 g/dL (13.7-17.5); IMMATURE GRAN # 0.07 x10^3u/L (0.001-0.031); IMMATURE GRAN % 0.5 % (0.001-0.429); Lymphocyte (Absolute #) 0.58 x10^3/uL (1.32-3.57); Lymphocytes % 4.4 % (21.8-53.1); Mean Corpuscular Hemoglobin 30.8 pg (25.7-32.2); Mean Corpuscular Hgb Concent. 31.1 g/dL (32.3-36.5); Mean Platelet Volume 9.1 fL (9.4-12.4); Monocyte (Absolute #) 0.58 x10^3/uL (0.30-0.82); Monocytes % 4.4 % (5.3-12.2); Neutrophil % 90.5 % (34.0-67.9); Platelet Count 169 x10^3/uL (163-337); Red Blood Count 3.02 x10^6/uL (4.63-6.08); Red Cell Distribution Width 16.8 % (11.6-14.4); White Blood Count 13.1 x10^3/uL (4.23-9.07)
[2024-09-14 07:56] VITALS: RESP 17
[2024-09-14 08:04] LABS: ALBUMIN 3.7 g/dL (3.5-5.0); ANION GAP 15.3 MEQ/L (5-15); BILIRUBIN,TOTAL 0.5 mg/dL (0.2-1.3); Calcium 8.1 mg/dL (8.4-10.2); Creatinine 1 1.21 mg/dL (0.66-1.25); EST GLOMERULAR FILTRATION RATE 57.6 ML/MIN; Potassium 3.3 mmol/L (3.5-5.1); Total Protein 6.4 g/dL (6.3-8.2)
[2024-09-14 09:12] LABS: Slide Review 1 YES
[2024-09-14] MEDS: Zithromax 250 MG TABLET PO SCH (09:12)
[2024-09-14] MEDS: CEFTIN 500 MG PO ONE (10:57)
[2024-09-14] MEDS: Klor Con PO ONE (10:57)
--- NOTE | 2024-09-14 11:15 | PCM.DS ---
Discharge Summary Date of Admission: 09/12/24 16:34 Date of Discharge: 09/14/24 Admitting Physician: GEN ROSADO MD Primary Care Provider: LUIS F VEGAS Allergies Allergies No Known Drug Allergies Allergy (Verified 03/09/24 11:21) Hospital Summary - Hospital Course Hospital Course: Mr. Hedrick is an 89-year-old male with a history of congestive heart failure (CHF), hyperlipidemia (HLD), hypertension (HTN), and hypothyroidism, who presented with acute generalized weakness, confusion, and progressive shortness of breath. On examination, he was hypoxic, and imaging revealed a new minimal left base infiltrate, suggestive of pneumonia. Labs demonstrated macrocytic anemia, gap acidosis, elevated troponin, and hypocalcemia. The clinical presentation was most consistent with acute respiratory failure due to pneumonia, with a possible contribution from CHF exacerbation. He was treated with ceftriaxone,steroids, and azithromycin, resulting in improvement in dyspnea and weakness. Potassium was corrected, and he was stabilized for discharge with home oxygen therapy. He was instructed to follow up with his primary care provider and pulmonology. The patient agreed to the plan and was stable for discharge. Discharge Note New Diagnosis: Pneumonia New Medications: Cefuroxime/prednisone Follow Up: PCP/Pulm I spent 35 minutes [id number] with the patient on the day of discharge performing discharge exam, discussing hospital stay and discharge instructions with patient and caregivers, preparation of discharge records, prescriptions & referral forms and addressing any questions/concerns the patient had as do cumented above. - Vitals & Intake/Output Vital Signs: Vital Signs Temperature 97.5 F 09/14/24 07:54 Pulse Rate 63 09/14/24 07:54 Respiratory Rate 17 09/14/24 07:54 Blood Pressure 146/70 09/14/24 07:54 O2 Sat by Pulse Oximetry 97 09/14/24 07:54 Intake & Output: Intake & Output 09/11/24 09/12/24 09/13/24 09/14/24 11:59 11:59 11:59 11:59 Intake Total 530 1320 Output Total 900 1550 Balance -370 -230 Weight 75.3 kg - Lab Result Diagrams: 09/14/24 07:50 09/14/24 07:50 Lab Results-Last 24 Hrs: Lab Results-Last 24 Hours 09/14/24 09/14/24 Range/Units 07:50 07:50 WBC 13.1 H (4.23-9.07) x10^3/uL RBC 3.02 L (4.63-6.08) x10^6/uL Hgb 9.3 L (13.7-17.5) g/dL Hct 29.9 L (40.1-51.0) % MCV 99.0 H (79.0-92.2) fL MCH 30.8 (25.7-32.2) pg MCHC 31.1 L (32.3-36.5) g/dL RDW 16.8 H (11.6-14.4) % Plt Count 169 (163-337) x10^3/uL MPV 9.1 L (9.4-12.4) fL Gran % 90.5 H (34.0-67.9) % Immature Gran % (Auto) 0.5 H (0.001-0.429) % Nucleat RBC Rel Count 0.0 (0.00-0.2) % Eos # (Auto) 0 L (0.04-0.54) x10^3/uL Immature Gran # (Auto) 0.07 H (0.001-0.031) x10^3u/L Absolute Lymphs (auto) 0.58 L (1.32-3.57) x10^3/uL Absolute Monos (auto) 0.58 (0.30-0.82) x10^3/uL Absolute Nucleated RBC 0.00 (0.00-0.012) x10^3u/L Lymphocytes % 4.4 L (21.8-53.1) % Monocytes % 4.4 L (5.3-12.2) % Eosinophils % 0.0 L (0.8-7.0) % Basophils % 0.2 (0.2-1.2) % Absolute Granulocytes 11.89 H (1.78-5.38) x10^3/uL Basophils # 0.02 (0.01-0.08) x10^3/uL Sodium 142 (135-145) mmol/L Potassium 3.3 L (3.5-5.1) mmol/L Chloride 104 (98-107) mmol/L Carbon Dioxide 26 (22-30) mmol/L Anion Gap 15.3 H (5-15) MEQ/L BUN 38 H (9-20) mg/dL Creatinine 1.21 (0.66-1.25) mg/dL Estimated GFR 57.6 ML/MIN Glucose 152 H (74-106) mg/dL Calcium 8.1 L (8.4-10.2) mg/dL Total Bilirubin 0.50 (0.2-1.3) mg/dL AST 27 (17-59) U/L ALT 22 (0-50) U/L Alkaline Phosphatase 61 (38-126) U/L Serum Total Protein 6.4 (6.3-8.2) g/dL Albumin 3.7 (3.5-5.0) g/dL Slides for Path Review YES Micro Results-Entire Visit: Microbiology 09/12/24 19:27 Blood Culture - Preliminary Blood 09/12/24 14:19 Blood Culture - Preliminary Blood - Radiology Exams Ordered Rad Exams-Entire Visit: Radiology Procedures Category Date Time Status CHEST 1 VIEW (PORTABLE) Stat Exams 09/12/24 12:01 Completed CHEST WITH CONTRAST [CT] Stat Exams 09/12/24 20:13 Completed ECHO W/2D AND DOPPLER [US] Routine Exams 09/13/24 17:22 Taken HEAD WITHOUT CONTRAST [CT] Stat Exams 09/12/24 12:30 Completed - Procedures and Test Procedures and Tests throughout Hospitalization: Therapy Orders & Screens 09/12/24 16:38 Oxygen NASAL CANNULA 2 lpm Comment: Diagnosis: Hypoxia, pneumonia 09/12/24 17:38 Respiratory Therapy Assessment DAILY Comment: Diagnosis: Hypoxia, pneumonia 09/14/24 07:19 Qualify for Home Oxygen TODAY Comment: Diagnosis: Hypoxia, pneumonia Discharge Exam General Appearance: no apparent distress Neurologic Exam: alert, oriented x 3, cooperative Eye Exam: PERRL Ears, Nose, Throat Exam: normal ENT inspection Neck Exam: normal inspection Respiratory Exam: diminished breath sounds Cardiovascular Exam: regular rate/rhythm, normal heart sounds Gastrointestinal/Abdomen Exam: soft, normal bowel sounds Male Genitalia Exam: deferred Rectal Exam: deferred Back Exam: normal inspection Extremity Exam: normal inspection Skin Exam: pale Final Diagnosis/Problem List - Final Discharge Diagnosis/Problem (1) Acute hypoxic respiratory failure Current Visit: No Status: Acute Assessment & Plan: -2/2 pneumonia- ceftriaxone/azithromycin started in ED, will continue -Supplemental oxygen with goal spo2 > 92% - baseline RA- currently at 2L NC -CXR with minimal left base infiltrate/atelectasis/effusion -DuoNebs/INH-solumedrol -RT eval and follow -Consider CT if no improvement 09/13/24: -CT chest reviewed- imaging shows no pulmonary embolism and stable centrilobular emphysema, most pronounced in the upper lobes. Previously noted bilateral pleural effusions with ground-glass haziness and septal thickening have improved, though persistent patchy ground-glass opacities with interstitial changes in the right lung suggest resolving pulmonary edema with superimposed infection. 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 -Continue cefuroxime prednisone as pt has no IV access -Continue Lasix 09/14: -Discharge home with oxygen/steroid/cefuroxime -Continue home dosing of lasix Code(s): J96.01 - ACUTE RESPIRATORY FAILURE WITH HYPOXIA (2) Left lower lobe pneumonia Current Visit: Yes Status: Acute Assessment & Plan: -see above Code(s): J18.9 - PNEUMONIA, UNSPECIFIED ORGANISM (3) Confusion Current Visit: Yes Status: Acute Assessment & Plan: -CT head reviewed with stable chronic changes with an incidental maxillary polyp -Most likely secondary to pneumonia - see ARF for treatment simran -If no improvement - consider MRI/neuro consult 09/14: -at baseline Code(s): R41.0 - DISORIENTATION, UNSPECIFIED (4) Elevated troponin Current Visit: Yes Status: Acute Assessment & Plan: -EKG NS with no ST elevations/deviations -Continue troponin series - may reflect demand ischemia -DDimer -Denies chest pain -Consider cardiology consult Code(s): R79.89 - OTHER SPECIFIED ABNORMAL FINDINGS OF BLOOD CHEMISTRY (5) Generalized weakness Current Visit: Yes Status: Acute Assessment & Plan: -Most likely secondary to pneumonia -PT eval Code(s): R53.1 - WEAKNESS (6) Anemia, macrocytic Current Visit: Yes Status: Chronic Assessment & Plan: -Hgb reviewed- stable at 8.8>8.7- trend -iron studies with saturation at 11% - venofer/ferrous sulfate -Transfuse if hgb < 7 09/14: -add ferrous sulfate Code(s): D53.9 - NUTRITIONAL ANEMIA, UNSPECIFIED (7) Hypocalcemia Current Visit: No Status: Acute Assessment & Plan: -Corrected Calcium 8.1- monitor Code(s): E83.51 - HYPOCALCEMIA (8) HLD (hyperlipidemia) Current Visit: No Status: Chronic Assessment & Plan: -Continue statin Code(s): E78.5 - HYPERLIPIDEMIA, UNSPECIFIED (9) HTN (hypertension) Current Visit: No Status: Chronic Assessment & Plan: -BP stable - continue home meds Code(s): I10 - ESSENTIAL (PRIMARY) HYPERTENSION (10) CHF (congestive heart failure) Current Visit: No Status: Chronic Assessment & Plan: -Echo pending -CXR as stated above -CT as stated above -BNP reviewed at 8010 -monitor volume status- -Lasix 40mg BID - continue 09/14: -Continue home dosing of lasix Code(s): J96.01 - ACUTE RESPIRATORY FAILURE WITH HYPOXIA (2) Left lower lobe pneumonia Current Visit: Yes Status: Acute Code(s): J18.9 - PNEUMONIA, UNSPECIFIED ORGANISM (3) Confusion Current Visit: Yes Status: Resolved Code(s): R41.0 - DISORIENTATION, UNSPECIFIED (4) Elevated troponin Current Visit: Yes Status: Acute Code(s): R79.89 - OTHER SPECIFIED ABNORMAL FINDINGS OF BLOOD CHEMISTRY (5) Generalized weakness Current Visit: Yes Status: Chronic Code(s): R53.1 - WEAKNESS (6) Anemia, macrocytic Current Visit: Yes Status: Chronic Code(s): D53.9 - NUTRITIONAL ANEMIA, UNSPECIFIED (7) Hypocalcemia Current Visit: No Status: Resolved Code(s): E83.51 - HYPOCALCEMIA (8) HLD (hyperlipidemia) Current Visit: No Status: Chronic Code(s): E78.5 - HYPERLIPIDEMIA, UNSPECIFIED (9) HTN (hypertension) Current Visit: No Status: Chronic Code(s): I10 - ESSENTIAL (PRIMARY) HYPERTENSION (10) CHF (congestive heart failure) Current Visit: No Status: Chronic Code(s): I50.9 - HEART FAILURE, UNSPECIFIED - Discharge Discharge Date: 09/14/24 Disposition: Home, Self-Care Condition: Stable Prescriptions: New cefuroxime axetiL [Cefuroxime] 500 mg PO BID 7 Days #14 tablet Prednisone 20 mg [Deltasone 20 mg] 20 mg PO BID 5 Days #10 tablet Ferrous Sulfate 325 mg PO DAILY 30 Days #30 tablet PANTOPRAZOLE 40 mg Tablet [Protonix 40MG Tablet] 40 mg PO DAILY 30 Days #30 tablet Continue Spironolactone 25 mg [Aldactone 25 MG] 1 tab PO DAILY Rosuvastatin Calcium 20 mg PO HS Levothyroxine Sodium 25 Mcg [Synthroid 25 Mcg] 50 mcg PO DAILY Carvedilol [Coreg ] 6.25 mg PO BID Amiodarone HCl 200 mg [Cordarone 200 MG] 200 tab PO DAILY Nitroglycerin 0.4 mg (Ed) [Nitrostat 0.4 MG (ED)] 0.4 mg SL Q5MIN PRN MR X 3 PRN PRN Reason: Chest Pain Aspirin 81 mg PO DAILY Leflunomide [Arava] 20 mg PO UD Furosemide [Lasix] 20 mg PO DAILY PRN PRN PRN Reason: Shortness Of Breath Sacubitril/Valsartan [Entresto 49 mg-51 mg Tablet] 1 each PO HS Dicyclomine HCl 20 mg [Bentyl 20 mg] 40 mg PO BID Ondansetron ODT 4 MG [Zofran Odt 4 mg] 4 mg PO Q4-6HPRN PRN PRN Reason: Nausea Additional Instructions: WEAR 2L/NC AT ALL TIMES CALL [facility] AT [phone] WHEN YOU LEAVE [facility] SO THEY CAN DELIVER YOUR HOME CONCENTRATOR Follow up with: KRISTIN CARPENTER [ACTIVE STAFF] - LUIS F VEGAS NP [Primary Care Provider] - 09/21/24 10:15 am
[2024-09-14 12:13] VITALS: BP 119/58; PULSE 61; TEMP 97.2; O2SAT 95
== END 2024-09-14 14:10 | disposition home or self-care (01) ==
LOC: ED 11:43 → MED SURG 16:34
PROVIDERS: ADMIT Internal Medicine; ATTEND Internal Medicine
DX: J96.01 Acute respiratory failure with hypoxia (principal); J18.9 Pneumonia, unspecified organism; R41.0 Disorientation, unspecified; R79.89 Other specified abnormal findings of blood chemistry; R53.1 Weakness; D53.9 Nutritional anemia, unspecified; E83.51 Hypocalcemia; E78.5 Hyperlipidemia, unspecified; I11.0 Hypertensive heart disease with heart failure; I50.9 Heart failure, unspecified; Z79.899 Other long term (current) drug therapy; E03.9 Hypothyroidism, unspecified
CPT/HCPCS: 36415; 70450; 71045; 71260; 80048; 80053; 81001; 82607; 82728; 82746; 83540; 83550; 83880; 84132; 84145; 84443; 84484; 85025; 85027; 85379; 86850; 86900; 86901; 87040; 93005; 93041; 93306; 94760; 94762; 99285; Q3014; 93268; J0456; J0696; J1650; J1940; J2919; A9270-GY; G0378

== ENCOUNTER 2024-09-24 13:47 | Inpatient (IN) | payer MEDICARE ==
--- NOTE | 2024-09-24 14:05 | ERPHSYRPT ---
- History of Present Illness Time Seen by Provider: 09/24/24 13:54 Source: patient, EMS Exam Limitations: no limitations Physician History: 89yo m presents via EMS for weakness and confusion. Daughter at bedside reports pt has been more confused than his baseline since he woke up this AM. Pt was discharged from [facility] after 3 day stay for pneumonia, is currently on a course of cefuroxime outpatient. Daughter reports pt has also been weak today, has not been able to get around his house on his own, she reports he does intermittently suffer from confusion and weak LEs, states today has been worse than his baseline. Pt currently denies any pain, shortness of breath, fevers or chills. Daughter reports pt has hx of multiple UTIs, reports he does typically get confused during these episodes. Timing/Duration: today Severity: moderate Allergies/Adverse Reactions: No Known Drug Allergies Allergy (Verified 03/09/24 11:21) Home Medications: Amiodarone HCl 200 mg [Cordarone 200 MG] 200 tab PO DAILY 12/12/23 [History] Carvedilol [Coreg ] 6.25 mg PO BID 12/12/23 [History] Levothyroxine Sodium 25 Mcg [Synthroid 25 Mcg] 50 mcg PO DAILY 12/12/23 [History] Rosuvastatin Calcium 20 mg PO HS 12/12/23 [History] Spironolactone 25 mg [Aldactone 25 MG] 1 tab PO DAILY 12/12/23 [History] Aspirin 81 mg PO DAILY 02/28/24 [History] Leflunomide [Arava] 20 mg PO UD 02/28/24 [History] Nitroglycerin 0.4 mg (Ed) [Nitrostat 0.4 MG (ED)] 0.4 mg SL Q5MIN PRN MR X 3 PRN 02/28/24 [History] Furosemide [Lasix] 20 mg PO DAILY PRN PRN 03/09/24 [History] Dicyclomine HCl 20 mg [Bentyl 20 mg] 40 mg PO BID 09/12/24 [History] Ondansetron ODT 4 MG [Zofran Odt 4 mg] 4 mg PO Q4-6HPRN PRN 09/12/24 [History] Sacubitril/Valsartan [Entresto 49 mg-51 mg Tablet] 1 each PO HS 09/12/24 [History] Hx Tetanus, Diphtheria Vaccination/Date Given: No Hx Influenza Vaccination/Date Given: No Hx Pneumococcal Vaccination/Date Given: No Travel Risk - Emerging Infectious Disease Are you exhibiting symptoms associated with any current EIDs: Yes Symptoms: Cough: New Onset, Other (Please Comment) Comment: WEAKNESS - Review of Systems Constitutional: Weakness, No Fever, No Chills Respiratory: Cough, No Dyspnea, No Wheezing Cardiac: No Symptoms Abdominal/Gastrointestinal: No Symptoms Genitourinary Symptoms: No Symptoms - Past Medical History Pertinent Past Medical History: Yes Neurological History: TIA ENT History: No Pertinent History Cardiac History: Congestive Heart Failure, High Cholesterol, Hypertension Respiratory History: CHF Endocrine Medical History: Hypothyroidism Musculoskeletal History: Other GI Medical History: No Pertinent History History: No Pertinent History Psycho-Social History: No Pertinent History Male Reproductive Disorders: No Pertinent History Other Medical History: PACEMAKER (AICD), CHF, HTN, CAD, HLD, HYPOTHYROIDISM, UTI WITH ESBL, TYPE 2 MS, ENCEPHALOPATHY, COVID. - Past Surgical History Past Surgical History: Yes Neuro Surgical History: No Pertinent History Cardiac: Cardiac Catheterization, Pacemaker Respiratory: No Pertinent History Gastrointestinal: No Pertinent History Genitourinary: No Pertinent History Musculoskeletal: No Pertinent History Male Surgical History: No Pertinent History Significant Family History: heart disease - Social History Smoking Status: Unknown if ever smoked Exposure to second hand smoke: No Drug Use: none - Social Determinants of Health Will the patient participate in the screening: Yes Do you worry about a steady place to live?: No In the past 12 months,have you had to go without utilities?: No Transportation Issues: No Has anyone in your support network made you feel unsafe?: No Have you or anyone in your house had to go w/o enough food: No - Nursing Vital Signs Nursing Vital Signs: Initial Vital Signs Temperature 99.8 F 09/24/24 13:47 Pulse Rate 64 09/24/24 13:47 Respiratory Rate 22 09/24/24 13:47 Blood Pressure 133/84 09/24/24 13:47 O2 Sat by Pulse Oximetry 93 L 09/24/24 13:47 Pain Scale Pain Intensity 0 - Physical Exam General Appearance: no apparent distress, alert Eye Exam: PERRL/EOMI Respiratory Exam: normal breath sounds, airway intact, rhonchi (b/l), other (on 4L O2 nc, 2L is baseline), No chest tenderness, No respiratory distress, No crackles/rales, No wheezing, No stridor Cardiovascular Exam: regular rate/rhythm, normal heart sounds, normal peripheral pulses, No edema Gastrointestinal/Abdomen Exam: soft, normal bowel sounds, No tenderness, No distention Neurologic Exam: alert (oriented x 2, disoriented to time), cooperative, oil well logger II- XII nml as tested, normal mood/affect, sensation nml, other (able to follow commands, negative pronator drift), No motor deficits, No facial droop, No slurred speech, No aphasia SpO2 Interpretation: normal SpO2: 100 O2 Delivery: Nasal Cannula (4L) - Course EKG Interpreted by Me: RATE (68), Sinus Rhythm, Other (AK 220, not suggestive of acute ischemia) Ordered Tests: Active Orders 24 hr Category Date Time Status EKG-ER Only STAT Care 09/24/24 14:15 Active CHEST 1 VIEW (PORTABLE) Stat Exams 09/24/24 14:15 Taken HEAD WITHOUT CONTRAST [CT] Stat Exams 09/24/24 14:16 Completed BLOOD CULTURE Stat Lab 09/24/24 14:35 Received CBC W DIFF Stat Lab 09/24/24 14:25 Completed CMP Stat Lab 09/24/24 14:25 Completed CULTURE,URINE Stat Lab 09/24/24 14:15 Received Lactic Acid Stat Lab 09/24/24 14:40 Completed UA W/RFX UR CULTURE Stat Lab 09/24/24 14:15 Completed Medication Summary Generic Name Dose Route Start Last Admin Trade Name Freq PRN Reason Stop Dose Admin Sodium Chloride 1,000 mls @ 100 mls/hr 09/24/24 14:15 09/24/24 14:35 Sodium Chloride 0.9% 1000 Ml IV 10/24/24 14:14 100 mls/hr .Q10H BOB Administration Ceftriaxone Sodium 1 gm in 100 mls @ 200 mls/hr 09/24/24 15:43 09/24/24 15:53 Rocephin 1 Gm / 100 Ml Nacl IV 09/24/24 16:12 200 ml/hr STAT ONE 200 mls/hr Administration Discontinued Medications Generic Name Dose Route Start Last Admin Trade Name Dean PRN Reason Stop Dose Admin Ceftriaxone Sodium Confirm 09/24/24 15:48 Rocephin 1 Gm / 100 Ml Nacl Administered 09/24/24 15:49 Dose 1 gm in 100 mls @ ud IV .STK-MED ONE Lab/Rad Data: Laboratory Result Diagrams 09/24/24 14:25 09/24/24 14:25 Laboratory Results 09/24/24 09/24/24 09/24/24 Range/Units 15:06 14:40 14:25 WBC (4.23-9.07) x10^3/uL RBC (4.63-6.08) x10^6/uL Hgb (13.7-17.5) g/dL Hct (40.1-51.0) % MCV (79.0-92.2) fL MCH (25.7-32.2) pg MCHC (32.3-36.5) g/dL RDW (11.6-14.4) % Plt Count (163-337) x10^3/uL MPV (9.4-12.4) fL Gran % (34.0-67.9) % Immature Gran % (Auto) (0.001-0.429) % Nucleat RBC Rel Count (0.00-0.2) % Eos # (Auto) (0.04-0.54) x10^3/uL Immature Gran # (Auto) (0.001-0.031) x10^3u/L Absolute Lymphs (auto) (1.32-3.57) x10^3/uL Absolute Monos (auto) (0.30-0.82) x10^3/uL Absolute Nucleated RBC (0.00-0.012) x10^3u/L Lymphocytes % (21.8-53.1) % Monocytes % (5.3-12.2) % Eosinophils % (0.8-7.0) % Basophils % (0.2-1.2) % Absolute Granulocytes (1.78-5.38) x10^3/uL Basophils # (0.01-0.08) x10^3/uL Sodium 140 (135-145) mmol/L Potassium 3.7 (3.5-5.1) mmol/L Chloride 107 (98-107) mmol/L Carbon Dioxide 26 (22-30) mmol/L Anion Gap 10.9 (5-15) MEQ/L BUN 21 H (9-20) mg/dL Creatinine 1.06 (0.66-1.25) mg/dL Estimated GFR 67.5 ML/MIN Glucose 92 (74-106) mg/dL Lactic Acid 1.4 (0.4-2.0) Calcium 7.2 L (8.4-10.2) mg/dL Total Bilirubin 0.60 (0.2-1.3) mg/dL AST 23 (17-59) U/L ALT 19 (0-50) U/L Alkaline Phosphatase 55 (38-126) U/L Serum Total Protein 5.3 L (6.3-8.2) g/dL Albumin 3.0 L (3.5-5.0) g/dL Urine Color (Yellow) Urine Appearance (Clear) Urine pH (4.6-8.0) Ur Specific Coy (1.005-1.030) Urine Protein (Negative) Urine Glucose (UA) (Negative) mg/dL Urine Ketones (Negative) Urine Blood (Negative) Urine Nitrite (Negative) Urine Bilirubin (Negative) Urine Urobilinogen (0.2) mg/dL Ur Leukocyte Esterase (Negative) U Hyaline Cast (Auto) (0-2) /LPF Urine Microscopic RBC (0-5) /HPF Urine Microscopic WBC (0-5) /HPF Ur Epithelial Cells (None Seen) /HPF Urine Bacteria (None Seen) /HPF Urine Culture Reflexed (NO) Influenza Type A Ag NEGATIVE (NEGATIVE) Influenza Type B Ag NEGATIVE (NEGATIVE) RSV (PCR) NEGATIVE (NEGATIVE) SARS-CoV-2 (PCR) NEGATIVE (NEGATIVE) 09/24/24 09/24/24 Range/Units 14:25 14:15 WBC 8.5 (4.23-9.07) x10^3/uL RBC 2.84 L (4.63-6.08) x10^6/uL Hgb 8.7 L (13.7-17.5) g/dL Hct 28.7 L (40.1-51.0) % MCV 101.1 H (79.0-92.2) fL MCH 30.6 (25.7-32.2) pg MCHC 30.3 L (32.3-36.5) g/dL RDW 16.9 H (11.6-14.4) % Plt Count 111 L (163-337) x10^3/uL MPV 9.6 (9.4-12.4) fL Gran % 82.8 H (34.0-67.9) % Immature Gran % (Auto) 0.6 H (0.001-0.429) % Nucleat RBC Rel Count 0.0 (0.00-0.2) % Eos # (Auto) 0.07 (0.04-0.54) x10^3/uL Immature Gran # (Auto) 0.05 H (0.001-0.031) x10^3u/L Absolute Lymphs (auto) 0.62 L (1.32-3.57) x10^3/uL Absolute Monos (auto) 0.71 (0.30-0.82) x10^3/uL Absolute Nucleated RBC 0.00 (0.00-0.012) x10^3u/L Lymphocytes % 7.3 L (21.8-53.1) % Monocytes % 8.4 (5.3-12.2) % Eosinophils % 0.8 (0.8-7.0) % Basophils % 0.1 L (0.2-1.2) % Absolute Granulocytes 7.01 H (1.78-5.38) x10^3/uL Basophils # 0.01 (0.01-0.08) x10^3/uL Sodium (135-145) mmol/L Potassium (3.5-5.1) mmol/L Chloride (98-107) mmol/L Carbon Dioxide (22-30) mmol/L Anion Gap (5-15) MEQ/L BUN (9-20) mg/dL Creatinine (0.66-1.25) mg/dL Estimated GFR ML/MIN Glucose (74-106) mg/dL Lactic Acid (0.4-2.0) Calcium (8.4-10.2) mg/dL Total Bilirubin (0.2-1.3) mg/dL AST (17-59) U/L ALT (0-50) U/L Alkaline Phosphatase (38-126) U/L Serum Total Protein (6.3-8.2) g/dL Albumin (3.5-5.0) g/dL Urine Color Yellow (Yellow) Urine Appearance Clear (Clear) Urine pH 5.0 (4.6-8.0) Ur Specific Coy 1.010 (1.005-1.030) Urine Protein Trace A (Negative) Urine Glucose (UA) Negative (Negative) mg/dL Urine Ketones Negative (Negative) Urine Blood Negative (Negative) Urine Nitrite Negative (Negative) Urine Bilirubin Negative (Negative) Urine Urobilinogen 0.2 (0.2) mg/dL Ur Leukocyte Esterase Moderate A (Negative) U Hyaline Cast (Auto) 3-5 A (0-2) /LPF Urine Microscopic RBC 0-2 (0-5) /HPF Urine Microscopic WBC 21-50 A (0-5) /HPF Ur Epithelial Cells Rare (None Seen) /HPF Urine Bacteria None Seen (None Seen) /HPF Urine Culture Reflexed YES (NO) Influenza Type A Ag (NEGATIVE) Influenza Type B Ag (NEGATIVE) RSV (PCR) (NEGATIVE) SARS-CoV-2 (PCR) (NEGATIVE) - Progress Progress: improved, re-examined Progress Note: 09/24/24 15:56 UA suggestive of UTI - will start rocephin cx pending 09/24/24 16:10 I spoke w/ Dr Negron (hospitalist) regarding admission of obs - he is willing to accept Will see patient in: hospital (observation) Counseled pt/family regarding: lab results, diagnosis, need for follow-up, rad results Medical Desision Making - Diagnostic Testing Diagnostic test were ordered, analyzed, and reviewed by me: Yes Radiological Interpretation: Interpreted by me, Reviewed by me, Teleradiologist Report - Risk of complications The pt has a high risk of morbidity or mortality based on: Decision regarding hospitilization or escalation of hosp level of care - Departure Departure Disposition: Observation Clinical Impression: Confusion, Weakness UTI (urinary tract infection) Qualifiers: Urinary tract infection type: acute cystitis Hematuria presence: without hematuria Qualified Code(s): N30.00 - Acute cystitis without hematuria Condition: Stable Critical Care Time: No Referrals: LUIS F VEGAS NP [Primary Care Provider] - Follow up/PCP as directed
[2024-09-24] MEDS ORDERED: Sodium Chloride 0.9% 1000 ML 1,000 ML ONE (14:32)
[2024-09-24] MEDS: Sodium Chloride 0.9% 1000 ML 1,000 ML IV SCH (14:35)
[2024-09-24 14:45] LABS: Absolute Neutrophil Ct (ANC) 7.01 x10^3/uL (1.78-5.38); BASOPHIL % 0.1 % (0.2-1.2); Basophil (Absolute #) 0.01 x10^3/uL (0.01-0.08); Eosinophil % 0.8 % (0.8-7.0); Eosinophil (Absolute #) 0.07 x10^3/uL (0.04-0.54); Hematocrit 28.7 % (40.1-51.0); Hemoglobin 8.7 g/dL (13.7-17.5); IMMATURE GRAN # 0.05 x10^3u/L (0.001-0.031); IMMATURE GRAN % 0.6 % (0.001-0.429); Lymphocyte (Absolute #) 0.62 x10^3/uL (1.32-3.57); Lymphocytes % 7.3 % (21.8-53.1); Mean Cell Volume 101.1 fL (79.0-92.2); Mean Corpuscular Hemoglobin 30.6 pg (25.7-32.2); Mean Corpuscular Hgb Concent. 30.3 g/dL (32.3-36.5); Mean Platelet Volume 9.6 fL (9.4-12.4); Monocyte (Absolute #) 0.71 x10^3/uL (0.30-0.82); Monocytes % 8.4 % (5.3-12.2); Neutrophil % 82.8 % (34.0-67.9); Platelet Count 111 x10^3/uL (163-337); Red Blood Count 2.84 x10^6/uL (4.63-6.08); Red Cell Distribution Width 16.9 % (11.6-14.4); White Blood Count 8.5 x10^3/uL (4.23-9.07)
[2024-09-24 14:57] LABS: ANION GAP 10.9 MEQ/L (5-15); BILIRUBIN,TOTAL 0.6 mg/dL (0.2-1.3); Calcium 7.2 mg/dL (8.4-10.2); Creatinine 1 1.06 mg/dL (0.66-1.25); EST GLOMERULAR FILTRATION RATE 67.5 ML/MIN; Potassium 3.7 mmol/L (3.5-5.1); Total Protein 5.3 g/dL (6.3-8.2)
[2024-09-24 14:58] LABS: Appearance Clear (Clear); Bacteria None Seen /HPF (None Seen); Bilirubin Negative (Negative); Blood Negative (Negative); Epithelial Cells Rare /HPF (None Seen); Glucose, Urine Negative (Negative); Ketones Negative (Negative); Leukocyte Esterase Moderate (Negative); Nitrite Negative (Negative); Protein,Urine Dip Trace (Negative); RBC 0-2 /HPF (0-5); Urobilinogen 0.2 mg/dL (0.2); WBC 21-50 /HPF (0-5)
[2024-09-24 15:43] LABS: INFLUENZA A NEGATIVE (NEGATIVE); INFLUENZA B NEGATIVE (NEGATIVE); RESPIRATORY SYNCTIAL VIRUS NEGATIVE (NEGATIVE); SARS-CoV-2 Xpert Express NEGATIVE (NEGATIVE)
[2024-09-24] MEDS ORDERED: ROCEPHIN 1 GM / 100 ML NaCl 1 GM/100 ML IVPB IV ONE (15:48)
[2024-09-24] MEDS: ROCEPHIN 1 GM / 100 ML NaCl 1 GM/100 ML IVPB IV ONE (15:53)
--- NOTE | 2024-09-24 15:56 | XRAY ---
CLINICAL HISTORY: confusion COMPARISON: 09/12/2024 CT TECHNIQUE: An axial non-contrast CT scan of the brain was performed from the skull base to the high parietal region. One of the following dose reduction techniques was utilized for this exam: Automated exposure control, adjustment of the mA and/or kV according to patient size, and use of iterative reconstruction. FINDINGS: Brain Parenchyma: In the right frontal lobe, an area of encephalomalacia is identified, likely a sequela of a previous vascular event. There are ill-defined bilateral periventricular and centrum semiovale confluent hypodensities more appreciated on the right side denoting microvascular ischemic changes. Bilateral periventricular/ basal ganglionic small hypodense CSF-like lesions representing small chronic lacunar infarcts No evidence of hemorrhage, or mass effect. Ventricular System: Ventricles are mildly dilated. Subarachnoid Spaces: Widened sulci and cisterns. No evidence of subarachnoid hemorrhage or extra-axial fluid collections. Cerebellum and Brainstem: Normal size and signal. No masses, lesions, or areas of abnormal signal. Orbits: Normal appearance of the globes, optic nerves, and extraocular muscles. No evidence of orbital masses or abnormal signals. Sinuses: Left maxillary polyp/ retention cyst. Mastoid Air Cells: Clear mastoid air cells. No evidence of mastoiditis. Skull: Normal skull morphology. IMPRESSION: 1. Senile atrophic brain changes. 2. Bilateral periventricular and centrum semiovale chronic ischemic changes with a right frontal area of encephalomalacia, the sequel of chronic ischemic insults. 3. Bilateral periventricular chronic ischemic insults. 4. The study has been stationary since the one on 09/12/2024. Electronically Signed by: Cecil Witt MD. (09/24/2024 15:51:53 EDT)
--- NOTE | 2024-09-24 17:31 | PCM.HP ---
History of Present Illness - Chief Complaint Chief Complaint: UTI Date: 09/24/24 History of Present Illness: is a 89 year old male with PMHX of congestive heart failure (CHF), hyperlipidemia (HLD), hypertension (HTN), and hypothyroidism. He presented via EMS to ER with weakness and confusion. His daughter, at bedside, reports that he has been more confused than his baseline since this morning. He was recently discharged from [facility] after a three-day admission for pneumonia and is currently on outpatient cefuroxime. Today, he has been notably weaker, unable to move around his house independently. While he intermittently experiences confusion and lower extremity weakness, todays symptoms are worse than usual. He denies pain, shortness of breath, fever, or chills. His daughter notes a history of multiple UTIs, which have previously caused episodes of confusion. He was dx with a UTI in ER and started on ceftriaxone. CT head negative for acute concern. He is on 3lNC 100% and baseline at d/c last visit was 2lNC. CXR pending. Will continue antibiotics for UTI. BCX2 and US in ER completed and will follow. He denies any further concerns at this time. - Review of Systems Constitutional: Weakness, No Fever, No Chills Eyes: No Symptoms Ears, Nose, & Throat: No Symptoms Respiratory: Short Of Breath, No Cough Cardiac: No Chest Pain, No Edema, No Syncope Abdominal/Gastrointestinal: No Abdominal Pain, No Nausea, No Vomiting, No Diarrhea Genitourinary Symptoms: No Dysuria Musculoskeletal: No Back Pain, No Neck Pain Skin: No Rash Neurological: Other (confusion), No Dizziness, No Focal Weakness, No Sensory Changes Psychological: No Symptoms Endocrine: No Symptoms Hematologic/Lymphatic: No Symptoms Immunological/Allergic: No Symptoms Medications & Allergies Home Medications: Home Medication List Amiodarone HCl 200 mg [Cordarone 200 MG] 200 mg PO DAILY 12/12/23 [History Confirmed 09/24/24] Carvedilol [Coreg ] 6.25 mg PO BID 12/12/23 [History Confirmed 09/24/24] Levothyroxine Sodium 25 Mcg [Synthroid 25 Mcg] 50 mcg PO DAILY 12/12/23 [History Confirmed 09/24/24] Rosuvastatin Calcium 20 mg PO HS 12/12/23 [History Confirmed 09/24/24] Spironolactone 25 mg [Aldactone 25 MG] 25 mg PO DAILY 12/12/23 [History Confirmed 09/24/24] Aspirin 81 mg PO DAILY 02/28/24 [History Confirmed 09/24/24] Leflunomide [Arava] 20 mg PO 3XW 02/28/24 [History Confirmed 09/24/24] Nitroglycerin 0.4 mg (Ed) [Nitrostat 0.4 MG (ED)] 0.4 mg SL Q5MIN PRN MR X 3 PRN 02/28/24 [History Confirmed 09/24/24] Furosemide [Lasix] 20 mg PO DAILY PRN PRN 03/09/24 [History Confirmed 09/24/24] Dicyclomine HCl 20 mg [Bentyl 20 mg] 40 mg PO BID 09/12/24 [History Confirmed 09/24/24] Ondansetron ODT 4 MG [Zofran Odt 4 mg] 4 mg PO Q4-6HPRN PRN 09/12/24 [History Confirmed 09/24/24] Sacubitril/Valsartan [Entresto 49 mg-51 mg Tablet] 1 tablet PO HS 09/12/24 [History Confirmed 09/24/24] Ferrous Sulfate 325 mg PO DAILY 30 Days #30 tablet 09/14/24 [Rx Confirmed 09/24/24] PANTOPRAZOLE 40 mg Tablet [Protonix 40MG Tablet] 40 mg PO DAILY 30 Days #30 tablet 09/14/24 [Rx Confirmed 09/24/24] Allergies/Adverse Reactions: Allergies Allergy/AdvReac Type Severity Reaction Status Date / Time No Known Drug Allergies Allergy Verified 09/24/24 17:16 - Past Medical History Past Medical History: Yes Neurological History: TIA ENT History: No Pertinent History Cardiac History: Congestive Heart Failure, High Cholesterol, Hypertension Respiratory History: CHF Endocrine Medical History: Hypothyroidism Musculoskelatal History: Other GI Medical History: No Pertinent History History: No Pertinent History Pyscho-Social History: No Pertinent History Male Reproductive Disorders: No Pertinent History Comment: PACEMAKER (AICD), CHF, HTN, CAD, HLD, HYPOTHYROIDISM, UTI WITH ESBL, TYPE 2 [place], ENCEPHALOPATHY, COVID. - Past Surgical History Past Surgical History: Yes Neuro Surgical History: No Pertinent History Cardiac History: Cardiac Catheterization, Pacemaker Respiratory Surgery: No Pertinent History GI Surgical History: No Pertinent History Genitourinary Surgical Hx: No Pertinent History Musculskeletal Surgical Hx: No Pertinent History Male Surgical History: No Pertinent History Significant Family History: heart disease - Social History Smoking Status: Unknown if ever smoked Exposure to second hand smoke: No Alcohol: None Drug Use: none - Social Determinants of Health Will the patient participate in the screening: Yes Do you worry about a steady place to live?: No Do you have any problems with any of the following?: No known problems In the past 12 months,have you had to go without utilities?: No Have you or anyone in your house had to go without enough: No Transportation Issues: No Has anyone in your support network made you feel unsafe?: No Does the patient want assistance with any of the above?: No - Physical Exam Vital Signs: Vital Signs - 24 hr Temp Pulse Resp BP BP Pulse Ox 09/24/24 16:11 100 09/24/24 16:02 61 14 136/48 100 09/24/24 15:30 71 22 125/79 09/24/24 15:03 67 19 128/64 100 09/24/24 15:01 65 18 128/64 99 09/24/24 14:47 67 18 134/57 93 L 09/24/24 14:31 69 21 134/57 99 09/24/24 14:01 65 21 91/78 99 09/24/24 13:57 77 10 L 133/84 97 09/24/24 13:56 82 L 09/24/24 13:55 83 L 09/24/24 13:47 99.8 F 64 22 133/84 93 L General Appearance: no apparent distress, alert Neurologic Exam: alert, oriented x 3, cooperative, normal mood/affect, nml cerebellar function, nml station & gait, sensation nml, No motor deficits Eye Exam: PERRL/EOMI, eyes nml inspection Ears, Nose, Throat Exam: normal ENT inspection, TMs normal, pharynx normal, moist mucous membranes Neck Exam: normal inspection, non-tender, supple, full range of motion Respiratory Exam: normal breath sounds, lungs clear, No respiratory distress Cardiovascular Exam: regular rate/rhythm, normal heart sounds, normal peripheral pulses, edema (non-pitting) Gastrointestinal/Abdomen Exam: soft, normal bowel sounds, No tenderness, No mass Back Exam: normal inspection, normal range of motion, No CVA tenderness, No vertebral tenderness Extremity Exam: normal inspection, normal range of motion, pelvis stable Skin Exam: normal color, warm, dry, No rash Lymphatic Exam: No adenopathy Results - Labs Lab/Micro Results: Lab Results-Last 24 Hours 09/24/24 09/24/24 09/24/24 Range/Units 14:15 14:25 14:25 WBC 8.5 (4.23-9.07) x10^3/uL RBC 2.84 L (4.63-6.08) x10^6/uL Hgb 8.7 L (13.7-17.5) g/dL Hct 28.7 L (40.1-51.0) % MCV 101.1 H (79.0-92.2) fL MCH 30.6 (25.7-32.2) pg MCHC 30.3 L (32.3-36.5) g/dL RDW 16.9 H (11.6-14.4) % Plt Count 111 L (163-337) x10^3/uL MPV 9.6 (9.4-12.4) fL Gran % 82.8 H (34.0-67.9) % Immature Gran % (Auto) 0.6 H (0.001-0.429) % Nucleat RBC Rel Count 0.0 (0.00-0.2) % Eos # (Auto) 0.07 (0.04-0.54) x10^3/uL Immature Gran # (Auto) 0.05 H (0.001-0.031) x10^3u/L Absolute Lymphs (auto) 0.62 L (1.32-3.57) x10^3/uL Absolute Monos (auto) 0.71 (0.30-0.82) x10^3/uL Absolute Nucleated RBC 0.00 (0.00-0.012) x10^3u/L Lymphocytes % 7.3 L (21.8-53.1) % Monocytes % 8.4 (5.3-12.2) % Eosinophils % 0.8 (0.8-7.0) % Basophils % 0.1 L (0.2-1.2) % Absolute Granulocytes 7.01 H (1.78-5.38) x10^3/uL Basophils # 0.01 (0.01-0.08) x10^3/uL Sodium 140 (135-145) mmol/L Potassium 3.7 (3.5-5.1) mmol/L Chloride 107 (98-107) mmol/L Carbon Dioxide 26 (22-30) mmol/L Anion Gap 10.9 (5-15) MEQ/L BUN 21 H (9-20) mg/dL Creatinine 1.06 (0.66-1.25) mg/dL Estimated GFR 67.5 ML/MIN Glucose 92 (74-106) mg/dL Lactic Acid (0.4-2.0) Calcium 7.2 L (8.4-10.2) mg/dL Total Bilirubin 0.60 (0.2-1.3) mg/dL AST 23 (17-59) U/L ALT 19 (0-50) U/L Alkaline Phosphatase 55 (38-126) U/L Serum Total Protein 5.3 L (6.3-8.2) g/dL Albumin 3.0 L (3.5-5.0) g/dL Urine Color Yellow (Yellow) Urine Appearance Clear (Clear) Urine pH 5.0 (4.6-8.0) Ur Specific [place] 1.010 (1.005-1.030) Urine Protein Trace A (Negative) Urine Glucose (UA) Negative (Negative) mg/dL Urine Ketones Negative (Negative) Urine Blood Negative (Negative) Urine Nitrite Negative (Negative) Urine Bilirubin Negative (Negative) Urine Urobilinogen 0.2 (0.2) mg/dL Ur Leukocyte Esterase Moderate A (Negative) U Hyaline Cast (Auto) 3-5 A (0-2) /LPF Urine Microscopic RBC 0-2 (0-5) /HPF Urine Microscopic WBC 21-50 A (0-5) /HPF Ur Epithelial Cells Rare (None Seen) /HPF Urine Bacteria None Seen (None Seen) /HPF Urine Culture Reflexed YES (NO) Influenza Type A Ag (NEGATIVE) Influenza Type B Ag (NEGATIVE) RSV (PCR) (NEGATIVE) SARS-CoV-2 (PCR) (NEGATIVE) 09/24/24 09/24/24 Range/Units 14:40 15:06 WBC (4.23-9.07) x10^3/uL RBC (4.63-6.08) x10^6/uL Hgb (13.7-17.5) g/dL Hct (40.1-51.0) % MCV (79.0-92.2) fL MCH (25.7-32.2) pg MCHC (32.3-36.5) g/dL RDW (11.6-14.4) % Plt Count (163-337) x10^3/uL MPV (9.4-12.4) fL Gran % (34.0-67.9) % Immature Gran % (Auto) (0.001-0.429) % Nucleat RBC Rel Count (0.00-0.2) % Eos # (Auto) (0.04-0.54) x10^3/uL Immature Gran # (Auto) (0.001-0.031) x10^3u/L Absolute Lymphs (auto) (1.32-3.57) x10^3/uL Absolute Monos (auto) (0.30-0.82) x10^3/uL Absolute Nucleated RBC (0.00-0.012) x10^3u/L Lymphocytes % (21.8-53.1) % Monocytes % (5.3-12.2) % Eosinophils % (0.8-7.0) % Basophils % (0.2-1.2) % Absolute Granulocytes (1.78-5.38) x10^3/uL Basophils # (0.01-0.08) x10^3/uL Sodium (135-145) mmol/L Potassium (3.5-5.1) mmol/L Chloride (98-107) mmol/L Carbon Dioxide (22-30) mmol/L Anion Gap (5-15) MEQ/L BUN (9-20) mg/dL Creatinine (0.66-1.25) mg/dL Estimated GFR ML/MIN Glucose (74-106) mg/dL Lactic Acid 1.4 (0.4-2.0) Calcium (8.4-10.2) mg/dL Total Bilirubin (0.2-1.3) mg/dL AST (17-59) U/L ALT (0-50) U/L Alkaline Phosphatase (38-126) U/L Serum Total Protein (6.3-8.2) g/dL Albumin (3.5-5.0) g/dL Urine Color (Yellow) Urine Appearance (Clear) Urine pH (4.6-8.0) Ur Specific [place] (1.005-1.030) Urine Protein (Negative) Urine Glucose (UA) (Negative) mg/dL Urine Ketones (Negative) Urine Blood (Negative) Urine Nitrite (Negative) Urine Bilirubin (Negative) Urine Urobilinogen (0.2) mg/dL Ur Leukocyte Esterase (Negative) U Hyaline Cast (Auto) (0-2) /LPF Urine Microscopic RBC (0-5) /HPF Urine Microscopic WBC (0-5) /HPF Ur Epithelial Cells (None Seen) /HPF Urine Bacteria (None Seen) /HPF Urine Culture Reflexed (NO) Influenza Type A Ag NEGATIVE (NEGATIVE) Influenza Type B Ag NEGATIVE (NEGATIVE) RSV (PCR) NEGATIVE (NEGATIVE) SARS-CoV-2 (PCR) NEGATIVE (NEGATIVE) - Radiology Impressions Radiology Exams & Impressions: Radiology Procedures Category Date Time Status CHEST 1 VIEW (PORTABLE) Stat Exams 09/24/24 14:15 Taken HEAD WITHOUT CONTRAST [CT] Stat Exams 09/24/24 14:16 Completed Assessment/Plan (1) UTI (urinary tract infection) Current Visit: Yes Status: Acute Qualifiers: Urinary tract infection type: acute cystitis Hematuria presence: without hematuria Qualified Code(s): N30.00 - Acute cystitis without hematuria Assessment & Plan: - Ceftriaxone and IVF started in ER- continue antibiotic - CBC. CMP reviewed - UA reviewed - UC and BC x2 pending Code(s): N39.0 - URINARY TRACT INFECTION, SITE NOT SPECIFIED (2) Confusion Current Visit: Yes Status: Acute Assessment & Plan: - CT head: IMPRESSION: 1. Senile atrophic brain changes. 2. Bilateral periventricular and centrum semiovale chronic ischemic changes with a right frontal area of encephalomalacia, the sequel of chronic ischemic insults. 3. Bilateral periventricular chronic ischemic insults. 4. The study has been stationary since the one on 09/12/2024. - Will need OP f/u with neurology - Confusion resolved since admission - Likely 2:2 UTI Code(s): R41.0 - DISORIENTATION, UNSPECIFIED (3) Weakness Current Visit: Yes Status: Acute Assessment & Plan: - Acute on chronic - 2:2 UTI? - PT eval Code(s): R53.1 - WEAKNESS (4) Anemia Current Visit: No Status: Chronic Qualifiers: Anemia type: iron deficiency Assessment & Plan: - Hgb 8.7- trend - Anemia panel- has not been checked in over 1 yr - after reviewing old labs - On daily ferrous sulfate Code(s): D64.9 - ANEMIA, UNSPECIFIED (5) Shortness of breath Current Visit: No Status: Acute Assessment & Plan: - On 3lNC 100%- wean O2 - Went home last visit on 2lNC for pneumonia - CXR pending Code(s): R06.02 - SHORTNESS OF BREATH (6) HLD (hyperlipidemia) Current Visit: No Status: Chronic Assessment & Plan: - continue statin Code(s): E78.5 - HYPERLIPIDEMIA, UNSPECIFIED (7) HTN (hypertension) Current Visit: No Status: Chronic Assessment & Plan: - Chronic - Continue home BP meds Code(s): I10 - ESSENTIAL (PRIMARY) HYPERTENSION (8) Hypothyroidism Current Visit: Yes Status: Chronic Assessment & Plan: - Continue synthroid Code(s): E03.9 - HYPOTHYROIDISM, UNSPECIFIED (9) CHF (congestive heart failure) Current Visit: No Status: Chronic Qualifiers: Heart failure chronicity: chronic Assessment & Plan: - BNP pending - CXR pending - On 3lNC 100 % - Continue home meds - joesph conde, coreg - Echo 09/13/24- Staff to obtain results - TEDS VTE: SCD's PPI: Protonix Next of KIN: daughter D/C plan: 1-2 days Code status: SCO/DNR Code(s): I50.9 - HEART FAILURE, UNSPECIFIED Telemedicine Encounter - Telemedicine Encounter Telemedicine Encounter: "The entirety of this encounter was performed via Telemedicine" This visit was performed using real-time audio and video connection between my location and thepatients locationwith the assistance of a surrogateat the patients location. Written or verbal consent was obtained from the patient/guardian to perform this visit [facility] technology. Any patient questions regarding the telemedicine interaction were answered.
[2024-09-24] MEDS ORDERED: Nitrostat 0.4 MG (ED) SL PRN (17:40)
[2024-09-24] MEDS ORDERED: LASIX 20 MG PO PRN (17:40)
[2024-09-24] MEDS ORDERED: ZOFRAN ODT 4 MG PO PRN (17:40)
[2024-09-24] MEDS ORDERED: LEFLUNOMIDE 10 MG PO SCH (17:45)
[2024-09-24 18:15] LABS: Iron 24 ug/dL (49-181); Iron Saturation 11 % (20-39); TIBC 214 ug/dL (261-497)
--- NOTE | 2024-09-24 21:36 | XRAY ---
Indication: Weakness. Comparison: September 12, 2024 Portable chest again hyperinflated with grossly stable left base infiltrate/atelectasis/effusion. Heart not enlarged again with left AICD. No new cardiopulmonary abnormalities.
[2024-09-24] MEDS: ENTRESTO 49 MG-51 MG TABLET PO SCH (22:18)
[2024-09-24] MEDS: BENTYL 20 MG PO SCH (22:18)
[2024-09-24] MEDS: Coreg PO SCH (22:19)
[2024-09-24] MEDS: NON-FORMULARY ITEM (Rosuvastatin Calcium [Rosuvastatin Calcium] 20 MG Tablet) PO SCH (22:21)
[2024-09-25 06:11] LABS: Hematocrit 25.8 % (40.1-51.0); Hemoglobin 7.8 g/dL (13.7-17.5); Mean Cell Volume 98.5 fL (79.0-92.2); Mean Corpuscular Hemoglobin 29.8 pg (25.7-32.2); Mean Corpuscular Hgb Concent. 30.2 g/dL (32.3-36.5); Mean Platelet Volume 9.5 fL (9.4-12.4); Platelet Count 97 x10^3/uL (163-337); Red Blood Count 2.62 x10^6/uL (4.63-6.08); Red Cell Distribution Width 16.7 % (11.6-14.4); White Blood Count 7.2 x10^3/uL (4.23-9.07)
[2024-09-25 06:26] LABS: ALBUMIN 2.7 g/dL (3.5-5.0); ANION GAP 10.6 MEQ/L (5-15); BILIRUBIN,TOTAL 0.7 mg/dL (0.2-1.3); Calcium 7.2 mg/dL (8.4-10.2); Creatinine 1 1.07 mg/dL (0.66-1.25); EST GLOMERULAR FILTRATION RATE 66.8 ML/MIN; Potassium 3.4 mmol/L (3.5-5.1); Total Protein 4.9 g/dL (6.3-8.2)
[2024-09-25 06:55] LABS: Slide Review YES
[2024-09-25] MEDS ORDERED: MEDICATION INTERVENTION MC SCH (07:45)
[2024-09-25] MEDS: Klor Con PO ONE (08:00)
[2024-09-25] MEDS ORDERED: SYNTHROID 25 MCG PO SCH (10:00)
[2024-09-25] MEDS ORDERED: BABY ASPIRIN 81 MG CHEW PO SCH (10:00)
[2024-09-25] MEDS: ROCEPHIN 1 GM / 100 ML NaCl 1 GM/100 ML IVPB IV SCH (10:42)
[2024-09-25] MEDS: ECOTRIN 81 MG PO SCH (10:46)
[2024-09-25] MEDS: Aldactone 25 MG PO SCH (10:46)
[2024-09-25] MEDS: Cordarone 200 MG PO SCH (10:46)
[2024-09-25] MEDS: SYNTHROID 50 MCG PO SCH (10:46)
[2024-09-25] MEDS: FEOSOL 325 MG PO SCH (10:46)
[2024-09-25] MEDS: Vitamin B-12 500 MCG PO SCH (10:46)
[2024-09-25] MEDS: Protonix 40MG Tablet PO SCH (10:46)
[2024-09-25] MEDS: Tums EX 750 MG PO SCH (10:49)
[2024-09-25] MEDS: VIBRAMYCIN 100 MG*** 100 MG in D5w 100ML Mini Bag 100 ML 100 ML IV SCH (10:50)
--- NOTE | 2024-09-25 11:04 | PCM.NOTE ---
Date and Time: 09/25/24 1059 Subjective Assessment: 09/24/24 is a 89 year old male with PMHX of [place], congestive heart failure (CHF), hyperlipidemia (HLD), hypertension (HTN), and hypothyroidism. He presented via EMS to ER with weakness and confusion. His daughter, at bedside, reports that he has been more confused than his baseline since this morning. He was recently discharged from [facility] after a three- day admission for pneumonia and is currently on outpatient cefuroxime. Today, he has been notably weaker, unable to move around his house independently. While he intermittently experiences confusion and lower extremity weakness, todays symptoms are worse than usual. He denies pain, shortness of breath, fever, or chills. His daughter notes a history of multiple UTIs, which have previously caused episodes of confusion. He was dx with a UTI in ER and started on ceftriaxone. CT head negative for acute concern. He is on 3lNC 100% and baseline at d/c last visit was 2lNC. CXR pending. Will continue antibiotics for UTI. BCX2 and US in ER completed and will follow. He denies any further concerns at this time. 09/25/24 Pt resting in bed. He states he feels better today but has continued SOB. He continues to be on 3lNC at 90%. CXR shows stable LLL pneumonia- added doxyclycline to ceftriaxone. Baseline 2lNC from last hospital visit. Continue antibiotic for UTI. UC and BC x2 pending. BNP 5590- continue lasix. EF 30-35% from most recent Echo. K+ 3.4 and replaced. Iron panel confirms iron def. anemia- continue ferrous sulfate. It also shows Vitamin B12 deficiency and medication started for this. Corrected Ca+ 7.8 and tums BID started. Pt on tele. Pt denies CP, Abd.pain, N/V/D. - Review of Systems Constitutional: Weakness, No Fever, No Chills Eyes: No Symptoms Ears, Nose, & Throat: No Symptoms Respiratory: Short Of Breath, No Cough Cardiac: No Chest Pain, No Edema, No Syncope Abdominal/Gastrointestinal: No Abdominal Pain, No Nausea, No Vomiting, No Diarrhea Genitourinary Symptoms: No Dysuria Musculoskeletal: No Back Pain, No Neck Pain Skin: No Rash Neurological: No Dizziness, No Focal Weakness, No Sensory Changes Psychological: No Symptoms Endocrine: No Symptoms Hematologic/Lymphatic: No Symptoms Immunological/Allergic: No Symptoms Objective Exam General Appearance: no apparent distress, alert Neurologic Exam: alert, oriented x 3, cooperative, normal mood/affect, nml cerebellar function, sensation nml, confusion (intermittent), No motor deficits Skin Exam: normal color, warm, dry Eye Exam: PERRL, EOMI, eyes nml inspection Ears, Nose, Throat Exam: normal ENT inspection, pharynx normal, moist mucous membranes Neck Exam: normal inspection, non-tender, supple, full range of motion Respiratory Exam: normal breath sounds, lungs clear, No respiratory distress Cardiovascular Exam: regular rate/rhythm, normal heart sounds Gastrointestinal/Abdomen Exam: soft, No tenderness, No mass Extremity Exam: normal inspection, normal range of motion Back Exam: normal inspection, normal range of motion, No CVA tenderness, No vertebral tenderness Male Genitalia Exam: deferred Rectal Exam: deferred Objective Data Vital Signs: Vital Signs - 24 hr Temp Pulse Resp BP BP Pulse Ox 09/25/24 07:21 98.6 F 69 21 127/87 90 L 09/25/24 04:00 57 L 16 09/24/24 23:49 99.4 F 63 16 147/67 93 L 09/24/24 20:00 97.7 F 90 143/58 95 09/24/24 19:03 95 09/24/24 17:32 97.7 F 90 20 143/58 100 09/24/24 16:11 100 09/24/24 16:02 61 14 136/48 100 09/24/24 15:30 71 22 125/79 09/24/24 15:03 67 19 128/64 100 09/24/24 15:01 65 18 128/64 99 09/24/24 14:47 67 18 134/57 93 L 09/24/24 14:31 69 21 134/57 99 09/24/24 14:01 65 21 91/78 99 09/24/24 13:57 77 10 L 133/84 97 09/24/24 13:56 82 L 09/24/24 13:55 83 L 09/24/24 13:47 99.8 F 64 22 133/84 93 L Pain Assessment - Last Documented Pain Intensity 0 Intake and Output: Intake & Output 09/22/24 09/23/24 09/24/2430/25 11:59 11:59 11:59 11:59 Intake Total 460 Balance 460 Weight 75 kg Lab Results: Lab Results-Last 24 Hours 09/24/24 09/24/24 09/24/24 Range/Units 14:15 14:25 14:25 WBC 8.5 (4.23-9.07) x10^3/uL RBC 2.84 L (4.63-6.08) x10^6/uL Hgb 8.7 L (13.7-17.5) g/dL Hct 28.7 L (40.1-51.0) % MCV 101.1 H (79.0-92.2) fL MCH 30.6 (25.7-32.2) pg MCHC 30.3 L (32.3-36.5) g/dL RDW 16.9 H (11.6-14.4) % Plt Count 111 L (163-337) x10^3/uL MPV 9.6 (9.4-12.4) fL Gran % 82.8 H (34.0-67.9) % Immature Gran % (Auto) 0.6 H (0.001-0.429) % Nucleat RBC Rel Count 0.0 (0.00-0.2) % Eos # (Auto) 0.07 (0.04-0.54) x10^3/uL Immature Gran # (Auto) 0.05 H (0.001-0.031) x10^3u/L Absolute Lymphs (auto) 0.62 L (1.32-3.57) x10^3/uL Absolute Monos (auto) 0.71 (0.30-0.82) x10^3/uL Absolute Nucleated RBC 0.00 (0.00-0.012) x10^3u/L Lymphocytes % 7.3 L (21.8-53.1) % Monocytes % 8.4 (5.3-12.2) % Eosinophils % 0.8 (0.8-7.0) % Basophils % 0.1 L (0.2-1.2) % Absolute Granulocytes 7.01 H (1.78-5.38) x10^3/uL Basophils # 0.01 (0.01-0.08) x10^3/uL Sodium 140 (135-145) mmol/L Potassium 3.7 (3.5-5.1) mmol/L Chloride 107 (98-107) mmol/L Carbon Dioxide 26 (22-30) mmol/L Anion Gap 10.9 (5-15) MEQ/L BUN 21 H (9-20) mg/dL Creatinine 1.06 (0.66-1.25) mg/dL Estimated GFR 67.5 ML/MIN Glucose 92 (74-106) mg/dL Lactic Acid (0.4-2.0) Calcium 7.2 L (8.4-10.2) mg/dL Iron (49-181) ug/dL TIBC (261-497) ug/dL Iron Saturation (20-39) % Ferritin (17.9-464) ng/mL Total Bilirubin 0.60 (0.2-1.3) mg/dL AST 23 (17-59) U/L ALT 19 (0-50) U/L Alkaline Phosphatase 55 (38-126) U/L NT-Pro-B Natriuret Pep (<300) pg/mL Serum Total Protein 5.3 L (6.3-8.2) g/dL Albumin 3.0 L (3.5-5.0) g/dL Vitamin B12 (239-931) pg/mL Folic Acid (2.76 - >20) ng/mL Urine Color Yellow (Yellow) Urine Appearance Clear (Clear) Urine pH 5.0 (4.6-8.0) Ur Specific [place] 1.010 (1.005-1.030) Urine Protein Trace A (Negative) Urine Glucose (UA) Negative (Negative) mg/dL Urine Ketones Negative (Negative) Urine Blood Negative (Negative) Urine Nitrite Negative (Negative) Urine Bilirubin Negative (Negative) Urine Urobilinogen 0.2 (0.2) mg/dL Ur Leukocyte Esterase Moderate A (Negative) U Hyaline Cast (Auto) 3-5 A (0-2) /LPF Urine Microscopic RBC 0-2 (0-5) /HPF Urine Microscopic WBC 21-50 A (0-5) /HPF Ur Epithelial Cells Rare (None Seen) /HPF Urine Bacteria None Seen (None Seen) /HPF Urine Culture Reflexed YES (NO) Influenza Type A Ag (NEGATIVE) Influenza Type B Ag (NEGATIVE) RSV (PCR) (NEGATIVE) SARS-CoV-2 (PCR) (NEGATIVE) Slides for Path Review 09/24/24 09/24/24 09/24/24 Range/Units 14:40 14:45 14:45 WBC (4.23-9.07) x10^3/uL RBC (4.63-6.08) x10^6/uL Hgb (13.7-17.5) g/dL Hct (40.1-51.0) % MCV (79.0-92.2) fL MCH (25.7-32.2) pg MCHC (32.3-36.5) g/dL RDW (11.6-14.4) % Plt Count (163-337) x10^3/uL MPV (9.4-12.4) fL Gran % (34.0-67.9) % Immature Gran % (Auto) (0.001-0.429) % Nucleat RBC Rel Count (0.00-0.2) % Eos # (Auto) (0.04-0.54) x10^3/uL Immature Gran # (Auto) (0.001-0.031) x10^3u/L Absolute Lymphs (auto) (1.32-3.57) x10^3/uL Absolute Monos (auto) (0.30-0.82) x10^3/uL Absolute Nucleated RBC (0.00-0.012) x10^3u/L Lymphocytes % (21.8-53.1) % Monocytes % (5.3-12.2) % Eosinophils % (0.8-7.0) % Basophils % (0.2-1.2) % Absolute Granulocytes (1.78-5.38) x10^3/uL Basophils # (0.01-0.08) x10^3/uL Sodium (135-145) mmol/L Potassium (3.5-5.1) mmol/L Chloride (98-107) mmol/L Carbon Dioxide (22-30) mmol/L Anion Gap (5-15) MEQ/L BUN (9-20) mg/dL Creatinine (0.66-1.25) mg/dL Estimated GFR ML/MIN Glucose (74-106) mg/dL Lactic Acid 1.4 (0.4-2.0) Calcium (8.4-10.2) mg/dL Iron 24 L (49-181) ug/dL TIBC 214 L (261-497) ug/dL Iron Saturation 11 L (20-39) % Ferritin 183 (17.9-464) ng/mL Total Bilirubin (0.2-1.3) mg/dL AST (17-59) U/L ALT (0-50) U/L Alkaline Phosphatase (38-126) U/L NT-Pro-B Natriuret Pep (<300) pg/mL Serum Total Protein (6.3-8.2) g/dL Albumin (3.5-5.0) g/dL Vitamin B12 218 L (239-931) pg/mL Folic Acid 14.0 (2.76 - >20) ng/mL Urine Color (Yellow) Urine Appearance (Clear) Urine pH (4.6-8.0) Ur Specific [place] (1.005-1.030) Urine Protein (Negative) Urine Glucose (UA) (Negative) mg/dL Urine Ketones (Negative) Urine Blood (Negative) Urine Nitrite (Negative) Urine Bilirubin (Negative) Urine Urobilinogen (0.2) mg/dL Ur Leukocyte Esterase (Negative) U Hyaline Cast (Auto) (0-2) /LPF Urine Microscopic RBC (0-5) /HPF Urine Microscopic WBC (0-5) /HPF Ur Epithelial Cells (None Seen) /HPF Urine Bacteria (None Seen) /HPF Urine Culture Reflexed (NO) Influenza Type A Ag (NEGATIVE) Influenza Type B Ag (NEGATIVE) RSV (PCR) (NEGATIVE) SARS-CoV-2 (PCR) (NEGATIVE) Slides for Path Review 09/24/24 09/24/24 09/25/24 Range/Units 14:45 15:06 05:31 WBC 7.2 (4.23-9.07) x10^3/uL RBC 2.62 L (4.63-6.08) x10^6/uL Hgb 7.8 L (13.7-17.5) g/dL Hct 25.8 L (40.1-51.0) % MCV 98.5 H (79.0-92.2) fL MCH 29.8 (25.7-32.2) pg MCHC 30.2 L (32.3-36.5) g/dL RDW 16.7 H (11.6-14.4) % Plt Count 97 L (163-337) x10^3/uL MPV 9.5 (9.4-12.4) fL Gran % (34.0-67.9) % Immature Gran % (Auto) (0.001-0.429) % Nucleat RBC Rel Count (0.00-0.2) % Eos # (Auto) (0.04-0.54) x10^3/uL Immature Gran # (Auto) (0.001-0.031) x10^3u/L Absolute Lymphs (auto) (1.32-3.57) x10^3/uL Absolute Monos (auto) (0.30-0.82) x10^3/uL Absolute Nucleated RBC (0.00-0.012) x10^3u/L Lymphocytes % (21.8-53.1) % Monocytes % (5.3-12.2) % Eosinophils % (0.8-7.0) % Basophils % (0.2-1.2) % Absolute Granulocytes (1.78-5.38) x10^3/uL Basophils # (0.01-0.08) x10^3/uL Sodium (135-145) mmol/L Potassium (3.5-5.1) mmol/L Chloride (98-107) mmol/L Carbon Dioxide (22-30) mmol/L Anion Gap (5-15) MEQ/L BUN (9-20) mg/dL Creatinine (0.66-1.25) mg/dL Estimated GFR ML/MIN Glucose (74-106) mg/dL Lactic Acid (0.4-2.0) Calcium (8.4-10.2) mg/dL Iron (49-181) ug/dL TIBC (261-497) ug/dL Iron Saturation (20-39) % Ferritin (17.9-464) ng/mL Total Bilirubin (0.2-1.3) mg/dL AST (17-59) U/L ALT (0-50) U/L Alkaline Phosphatase (38-126) U/L NT-Pro-B Natriuret Pep 5590 (<300) pg/mL Serum Total Protein (6.3-8.2) g/dL Albumin (3.5-5.0) g/dL Vitamin B12 (239-931) pg/mL Folic Acid (2.76 - >20) ng/mL Urine Color (Yellow) Urine Appearance (Clear) Urine pH (4.6-8.0) Ur Specific [place] (1.005-1.030) Urine Protein (Negative) Urine Glucose (UA) (Negative) mg/dL Urine Ketones (Negative) Urine Blood (Negative) Urine Nitrite (Negative) Urine Bilirubin (Negative) Urine Urobilinogen (0.2) mg/dL Ur Leukocyte Esterase (Negative) U Hyaline Cast (Auto) (0-2) /LPF Urine Microscopic RBC (0-5) /HPF Urine Microscopic WBC (0-5) /HPF Ur Epithelial Cells (None Seen) /HPF Urine Bacteria (None Seen) /HPF Urine Culture Reflexed (NO) Influenza Type A Ag NEGATIVE (NEGATIVE) Influenza Type B Ag NEGATIVE (NEGATIVE) RSV (PCR) NEGATIVE (NEGATIVE) SARS-CoV-2 (PCR) NEGATIVE (NEGATIVE) Slides for Path Review YES 09/25/24 Range/Units 05:31 WBC (4.23-9.07) x10^3/uL RBC (4.63-6.08) x10^6/uL Hgb (13.7-17.5) g/dL Hct (40.1-51.0) % MCV (79.0-92.2) fL MCH (25.7-32.2) pg MCHC (32.3-36.5) g/dL RDW (11.6-14.4) % Plt Count (163-337) x10^3/uL MPV (9.4-12.4) fL Gran % (34.0-67.9) % Immature Gran % (Auto) (0.001-0.429) % Nucleat RBC Rel Count (0.00-0.2) % Eos # (Auto) (0.04-0.54) x10^3/uL Immature Gran # (Auto) (0.001-0.031) x10^3u/L Absolute Lymphs (auto) (1.32-3.57) x10^3/uL Absolute Monos (auto) (0.30-0.82) x10^3/uL Absolute Nucleated RBC (0.00-0.012) x10^3u/L Lymphocytes % (21.8-53.1) % Monocytes % (5.3-12.2) % Eosinophils % (0.8-7.0) % Basophils % (0.2-1.2) % Absolute Granulocytes (1.78-5.38) x10^3/uL Basophils # (0.01-0.08) x10^3/uL Sodium 140 (135-145) mmol/L Potassium 3.4 L (3.5-5.1) mmol/L Chloride 109 H (98-107) mmol/L Carbon Dioxide 24 (22-30) mmol/L Anion Gap 10.6 (5-15) MEQ/L BUN 22 H (9-20) mg/dL Creatinine 1.07 (0.66-1.25) mg/dL Estimated GFR 66.8 ML/MIN Glucose 84 (74-106) mg/dL Lactic Acid (0.4-2.0) Calcium 7.2 L (8.4-10.2) mg/dL Iron (49-181) ug/dL TIBC (261-497) ug/dL Iron Saturation (20-39) % Ferritin (17.9-464) ng/mL Total Bilirubin 0.70 (0.2-1.3) mg/dL AST 22 (17-59) U/L ALT 15 (0-50) U/L Alkaline Phosphatase 52 (38-126) U/L NT-Pro-B Natriuret Pep (<300) pg/mL Serum Total Protein 4.9 L (6.3-8.2) g/dL Albumin 2.7 L (3.5-5.0) g/dL Vitamin B12 (239-931) pg/mL Folic Acid (2.76 - >20) ng/mL Urine Color (Yellow) Urine Appearance (Clear) Urine pH (4.6-8.0) Ur Specific [place] (1.005-1.030) Urine Protein (Negative) Urine Glucose (UA) (Negative) mg/dL Urine Ketones (Negative) Urine Blood (Negative) Urine Nitrite (Negative) Urine Bilirubin (Negative) Urine Urobilinogen (0.2) mg/dL Ur Leukocyte Esterase (Negative) U Hyaline Cast (Auto) (0-2) /LPF Urine Microscopic RBC (0-5) /HPF Urine Microscopic WBC (0-5) /HPF Ur Epithelial Cells (None Seen) /HPF Urine Bacteria (None Seen) /HPF Urine Culture Reflexed (NO) Influenza Type A Ag (NEGATIVE) Influenza Type B Ag (NEGATIVE) RSV (PCR) (NEGATIVE) SARS-CoV-2 (PCR) (NEGATIVE) Slides for Path Review Radiology Exams: Radiology Procedures Category Date Time Status CHEST 1 VIEW (PORTABLE) Stat Exams 09/24/24 14:15 Completed HEAD WITHOUT CONTRAST [CT] Stat Exams 09/24/24 14:16 Completed Assessment/Plan (1) UTI (urinary tract infection) Current Visit: Yes Status: Acute Qualifiers: Urinary tract infection type: acute cystitis Hematuria presence: without hematuria Qualified Code(s): N30.00 - Acute cystitis without hematuria Code(s): N39.0 - URINARY TRACT INFECTION, SITE NOT SPECIFIED (2) Confusion Current Visit: Yes Status: Acute Code(s): R41.0 - DISORIENTATION, UNSPECIFIED (3) Weakness Current Visit: Yes Status: Acute Code(s): R53.1 - WEAKNESS (4) Anemia Current Visit: No Status: Chronic Qualifiers: Anemia type: iron deficiency Code(s): D64.9 - ANEMIA, UNSPECIFIED (5) Shortness of breath Current Visit: No Status: Acute Code(s): R06.02 - SHORTNESS OF BREATH (6) HLD (hyperlipidemia) Current Visit: No Status: Chronic Code(s): E78.5 - HYPERLIPIDEMIA, UNSPECIFIED (7) HTN (hypertension) Current Visit: No Status: Chronic Code(s): I10 - ESSENTIAL (PRIMARY) HYPERTENSION (8) Hypothyroidism Current Visit: Yes Status: Chronic Code(s): E03.9 - HYPOTHYROIDISM, UNSPECIFIED (9) CHF (congestive heart failure) Current Visit: No Status: Chronic Qualifiers: Heart failure chronicity: chronic Assessment & Plan: (1) UTI (urinary tract infection) Current Visit: Yes Status: Acute Qualifiers: Urinary tract infection type: acute cystitis Hematuria presence: without hematuria Qualified Code(s): N30.00 - Acute cystitis without hematuria Assessment & Plan: - Ceftriaxone and IVF started in ER- continue antibiotic - CBC. CMP reviewed - UA reviewed - UC and BC x2 pending Code(s): N39.0 - URINARY TRACT INFECTION, SITE NOT SPECIFIED (2) Confusion Current Visit: Yes Status: Acute Assessment & Plan: - CT head: IMPRESSION: 1. Senile atrophic brain changes. 2. Bilateral periventricular and centrum semiovale chronic ischemic changes with a right frontal area of encephalomalacia, the sequel of chronic ischemic insults. 3. Bilateral periventricular chronic ischemic insults. 4. The study has been stationary since the one on 09/12/2024. - Will need OP f/u with neurology - Confusion resolved since admission - Likely 2:2 UTI Code(s): R41.0 - DISORIENTATION, UNSPECIFIED (3) Weakness Current Visit: Yes Status: Acute Assessment & Plan: - Acute on chronic - 2:2 UTI? - PT eval Code(s): R53.1 - WEAKNESS (4) Anemia Current Visit: No Status: Chronic Qualifiers: Anemia type: iron deficiency Assessment & Plan: - Hgb 8.7- trend - Anemia panel- has not been checked in over 1 yr - after reviewing old labs - On daily ferrous sulfate 09/25 - Hgb 7.8- trend - Anemia panel reviewed - Iron and B12 deficiency found- being replaced - Consider hematology referral OP Code(s): D64.9 - ANEMIA, UNSPECIFIED (5) Shortness of breath Current Visit: No Status: Acute Assessment & Plan: - On 3lNC 100%- wean O2 - Went home last visit on 2lNC for pneumonia - CXR: Stable LLL penumonia 09/25 - Continued SOB - On 3lNC 90% - lung souds clear Code(s): R06.02 - SHORTNESS OF BREATH (6) HLD (hyperlipidemia) Current Visit: No Status: Chronic Assessment & Plan: - continue statin Code(s): E78.5 - HYPERLIPIDEMIA, UNSPECIFIED (7) HTN (hypertension) Current Visit: No Status: Chronic Assessment & Plan: - Chronic - Continue home BP meds Code(s): I10 - ESSENTIAL (PRIMARY) HYPERTENSION (8) Hypothyroidism Current Visit: Yes Status: Chronic Assessment & Plan: - Continue synthroid Code(s): E03.9 - HYPOTHYROIDISM, UNSPECIFIED (9) CHF (congestive heart failure) Current Visit: No Status: Chronic Qualifiers: Heart failure chronicity: chronic Assessment & Plan: - BNP 5590 - CXR - reviewed - On 3lNC 100 % - Continue home meds - lasix, entresto, coreg - Echo 09/13/24- EF 30-35% - TEDS 09/25 - O2 3lNC 90% Code(s): I50.9 - HEART FAILURE, UNSPECIFIED Code(s): I50.9 - HEART FAILURE, UNSPECIFIED (10) Vitamin B12 deficiency (dietary) anemia Current Visit: Yes Status: Acute Assessment & Plan: - B12 -218 - Started cyanocobalamin PO 2000 mcg daily- will need continued for 2wks to 4 months then changed to maintenance dosing- will need to follow with PCP for repeat lab checks. Code(s): D51.8 - OTHER VITAMIN B12 DEFICIENCY ANEMIAS (11) Left lower lobe pneumonia Current Visit: No Status: Acute Assessment & Plan: - Stable LLL pneumonia as seen on CXR - added doxycycline - WBC reviewed - 3lNC 90% Code(s): J18.9 - PNEUMONIA, UNSPECIFIED ORGANISM (12) Hypocalcemia Current Visit: No Status: Acute Assessment & Plan: - Corrected Ca+ 7.8 - Tums BID started VTE: SCD's PPI: Protonix Next of KIN: daughter D/C plan: tomorrow? Code status: SCO/DNR Code(s): E83.51 - HYPOCALCEMIA
[2024-09-25] MEDS: ZOCOR 20MG PO SCH (21:59)
--- NOTE | 2024-09-26 05:19 | PCM.NOTE ---
Date and Time: 09/26/24 0513 Subjective Assessment: HPI: Mr. Brewer is an 89-year-old male with a history of CHF, HTN, HLD, hypothyroidism, and recurrent UTIs who presented 09/24/24 with acute confusion and weakness, worsening from baseline. He was recently hospitalized 09/12/24- 09/14/24 for pneumonia and discharged on cefuroxime. Evaluation revealed a UTI as the likely cause of his confusion, and he was started on ceftriaxone, with symptoms now improving. CT head showed stable chronic ischemic changes without acute findings. He continues to have dyspnea, requiring 3L NC at 90%, with stable LLL pneumonia on CXR; doxycycline was added. CHF remains a concern, with BNP elevated at 5590, requiring ongoing diuresis. Labs revealed iron deficiency anemia (Hgb 7.8) and vitamin B12 deficiency, both being treated. Hypocalcemia (corrected Ca 7.8) is managed with Tums. He remains on telemetry, is clinically stable, and will require outpatient follow-up for neurology, hematology, and continued management of his chronic conditions. 09/26/24: Patient reports increased dyspnea this morning and requiring an increase in oxygen now at 4L. Lung sounds are clear on auscultation. Urine culture pending. Plan for CT chest today. - Review of Systems Constitutional: No Symptoms Eyes: No Symptoms Ears, Nose, & Throat: No Symptoms Respiratory: Cough, Short Of Breath Cardiac: No Symptoms Abdominal/Gastrointestinal: No Symptoms Genitourinary Symptoms: No Symptoms Musculoskeletal: No Symptoms Skin: No Symptoms Neurological: No Symptoms Psychological: No Symptoms Endocrine: No Symptoms Hematologic/Lymphatic: No Symptoms Immunological/Allergic: No Symptoms Objective Exam General Appearance: no apparent distress Neurologic Exam: alert, oriented x 3, cooperative Skin Exam: normal color Eye Exam: PERRL Ears, Nose, Throat Exam: normal ENT inspection Neck Exam: normal inspection Lymphatic Exam: adenopathy Respiratory Exam: normal breath sounds, lungs clear Cardiovascular Exam: regular rate/rhythm, normal heart sounds Gastrointestinal/Abdomen Exam: soft, normal bowel sounds Extremity Exam: normal inspection Back Exam: normal inspection Male Genitalia Exam: deferred Rectal Exam: deferred Objective Data Vital Signs: Vital Signs - 24 hr Temp Pulse Resp BP Pulse Ox 09/26/24 03:54 99.6 F 60 20 132/82 91 L 09/25/24 23:45 97.8 F 65 23 137/62 92 L 09/25/24 20:00 98.5 F 67 20 134/84 92 L 09/25/24 16:00 97.7 F 60 22 133/76 91 L 09/25/24 15:59 96 09/25/24 11:54 97.9 F 63 23 131/63 93 L 09/25/24 07:21 98.6 F 69 21 127/87 90 L Pain Assessment - Last Documented Pain Intensity 0 Intake and Output: Intake & Output 09/23/24 09/24/24 09/25/24 09/26/24 11:59 11:59 11:59 11:59 Intake Total 460 860 Output Total 100 Balance 460 760 Weight 75 kg Lab Results: Lab Results-Last 24 Hours 09/25/24 09/25/24 Range/Units 05:31 05:31 WBC 7.2 (4.23-9.07) x10^3/uL RBC 2.62 L (4.63-6.08) x10^6/uL Hgb 7.8 L (13.7-17.5) g/dL Hct 25.8 L (40.1-51.0) % MCV 98.5 H (79.0-92.2) fL MCH 29.8 (25.7-32.2) pg MCHC 30.2 L (32.3-36.5) g/dL RDW 16.7 H (11.6-14.4) % Plt Count 97 L (163-337) x10^3/uL MPV 9.5 (9.4-12.4) fL Sodium 140 (135-145) mmol/L Potassium 3.4 L (3.5-5.1) mmol/L Chloride 109 H (98-107) mmol/L Carbon Dioxide 24 (22-30) mmol/L Anion Gap 10.6 (5-15) MEQ/L BUN 22 H (9-20) mg/dL Creatinine 1.07 (0.66-1.25) mg/dL Estimated GFR 66.8 ML/MIN Glucose 84 (74-106) mg/dL Calcium 7.2 L (8.4-10.2) mg/dL Total Bilirubin 0.70 (0.2-1.3) mg/dL AST 22 (17-59) U/L ALT 15 (0-50) U/L Alkaline Phosphatase 52 (38-126) U/L Serum Total Protein 4.9 L (6.3-8.2) g/dL Albumin 2.7 L (3.5-5.0) g/dL Slides for Path Review YES Radiology Exams: Radiology Procedures Category Date Time Status CHEST 1 VIEW (PORTABLE) Stat Exams 09/24/24 14:15 Completed HEAD WITHOUT CONTRAST [CT] Stat Exams 09/24/24 14:16 Completed Assessment/Plan (1) UTI (urinary tract infection) Current Visit: Yes Status: Acute Qualifiers: Urinary tract infection type: acute cystitis Hematuria presence: without hematuria Qualified Code(s): N30.00 - Acute cystitis without hematuria Assessment & Plan: -UA suspicious for infection - culture pending - Ceftriaxone started in ED- will continue - CBC. 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 No acute abnormalities were found, and the findings remain unchanged from the previous scan on 09/12/2024. - OP f/u with neurology Code(s): R41.0 - DISORIENTATION, UNSPECIFIED (3) Vitamin B12 deficiency (dietary) anemia Current Visit: Yes Status: Acute Assessment & Plan: - B12 -218 - Started cyanocobalamin PO 2000 mcg daily- will need continued for 2wks to 4 months then changed to maintenance dosing- will need to follow with PCP for repeat lab checks. Code(s): D51.8 - OTHER VITAMIN B12 DEFICIENCY ANEMIAS (4) Weakness Current Visit: Yes Status: Acute Assessment & Plan: - Acute on chronic - 2:2 UTI/pneumonia - PT eval Code(s): R53.1 - WEAKNESS (5) Hypothyroidism Current Visit: Yes Status: Chronic Assessment & Plan: - Continue synthroid Code(s): E03.9 - HYPOTHYROIDISM, UNSPECIFIED (6) Hypocalcemia Current Visit: No Status: Acute Assessment & Plan: - Tums BID started Code(s): E83.51 - HYPOCALCEMIA (7) Left lower lobe pneumonia Current Visit: No Status: Acute Assessment & Plan: - Stable LLL pneumonia as seen on CXR -Continue doxycycline - WBC reviewed - Supplemental oxygen as needed to maintain spo2 goal > 90% - currently on 4l - increased overnight from 3L -CT chest for increased sob and oxygen needs Code(s): J18.9 - PNEUMONIA, UNSPECIFIED ORGANISM (8) Shortness of breath Current Visit: No Status: Acute Assessment & Plan: - On 4lNC - wean O2 - Went home last visit on 2lNC for pneumonia - CXR: Stable LLL penumonia -CT chest today Code(s): R06.02 - SHORTNESS OF BREATH (9) Anemia, macrocytic Current Visit: No Status: Chronic Assessment & Plan: -Continue ferrous sulfate -OP referral to hematology for iron infusions Code(s): D53.9 - NUTRITIONAL ANEMIA, UNSPECIFIED (10) CHF (congestive heart failure) Current Visit: No Status: Chronic Qualifiers: Heart failure chronicity: chronic Assessment & Plan: - BNP reviewed at 5590 - CXR - reviewed showing stable lung hyperinflation with a persistent left lower lung infiltrate, atelectasis, or effusion. The heart size remains unchanged, with a left AICD in place. No new cardiopulmonary abnormalities are noted - On 3lNC - Continue home meds - lasix, entresto, coreg - Echo 09/13/24- EF 30-35% - TEDS Code(s): I50.9 - HEART FAILURE, UNSPECIFIED (11) HLD (hyperlipidemia) Current Visit: No Status: Chronic Assessment & Plan: - continue statin Code(s): E78.5 - HYPERLIPIDEMIA, UNSPECIFIED (12) HTN (hypertension) Current Visit: No Status: Chronic Assessment & Plan: - Continue home BP meds VTE: SCD's PPI: Protonix Next of KIN: daughter Code(s): I10 - ESSENTIAL (PRIMARY) HYPERTENSION
[2024-09-26 07:20] LABS: Hematocrit 27.9 % (40.1-51.0); Hemoglobin 8.5 g/dL (13.7-17.5); Mean Corpuscular Hemoglobin 30.5 pg (25.7-32.2); Mean Corpuscular Hgb Concent. 30.5 g/dL (32.3-36.5); Mean Platelet Volume 9.9 fL (9.4-12.4); Platelet Count 107 x10^3/uL (163-337); Red Blood Count 2.79 x10^6/uL (4.63-6.08); Red Cell Distribution Width 16.8 % (11.6-14.4); White Blood Count 7.1 x10^3/uL (4.23-9.07)
[2024-09-26 07:32] LABS: ALBUMIN 2.9 g/dL (3.5-5.0); ANION GAP 9.9 MEQ/L (5-15); BILIRUBIN,TOTAL 0.7 mg/dL (0.2-1.3); Calcium 7.6 mg/dL (8.4-10.2); Creatinine 1 1.07 mg/dL (0.66-1.25); EST GLOMERULAR FILTRATION RATE 66.8 ML/MIN; PREALBUMIN 12.39 mg/dL (17.6-36.0); Potassium 3.8 mmol/L (3.5-5.1); Total Protein 5.4 g/dL (6.3-8.2)
[2024-09-26] MEDS: DIFLUCAN PO ONE (14:24)
[2024-09-26] MEDS: BENTYL 20 MG PO SCH (18:16)
[2024-09-26] MEDS ORDERED: D5w 100ML Mini Bag 100 ML 100 ML IV ONE (20:26)
--- NOTE | 2024-09-27 05:13 | PCM.NOTE ---
Date and Time: 09/27/24 0513 Subjective Assessment: HPI: Mr. Brewer is an 89-year-old male with a history of CHF, HTN, HLD, hypothyroidism, and recurrent UTIs who presented 09/24/24 with acute confusion and weakness, worsening from baseline. He was recently hospitalized 09/12/24- 09/14/24 for pneumonia and discharged on cefuroxime. Evaluation revealed a UTI as the likely cause of his confusion, and he was started on ceftriaxone, with symptoms now improving. CT head showed stable chronic ischemic changes without acute findings. He continues to have dyspnea, requiring 3L NC at 90%, with stable LLL pneumonia on CXR; doxycycline was added. CHF remains a concern, with BNP elevated at 5590, requiring ongoing diuresis. Labs revealed iron deficiency anemia (Hgb 7.8) and vitamin B12 deficiency, both being treated. Hypocalcemia (corrected Ca 7.8) is managed with Tums. He remains on telemetry, is clinically stable, and will require outpatient follow-up for neurology, hematology, and continued management of his chronic conditions. 09/26/24: Patient reports increased dyspnea this morning and requiring an increase in oxygen now at 4L. Lung sounds are clear on auscultation. Urine culture pending. Plan for CT chest today. 09/27/24 Met with patient and daughter bedside. He continues to experience shortness of breath and a productive cough with yellow sputum. Lung sounds diminished with exp wheezing on auscultation. He is requiring continuous oxygen at 3L oxymask. He reports poor sleep and has requested melatonin for assistance. CT chest shows no evidence of pulmonary embolism but there is worsening, diffuse ground-glass opacities in the right lung. Borderline cardiomegaly remains stable, but bilateral pleural effusions have worsened, raising concern for either early cardiac decompensation, fluid overload, or both. Given the clinical presentation and imaging findings, the plan includes initiating diuresis to manage the effusions. Additionally, antibiotic therapy will be broadened to include vancomycin and cefepime to address potential HAP. The patients sleep difficulties will be addressed with a prescription for melatonin as requested. - Review of Systems Constitutional: Lethargy, Weakness Eyes: No Symptoms Ears, Nose, & Throat: No Symptoms Respiratory: Cough, Short Of Breath, Wheezing Cardiac: No Symptoms Abdominal/Gastrointestinal: No Symptoms Genitourinary Symptoms: No Symptoms Musculoskeletal: No Symptoms Skin: No Symptoms Neurological: No Symptoms Psychological: No Symptoms Endocrine: No Symptoms Hematologic/Lymphatic: No Symptoms Immunological/Allergic: No Symptoms Objective Exam General Appearance: no apparent distress Neurologic Exam: alert, oriented x 3, cooperative, confusion Skin Exam: normal color Eye Exam: PERRL Ears, Nose, Throat Exam: normal ENT inspection Neck Exam: normal inspection Respiratory Exam: diminished breath sounds, wheezing Cardiovascular Exam: regular rate/rhythm, normal heart sounds Gastrointestinal/Abdomen Exam: soft, normal bowel sounds Extremity Exam: normal inspection Back Exam: normal inspection Male Genitalia Exam: deferred Rectal Exam: deferred Objective Data Vital Signs: Vital Signs - 24 hr Temp Pulse Resp BP Pulse Ox 09/27/24 04:00 97.7 F 61 18 145/73 98 09/26/24 20:00 97.1 F 62 16 167/63 98 09/26/24 19:35 93 L 09/26/24 16:00 98.9 F 60 20 129/58 93 L 09/26/24 12:00 98.4 F 68 22 128/59 91 L 09/26/24 08:00 98.6 F 62 22 139/60 94 L 09/26/24 07:58 94 L Pain Assessment - Last Documented Pain Intensity 0 Intake and Output: Intake & Output 09/24/24 09/25/24 09/26/24 09/27/24 11:59 11:59 11:59 11:59 Intake Total 460 1100 567 Output Total 100 Balance 460 1000 567 Weight 75 kg 77.3 kg Lab Results: Lab Results-Last 24 Hours 09/26/24 09/26/24 Range/Units 07:12 07:12 WBC 7.1 (4.23-9.07) x10^3/uL RBC 2.79 L (4.63-6.08) x10^6/uL Hgb 8.5 L (13.7-17.5) g/dL Hct 27.9 L (40.1-51.0) % MCV 100.0 H (79.0-92.2) fL MCH 30.5 (25.7-32.2) pg MCHC 30.5 L (32.3-36.5) g/dL RDW 16.8 H (11.6-14.4) % Plt Count 107 L (163-337) x10^3/uL MPV 9.9 (9.4-12.4) fL Sodium 143 (135-145) mmol/L Potassium 3.8 (3.5-5.1) mmol/L Chloride 109 H (98-107) mmol/L Carbon Dioxide 28 (22-30) mmol/L Anion Gap 9.9 (5-15) MEQ/L BUN 21 H (9-20) mg/dL Creatinine 1.07 (0.66-1.25) mg/dL Estimated GFR 66.8 ML/MIN Glucose 118 H (74-106) mg/dL Calcium 7.6 L (8.4-10.2) mg/dL Total Bilirubin 0.70 (0.2-1.3) mg/dL AST 21 (17-59) U/L ALT 15 (0-50) U/L Alkaline Phosphatase 59 (38-126) U/L Serum Total Protein 5.4 L (6.3-8.2) g/dL Albumin 2.9 L (3.5-5.0) g/dL Prealbumin 12.39 L (17.6-36.0) mg/dL Radiology Exams: Radiology Procedures Category Date Time Status CHEST WITH CONTRAST [CT] Stat Exams 09/26/24 11:24 Taken Assessment/Plan (1) UTI (urinary tract infection) Current Visit: Yes Status: Acute Qualifiers: Urinary tract infection type: acute cystitis Hematuria presence: without hematuria Qualified Code(s): N30.00 - Acute cystitis without hematuria Assessment & Plan: -UA suspicious for infection - culture pending - Ceftriaxone started in ED- will continue - CBC. CMP reviewed - UC and BC x2 pending 09/27: -Ucult showing yeast - diflucan added recommended dosing 200mg daily x 14 days Code(s): N39.0 - URINARY TRACT INFECTION, SITE NOT SPECIFIED (2) Confusion Current Visit: Yes Status: Acute Assessment & Plan: -Likely multifactorial with pneumonia/UTI - CT head reviewed showing chronic age-related brain atrophy and longstanding ischemic changes, including a right frontal area of encephalomalacia from prior strokes. No acute abnormalities were found, and the findings remain unchanged from the previous scan on 09/12/2024. - OP f/u with neurology Code(s): R41.0 - DISORIENTATION, UNSPECIFIED (3) Vitamin B12 deficiency (dietary) anemia Current Visit: Yes Status: Acute Assessment & Plan: - B12 -218 - Started cyanocobalamin PO 2000 mcg daily- will need continued for 2wks to 4 months then changed to maintenance dosing- will need to follow with PCP for repeat lab checks. Code(s): D51.8 - OTHER VITAMIN B12 DEFICIENCY ANEMIAS (4) Weakness Current Visit: Yes Status: Acute Assessment & Plan: - Acute on chronic - 2:2 UTI/pneumonia - PT eval Code(s): R53.1 - WEAKNESS (5) Hypothyroidism Current Visit: Yes Status: Chronic Assessment & Plan: - Continue synthroid Code(s): E03.9 - HYPOTHYROIDISM, UNSPECIFIED (6) Hypocalcemia Current Visit: No Status: Acute Assessment & Plan: - Tums BID started Code(s): E83.51 - HYPOCALCEMIA (7) Left lower lobe pneumonia Current Visit: No Status: Acute Assessment & Plan: - Stable LLL pneumonia as seen on CXR -Continue doxycycline - WBC reviewed - Supplemental oxygen as needed to maintain spo2 goal > 90% - currently on 4l - increased overnight from 3L -CT chest for increased sob and oxygen needs 09/27: -CT chest showing no PE. The right lung shows worsening pneumonia. Worsening bilateral effusions favoring CHF -continue abx add solumedrol/lasix -Nebs/INH -CMP/CBC reviewed unremarkable -Doxy/ceftriaxone d/cd -Vanc and cefepime added for HAP Code(s): J18.9 - PNEUMONIA, UNSPECIFIED ORGANISM (8) Shortness of breath Current Visit: No Status: Acute Assessment & Plan: - On 4lNC - wean O2 - Went home last visit on 2lNC for pneumonia - CXR: Stable LLL penumonia -CT chest today 09/27: -see plan for pneumonia Code(s): R06.02 - SHORTNESS OF BREATH (9) Anemia, macrocytic Current Visit: No Status: Chronic Assessment & Plan: -Continue ferrous sulfate -OP referral to hematology for iron infusions Code(s): D53.9 - NUTRITIONAL ANEMIA, UNSPECIFIED (10) CHF (congestive heart failure) Current Visit: No Status: Chronic Qualifiers: Heart failure chronicity: chronic Assessment & Plan: - BNP reviewed at 5590 - CXR - reviewed showing stable lung hyperinflation with a persistent left lower lung infiltrate, atelectasis, or effusion. The heart size remains unchanged, with a left AICD in place. No new cardiopulmonary abnormalities are noted - On 3lNC - Continue home meds - lasix, entresto, coreg - Echo 09/13/24- EF 30-35% - TEDS 09/27: -CT chest as stated above favoring CHF- will add lasix 40mg BID - hold home dosing Code(s): I50.9 - HEART FAILURE, UNSPECIFIED (11) HLD (hyperlipidemia) Current Visit: No Status: Chronic Assessment & Plan: - continue statin Code(s): E78.5 - HYPERLIPIDEMIA, UNSPECIFIED (12) HTN (hypertension) Current Visit: No Status: Chronic Assessment & Plan: - Continue home BP meds VTE: SCD's PPI: Protonix Next of KIN: daughter Code(s): N39.0 - URINARY TRACT INFECTION, SITE NOT SPECIFIED (2) Confusion Current Visit: Yes Status: Acute Code(s): R41.0 - DISORIENTATION, UNSPECIFIED (3) Vitamin B12 deficiency (dietary) anemia Current Visit: Yes Status: Acute Code(s): D51.8 - OTHER VITAMIN B12 DEFICIENCY ANEMIAS (4) Weakness Current Visit: Yes Status: Acute Code(s): R53.1 - WEAKNESS (5) Hypothyroidism Current Visit: Yes Status: Chronic Code(s): E03.9 - HYPOTHYROIDISM, UNSPECIFIED (6) Hypocalcemia Current Visit: No Status: Acute Code(s): E83.51 - HYPOCALCEMIA (7) Left lower lobe pneumonia Current Visit: No Status: Acute Code(s): J18.9 - PNEUMONIA, UNSPECIFIED ORGANISM (8) Shortness of breath Current Visit: No Status: Acute Code(s): R06.02 - SHORTNESS OF BREATH (9) Anemia, macrocytic Current Visit: No Status: Chronic Code(s): D53.9 - NUTRITIONAL ANEMIA, UNSPECIFIED (10) CHF (congestive heart failure) Current Visit: No Status: Chronic Qualifiers: Heart failure chronicity: chronic Code(s): I50.9 - HEART FAILURE, UNSPECIFIED (11) HLD (hyperlipidemia) Current Visit: No Status: Chronic Code(s): E78.5 - HYPERLIPIDEMIA, UNSPECIFIED (12) HTN (hypertension) Current Visit: No Status: Chronic Code(s): I10 - ESSENTIAL (PRIMARY) HYPERTENSION
[2024-09-27 05:14] LABS: Absolute Neutrophil Ct (ANC) 5.76 x10^3/uL (1.78-5.38); BASOPHIL % 0.1 % (0.2-1.2); Basophil (Absolute #) 0.01 x10^3/uL (0.01-0.08); Eosinophil % 0.9 % (0.8-7.0); Eosinophil (Absolute #) 0.06 x10^3/uL (0.04-0.54); Hemoglobin 8.4 g/dL (13.7-17.5); IMMATURE GRAN # 0.05 x10^3u/L (0.001-0.031); IMMATURE GRAN % 0.7 % (0.001-0.429); Lymphocyte (Absolute #) 0.58 x10^3/uL (1.32-3.57); Lymphocytes % 8.4 % (21.8-53.1); Mean Cell Volume 99.3 fL (79.0-92.2); Mean Corpuscular Hemoglobin 29.8 pg (25.7-32.2); Mean Platelet Volume 9.8 fL (9.4-12.4); Monocyte (Absolute #) 0.42 x10^3/uL (0.30-0.82); Monocytes % 6.1 % (5.3-12.2); Neutrophil % 83.8 % (34.0-67.9); Platelet Count 102 x10^3/uL (163-337); Red Blood Count 2.82 x10^6/uL (4.63-6.08); Red Cell Distribution Width 16.6 % (11.6-14.4); White Blood Count 6.9 x10^3/uL (4.23-9.07)
[2024-09-27 05:34] LABS: BILIRUBIN,TOTAL 0.7 mg/dL (0.2-1.3); Calcium 7.9 mg/dL (8.4-10.2); Creatinine 1 1.07 mg/dL (0.66-1.25); EST GLOMERULAR FILTRATION RATE 66.8 ML/MIN; Potassium 3.7 mmol/L (3.5-5.1); Total Protein 5.5 g/dL (6.3-8.2)
[2024-09-27 06:58] LABS: Slide Review 1 YES
--- NOTE | 2024-09-27 08:42 | XRAY ---
Indication: Short of breath. Multiple contiguous axial images obtained through the chest using 80 cc Isovue 370 contrast and PE protocol. Comparison: September 12, 2024 Good opacification pulmonary arteries to include the lobar and segmental branches. No pulmonary embolus. Heart remains borderline enlarged again with left AICD. Aorta remains moderately arteriosclerotic without aneurysm/dissection. No pathologic mediastinal/hilar lymphadenopathy. Lungs again demonstrates moderate diffuse pulmonary emphysema. Worsening more diffuse patchy right lung groundglass airspace disease. Also worsening moderate right and mild left effusions with minimal bibasilar compressive atelectasis. Stable incidental left lower lobe calcified granuloma. Bony thorax intact again with osteopenia and mild/moderate degenerative changes throughout spine. Limited upper abdomen demonstrates grossly stable 7.7 x 4.7 cm cyst adjacent to left kidney. Impression: 1. Continued negative pulmonary embolus. 2. Worsening more diffuse right lung groundglass airspace disease. 3. Stable borderline cardiomegaly. Worsening bilateral effusions. Rule out mild or early cardiac decompensation/CHF versus fluid overload. 4. Again chronic findings including pulmonary emphysema, arteriosclerotic disease, chronic bony findings, left abdomen cyst, and old granulomatous disease.
[2024-09-27] MEDS: Lasix 40 MG/4 ML IV SCH (09:42)
[2024-09-27] MEDS: solu-MEDROL 40 MG, Sterile H2O 10 ml 1 ML IV SCH (09:57)
[2024-09-27] MEDS ORDERED: PHARMACY DOSING REQUIRED: VANCOMYCIN IV SCH (10:30)
[2024-09-27] MEDS: VANCOCIN 500 MG VIAL*** 500 MG in Sodium Chloride 100ML MINI-BAG PLUS 100 ML IV SCH (10:44)
[2024-09-27] MEDS: Diflucan 100 MG PO SCH (14:16)
[2024-09-27] MEDS: Maxipime 2 GM** 2 G in Dextrose 5%/Water IV Soln. 100ML PLUS BAG 100 ML IV SCH (18:06)
[2024-09-27] MEDS: MELATONIN PO SCH (21:42)
[2024-09-27] MEDS ORDERED: MELATONIN PO SCH (22:00)
[2024-09-28 04:59] LABS: Absolute Neutrophil Ct (ANC) 5.02 x10^3/uL (1.78-5.38); Basophil (Absolute #) 0 x10^3/uL (0.01-0.08); Eosinophil (Absolute #) 0 x10^3/uL (0.04-0.54); Hematocrit 30.6 % (40.1-51.0); Hemoglobin 9.3 g/dL (13.7-17.5); IMMATURE GRAN # 0.02 x10^3u/L (0.001-0.031); IMMATURE GRAN % 0.4 % (0.001-0.429); Lymphocyte (Absolute #) 0.41 x10^3/uL (1.32-3.57); Lymphocytes % 7.3 % (21.8-53.1); Mean Cell Volume 97.8 fL (79.0-92.2); Mean Corpuscular Hemoglobin 29.7 pg (25.7-32.2); Mean Corpuscular Hgb Concent. 30.4 g/dL (32.3-36.5); Mean Platelet Volume 10.6 fL (9.4-12.4); Monocyte (Absolute #) 0.15 x10^3/uL (0.30-0.82); Monocytes % 2.7 % (5.3-12.2); Neutrophil % 89.6 % (34.0-67.9); Platelet Count 100 x10^3/uL (163-337); Red Blood Count 3.13 x10^6/uL (4.63-6.08); Red Cell Distribution Width 16.4 % (11.6-14.4); White Blood Count 5.6 x10^3/uL (4.23-9.07)
--- NOTE | 2024-09-28 05:25 | PCM.NOTE ---
Date and Time: 09/28/24 0524 Subjective Assessment: HPI: Mr. Brewer is an 89-year-old male with a history of CHF, HTN, HLD, hypothyroidism, and recurrent UTIs who presented 09/24/24 with acute confusion and weakness, worsening from baseline. He was recently hospitalized 09/12/24- 09/14/24 for pneumonia and discharged on cefuroxime. Evaluation revealed a UTI as the likely cause of his confusion, and he was started on ceftriaxone, with symptoms now improving. CT head showed stable chronic ischemic changes without acute findings. He continues to have dyspnea, requiring 3L NC at 90%, with stable LLL pneumonia on CXR; doxycycline was added. CHF remains a concern, with BNP elevated at 5590, requiring ongoing diuresis. Labs revealed iron deficiency anemia (Hgb 7.8) and vitamin B12 deficiency, both being treated. Hypocalcemia (corrected Ca 7.8) is managed with Tums. He remains on telemetry, is clinically stable, and will require outpatient follow-up for neurology, hematology, and continued management of his chronic conditions. 09/26/24: Patient reports increased dyspnea this morning and requiring an increase in oxygen now at 4L. Lung sounds are clear on auscultation. Urine culture pending. Plan for CT chest today. 09/27/24 Met with patient and daughter bedside. He continues to experience shortness of breath and a productive cough with yellow sputum. Lung sounds diminished with exp wheezing on auscultation. He is requiring continuous oxygen at 3L oxymask. He reports poor sleep and has requested melatonin for assistance. CT chest shows no evidence of pulmonary embolism but there is worsening, diffuse ground-glass opacities in the right lung. Borderline cardiomegaly remains stable, but bilateral pleural effusions have worsened, raising concern for either early cardiac decompensation, fluid overload, or both. Given the clinical presentation and imaging findings, the plan includes initiating diuresis to manage the effusions. Additionally, antibiotic therapy will be broadened to include vancomycin and cefepime to address potential HAP. The patients sleep difficulties will be addressed with a prescription for melatonin as requested. 09/28/24: Poor sleep last night. Confusion improved today. Dyspnea and cough continue. Remains on 3L NC with diminished lung sounds on auscultation. Patient will need 7 days of vanc/cefepime for pneumonia. Denies fever cp, abdominal pain, DUNHAM, dizziness, N/V/D. - Review of Systems Constitutional: Weakness Eyes: No Symptoms Ears, Nose, & Throat: No Symptoms Respiratory: Cough, Short Of Breath Cardiac: No Symptoms Abdominal/Gastrointestinal: No Symptoms Genitourinary Symptoms: No Symptoms Musculoskeletal: No Symptoms Skin: No Symptoms Neurological: No Symptoms Psychological: No Symptoms Endocrine: No Symptoms Hematologic/Lymphatic: No Symptoms Immunological/Allergic: No Symptoms Objective Exam General Appearance: no apparent distress Neurologic Exam: alert, oriented x 3, cooperative, confusion Skin Exam: pale Eye Exam: PERRL Ears, Nose, Throat Exam: normal ENT inspection Neck Exam: normal inspection Respiratory Exam: diminished breath sounds, crackles/rales Cardiovascular Exam: regular rate/rhythm, normal heart sounds Gastrointestinal/Abdomen Exam: soft, normal bowel sounds Extremity Exam: normal inspection Back Exam: normal inspection Male Genitalia Exam: deferred Rectal Exam: deferred Objective Data Vital Signs: Vital Signs - 24 hr Temp Pulse Resp BP Pulse Ox 09/28/24 03:00 97.1 F 60 18 150/65 95 09/27/24 23:00 97.1 F 60 18 156/68 96 09/27/24 19:00 96.9 F 60 17 120/79 97 09/27/24 18:40 65 18 94 L 09/27/24 15:00 97.5 F 60 16 139/58 95 09/27/24 11:40 97.3 F 65 24 136/62 96 09/27/24 09:21 62 18 96 09/27/24 07:25 90 L 09/27/24 07:24 97.9 F 69 16 122/60 92 L Pain Assessment - Last Documented Pain Intensity 0 Intake and Output: Intake & Output 09/25/24 09/26/24 09/27/24 09/28/24 11:59 11:59 11:59 11:59 Intake Total 460 1100 567 580 Output Total 100 1 300 Balance 460 1000 566 280 Weight 75 kg 77.3 kg 77.3 kg Lab Results: Lab Results-Last 24 Hours 09/27/24 09/27/24 09/28/24 Range/Units 05:06 05:06 04:55 WBC 5.6 (4.23-9.07) x10^3/uL RBC 3.13 L (4.63-6.08) x10^6/uL Hgb 9.3 L (13.7-17.5) g/dL Hct 30.6 L (40.1-51.0) % MCV 97.8 H (79.0-92.2) fL MCH 29.7 (25.7-32.2) pg MCHC 30.4 L (32.3-36.5) g/dL RDW 16.4 H (11.6-14.4) % Plt Count 100 L (163-337) x10^3/uL MPV 10.6 (9.4-12.4) fL Gran % 89.6 H (34.0-67.9) % Immature Gran % (Auto) 0.4 (0.001-0.429) % Nucleat RBC Rel Count 0.0 (0.00-0.2) % Eos # (Auto) 0 L (0.04-0.54) x10^3/uL Immature Gran # (Auto) 0.02 (0.001-0.031) x10^3u/L Absolute Lymphs (auto) 0.41 L (1.32-3.57) x10^3/uL Absolute Monos (auto) 0.15 L (0.30-0.82) x10^3/uL Absolute Nucleated RBC 0.00 (0.00-0.012) x10^3u/L Lymphocytes % 7.3 L (21.8-53.1) % Monocytes % 2.7 L (5.3-12.2) % Eosinophils % 0.0 L (0.8-7.0) % Basophils % 0.0 L (0.2-1.2) % Absolute Granulocytes 5.02 (1.78-5.38) x10^3/uL Basophils # 0 L (0.01-0.08) x10^3/uL Sodium 141 (135-145) mmol/L Potassium 3.7 (3.5-5.1) mmol/L Chloride 106 (98-107) mmol/L Carbon Dioxide 27 (22-30) mmol/L Anion Gap 11.0 (5-15) MEQ/L BUN 23 H (9-20) mg/dL Creatinine 1.07 (0.66-1.25) mg/dL Estimated GFR 66.8 ML/MIN Glucose 121 H (74-106) mg/dL Calcium 7.9 L (8.4-10.2) mg/dL Total Bilirubin 0.70 (0.2-1.3) mg/dL AST 22 (17-59) U/L ALT 15 (0-50) U/L Alkaline Phosphatase 60 (38-126) U/L Serum Total Protein 5.5 L (6.3-8.2) g/dL Albumin 3.0 L (3.5-5.0) g/dL Slides for Path Review YES Radiology Exams: Radiology Procedures Category Date Time Status CHEST WITH CONTRAST [CT] Stat Exams 09/26/24 11:24 Completed Multi-Disciplinary Progress Notes: Multi-Disciplinary Progress Notes 09/27/24 10:17 Case Management Note by Mercedes Castañeda NO CHANGE IN DC PLANS AT THIS TIME- PATIENT TO CONTINUE TO DC HOME WITH DAUGHTER AT TIME OF DC Initialized on 09/27/24 10:17 - END OF NOTE Assessment/Plan (1) UTI (urinary tract infection) Current Visit: Yes Status: Acute Qualifiers: Urinary tract infection type: acute cystitis Hematuria presence: without hematuria Qualified Code(s): N30.00 - Acute cystitis without hematuria Assessment & Plan: -UA suspicious for infection - culture pending - Ceftriaxone started in ED- will continue - CBC. CMP reviewed - UC and BC x2 pending 09/27: -Ucult showing yeast - diflucan added recommended dosing 200mg daily x 14 days Code(s): N39.0 - URINARY TRACT INFECTION, SITE NOT SPECIFIED (2) Confusion Current Visit: Yes Status: Acute Assessment & Plan: -Likely multifactorial with pneumonia/UTI - CT head reviewed showing chronic age-related brain atrophy and longstanding ischemic changes, including a right frontal area of encephalomalacia from prior strokes. No acute abnormalities were found, and the findings remain unchanged from the previous scan on 09/12/2024. - OP f/u with neurology Code(s): R41.0 - DISORIENTATION, UNSPECIFIED (3) Vitamin B12 deficiency (dietary) anemia Current Visit: Yes Status: Acute Assessment & Plan: - B12 -218 - Started cyanocobalamin PO 2000 mcg daily- will need continued for 2wks to 4 months then changed to maintenance dosing- will need to follow with PCP for repeat lab checks. Code(s): D51.8 - OTHER VITAMIN B12 DEFICIENCY ANEMIAS (4) Weakness Current Visit: Yes Status: Acute Assessment & Plan: - Acute on chronic - 2:2 UTI/pneumonia - PT eval Code(s): R53.1 - WEAKNESS (5) Hypothyroidism Current Visit: Yes Status: Chronic Assessment & Plan: - Continue synthroid Code(s): E03.9 - HYPOTHYROIDISM, UNSPECIFIED (6) Hypocalcemia Current Visit: No Status: Acute Assessment & Plan: - Tums BID started Code(s): E83.51 - HYPOCALCEMIA (7) Left lower lobe pneumonia Current Visit: No Status: Acute Assessment & Plan: - Stable LLL pneumonia as seen on CXR -Continue doxycycline - WBC reviewed - Supplemental oxygen as needed to maintain spo2 goal > 90% - currently on 4l - increased overnight from 3L -CT chest for increased sob and oxygen needs 09/27: -CT chest showing no PE. The right lung shows worsening pneumonia. Worsening bilateral effusions favoring CHF -continue abx add solumedrol/lasix -Nebs/INH -CMP/CBC reviewed unremarkable -Doxy/ceftriaxone d/cd -Vanc and cefepime added for HAP 42: -Continue vanc/cefepime -sputum culture pending -supplemental oxygen at 3L currently - continue with goal spo2 >91% Code(s): J18.9 - PNEUMONIA, UNSPECIFIED ORGANISM ## Hypokalemia -Potassium reviewed at 3.4 - will replenish per protocol -tele -monitor renal/lytes daily (8) Shortness of breath Current Visit: No Status: Acute Assessment & Plan: - On 4lNC - wean O2 - Went home last visit on 2lNC for pneumonia - CXR: Stable LLL penumonia -CT chest today 09/27: -see plan for pneumonia Code(s): R06.02 - SHORTNESS OF BREATH (9) Anemia, macrocytic Current Visit: No Status: Chronic Assessment & Plan: -Continue ferrous sulfate -OP referral to hematology for iron infusions Code(s): D53.9 - NUTRITIONAL ANEMIA, UNSPECIFIED (10) CHF (congestive heart failure) Current Visit: No Status: Chronic Qualifiers: Heart failure chronicity: chronic Assessment & Plan: - BNP reviewed at 5590 - CXR - reviewed showing stable lung hyperinflation with a persistent left lower lung infiltrate, atelectasis, or effusion. The heart size remains unchanged, with a left AICD in place. No new cardiopulmonary abnormalities are noted - On 3lNC - Continue home meds - lasix, entresto, coreg - Echo 09/13/24- EF 30-35% - TEDS 09/27: -CT chest as stated above favoring CHF- will add lasix 40mg BID - hold home dosing Code(s): I50.9 - HEART FAILURE, UNSPECIFIED (11) HLD (hyperlipidemia) Current Visit: No Status: Chronic Assessment & Plan: - continue statin Code(s): E78.5 - HYPERLIPIDEMIA, UNSPECIFIED (12) HTN (hypertension) Current Visit: No Status: Chronic Assessment & Plan: - Continue home BP meds VTE: SCD's PPI: Protonix Next of KIN: daughter Code(s): N39.0 - URINARY TRACT INFECTION, SITE NOT SPECIFIED (2) Confusion Current Visit: Yes Status: Acute Code(s): R41.0 - DISORIENTATION, UNSPECIFIED (3) Vitamin B12 deficiency (dietary) anemia Current Visit: Yes Status: Acute Code(s): D51.8 - OTHER VITAMIN B12 DEFICIENCY ANEMIAS (4) Weakness Current Visit: Yes Status: Acute Code(s): R53.1 - WEAKNESS (5) Hypothyroidism Current Visit: Yes Status: Chronic Code(s): E03.9 - HYPOTHYROIDISM, UNSPECIFIED (6) Hypocalcemia Current Visit: No Status: Acute Code(s): E83.51 - HYPOCALCEMIA (7) Left lower lobe pneumonia Current Visit: No Status: Acute Code(s): J18.9 - PNEUMONIA, UNSPECIFIED ORGANISM (8) Shortness of breath Current Visit: No Status: Acute Code(s): R06.02 - SHORTNESS OF BREATH (9) Anemia, macrocytic Current Visit: No Status: Chronic Code(s): D53.9 - NUTRITIONAL ANEMIA, UNSPECIFIED (10) CHF (congestive heart failure) Current Visit: No Status: Chronic Qualifiers: Heart failure chronicity: chronic Code(s): I50.9 - HEART FAILURE, UNSPECIFIED (11) HLD (hyperlipidemia) Current Visit: No Status: Chronic Code(s): E78.5 - HYPERLIPIDEMIA, UNSPECIFIED (12) HTN (hypertension) Current Visit: No Status: Chronic Code(s): I10 - ESSENTIAL (PRIMARY) HYPERTENSION (13) Hypokalemia Current Visit: Yes Status: Acute Code(s): E87.6 - HYPOKALEMIA
[2024-09-28 05:30] LABS: ALBUMIN 2.7 g/dL (3.5-5.0); ANION GAP 14.6 MEQ/L (5-15); BILIRUBIN,TOTAL 0.5 mg/dL (0.2-1.3); Calcium 7.7 mg/dL (8.4-10.2); Creatinine 1 1.14 mg/dL (0.66-1.25); EST GLOMERULAR FILTRATION RATE 61.9 ML/MIN; Potassium 3.4 mmol/L (3.5-5.1)
[2024-09-28 06:29] LABS: Slide Review 1 YES
[2024-09-28] MEDS: Klor Con PO SCH (08:12)
--- NOTE | 2024-09-29 05:37 | PCM.NOTE ---
Date and Time: 09/29/24 0536 Subjective Assessment: HPI: Mr. Brewer is an 89-year-old male with a history of CHF, HTN, HLD, hypothyroidism, and recurrent UTIs who presented 09/24/24 with acute confusion and weakness, worsening from baseline. He was recently hospitalized 09/12/24- 09/14/24 for pneumonia and discharged on cefuroxime. Evaluation revealed a UTI as the likely cause of his confusion, and he was started on ceftriaxone, with symptoms now improving. CT head showed stable chronic ischemic changes without acute findings. He continues to have dyspnea, requiring 3L NC at 90%, with stable LLL pneumonia on CXR; doxycycline was added. CHF remains a concern, with BNP elevated at 5590, requiring ongoing diuresis. Labs revealed iron deficiency anemia (Hgb 7.8) and vitamin B12 deficiency, both being treated. Hypocalcemia (corrected Ca 7.8) is managed with Tums. He remains on telemetry, is clinically stable, and will require outpatient follow-up for neurology, hematology, and continued management of his chronic conditions. 09/26/24: Patient reports increased dyspnea this morning and requiring an increase in oxygen now at 4L. Lung sounds are clear on auscultation. Urine culture pending. Plan for CT chest today. 09/27/24 Met with patient and daughter bedside. He continues to experience shortness of breath and a productive cough with yellow sputum. Lung sounds diminished with exp wheezing on auscultation. He is requiring continuous oxygen at 3L oxymask. He reports poor sleep and has requested melatonin for assistance. CT chest shows no evidence of pulmonary embolism but there is worsening, diffuse ground-glass opacities in the right lung. Borderline cardiomegaly remains stable, but bilateral pleural effusions have worsened, raising concern for either early cardiac decompensation, fluid overload, or both. Given the clinical presentation and imaging findings, the plan includes initiating diuresis to manage the effusions. Additionally, antibiotic therapy will be broadened to include vancomycin and cefepime to address potential HAP. The patients sleep difficulties will be addressed with a prescription for melatonin as requested. 09/28/24: Poor sleep last night. Confusion improved today. Dyspnea and cough continue. Remains on 3L NC with diminished lung sounds on auscultation. Patient will need 7 days of vanc/cefepime for pneumonia. Denies fever cp, abdominal pain, DUNHAM, dizziness, N/V/D. 09/29/24: Overnight events noted of increased confusion and agitation overnight, resulting in the removal of his midline catheter. Per his daughter, he has a history of similar episodes during hospitalizations, consistent with his baseline dementia. His dyspnea has improved, and blood cultures remain negative, while sputum culture results are pending. Given his persistent restlessness and insomnia, Seroquel has been initiated for symptom management. Antibiotic therapy will be continued, and the patient will be closely monitored for further changes in mental status. - Review of Systems Constitutional: No Symptoms Eyes: No Symptoms Ears, Nose, & Throat: No Symptoms Respiratory: Cough, Short Of Breath Cardiac: No Symptoms Abdominal/Gastrointestinal: No Symptoms Genitourinary Symptoms: No Symptoms Musculoskeletal: No Symptoms Skin: No Symptoms Neurological: No Symptoms Psychological: Other (confusion) Endocrine: No Symptoms Hematologic/Lymphatic: No Symptoms Immunological/Allergic: No Symptoms Objective Exam General Appearance: no apparent distress Neurologic Exam: alert, cooperative, disoriented, confusion Skin Exam: pale Neck Exam: normal inspection Respiratory Exam: normal breath sounds, lungs clear Cardiovascular Exam: regular rate/rhythm, normal heart sounds Gastrointestinal/Abdomen Exam: soft, normal bowel sounds Extremity Exam: normal inspection Back Exam: normal inspection Male Genitalia Exam: deferred Rectal Exam: deferred Objective Data Vital Signs: Vital Signs - 24 hr Temp Pulse Resp BP Pulse Ox 09/29/24 04:00 97.1 F 58 L 22 122/51 94 L 09/28/24 23:44 97.1 F 60 20 121/50 94 L 09/28/24 20:00 97.9 F 64 21 123/51 92 L 09/28/24 19:15 67 20 94 L 09/28/24 15:00 97.9 F 63 16 117/62 98 09/28/24 11:00 97.9 F 64 16 90/54 94 L 09/28/24 07:48 64 20 96 09/28/24 06:52 97.7 F 67 16 132/70 94 L Pain Assessment - Last Documented Pain Intensity 0 Intake and Output: Intake & Output 09/26/24 09/27/24 09/28/24 09/29/24 11:59 11:59 11:59 11:59 Intake Total 6144 805 6306 820 Output Total 100 1 400 450 Balance 1000 566 660 370 Weight 77.3 kg 75.3 kg 75 kg Lab Results: Lab Results-Last 24 Hours 09/28/24 09/28/24 09/28/24 Range/Units 04:55 04:55 04:55 Sodium 142 (135-145) mmol/L Potassium 3.4 L (3.5-5.1) mmol/L Chloride 106 (98-107) mmol/L Carbon Dioxide 25 (22-30) mmol/L Anion Gap 14.6 (5-15) MEQ/L BUN 32 H (9-20) mg/dL Creatinine 1.14 (0.66-1.25) mg/dL Estimated GFR 61.9 ML/MIN Glucose 244 H (74-106) mg/dL Calcium 7.7 L (8.4-10.2) mg/dL Magnesium 2.2 (1.6-2.3) mg/dL Total Bilirubin 0.50 (0.2-1.3) mg/dL AST 26 (17-59) U/L ALT 20 (0-50) U/L Alkaline Phosphatase 65 (38-126) U/L Serum Total Protein 5.0 L (6.3-8.2) g/dL Albumin 2.7 L (3.5-5.0) g/dL Slides for Path Review YES 09/28/24 09/28/24 Range/Units 12:09 15:55 Sodium (135-145) mmol/L Potassium 3.2 L 3.9 D (3.5-5.1) mmol/L Chloride (98-107) mmol/L Carbon Dioxide (22-30) mmol/L Anion Gap (5-15) MEQ/L BUN (9-20) mg/dL Creatinine (0.66-1.25) mg/dL Estimated GFR ML/MIN Glucose (74-106) mg/dL Calcium (8.4-10.2) mg/dL Magnesium (1.6-2.3) mg/dL Total Bilirubin (0.2-1.3) mg/dL AST (17-59) U/L ALT (0-50) U/L Alkaline Phosphatase (38-126) U/L Serum Total Protein (6.3-8.2) g/dL Albumin (3.5-5.0) g/dL Slides for Path Review Multi-Disciplinary Progress Notes: Multi-Disciplinary Progress Notes 09/28/24 10:25 Case Management Note by Mercedes Castañeda S/W DAUGHTER AT BEDSIDE- SHE CONTINUES TO DENY ANY NEW NEEDS AT TIME OF DC. SHE PLANS TO TAKE PATIENT HOME WITH [facility]. SHE IS STILL WANTING TO DO OTPT PHYSICAL THERAPY AT THIS TIME- WILL GET APT PRIOR TO DC. NO OTHER NEEDS IDENTIFIED AT THIS TIME Initialized on 09/28/24 10:25 - END OF NOTE Assessment/Plan (1) UTI (urinary tract infection) Current Visit: Yes Status: Acute Qualifiers: Urinary tract infection type: acute cystitis Hematuria presence: without hematuria Qualified Code(s): N30.00 - Acute cystitis without hematuria Assessment & Plan: -UA suspicious for infection - culture pending - Ceftriaxone started in ED- will continue - CBC. CMP reviewed - UC and BC x2 pending 09/27: -Ucult showing yeast - diflucan added recommended dosing 200mg daily x 14 days Code(s): N39.0 - URINARY TRACT INFECTION, SITE NOT SPECIFIED (2) Confusion Current Visit: Yes Status: Acute Assessment & Plan: -Likely multifactorial with pneumonia/UTI - CT head reviewed showing chronic age-related brain atrophy and longstanding ischemic changes, including a right frontal area of encephalomalacia from prior strokes. No acute abnormalities were found, and the findings remain unchanged from the previous scan on 09/12/2024. - OP f/u with neurology 09/29: -Seroquel added Code(s): R41.0 - DISORIENTATION, UNSPECIFIED (3) Vitamin B12 deficiency (dietary) anemia Current Visit: Yes Status: Acute Assessment & Plan: - B12 -218 - Started cyanocobalamin PO 2000 mcg daily- will need continued for 2wks to 4 months then changed to maintenance dosing- will need to follow with PCP for repeat lab checks. Code(s): D51.8 - OTHER VITAMIN B12 DEFICIENCY ANEMIAS (4) Weakness Current Visit: Yes Status: Acute Assessment & Plan: - Acute on chronic - 2:2 UTI/pneumonia - PT eval Code(s): R53.1 - WEAKNESS (5) Hypothyroidism Current Visit: Yes Status: Chronic Assessment & Plan: - Continue synthroid Code(s): E03.9 - HYPOTHYROIDISM, UNSPECIFIED (6) Hypocalcemia Current Visit: No Status: Acute Assessment & Plan: - Tums BID started Code(s): E83.51 - HYPOCALCEMIA (7) Left lower lobe pneumonia Current Visit: No Status: Acute Assessment & Plan: - Stable LLL pneumonia as seen on CXR -Continue doxycycline - WBC reviewed - Supplemental oxygen as needed to maintain spo2 goal > 90% - currently on 4l - increased overnight from 3L -CT chest for increased sob and oxygen needs 09/27: -CT chest showing no PE. The right lung shows worsening pneumonia. Worsening bilateral effusions favoring CHF -continue abx add solumedrol/lasix -Nebs/INH -CMP/CBC reviewed unremarkable -Doxy/ceftriaxone d/cd -Vanc and cefepime added for HAP 09/28: -Continue vanc/cefepime -sputum culture pending -supplemental oxygen at 3L currently - continue with goal spo2 >91% 09/29: -WBC reviewed at 12.1 -continue vanc/ cefepime for a total of 7 days -Supplemental oxygen at 3L Code(s): J18.9 - PNEUMONIA, UNSPECIFIED ORGANISM ## Hypokalemia -Potassium reviewed at 3.4 - will replenish per protocol -tele -monitor renal/lytes daily 09/29: -CMP reviewed with potassium at 3.9 - resolved (8) Shortness of breath Current Visit: No Status: Acute Assessment & Plan: - On 4lNC - wean O2 - Went home last visit on 2lNC for pneumonia - CXR: Stable LLL penumonia -CT chest today 09/27: -see plan for pneumonia Code(s): R06.02 - SHORTNESS OF BREATH (9) Anemia, macrocytic Current Visit: No Status: Chronic Assessment & Plan: -Continue ferrous sulfate -OP referral to hematology for iron infusions Code(s): D53.9 - NUTRITIONAL ANEMIA, UNSPECIFIED (10) CHF (congestive heart failure) Current Visit: No Status: Chronic Qualifiers: Heart failure chronicity: chronic Assessment & Plan: - BNP reviewed at 5590 - CXR - reviewed showing stable lung hyperinflation with a persistent left lower lung infiltrate, atelectasis, or effusion. The heart size remains unchanged, with a left AICD in place. No new cardiopulmonary abnormalities are noted - On 3lNC - Continue home meds - lasix, entresto, coreg - Echo 09/13/24- EF 30-35% - TEDS 09/27: -CT chest as stated above favoring CHF- will add lasix 40mg BID - hold home dosing 09/29: -CXR with improvement in effusions- no edema on exam- lungs clear - will dc lasix Code(s): I50.9 - HEART FAILURE, UNSPECIFIED (11) HLD (hyperlipidemia) Current Visit: No Status: Chronic Assessment & Plan: - continue statin Code(s): E78.5 - HYPERLIPIDEMIA, UNSPECIFIED (12) HTN (hypertension) Current Visit: No Status: Chronic Assessment & Plan: - Continue home BP meds VTE: SCD's PPI: Protonix Next of KIN: daughter Code(s): N39.0 - URINARY TRACT INFECTION, SITE NOT SPECIFIED (2) Confusion Current Visit: Yes Status: Acute Code(s): R41.0 - DISORIENTATION, UNSPECIFIED (3) Vitamin B12 deficiency (dietary) anemia Current Visit: Yes Status: Acute Code(s): D51.8 - OTHER VITAMIN B12 DEFICIENCY ANEMIAS (4) Weakness Current Visit: Yes Status: Acute Code(s): R53.1 - WEAKNESS (5) Hypothyroidism Current Visit: Yes Status: Chronic Code(s): E03.9 - HYPOTHYROIDISM, UNSPECIFIED (6) Hypocalcemia Current Visit: No Status: Acute Code(s): E83.51 - HYPOCALCEMIA (7) Left lower lobe pneumonia Current Visit: No Status: Acute Code(s): J18.9 - PNEUMONIA, UNSPECIFIED ORGANISM (8) Shortness of breath Current Visit: No Status: Acute Code(s): R06.02 - SHORTNESS OF BREATH (9) Anemia, macrocytic Current Visit: No Status: Chronic Code(s): D53.9 - NUTRITIONAL ANEMIA, UNSPECIFIED (10) CHF (congestive heart failure) Current Visit: No Status: Chronic Qualifiers: Heart failure chronicity: chronic Code(s): I50.9 - HEART FAILURE, UNSPECIFIED (11) HLD (hyperlipidemia) Current Visit: No Status: Chronic Code(s): E78.5 - HYPERLIPIDEMIA, UNSPECIFIED (12) HTN (hypertension) Current Visit: No Status: Chronic Code(s): I10 - ESSENTIAL (PRIMARY) HYPERTENSION (13) Hypokalemia Current Visit: Yes Status: Acute Code(s): E87.6 - HYPOKALEMIA
[2024-09-29 05:47] LABS: Absolute Neutrophil Ct (ANC) 11.03 x10^3/uL (1.78-5.38); Basophil (Absolute #) 0 x10^3/uL (0.01-0.08); Eosinophil (Absolute #) 0 x10^3/uL (0.04-0.54); Hematocrit 28.6 % (40.1-51.0); Hemoglobin 8.7 g/dL (13.7-17.5); IMMATURE GRAN # 0.07 x10^3u/L (0.001-0.031); IMMATURE GRAN % 0.6 % (0.001-0.429); Lymphocyte (Absolute #) 0.51 x10^3/uL (1.32-3.57); Lymphocytes % 4.2 % (21.8-53.1); Mean Corpuscular Hemoglobin 30.1 pg (25.7-32.2); Mean Corpuscular Hgb Concent. 30.4 g/dL (32.3-36.5); Mean Platelet Volume 10.3 fL (9.4-12.4); Monocyte (Absolute #) 0.44 x10^3/uL (0.30-0.82); Monocytes % 3.7 % (5.3-12.2); Neutrophil % 91.5 % (34.0-67.9); Platelet Count 117 x10^3/uL (163-337); Red Blood Count 2.89 x10^6/uL (4.63-6.08); Red Cell Distribution Width 16.6 % (11.6-14.4); White Blood Count 12.1 x10^3/uL (4.23-9.07)
[2024-09-29 06:01] LABS: ALBUMIN 2.9 g/dL (3.5-5.0); ANION GAP 14.2 MEQ/L (5-15); BILIRUBIN,TOTAL 0.5 mg/dL (0.2-1.3); Calcium 7.6 mg/dL (8.4-10.2); Creatinine 1 1.29 mg/dL (0.66-1.25); EST GLOMERULAR FILTRATION RATE 53.3 ML/MIN; Potassium 3.9 mmol/L (3.5-5.1); Total Protein 5.3 g/dL (6.3-8.2)
[2024-09-29 07:25] LABS: Slide Review 1 YES
--- NOTE | 2024-09-29 09:45 | XRAY ---
Indication: Pneumonia. Comparison: September 24, 2024 Portable chest worsened with new diffuse right lung interstitial alveolar opacities, right infrahilar infiltrate/atelectasis, and small right effusion. Grossly stable mild left base infiltrate/atelectasis/effusion. Heart not enlarged again with left AICD.
[2024-09-29] MEDS ORDERED: Xylocaine-Mpf 2% 5 Ml Vial ONE (10:50)
[2024-09-29] MEDS: Lasix 40 MG/4 ML IV SCH (11:31)
[2024-09-29] MEDS: Seroquel 25 MG PO ONE (11:32)
[2024-09-29] MEDS: TROUGH DRUG LEVELS IJ ONE (12:22)
[2024-09-29] MEDS: Maxipime 2 GM** 2 G in Dextrose 5%/Water IV Soln. 100ML PLUS BAG 100 ML IV SCH (13:53)
[2024-09-29] MEDS: Haldol 5 MG IM PRN (16:24)
[2024-09-29] MEDS: Ativan 2 MG/1 ML VIAL IV STA (16:39)
[2024-09-29] MEDS: VANCOCIN 500 MG VIAL*** 500 MG in Sodium Chloride 100ML MINI-BAG PLUS 100 ML IV SCH (21:52)
[2024-09-30] MEDS: Haldol 5 MG IM PRN (00:07)
[2024-09-30 05:00] LABS: Absolute Neutrophil Ct (ANC) 7.88 x10^3/uL (1.78-5.38); BASOPHIL % 0.2 % (0.2-1.2); Basophil (Absolute #) 0.02 x10^3/uL (0.01-0.08); Eosinophil (Absolute #) 0.09 x10^3/uL (0.04-0.54); Hematocrit 30.1 % (40.1-51.0); Hemoglobin 9.1 g/dL (13.7-17.5); IMMATURE GRAN # 0.05 x10^3u/L (0.001-0.031); IMMATURE GRAN % 0.5 % (0.001-0.429); Lymphocyte (Absolute #) 0.71 x10^3/uL (1.32-3.57); Lymphocytes % 7.7 % (21.8-53.1); Mean Cell Volume 98.4 fL (79.0-92.2); Mean Corpuscular Hemoglobin 29.7 pg (25.7-32.2); Mean Corpuscular Hgb Concent. 30.2 g/dL (32.3-36.5); Mean Platelet Volume 9.6 fL (9.4-12.4); Monocyte (Absolute #) 0.48 x10^3/uL (0.30-0.82); Monocytes % 5.2 % (5.3-12.2); Neutrophil % 85.4 % (34.0-67.9); Platelet Count 101 x10^3/uL (163-337); Red Blood Count 3.06 x10^6/uL (4.63-6.08); Red Cell Distribution Width 16.2 % (11.6-14.4); White Blood Count 9.2 x10^3/uL (4.23-9.07)
[2024-09-30 05:19] LABS: ANION GAP 10.6 MEQ/L (5-15); BILIRUBIN,TOTAL 0.5 mg/dL (0.2-1.3); Calcium 7.9 mg/dL (8.4-10.2); Creatinine 1 1.34 mg/dL (0.66-1.25); Potassium 3.4 mmol/L (3.5-5.1); Total Protein 5.5 g/dL (6.3-8.2)
[2024-09-30] MEDS ORDERED: Haldol 5 MG ONE (05:32)
[2024-09-30] MEDS: Seroquel 25 MG PO SCH (10:15)
[2024-09-30] MEDS: POTASSIUM CHLORIDE 20 mEq IN WATER 100ML 100 ML IV SCH (11:34)
--- NOTE | 2024-09-30 12:02 | PCM.NOTE ---
Date and Time: 09/30/24 1152 Subjective Assessment: HPI: Mr. Brewer is an 89-year-old male with a history of CHF, HTN, HLD, hypothyroidism, and recurrent UTIs who presented 09/24/24 with acute confusion and weakness, worsening from baseline. He was recently hospitalized 09/12/24- 09/14/24 for pneumonia and discharged on cefuroxime. Evaluation revealed a UTI as the likely cause of his confusion, and he was started on ceftriaxone, with symptoms now improving. CT head showed stable chronic ischemic changes without acute findings. He continues to have dyspnea, requiring 3L NC at 90%, with stable LLL pneumonia on CXR; doxycycline was added. CHF remains a concern, with BNP elevated at 5590, requiring ongoing diuresis. Labs revealed iron deficiency anemia (Hgb 7.8) and vitamin B12 deficiency, both being treated. Hypocalcemia (corrected Ca 7.8) is managed with Tums. He remains on telemetry, is clinically stable, and will require outpatient follow-up for neurology, hematology, and continued management of his chronic conditions. 09/26/24: Patient reports increased dyspnea this morning and requiring an increase in oxygen now at 4L. Lung sounds are clear on auscultation. Urine culture pending. Plan for CT chest today. 09/27/24 Met with patient and daughter bedside. He continues to experience shortness of breath and a productive cough with yellow sputum. Lung sounds diminished with exp wheezing on auscultation. He is requiring continuous oxygen at 3L oxymask. He reports poor sleep and has requested melatonin for assistance. CT chest shows no evidence of pulmonary embolism but there is worsening, diffuse ground-glass opacities in the right lung. Borderline cardiomegaly remains stable, but bilateral pleural effusions have worsened, raising concern for either early cardiac decompensation, fluid overload, or both. Given the clinical presentation and imaging findings, the plan includes initiating diuresis to manage the effusions. Additionally, antibiotic therapy will be broadened to include vancomycin and cefepime to address potential HAP. The patients sleep difficulties will be addressed with a prescription for melatonin as requested. 09/28/24: Poor sleep last night. Confusion improved today. Dyspnea and cough continue. Remains on 3L NC with diminished lung sounds on auscultation. Patient will need 7 days of vanc/cefepime for pneumonia. Denies fever cp, abdominal pain, DUNHAM, dizziness, N/V/D. 09/29/24: Overnight events noted of increased confusion and agitation overnight, resulting in the removal of his midline catheter. Per his daughter, he has a history of similar episodes during hospitalizations, consistent with his baseline dementia. His dyspnea has improved, and blood cultures remain negative, while sputum culture results are pending. Given his persistent restlessness and insomnia, Seroquel has been initiated for symptom management. Antibiotic therapy will be continued, and the patient will be closely monitored for further changes in mental status. 09/30/24: The patients ongoing delirium, worsened by pneumonia, seems to be triggered by the stress and disorientation of the hospital environment. Despite medication adjustments with Haldol and Seroquel, the patient remains agitated and struggles with sleep. The plan is to continue with antibiotics and not discharge the patient prematurely, as he still needs antibiotic treatment. To manage the agitation, plan is to increase the Seroquel dose and adding Ativan for additional support. Blood tests show normal white blood cell count, and the patient's lung sounds are stable, but potassium levels are low, so theyll be replenished. The focus remains on treating the infection and managing the delirium, while trying to avoid further complications from sedation and ensuring the patient stays stable. Will discontinue Haldol. - Review of Systems All Other Systems: Unable due to condition Objective Exam General Appearance: alert, anxiety Neurologic Exam: alert, disoriented, confusion, agitation Skin Exam: normal color Eye Exam: PERRL Ears, Nose, Throat Exam: normal ENT inspection Neck Exam: normal inspection Respiratory Exam: diminished breath sounds Cardiovascular Exam: regular rate/rhythm, normal heart sounds Gastrointestinal/Abdomen Exam: soft, normal bowel sounds Extremity Exam: normal inspection Back Exam: normal inspection Male Genitalia Exam: deferred Rectal Exam: deferred Objective Data Vital Signs: Vital Signs - 24 hr Temp Pulse Resp BP Pulse Ox 09/30/24 11:49 97.1 F 72 18 92 L 09/30/24 08:00 97.1 F 72 18 169/77 92 L 09/30/24 07:00 72 18 92 L 09/30/24 04:00 97.1 F 70 18 151/66 90 L 09/29/24 23:59 97.3 F 60 18 130/61 98 09/29/24 20:00 98.2 F 59 L 20 150/92 93 L 09/29/24 16:00 97.1 F 60 18 124/87 97 Pain Assessment - Last Documented Pain Intensity 0 Intake and Output: Intake & Output 09/27/24 09/28/24 09/29/24 09/30/24 11:59 11:59 11:59 11:59 Intake Total 567 2741 829 3865 Output Total 1 400 450 Balance 566 299 724 6366 Weight 75.3 kg 75 kg Lab Results: Lab Results-Last 24 Hours 09/30/24 09/30/24 Range/Units 04:56 04:56 WBC 9.2 H (4.23-9.07) x10^3/uL RBC 3.06 L (4.63-6.08) x10^6/uL Hgb 9.1 L (13.7-17.5) g/dL Hct 30.1 L (40.1-51.0) % MCV 98.4 H (79.0-92.2) fL MCH 29.7 (25.7-32.2) pg MCHC 30.2 L (32.3-36.5) g/dL RDW 16.2 H (11.6-14.4) % Plt Count 101 L (163-337) x10^3/uL MPV 9.6 (9.4-12.4) fL Gran % 85.4 H (34.0-67.9) % Immature Gran % (Auto) 0.5 H (0.001-0.429) % Nucleat RBC Rel Count 0.0 (0.00-0.2) % Eos # (Auto) 0.09 (0.04-0.54) x10^3/uL Immature Gran # (Auto) 0.05 H (0.001-0.031) x10^3u/L Absolute Lymphs (auto) 0.71 L (1.32-3.57) x10^3/uL Absolute Monos (auto) 0.48 (0.30-0.82) x10^3/uL Absolute Nucleated RBC 0.00 (0.00-0.012) x10^3u/L Lymphocytes % 7.7 L (21.8-53.1) % Monocytes % 5.2 L (5.3-12.2) % Eosinophils % 1.0 (0.8-7.0) % Basophils % 0.2 (0.2-1.2) % Absolute Granulocytes 7.88 H (1.78-5.38) x10^3/uL Basophils # 0.02 (0.01-0.08) x10^3/uL Sodium 143 (135-145) mmol/L Potassium 3.4 L (3.5-5.1) mmol/L Chloride 105 (98-107) mmol/L Carbon Dioxide 31 H (22-30) mmol/L Anion Gap 10.6 (5-15) MEQ/L BUN 38 H (9-20) mg/dL Creatinine 1.34 H (0.66-1.25) mg/dL Estimated GFR 51.0 ML/MIN Glucose 85 (74-106) mg/dL Calcium 7.9 L (8.4-10.2) mg/dL Total Bilirubin 0.50 (0.2-1.3) mg/dL AST 32 (17-59) U/L ALT 24 (0-50) U/L Alkaline Phosphatase 66 (38-126) U/L Serum Total Protein 5.5 L (6.3-8.2) g/dL Albumin 3.0 L (3.5-5.0) g/dL Radiology Exams: Radiology Procedures Category Date Time Status CHEST 1 VIEW (PORTABLE) Urgent Exams 09/29/24 07:34 Completed Multi-Disciplinary Progress Notes: Multi-Disciplinary Progress Notes 09/30/24 10:24 Case Management Note by Mercedes Castañeda Addendum entered by Mercedes Castañeda 09/30/24 11:45: DAUGHTER HAS NOW DECIDED TO CONTINUE WITH IV ANTIBIOTICS IN FACILITY. GLAZE SPRAYER ADJUSTING MEDS TO TRY TO GET PATIENT TO SLEEP TO SEE IF THIS HELPS HIS DEMENTIA. DAUGHTER STILL HOPING TO TAKE PATIENT HOME AT TIME OF DC IF CONFUSION IMPROVES AFTER SLEEP. Original Note: PATIENT VERY RESTLESS HERE, UNABLE TO SLEEP. DAUGHTER AT BEDSIDE. SHE REPORTS PATIENT GETS VERY CONFUSED IN FACILITY BUT THEN DOES WELL WHEN HE GETS BACK IN HIS HOME ENVIRONMENT. SHE REPORTS SHE FEELS PATIENT WOULD DO BETTER AT HOME AFTER HE IS ABLE TO GET SOME GOOD SLEEP. SHE HAS DISCUSSED ANTIBIOTIC OPTIONS WITH [facility]INCENT PURVIS. SHE PREFERS TO GET PATIENT HOME LATER TODAY WHERE HE CAN REST AND HOPEFULLY HIS CONFUSION WILL GET BETTER. SHE REPORTS SHE HAS FAMILY SUPPORT AND OTHERS WHO CAN HELP HER AT HOME WITH PATIENT. SHE PLANS TO STAY AT BEDSIDE 19/01 WITH PATIENT AT HOME. SHE DECLINES [facility] AGAIN AT AT THIS TIME BUT WAS GIVEN LIST OF PRIVATE CAREGIVERS IF SHE NEEDS ADDITIONAL SUPPORT AT HOME. SHE DENIES ANY NEW NEEDS AT THIS TIME Initialized on 09/30/24 10:24 - END OF NOTE 09/29/24 13:55 Pharmacy Note by Go Tineo Vancomycin trough low at 8.0. Will increase to q8h dosing to raise level. Repeat trough with 6am dose on Thursday. Initialized on 09/29/24 13:55 - END OF NOTE Assessment/Plan (1) UTI (urinary tract infection) Current Visit: Yes Status: Acute Qualifiers: Urinary tract infection type: acute cystitis Hematuria presence: without hematuria Qualified Code(s): N30.00 - Acute cystitis without hematuria Assessment & Plan: -UA suspicious for infection - culture pending - Ceftriaxone started in ED- will continue - CBC. 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 No acute abnormalities were found, and the findings remain unchanged from the previous scan on 09/12/2024. - OP f/u with neurology 09/29: -Seroquel added 09/30: -Patient remains restless/agitated - Seroquel increased to 50mg in the a.m. and 100mg QHS- with ativan for breakthrough agitation Code(s): R41.0 - DISORIENTATION, UNSPECIFIED (3) Vitamin B12 deficiency (dietary) anemia Current Visit: Yes Status: Acute Assessment & Plan: - B12 -218 - Started cyanocobalamin PO 2000 mcg daily- will need continued for 2wks to 4 months then changed to maintenance dosing- will need to follow with PCP for repeat lab checks. Code(s): D51.8 - OTHER VITAMIN B12 DEFICIENCY ANEMIAS (4) Weakness Current Visit: Yes Status: Acute Assessment & Plan: - Acute on chronic - 2:2 UTI/pneumonia - PT eval Code(s): R53.1 - WEAKNESS (5) Hypothyroidism Current Visit: Yes Status: Chronic Assessment & Plan: - Continue synthroid Code(s): E03.9 - HYPOTHYROIDISM, UNSPECIFIED (6) Hypocalcemia Current Visit: No Status: Acute Assessment & Plan: - Tums BID started Code(s): E83.51 - HYPOCALCEMIA (7) Left lower lobe pneumonia Current Visit: No Status: Acute Assessment & Plan: - Stable LLL pneumonia as seen on CXR -Continue doxycycline - WBC reviewed - Supplemental oxygen as needed to maintain spo2 goal > 90% - currently on 4l - increased overnight from 3L -CT chest for increased sob and oxygen needs 09/27: -CT chest showing no PE. The right lung shows worsening pneumonia. Worsening bilateral effusions favoring CHF -continue abx add solumedrol/lasix -Nebs/INH -CMP/CBC reviewed unremarkable -Doxy/ceftriaxone d/cd -Vanc and cefepime added for HAP 4: -Continue vanc/cefepime -sputum culture pending -supplemental oxygen at 3L currently - continue with goal spo2 >91% 09/29: -WBC reviewed at 12.1 -continue vanc/ cefepime for a total of 7 days -Supplemental oxygen at 3L 09/30: -WBC improved at 9.2<12.1 -continue vanc/cefepime until 10/03/24 Code(s): J18.9 - PNEUMONIA, UNSPECIFIED ORGANISM ## Hypokalemia -Potassium reviewed at 3.4 - will replenish per protocol -tele -monitor renal/lytes daily 09/29: -CMP reviewed with potassium at 3.9 - resolved 09/30: -Cmp reviewed with potassium at 3.4- will replenish and recheck (8) Shortness of breath Current Visit: No Status: Acute Assessment & Plan: - On 4lNC - wean O2 - Went home last visit on 2lNC for pneumonia - CXR: Stable LLL penumonia -CT chest today 09/27: -see plan for pneumonia Code(s): R06.02 - SHORTNESS OF BREATH (9) Anemia, macrocytic Current Visit: No Status: Chronic Assessment & Plan: -Continue ferrous sulfate -OP referral to hematology for iron infusions 09/30: -hgb stable at 9.1 Code(s): D53.9 - NUTRITIONAL ANEMIA, UNSPECIFIED PB -Secondary to poor oral intake/hypovolemia -Gentle hydration- monitor closely for fluid overload -Hold lasix/spironolactone -Avoid nephrotoxic agents -Monitor renal/lytes daily (10) CHF (congestive heart failure) Current Visit: No Status: Chronic Qualifiers: Heart failure chronicity: chronic Assessment & Plan: - BNP reviewed at 5590 - CXR - reviewed showing stable lung hyperinflation with a persistent left lower lung infiltrate, atelectasis, or effusion. The heart size remains unchanged, with a left AICD in place. No new cardiopulmonary abnormalities are noted - On 3lNC - Continue home meds - lasix, entresto, coreg - Echo 09/13/24- EF 30-35% - TEDS 09/27: -CT chest as stated above favoring CHF- will add lasix 40mg BID - hold home dosing 09/29: -CXR with improvement in effusions- no edema on exam- lungs clear - will dc lasix Code(s): I50.9 - HEART FAILURE, UNSPECIFIED (11) HLD (hyperlipidemia) Current Visit: No Status: Chronic Assessment & Plan: - continue statin Code(s): E78.5 - HYPERLIPIDEMIA, UNSPECIFIED (12) HTN (hypertension) Current Visit: No Status: Chronic Assessment & Plan: - Continue home BP meds VTE: SCD's PPI: Protonix Next of KIN: daughter Code(s): N39.0 - URINARY TRACT INFECTION, SITE NOT SPECIFIED (2) Confusion Current Visit: Yes Status: Acute Code(s): R41.0 - DISORIENTATION, UNSPECIFIED (3) Vitamin B12 deficiency (dietary) anemia Current Visit: Yes Status: Acute Code(s): D51.8 - OTHER VITAMIN B12 DEFICIENCY ANEMIAS (4) Weakness Current Visit: Yes Status: Acute Code(s): R53.1 - WEAKNESS (5) Hypothyroidism Current Visit: Yes Status: Chronic Code(s): E03.9 - HYPOTHYROIDISM, UNSPECIFIED (6) Hypocalcemia Current Visit: No Status: Acute Code(s): E83.51 - HYPOCALCEMIA (7) Left lower lobe pneumonia Current Visit: No Status: Acute Code(s): J18.9 - PNEUMONIA, UNSPECIFIED ORGANISM (8) Shortness of breath Current Visit: No Status: Acute Code(s): R06.02 - SHORTNESS OF BREATH (9) Anemia, macrocytic Current Visit: No Status: Chronic Code(s): D53.9 - NUTRITIONAL ANEMIA, UNSPECIFIED (10) CHF (congestive heart failure) Current Visit: No Status: Chronic Qualifiers: Heart failure chronicity: chronic Code(s): I50.9 - HEART FAILURE, UNSPECIFIED (11) HLD (hyperlipidemia) Current Visit: No Status: Chronic Code(s): E78.5 - HYPERLIPIDEMIA, UNSPECIFIED (12) HTN (hypertension) Current Visit: No Status: Chronic Code(s): I10 - ESSENTIAL (PRIMARY) HYPERTENSION (13) Hypokalemia Current Visit: Yes Status: Acute Code(s): E87.6 - HYPOKALEMIA
[2024-09-30] MEDS: Sodium Chloride 0.9% 1000 ML 1,000 ML IV SCH (14:57)
[2024-09-30] MEDS: Seroquel 100 MG PO SCH (21:41)
[2024-09-30] MEDS ORDERED: Seroquel 25 MG PO SCH (22:00)
[2024-09-30] MEDS: Ativan 0.5 MG PO PRN (23:03)
[2024-10-01] MEDS ORDERED: Ativan 2 MG/1 ML VIAL IV PRN (05:44)
[2024-10-01 05:51] LABS: Absolute Neutrophil Ct (ANC) 5.11 x10^3/uL (1.78-5.38); BASOPHIL % 0.3 % (0.2-1.2); Basophil (Absolute #) 0.02 x10^3/uL (0.01-0.08); Eosinophil % 4.6 % (0.8-7.0); Eosinophil (Absolute #) 0.27 x10^3/uL (0.04-0.54); Hematocrit 29.1 % (40.1-51.0); Hemoglobin 8.7 g/dL (13.7-17.5); IMMATURE GRAN # 0.02 x10^3u/L (0.001-0.031); IMMATURE GRAN % 0.3 % (0.001-0.429); Lymphocyte (Absolute #) 0.33 x10^3/uL (1.32-3.57); Lymphocytes % 5.6 % (21.8-53.1); Mean Cell Volume 100.3 fL (79.0-92.2); Mean Corpuscular Hgb Concent. 29.9 g/dL (32.3-36.5); Mean Platelet Volume 10.1 fL (9.4-12.4); Monocyte (Absolute #) 0.17 x10^3/uL (0.30-0.82); Monocytes % 2.9 % (5.3-12.2); Neutrophil % 86.3 % (34.0-67.9); Platelet Count 88 x10^3/uL (163-337); Red Cell Distribution Width 16.5 % (11.6-14.4); White Blood Count 5.9 x10^3/uL (4.23-9.07)
[2024-10-01 06:14] LABS: ALBUMIN 2.7 g/dL (3.5-5.0); BILIRUBIN,TOTAL 0.5 mg/dL (0.2-1.3); Calcium 7.7 mg/dL (8.4-10.2); Creatinine 1 0.94 mg/dL (0.66-1.25); Potassium 3.7 mmol/L (3.5-5.1)
[2024-10-01 08:03] LABS: Slide Review 1 YES
[2024-10-01] MEDS: Seroquel 25 MG PO SCH (09:07)
--- NOTE | 2024-10-01 09:32 | PCM.NOTE ---
Date and Time: 10/01/24 0914 Subjective Assessment: HPI: Mr. Brewer is an 89-year-old male with a history of CHF, HTN, HLD, hypothyroidism, and recurrent UTIs who presented 09/24/24 with acute confusion and weakness, worsening from baseline. He was recently hospitalized 09/12/24- 09/14/24 for pneumonia and discharged on cefuroxime. Evaluation revealed a UTI as the likely cause of his confusion, and he was started on ceftriaxone, with symptoms now improving. CT head showed stable chronic ischemic changes without acute findings. He continues to have dyspnea, requiring 3L NC at 90%, with stable LLL pneumonia on CXR; doxycycline was added. CHF remains a concern, with BNP elevated at 5590, requiring ongoing diuresis. Labs revealed iron deficiency anemia (Hgb 7.8) and vitamin B12 deficiency, both being treated. Hypocalcemia (corrected Ca 7.8) is managed with Tums. He remains on telemetry, is clinically stable, and will require outpatient follow-up for neurology, hematology, and continued management of his chronic conditions. 09/26/24: Patient reports increased dyspnea this morning and requiring an increase in oxygen now at 4L. Lung sounds are clear on auscultation. Urine culture pending. Plan for CT chest today. 09/27/24 Met with patient and daughter bedside. He continues to experience shortness of breath and a productive cough with yellow sputum. Lung sounds diminished with exp wheezing on auscultation. He is requiring continuous oxygen at 3L oxymask. He reports poor sleep and has requested melatonin for assistance. CT chest shows no evidence of pulmonary embolism but there is worsening, diffuse ground-glass opacities in the right lung. Borderline cardiomegaly remains stable, but bilateral pleural effusions have worsened, raising concern for either early cardiac decompensation, fluid overload, or both. Given the clinical presentation and imaging findings, the plan includes initiating diuresis to manage the effusions. Additionally, antibiotic therapy will be broadened to include vancomycin and cefepime to address potential HAP. The patients sleep difficulties will be addressed with a prescription for melatonin as requested. 09/28/24: Poor sleep last night. Confusion improved today. Dyspnea and cough continue. Remains on 3L NC with diminished lung sounds on auscultation. Patient will need 7 days of vanc/cefepime for pneumonia. Denies fever cp, abdominal pain, DUNHAM, dizziness, N/V/D. 09/29/24: Overnight events noted of increased confusion and agitation overnight, resulting in the removal of his midline catheter. Per his daughter, he has a history of similar episodes during hospitalizations, consistent with his baseline dementia. His dyspnea has improved, and blood cultures remain negative, while sputum culture results are pending. Given his persistent restlessness and insomnia, Seroquel has been initiated for symptom management. Antibiotic therapy will be continued, and the patient will be closely monitored for further changes in mental status. 09/30/24: The patients ongoing delirium, worsened by pneumonia, seems to be triggered by the stress and disorientation of the hospital environment. Despite medication adjustments with Haldol and Seroquel, the patient remains agitated and struggles with sleep. The plan is to continue with antibiotics and not discharge the patient prematurely, as he still needs antibiotic treatment. To manage the agitation, plan is to increase the Seroquel dose and adding Ativan for additional support. Blood tests show normal white blood cell count, and the patient's lung sounds are stable, but potassium levels are low, so theyll be replenished. The focus remains on treating the infection and managing the delirium, while trying to avoid further complications from sedation and ensuring the patient stays stable. Will discontinue Haldol. 10/01: The patient experienced a more restful night following an increase in the dose of Seroquel. This morning, there is notable improvement in the patient's delirium. Lung sounds remain stable, and the PB and leukocytosis has resolved. The patient does report a cough this morning and was able to provide a sputum specimen. Additionally, the patient complained of low back pain, which was attributed to the hospital bed. In response, the patient has been moved to an air bed for improved comfort. Objective Data Vital Signs: Vital Signs - 24 hr Temp Pulse Resp BP Pulse Ox 10/01/24 08:05 73 18 93 L 10/01/24 07:57 96.8 F 73 93 L 10/01/24 04:00 97.7 F 69 18 127/56 90 L 09/30/24 22:00 62 18 151/59 95 09/30/24 17:50 98.7 F 62 18 148/67 94 L 09/30/24 16:00 97.1 F 72 18 92 L 09/30/24 11:49 97.1 F 72 18 92 L Pain Assessment - Last Documented Pain Intensity 0 Intake and Output: Intake & Output 09/28/24 09/29/24 09/30/24 10/01/24 11:59 11:59 11:59 11:59 Intake Total 6963 763 9770 1213 Output Total 400 450 Balance 863 973 7981 1213 Weight 75.3 kg 75 kg Lab Results: Lab Results-Last 24 Hours 09/30/24 10/01/24 10/01/24 Range/Units 21:17 05:38 05:38 WBC 5.9 (4.23-9.07) x10^3/uL RBC 2.90 L (4.63-6.08) x10^6/uL Hgb 8.7 L (13.7-17.5) g/dL Hct 29.1 L (40.1-51.0) % MCV 100.3 H (79.0-92.2) fL MCH 30.0 (25.7-32.2) pg MCHC 29.9 L (32.3-36.5) g/dL RDW 16.5 H (11.6-14.4) % Plt Count 88 L (163-337) x10^3/uL MPV 10.1 (9.4-12.4) fL Gran % 86.3 H (34.0-67.9) % Immature Gran % (Auto) 0.3 (0.001-0.429) % Nucleat RBC Rel Count 0.0 (0.00-0.2) % Eos # (Auto) 0.27 (0.04-0.54) x10^3/uL Immature Gran # (Auto) 0.02 (0.001-0.031) x10^3u/L Absolute Lymphs (auto) 0.33 L (1.32-3.57) x10^3/uL Absolute Monos (auto) 0.17 L (0.30-0.82) x10^3/uL Absolute Nucleated RBC 0.00 (0.00-0.012) x10^3u/L Lymphocytes % 5.6 L (21.8-53.1) % Monocytes % 2.9 L (5.3-12.2) % Eosinophils % 4.6 (0.8-7.0) % Basophils % 0.3 (0.2-1.2) % Absolute Granulocytes 5.11 (1.78-5.38) x10^3/uL Basophils # 0.02 (0.01-0.08) x10^3/uL Sodium 144 (135-145) mmol/L Potassium 4.3 D 3.7 (3.5-5.1) mmol/L Chloride 109 H (98-107) mmol/L Carbon Dioxide 26 (22-30) mmol/L Anion Gap 12.0 (5-15) MEQ/L BUN 25 H (9-20) mg/dL Creatinine 0.94 (0.66-1.25) mg/dL Estimated GFR 78.0 ML/MIN Glucose 99 (74-106) mg/dL Calcium 7.7 L (8.4-10.2) mg/dL Total Bilirubin 0.50 (0.2-1.3) mg/dL AST 23 (17-59) U/L ALT 19 (0-50) U/L Alkaline Phosphatase 65 (38-126) U/L Serum Total Protein 5.0 L (6.3-8.2) g/dL Albumin 2.7 L (3.5-5.0) g/dL Vancomycin Trough (10-20) ug/mL Slides for Path Review YES 10/01/24 Range/Units 05:38 WBC (4.23-9.07) x10^3/uL RBC (4.63-6.08) x10^6/uL Hgb (13.7-17.5) g/dL Hct (40.1-51.0) % MCV (79.0-92.2) fL MCH (25.7-32.2) pg MCHC (32.3-36.5) g/dL RDW (11.6-14.4) % Plt Count (163-337) x10^3/uL MPV (9.4-12.4) fL Gran % (34.0-67.9) % Immature Gran % (Auto) (0.001-0.429) % Nucleat RBC Rel Count (0.00-0.2) % Eos # (Auto) (0.04-0.54) x10^3/uL Immature Gran # (Auto) (0.001-0.031) x10^3u/L Absolute Lymphs (auto) (1.32-3.57) x10^3/uL Absolute Monos (auto) (0.30-0.82) x10^3/uL Absolute Nucleated RBC (0.00-0.012) x10^3u/L Lymphocytes % (21.8-53.1) % Monocytes % (5.3-12.2) % Eosinophils % (0.8-7.0) % Basophils % (0.2-1.2) % Absolute Granulocytes (1.78-5.38) x10^3/uL Basophils # (0.01-0.08) x10^3/uL Sodium (135-145) mmol/L Potassium (3.5-5.1) mmol/L Chloride (98-107) mmol/L Carbon Dioxide (22-30) mmol/L Anion Gap (5-15) MEQ/L BUN (9-20) mg/dL Creatinine (0.66-1.25) mg/dL Estimated GFR ML/MIN Glucose (74-106) mg/dL Calcium (8.4-10.2) mg/dL Total Bilirubin (0.2-1.3) mg/dL AST (17-59) U/L ALT (0-50) U/L Alkaline Phosphatase (38-126) U/L Serum Total Protein (6.3-8.2) g/dL Albumin (3.5-5.0) g/dL Vancomycin Trough 12.17 (10-20) ug/mL Slides for Path Review Multi-Disciplinary Progress Notes: Multi-Disciplinary Progress Notes 09/30/24 14:21 Nutrition Note by Marianne Parmar F/u Note: heart healthy diet con't with 25-100% po intake. adm weight 77.3kg; current weight 75kg. Labs 09/30= K+ 3.4, BUN 38, Cr 1.34, alb 3.0, hgb 9.1, hct 30.1, mcv 98.4. goal of po intake >=75% not met consistently. Note pt with dementia and very restless here. goal to con't. Add new goal #2) no weight loss. Will con't to monitor and f/u prn. T.TALITA Parmar Initialized on 09/30/24 14:21 - END OF NOTE 09/30/24 10:24 Case Management Note by Mercedes Castañeda Addendum entered by Mercedes Castañeda 09/30/24 11:45: DAUGHTER HAS NOW DECIDED TO CONTINUE WITH IV ANTIBIOTICS IN FACILITY. COLOR TESTER ADJUSTING MEDS TO TRY TO GET PATIENT TO SLEEP TO SEE IF THIS HELPS HIS DEMENTIA. DAUGHTER STILL HOPING TO TAKE PATIENT HOME AT TIME OF DC IF CONFUSION IMPROVES AFTER SLEEP. Original Note: PATIENT VERY RESTLESS HERE, UNABLE TO SLEEP. DAUGHTER AT BEDSIDE. SHE REPORTS PATIENT GETS VERY CONFUSED IN FACILITY BUT THEN DOES WELL WHEN HE GETS BACK IN HIS HOME ENVIRONMENT. SHE REPORTS SHE FEELS PATIENT WOULD DO BETTER AT HOME AFTER HE IS ABLE TO GET SOME GOOD SLEEP. SHE HAS DISCUSSED ANTIBIOTIC OPTIONS WITH [facility] [employer] TESTER. SHE PREFERS TO GET PATIENT HOME LATER TODAY WHERE HE CAN REST AND HOPEFULLY HIS CONFUSION WILL GET BETTER. SHE REPORTS SHE HAS FAMILY SUPPORT AND OTHERS WHO CAN HELP HER AT HOME WITH PATIENT. SHE PLANS TO STAY AT BEDSIDE 19/01 WITH PATIENT AT HOME. SHE DECLINES HHC AGAIN AT AT THIS TIME BUT WAS GIVEN LIST OF PRIVATE CAREGIVERS IF SHE NEEDS ADDITIONAL SUPPORT AT HOME. SHE DENIES ANY NEW NEEDS AT THIS TIME Initialized on 09/30/24 10:24 - END OF NOTE Assessment/Plan (1) UTI (urinary tract infection) Current Visit: Yes Status: Acute Qualifiers: Urinary tract infection type: acute cystitis Hematuria presence: without hematuria Qualified Code(s): N30.00 - Acute cystitis without hematuria Assessment & Plan: -UA suspicious for infection - culture pending - Ceftriaxone started in ED- will continue - CBC. 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 No acute abnormalities were found, and the findings remain unchanged from the previous scan on 09/12/2024. - OP f/u with neurology 4/3: -Seroquel added 09/30: -Patient remains restless/agitated - Seroquel increased to 50mg in the a.m. and 100mg QHS- with ativan for breakthrough agitation 10/01: Increased dose of Seroquel at bedtime helped, delirium seemed improved today- will continue Code(s): R41.0 - DISORIENTATION, UNSPECIFIED (3) Vitamin B12 deficiency (dietary) anemia Current Visit: Yes Status: Acute Assessment & Plan: - B12 -218 - Started cyanocobalamin PO 2000 mcg daily- will need continued for 2wks to 4 months then changed to maintenance dosing- will need to follow with PCP for repeat lab checks. Code(s): D51.8 - OTHER VITAMIN B12 DEFICIENCY ANEMIAS (4) Weakness Current Visit: Yes Status: Acute Assessment & Plan: - Acute on chronic - 2:2 UTI/pneumonia - PT eval Code(s): R53.1 - WEAKNESS (5) Hypothyroidism Current Visit: Yes Status: Chronic Assessment & Plan: - Continue synthroid Code(s): E03.9 - HYPOTHYROIDISM, UNSPECIFIED (6) Hypocalcemia Current Visit: No Status: Acute Assessment & Plan: - Tums BID started Code(s): E83.51 - HYPOCALCEMIA (7) Left lower lobe pneumonia Current Visit: No Status: Acute Assessment & Plan: - Stable LLL pneumonia as seen on CXR -Continue doxycycline - WBC reviewed - Supplemental oxygen as needed to maintain spo2 goal > 90% - currently on 4l - increased overnight from 3L -CT chest for increased sob and oxygen needs 09/27: -CT chest showing no PE. The right lung shows worsening pneumonia. Worsening bilateral effusions favoring CHF -continue abx add solumedrol/lasix -Nebs/INH -CMP/CBC reviewed unremarkable -Doxy/ceftriaxone d/cd -Vanc and cefepime added for HAP 09/28: -Continue vanc/cefepime -sputum culture pending -supplemental oxygen at 3L currently - continue with goal spo2 >91% 09/29: -WBC reviewed at 12.1 -continue vanc/ cefepime for a total of 7 days -Supplemental oxygen at 3L 09/30: -WBC improved at 9.2<12.1 -continue vanc/cefepime until 10/03/2410/01: -sputum collected for evaluation as pt not able to collect prior -Continue vanc/cefepime -Supplemental oxygen now at 2L -WBC reviewed and WNL -CXR tomorrow Code(s): J18.9 - PNEUMONIA, UNSPECIFIED ORGANISM ## Hypokalemia -Potassium reviewed at 3.4 - will replenish per protocol -tele -monitor renal/lytes daily 09/29: -CMP reviewed with potassium at 3.9 - resolved 09/30: -Cmp reviewed with potassium at 3.4- will replenish and recheck 10/01: -CMP reviewed and potassium at 3.7 - resolved- will continue to monitor (8) Shortness of breath Current Visit: No Status: Acute Assessment & Plan: - On 4lNC - wean O2 - Went home last visit on 2lNC for pneumonia - CXR: Stable LLL penumonia -CT chest today 09/27: -see plan for pneumonia Code(s): R06.02 - SHORTNESS OF BREATH (9) Anemia, macrocytic Current Visit: No Status: Chronic Assessment & Plan: -Continue ferrous sulfate -OP referral to hematology for iron infusions 09/30: -hgb stable at 9.1 10/01: -Chronic and stable at 8.7- will continue to monitor Code(s): D53.9 - NUTRITIONAL ANEMIA, UNSPECIFIED PB -Secondary to poor oral intake/hypovolemia -Gentle hydration- monitor closely for fluid overload -Hold lasix/spironolactone -Avoid nephrotoxic agents -Monitor renal/lytes daily -Creat reviewed at 0.52- resolved - will continue gentle hydration until oral intake improved (10) CHF (congestive heart failure) Current Visit: No Status: Chronic Qualifiers: Heart failure chronicity: chronic Assessment & Plan: - BNP reviewed at 5590 - CXR - reviewed showing stable lung hyperinflation with a persistent left lower lung infiltrate, atelectasis, or effusion. The heart size remains unchanged, with a left AICD in place. No new cardiopulmonary abnormalities are noted - On 3lNC - Continue home meds - lasix, entresto, coreg - Echo 09/13/24- EF 30-35% - TEDS 09/27: -CT chest as stated above favoring CHF- will add lasix 40mg BID - hold home dosing 09/29: -CXR with improvement in effusions- no edema on exam- lungs clear - will dc lasix Code(s): I50.9 - HEART FAILURE, UNSPECIFIED (11) HLD (hyperlipidemia) Current Visit: No Status: Chronic Assessment & Plan: - continue statin Code(s): E78.5 - HYPERLIPIDEMIA, UNSPECIFIED (12) HTN (hypertension) Current Visit: No Status: Chronic Assessment & Plan: - Continue home BP meds VTE: SCD's PPI: Protonix Next of KIN: daughter Code(s): N39.0 - URINARY TRACT INFECTION, SITE NOT SPECIFIED (2) Confusion Current Visit: Yes Status: Acute Code(s): R41.0 - DISORIENTATION, UNSPECIFIED (3) Vitamin B12 deficiency (dietary) anemia Current Visit: Yes Status: Acute Code(s): D51.8 - OTHER VITAMIN B12 DEFICIENCY ANEMIAS (4) Weakness Current Visit: Yes Status: Acute Code(s): R53.1 - WEAKNESS (5) Hypothyroidism Current Visit: Yes Status: Chronic Code(s): E03.9 - HYPOTHYROIDISM, UNSPECIFIED (6) Hypocalcemia Current Visit: No Status: Acute Code(s): E83.51 - HYPOCALCEMIA (7) Left lower lobe pneumonia Current Visit: No Status: Acute Code(s): J18.9 - PNEUMONIA, UNSPECIFIED ORGANISM (8) Shortness of breath Current Visit: No Status: Acute Code(s): R06.02 - SHORTNESS OF BREATH (9) Anemia, macrocytic Current Visit: No Status: Chronic Code(s): D53.9 - NUTRITIONAL ANEMIA, UNSPECIFIED (10) CHF (congestive heart failure) Current Visit: No Status: Chronic Qualifiers: Heart failure chronicity: chronic Code(s): I50.9 - HEART FAILURE, UNSPECIFIED (11) HLD (hyperlipidemia) Current Visit: No Status: Chronic Code(s): E78.5 - HYPERLIPIDEMIA, UNSPECIFIED (12) HTN (hypertension) Current Visit: No Status: Chronic Code(s): I10 - ESSENTIAL (PRIMARY) HYPERTENSION (13) Hypokalemia Current Visit: Yes Status: Acute Code(s): E87.6 - HYPOKALEMIA
[2024-10-01] MEDS: Ativan 0.5 MG PO PRN (20:38)
[2024-10-02 05:16] LABS: Absolute Neutrophil Ct (ANC) 6.11 x10^3/uL (1.78-5.38); BASOPHIL % 0.4 % (0.2-1.2); Basophil (Absolute #) 0.03 x10^3/uL (0.01-0.08); Eosinophil % 3.3 % (0.8-7.0); Eosinophil (Absolute #) 0.23 x10^3/uL (0.04-0.54); Hematocrit 29.7 % (40.1-51.0); Hemoglobin 8.8 g/dL (13.7-17.5); IMMATURE GRAN # 0.02 x10^3u/L (0.001-0.031); IMMATURE GRAN % 0.3 % (0.001-0.429); Lymphocyte (Absolute #) 0.41 x10^3/uL (1.32-3.57); Lymphocytes % 5.8 % (21.8-53.1); Mean Cell Volume 101.7 fL (79.0-92.2); Mean Corpuscular Hemoglobin 30.1 pg (25.7-32.2); Mean Corpuscular Hgb Concent. 29.6 g/dL (32.3-36.5); Mean Platelet Volume 10.4 fL (9.4-12.4); Monocyte (Absolute #) 0.22 x10^3/uL (0.30-0.82); Monocytes % 3.1 % (5.3-12.2); Neutrophil % 87.1 % (34.0-67.9); Platelet Count 80 x10^3/uL (163-337); Red Blood Count 2.92 x10^6/uL (4.63-6.08); Red Cell Distribution Width 16.5 % (11.6-14.4)
[2024-10-02 06:09] LABS: ALBUMIN 2.5 g/dL (3.5-5.0); ANION GAP 10.5 MEQ/L (5-15); BILIRUBIN,TOTAL 0.5 mg/dL (0.2-1.3); Calcium 7.6 mg/dL (8.4-10.2); Creatinine 1 0.84 mg/dL (0.66-1.25); EST GLOMERULAR FILTRATION RATE 83.9 ML/MIN; Potassium 3.4 mmol/L (3.5-5.1); Total Protein 4.7 g/dL (6.3-8.2)
--- NOTE | 2024-10-02 08:30 | XRAY ---
Indication: Pneumonia. Effusion. Comparison: September 29, 2024 Portable chest demonstrates grossly stable diffuse right lung interstitial alveolar opacities, right infrahilar infiltrate/atelectasis, and small right effusion. Left base has cleared with stable incidental calcified granuloma. Heart not enlarged again with left AICD. No new cardiopulmonary abnormalities.
--- NOTE | 2024-10-02 08:48 | PCM.NOTE ---
Date and Time: 10/02/24 0847 Subjective Assessment: HPI: Mr. Brewer is an 89-year-old male with a history of CHF, HTN, HLD, hypothyroidism, and recurrent UTIs who presented 09/24/24 with acute confusion and weakness, worsening from baseline. He was recently hospitalized 09/12/24- 09/14/24 for pneumonia and discharged on cefuroxime. Evaluation revealed a UTI as the likely cause of his confusion, and he was started on ceftriaxone, with symptoms now improving. CT head showed stable chronic ischemic changes without acute findings. He continues to have dyspnea, requiring 3L NC at 90%, with stable LLL pneumonia on CXR; doxycycline was added. CHF remains a concern, with BNP elevated at 5590, requiring ongoing diuresis. Labs revealed iron deficiency anemia (Hgb 7.8) and vitamin B12 deficiency, both being treated. Hypocalcemia (corrected Ca 7.8) is managed with Tums. He remains on telemetry, is clinically stable, and will require outpatient follow-up for neurology, hematology, and continued management of his chronic conditions. 09/26/24: Patient reports increased dyspnea this morning and requiring an increase in oxygen now at 4L. Lung sounds are clear on auscultation. Urine culture pending. Plan for CT chest today. 09/27/24 Met with patient and daughter bedside. He continues to experience shortness of breath and a productive cough with yellow sputum. Lung sounds diminished with exp wheezing on auscultation. He is requiring continuous oxygen at 3L oxymask. He reports poor sleep and has requested melatonin for assistance. CT chest shows no evidence of pulmonary embolism but there is worsening, diffuse ground-glass opacities in the right lung. Borderline cardiomegaly remains stable, but bilateral pleural effusions have worsened, raising concern for either early cardiac decompensation, fluid overload, or both. Given the clinical presentation and imaging findings, the plan includes initiating diuresis to manage the effusions. Additionally, antibiotic therapy will be broadened to include vancomycin and cefepime to address potential HAP. The patients sleep difficulties will be addressed with a prescription for melatonin as requested. 09/28/24: Poor sleep last night. Confusion improved today. Dyspnea and cough continue. Remains on 3L NC with diminished lung sounds on auscultation. Patient will need 7 days of vanc/cefepime for pneumonia. Denies fever cp, abdominal pain, DUNHAM, dizziness, N/V/D. 09/29/24: Overnight events noted of increased confusion and agitation overnight, resulting in the removal of his midline catheter. Per his daughter, he has a history of similar episodes during hospitalizations, consistent with his baseline dementia. His dyspnea has improved, and blood cultures remain negative, while sputum culture results are pending. Given his persistent restlessness and insomnia, Seroquel has been initiated for symptom management. Antibiotic therapy will be continued, and the patient will be closely monitored for further changes in mental status. 09/30/24: The patients ongoing delirium, worsened by pneumonia, seems to be triggered by the stress and disorientation of the hospital environment. Despite medication adjustments with Haldol and Seroquel, the patient remains agitated and struggles with sleep. The plan is to continue with antibiotics and not discharge the patient prematurely, as he still needs antibiotic treatment. To manage the agitation, plan is to increase the Seroquel dose and adding Ativan for additional support. Blood tests show normal white blood cell count, and the patient's lung sounds are stable, but potassium levels are low, so theyll be replenished. The focus remains on treating the infection and managing the delirium, while trying to avoid further complications from sedation and ensuring the patient stays stable. Will discontinue Haldol. 10/01: The patient experienced a more restful night following an increase in the dose of Seroquel. This morning, there is notable improvement in the patient's delirium. Lung sounds remain stable, and the PB and leukocytosis has resolved. The patient does report a cough this morning and was able to provide a sputum specimen. Additionally, the patient complained of low back pain, which was attributed to the hospital bed. In response, the patient has been moved to an air bed for improved comfort. 10/02: Met with patient bedside. His confusion, which had been exacerbated by both his underlying dementia and the stress of hospitalization, seems to have improved since adjusting his medications (Seroquel and Ativan), leading to a more restful night, but he remains lethargic until mid afternoon. Will make further adjustments- Seroquel at night only with dose adjustment to 50mg and no Ativan. He continues to experience shortness of breath and a productive cough, but his lung sounds remain stable. His oxygen requirements remain at 3L NC. A repeat CXR was performed today, which showed stable diffuse right lung interstitial- alveolar opacities, with some right infrahilar infiltrate and atelectasis. There was also a small right pleural effusion, which remains unchanged. The left base has cleared, and a stable incidental calcified granuloma is noted. No new cardiopulmonary abnormalities were identified, and the heart size remains stable without enlargement. PB has resolved and IVF stopped. Speech therapy evaluated patient 10/01/24 as there was concern for aspiration- recommendations for thickened liquids and pureed diet for patient and meds crushed and in apple sauce. - Review of Systems Constitutional: Weakness Eyes: No Symptoms Ears, Nose, & Throat: No Symptoms Respiratory: Cough, Short Of Breath Cardiac: No Symptoms Abdominal/Gastrointestinal: No Symptoms Genitourinary Symptoms: No Symptoms Musculoskeletal: No Symptoms Skin: No Symptoms Neurological: Lethargy, Speech Changes (garbled) Psychological: Hallucinations, Memory Loss Endocrine: No Symptoms Hematologic/Lymphatic: No Symptoms Objective Exam General Appearance: no apparent distress, lethargy Neurologic Exam: disoriented, confusion Skin Exam: pale Eye Exam: PERRL Ears, Nose, Throat Exam: normal ENT inspection Neck Exam: normal inspection Respiratory Exam: diminished breath sounds, crackles/rales Cardiovascular Exam: regular rate/rhythm, normal heart sounds Gastrointestinal/Abdomen Exam: soft, normal bowel sounds Extremity Exam: normal inspection Back Exam: normal inspection Male Genitalia Exam: deferred Rectal Exam: deferred Objective Data Vital Signs: Vital Signs - 24 hr Temp Pulse Resp BP Pulse Ox 10/02/24 07:54 76 18 91 L 10/02/24 07:30 97.3 F 71 16 154/83 96 10/01/24 23:13 98.8 F 62 16 155/68 91 L 10/01/24 19:55 99.5 F 72 16 154/70 91 L 10/01/24 18:40 70 18 92 L 10/01/24 15:15 97.1 F 84 18 148/89 93 L 10/01/24 12:00 97.1 F 84 24 148/89 92 L Pain Assessment - Last Documented Pain Intensity 0 Intake and Output: Intake & Output 09/29/24 09/30/24 10/01/24 10/02/24 11:59 11:59 11:59 11:59 Intake Total 820 1020 3234 120 Output Total 450 Balance 370 1020 3234 120 Weight 75 kg 76.4 kg Lab Results: Lab Results-Last 24 Hours 10/02/24 10/02/24 10/02/24 Range/Units 05:15 05:15 05:17 WBC 7.0 (4.23-9.07) x10^3/uL RBC 2.92 L (4.63-6.08) x10^6/uL Hgb 8.8 L (13.7-17.5) g/dL Hct 29.7 L (40.1-51.0) % MCV 101.7 H (79.0-92.2) fL MCH 30.1 (25.7-32.2) pg MCHC 29.6 L (32.3-36.5) g/dL RDW 16.5 H (11.6-14.4) % Plt Count 80 L (163-337) x10^3/uL MPV 10.4 (9.4-12.4) fL Gran % 87.1 H (34.0-67.9) % Immature Gran % (Auto) 0.3 (0.001-0.429) % Nucleat RBC Rel Count 0.0 (0.00-0.2) % Eos # (Auto) 0.23 (0.04-0.54) x10^3/uL Immature Gran # (Auto) 0.02 (0.001-0.031) x10^3u/L Absolute Lymphs (auto) 0.41 L (1.32-3.57) x10^3/uL Absolute Monos (auto) 0.22 L (0.30-0.82) x10^3/uL Absolute Nucleated RBC 0.00 (0.00-0.012) x10^3u/L Lymphocytes % 5.8 L (21.8-53.1) % Monocytes % 3.1 L (5.3-12.2) % Eosinophils % 3.3 (0.8-7.0) % Basophils % 0.4 (0.2-1.2) % Absolute Granulocytes 6.11 H (1.78-5.38) x10^3/uL Basophils # 0.03 (0.01-0.08) x10^3/uL Sodium 144 (135-145) mmol/L Potassium 3.4 L (3.5-5.1) mmol/L Chloride 113 H (98-107) mmol/L Carbon Dioxide 24 (22-30) mmol/L Anion Gap 10.5 (5-15) MEQ/L BUN 20 (9-20) mg/dL Creatinine 0.84 (0.66-1.25) mg/dL Estimated GFR 83.9 ML/MIN Glucose 119 H (74-106) mg/dL Calcium 7.6 L (8.4-10.2) mg/dL Magnesium 2.2 (1.6-2.3) mg/dL Total Bilirubin 0.50 (0.2-1.3) mg/dL AST 21 (17-59) U/L ALT 17 (0-50) U/L Alkaline Phosphatase 62 (38-126) U/L Serum Total Protein 4.7 L (6.3-8.2) g/dL Albumin 2.5 L (3.5-5.0) g/dL Radiology Exams: Radiology Procedures Category Date Time Status CHEST 1 VIEW (PORTABLE) Stat Exams 10/02/24 07:00 Completed Assessment/Plan (1) UTI (urinary tract infection) Current Visit: Yes Status: Acute Qualifiers: Urinary tract infection type: acute cystitis Hematuria presence: without hematuria Qualified Code(s): N30.00 - Acute cystitis without hematuria Assessment & Plan: -UA suspicious for infection - culture pending - Ceftriaxone started in ED- will continue - CBC. 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 No acute abnormalities were found, and the findings remain unchanged from the previous scan on 09/12/2024. - OP f/u with neurology 09/29: -Seroquel added 09/30: -Patient remains restless/agitated - Seroquel increased to 50mg in the a.m. and 100mg QHS- with ativan for breakthrough agitation 10/01: Increased dose of Seroquel at bedtime helped, delirium seemed improved today- will continue 10/02: -Sleep has improved- patient remaining drowsy until mid afternoon- will discontinue seroquel during the day and decrease dose at night to 50mg- discontinue Ativan Code(s): R41.0 - DISORIENTATION, UNSPECIFIED (3) Vitamin B12 deficiency (dietary) anemia Current Visit: Yes Status: Acute Assessment & Plan: - B12 -218 - Started cyanocobalamin PO 2000 mcg daily- will need continued for 2wks to 4 months then changed to maintenance dosing- will need to follow with PCP for repeat lab checks. Code(s): D51.8 - OTHER VITAMIN B12 DEFICIENCY ANEMIAS (4) Weakness Current Visit: Yes Status: Acute Assessment & Plan: - Acute on chronic - 2:2 UTI/pneumonia - PT eval Code(s): R53.1 - WEAKNESS (5) Hypothyroidism Current Visit: Yes Status: Chronic Assessment & Plan: - Continue synthroid Code(s): E03.9 - HYPOTHYROIDISM, UNSPECIFIED (6) Hypocalcemia Current Visit: No Status: Acute Assessment & Plan: - Tums BID started 10/02/24 -corrected calcium 8.8 - continue Tums Code(s): E83.51 - HYPOCALCEMIA (7) Left lower lobe pneumonia Current Visit: No Status: Acute Assessment & Plan: - Stable LLL pneumonia as seen on CXR -Continue doxycycline - WBC reviewed - Supplemental oxygen as needed to maintain spo2 goal > 90% - currently on 4l - increased overnight from 3L -CT chest for increased sob and oxygen needs 09/27: -CT chest showing no PE. The right lung shows worsening pneumonia. Worsening bilateral effusions favoring CHF -continue abx add solumedrol/lasix -Nebs/INH -CMP/CBC reviewed unremarkable -Doxy/ceftriaxone d/cd -Vanc and cefepime added for HAP 09/28: -Continue vanc/cefepime -sputum culture pending -supplemental oxygen at 3L currently - continue with goal spo2 >91% 09/29: -WBC reviewed at 12.1 -continue vanc/ cefepime for a total of 7 days -Supplemental oxygen at 3L 09/30: -WBC improved at 9.2<12.1 -continue vanc/cefepime until 10/03/2410/01: -sputum collected for evaluation as pt not able to collect prior -Continue vanc/cefepime -Supplemental oxygen now at 2L -WBC reviewed and WNL -CXR tomorrow 10/02: -Repeat CXR reviewed demonstrates stable, diffuse interstitial and alveolar opacities in the right lung, suggesting persistent lung inflammation or fibrosis. Additionally, there is a right infrahilar infiltrate or atelectasis, along with a small pleural effusion on the right side. The left lung base appears clear, with a stable, incidental calcified granuloma present. -Continue Vanc/Cefepime for a total of 7 days with 10/03/24 being the last day -sputum culture negative WBC reviewed and WNL at 7.0 Code(s): J18.9 - PNEUMONIA, UNSPECIFIED ORGANISM ## Hypokalemia -Potassium reviewed at 3.4 - will replenish per protocol -tele -monitor renal/lytes daily 09/29: -CMP reviewed with potassium at 3.9 - resolved 09/30: -Cmp reviewed with potassium at 3.4- will replenish and recheck 10/01: -CMP reviewed and potassium at 3.7 - resolved- will continue to monitor 10/02: -CMP reviewed with potassium at 3.4- will replenish -DC IVF (8) Shortness of breath Current Visit: No Status: Acute Assessment & Plan: - On 4lNC - wean O2 - Went home last visit on 2lNC for pneumonia - CXR: Stable LLL penumonia -CT chest today 09/27: -see plan for pneumonia Code(s): R06.02 - SHORTNESS OF BREATH (9) Anemia, macrocytic Current Visit: No Status: Chronic Assessment & Plan: -Continue ferrous sulfate -OP referral to hematology for iron infusions 09/30: -hgb stable at 9.1 10/01: -Chronic and stable at 8.7- will continue to monitor Code(s): D53.9 - NUTRITIONAL ANEMIA, UNSPECIFIED PB -Secondary to poor oral intake/hypovolemia -Gentle hydration- monitor closely for fluid overload -Hold lasix/spironolactone -Avoid nephrotoxic agents -Monitor renal/lytes daily -Creat reviewed at 0.52- resolved - will continue gentle hydration until oral intake improved 10/02: -D/c IVF -creat reviewed and WNL at 0.84 (10) CHF (congestive heart failure) Current Visit: No Status: Chronic Qualifiers: Heart failure chronicity: chronic Assessment & Plan: - BNP reviewed at 5590 - CXR - reviewed showing stable lung hyperinflation with a persistent left lower lung infiltrate, atelectasis, or effusion. The heart size remains unchanged, with a left AICD in place. No new cardiopulmonary abnormalities are noted - On 3lNC - Continue home meds - lasix, entresto, coreg - Echo 09/13/24- EF 30-35% - TEDS 09/27: -CT chest as stated above favoring CHF- will add lasix 40mg BID - hold home dosing 09/29: -CXR with improvement in effusions- no edema on exam- lungs clear - will dc lasix 10/02: -CXR as stated above- no edema on exam- d/c IVF -Hold diuretics for now Code(s): I50.9 - HEART FAILURE, UNSPECIFIED (11) HLD (hyperlipidemia) Current Visit: No Status: Chronic Assessment & Plan: - continue statin Code(s): E78.5 - HYPERLIPIDEMIA, UNSPECIFIED (12) HTN (hypertension) Current Visit: No Status: Chronic Assessment & Plan: - Continue home BP meds Dysphagia -RN reported possible aspiration while eating 10/01/24- most likely secondary to lethargy rather than mechanical -ST has evalutated patient recommendations for thickened liquids and pureed diet for patient and meds crushed and in apple sauce. VTE: SCD's PPI: Protonix Next of KIN: daughter Code(s): N39.0 - URINARY TRACT INFECTION, SITE NOT SPECIFIED (2) Confusion Current Visit: Yes Status: Acute Code(s): R41.0 - DISORIENTATION, UNSPECIFIED (3) Vitamin B12 deficiency (dietary) anemia Current Visit: Yes Status: Acute Code(s): D51.8 - OTHER VITAMIN B12 DEFICIENCY ANEMIAS (4) Weakness Current Visit: Yes Status: Acute Code(s): R53.1 - WEAKNESS (5) Hypothyroidism Current Visit: Yes Status: Chronic Code(s): E03.9 - HYPOTHYROIDISM, UNSPECIFIED (6) Hypocalcemia Current Visit: No Status: Acute Code(s): E83.51 - HYPOCALCEMIA (7) Left lower lobe pneumonia Current Visit: No Status: Acute Code(s): J18.9 - PNEUMONIA, UNSPECIFIED ORGA NISM (8) Shortness of breath Current Visit: No Status: Acute Code(s): R06.02 - SHORTNESS OF BREATH (9) Anemia, macrocytic Current Visit: No Status: Chronic Code(s): D53.9 - NUTRITIONAL ANEMIA, UNSPECIFIED (10) CHF (congestive heart failure) Current Visit: No Status: Chronic Qualifiers: Heart failure chronicity: chronic Code(s): I50.9 - HEART FAILURE, UNSPECIFIED (11) HLD (hyperlipidemia) Current Visit: No Status: Chronic Code(s): E78.5 - HYPERLIPIDEMIA, UNSPECIFIED (12) HTN (hypertension) Current Visit: No Status: Chronic Code(s): I10 - ESSENTIAL (PRIMARY) HYPERTENSION (13) Hypokalemia Current Visit: Yes Status: Acute Code(s): E87.6 - HYPOKALEMIA (14) Dysphagia Current Visit: Yes Status: Acute Code(s): R13.10 - DYSPHAGIA, UNSPECIFIED
[2024-10-02] MEDS: POTASSIUM CHLORIDE 20 mEq IN WATER 100ML 100 ML IV SCH (08:54)
[2024-10-02 09:01] LABS: Slide Review 1 YES
[2024-10-02 10:55] LABS: Appearance CLEAr (Clear); Leukocyte Esterase Negative (Negative); Nitrite Negative (Negative); Ph 5.5 (4.6-8.0); Specific Gravity 1.025 (1.005-1.030)
[2024-10-02 10:56] LABS: Bilirubin Negative (Negative); Blood Small (Negative); Glucose, Urine Negative (Negative); Ketones 15 (Negative); Protein,Urine Dip 30 (Negative); Urobilinogen 0.2 mg/dL (0.2)
[2024-10-02 10:59] LABS: Bacteria Rare /HPF (None Seen); Epithelial Cells Few /HPF (None Seen); RBC 0-2 /HPF (0-5); WBC NONE SEEN /HPF (0-5)
[2024-10-02] MEDS ORDERED: Sodium Chloride 0.9% 1000 ML 1,000 ML ONE (11:11)
[2024-10-02] MEDS: TROUGH DRUG LEVELS IJ ONE (20:58)
[2024-10-02] MEDS: Seroquel 100 MG PO SCH (21:30)
[2024-10-02] MEDS ORDERED: DUONEB 0.5-3 MG/3 ml Neb IH ONE (23:13)
[2024-10-02] MEDS: DUONEB 0.5-3 MG/3 ml Neb IH PRN (23:34)
[2024-10-03 04:54] LABS: Absolute Neutrophil Ct (ANC) 5.06 x10^3/uL (1.78-5.38); BASOPHIL % 0.2 % (0.2-1.2); Basophil (Absolute #) 0.01 x10^3/uL (0.01-0.08); Eosinophil % 2.2 % (0.8-7.0); Eosinophil (Absolute #) 0.13 x10^3/uL (0.04-0.54); Hematocrit 26.7 % (40.1-51.0); Hemoglobin 7.8 g/dL (13.7-17.5); IMMATURE GRAN # 0.04 x10^3u/L (0.001-0.031); IMMATURE GRAN % 0.7 % (0.001-0.429); Lymphocyte (Absolute #) 0.36 x10^3/uL (1.32-3.57); Lymphocytes % 6.1 % (21.8-53.1); Mean Cell Volume 101.9 fL (79.0-92.2); Mean Corpuscular Hemoglobin 29.8 pg (25.7-32.2); Mean Corpuscular Hgb Concent. 29.2 g/dL (32.3-36.5); Monocyte (Absolute #) 0.32 x10^3/uL (0.30-0.82); Monocytes % 5.4 % (5.3-12.2); Neutrophil % 85.4 % (34.0-67.9); Platelet Count 100 x10^3/uL (163-337); Red Blood Count 2.62 x10^6/uL (4.63-6.08); Red Cell Distribution Width 16.7 % (11.6-14.4); White Blood Count 5.9 x10^3/uL (4.23-9.07)
[2024-10-03 05:06] LABS: ALBUMIN 2.5 g/dL (3.5-5.0); ANION GAP 11.6 MEQ/L (5-15); BILIRUBIN,TOTAL 0.5 mg/dL (0.2-1.3); Calcium 7.7 mg/dL (8.4-10.2); Creatinine 1 0.87 mg/dL (0.66-1.25)
[2024-10-03] MEDS ORDERED: Sodium Chloride 0.9% 1000 ML 0 ML ONE (05:47)
[2024-10-03 06:06] LABS: Slide Review 1 YES
[2024-10-03] MEDS: TROUGH DRUG LEVELS IJ ONE (09:53)
--- NOTE | 2024-10-03 12:58 | PCM.DS ---
Discharge Summary Date of Admission: 09/25/24 10:59 Date of Discharge: 10/03/24 Admitting Physician: GEN ROSADO MD Primary Care Provider: LUIS F VEGAS Allergies Allergies No Known Drug Allergies Allergy (Verified 09/24/24 17:16) Hospital Summary - Hospital Course Hospital Course: Mr. Black is an 89-year-old male with a history of CHF, hypertension, hyperlipidemia, hypothyroidism, recurrent UTIs, and dementia presented on 09/24/24 with acute confusion and weakness. He was recently hospitalized (09/12/24-09/14/24) for pneumonia and discharged on cefuroxime. Upon admission, he was diagnosed with a UTI, for which ceftriaxone was started, and his confusion improved. Imaging showed stable chronic ischemic changes in the brain. He continued to experience dyspnea and required oxygen therapy, with CXR showing stable left lower lobe pneumonia. His BNP was elevated at 5590, necessitating ongoing diuresis for CHF. On 09/26/24, the patient reported increased dyspnea and required an increase in oxygen to 4L. He also had a productive cough with yellow sputum. CT chest showed worsening bilateral pleural effusions, raising concern for early cardiac decompensation, fluid overload, or both. Antibiotic therapy was broadened to include vancomycin and cefepime, and diuresis was initiated. By 09/28/24, the patients confusion improved, but dyspnea and cough persisted, and he remained on 3L oxygen. On 09/29/24, he had increased confusion and agitation overnight, consistent with his baseline dementia. Blood cultures were negative, and antibiotics continued. Seroquel was started to manage his agitation. On 09/30/24, despite medication adjustments, the patient remained agitated, and his delirium persisted. Antibiotic therapy continued, and the Seroquel dose was increased, with Ativan added for additional support. By 10/01/24, the patients delirium improved, and he had a more restful night following the increase in Seroquel. Lung sounds remained stable, and his PB resolved. He complained of low back pain, attributed to the hospital bed, and was moved to an air bed for comfort. On 10/02/24, the patients confusion and lethargy improved with medication adjustments. He continued to require 3L oxygen, and his lung sounds remained stable. A repeat CXR showed stable pneumonia and a small right pleural effusion. Speech therapy evaluated him for swallowing issues due to concerns about aspiration, recommending thickened liquids and pureed foods. On 10/03/24, the patient remained lethargic with coarse lung sounds. The family, after discussing goals of care, decided not to pursue further evaluation or artificial nutrition. They opted for hospice care, and the patient was discharged to home for comfort care. Family does not want pt to take any further meds while in the hospital IV or PO. - Vitals & Intake/Output Vital Signs: Vital Signs Temperature 97.8 F 10/03/24 12:00 Pulse Rate 70 10/03/24 12:39 Respiratory Rate 18 10/03/24 12:39 Blood Pressure 137/68 10/03/24 12:00 O2 Sat by Pulse Oximetry 92 L 10/03/24 12:39 Intake & Output: Intake & Output 10/01/24 10/02/24 10/03/24 10/04/24 11:59 11:59 11:59 11:59 Intake Total 3234 400 2305 Output Total 125 Balance 3234 275 2305 Weight 76.4 kg 75.6 kg - Lab Result Diagrams: 10/03/24 04:45 10/03/24 04:45 Lab Results-Last 24 Hrs: Lab Results-Last 24 Hours 10/02/24 10/03/24 10/03/24 Range/Units 20:10 04:45 04:45 WBC 5.9 (4.23-9.07) x10^3/uL RBC 2.62 L (4.63-6.08) x10^6/uL Hgb 7.8 L (13.7-17.5) g/dL Hct 26.7 L (40.1-51.0) % MCV 101.9 H (79.0-92.2) fL MCH 29.8 (25.7-32.2) pg MCHC 29.2 L (32.3-36.5) g/dL RDW 16.7 H (11.6-14.4) % Plt Count 100 L (163-337) x10^3/uL MPV 10.0 (9.4-12.4) fL Gran % 85.4 H (34.0-67.9) % Immature Gran % (Auto) 0.7 H (0.001-0.429) % Nucleat RBC Rel Count 0.0 (0.00-0.2) % Eos # (Auto) 0.13 (0.04-0.54) x10^3/uL Immature Gran # (Auto) 0.04 H (0.001-0.031) x10^3u/L Absolute Lymphs (auto) 0.36 L (1.32-3.57) x10^3/uL Absolute Monos (auto) 0.32 (0.30-0.82) x10^3/uL Absolute Nucleated RBC 0.00 (0.00-0.012) x10^3u/L Lymphocytes % 6.1 L (21.8-53.1) % Monocytes % 5.4 (5.3-12.2) % Eosinophils % 2.2 (0.8-7.0) % Basophils % 0.2 (0.2-1.2) % Absolute Granulocytes 5.06 (1.78-5.38) x10^3/uL Basophils # 0.01 (0.01-0.08) x10^3/uL Sodium 145 (135-145) mmol/L Potassium 4.2 D 4.0 (3.5-5.1) mmol/L Chloride 115 H (98-107) mmol/L Carbon Dioxide 22 (22-30) mmol/L Anion Gap 11.6 (5-15) MEQ/L BUN 20 (9-20) mg/dL Creatinine 0.87 (0.66-1.25) mg/dL Estimated GFR 83.0 ML/MIN Glucose 121 H (74-106) mg/dL Calcium 7.7 L (8.4-10.2) mg/dL Total Bilirubin 0.50 (0.2-1.3) mg/dL AST 21 (17-59) U/L ALT 16 (0-50) U/L Alkaline Phosphatase 65 (38-126) U/L Serum Total Protein 5.0 L (6.3-8.2) g/dL Albumin 2.5 L (3.5-5.0) g/dL Procalcitonin (0.030-0.080) ng/mL Vancomycin Trough (10-20) ug/mL Slides for Path Review YES 10/03/24 10/03/24 Range/Units 04:45 04:50 WBC (4.23-9.07) x10^3/uL RBC (4.63-6.08) x10^6/uL Hgb (13.7-17.5) g/dL Hct (40.1-51.0) % MCV (79.0-92.2) fL MCH (25.7-32.2) pg MCHC (32.3-36.5) g/dL RDW (11.6-14.4) % Plt Count (163-337) x10^3/uL MPV (9.4-12.4) fL Gran % (34.0-67.9) % Immature Gran % (Auto) (0.001-0.429) % Nucleat RBC Rel Count (0.00-0.2) % Eos # (Auto) (0.04-0.54) x10^3/uL Immature Gran # (Auto) (0.001-0.031) x10^3u/L Absolute Lymphs (auto) (1.32-3.57) x10^3/uL Absolute Monos (auto) (0.30-0.82) x10^3/uL Absolute Nucleated RBC (0.00-0.012) x10^3u/L Lymphocytes % (21.8-53.1) % Monocytes % (5.3-12.2) % Eosinophils % (0.8-7.0) % Basophils % (0.2-1.2) % Absolute Granulocytes (1.78-5.38) x10^3/uL Basophils # (0.01-0.08) x10^3/uL Sodium (135-145) mmol/L Potassium (3.5-5.1) mmol/L Chloride (98-107) mmol/L Carbon Dioxide (22-30) mmol/L Anion Gap (5-15) MEQ/L BUN (9-20) mg/dL Creatinine (0.66-1.25) mg/dL Estimated GFR ML/MIN Glucose (74-106) mg/dL Calcium (8.4-10.2) mg/dL Total Bilirubin (0.2-1.3) mg/dL AST (17-59) U/L ALT (0-50) U/L Alkaline Phosphatase (38-126) U/L Serum Total Protein (6.3-8.2) g/dL Albumin (3.5-5.0) g/dL Procalcitonin 0.215 H (0.030-0.080) ng/mL Vancomycin Trough 16.02 (10-20) ug/mL Slides for Path Review Micro Results-Entire Visit: Microbiology 10/01/24 10:00 Gram Stain - Final Sputum - Expectorant Sputum Culture - Preliminary ORGANISMS ISOLATED ARE CONSISTENT WITH NORMAL RESP TRUDY SCANT GROWTH, NO PREDOMINANT ORGANISM 09/24/24 14:25 Blood Culture - Final Blood 09/24/24 14:35 Blood Culture - Final Blood 09/24/24 14:15 Urine Culture - Final Urine, Void YEAST PRESENT - Radiology Exams Ordered Rad Exams-Entire Visit: Radiology Procedures Category Date Time Status CHEST 1 VIEW (PORTABLE) Stat Exams 10/02/24 07:00 Completed - Procedures and Test Procedures and Tests throughout Hospitalization: Therapy Orders & Screens 09/24/24 17:39 PT Eval & Treat ( Order) ONCE Reason for Eval:: weakness Diagnosis: UTI 09/24/24 18:10 Oxygen Nasal Cannula 2 lpm Comment: Diagnosis: UTI 09/27/24 09:21 Respiratory Therapy Assessment DAILY Comment: Diagnosis: PNEUMONIA, SOB, UTI 10/01/24 14:16 Speech Therapy Eval & Treat [ST Eval & Treat (MD Order)] .as ordered Comment: Physician Instructions: Reason For Exam: Evaluate: Yes Treat: Yes Reason for Eval: possible aspiration Diagnosis: PNEUMONIA, SOB, UTI Discharge Exam General Appearance: no apparent distress, alert, lethargy Neurologic Exam: cooperative, normal mood/affect, nml cerebellar function, sensation nml, disoriented, confusion, motor weakness, No motor deficits Eye Exam: PERRL, EOMI, eyes nml inspection Ears, Nose, Throat Exam: normal ENT inspection, pharynx normal, moist mucous membranes Neck Exam: normal inspection, non-tender, supple, full range of motion Respiratory Exam: crackles/rales, No respiratory distress Cardiovascular Exam: regular rate/rhythm, normal heart sounds Gastrointestinal/Abdomen Exam: soft, No tenderness, No mass Male Genitalia Exam: deferred Rectal Exam: deferred Back Exam: normal inspection, normal range of motion, No CVA tenderness, No ve rtebral tenderness Extremity Exam: normal inspection, normal range of motion Skin Exam: normal color, warm, dry Final Diagnosis/Problem List - Final Discharge Diagnosis/Problem (1) Aspiration pneumonia Current Visit: Yes Status: Acute Assessment & Plan: -CXR 10/02/24 Portable chest demonstrates grossly stable diffuse right lung interstitial alveolar opacities, right infrahilar infiltrate/atelectasis, and small right effusion. Left base has cleared with stable incidental calcified granuloma. Heart not enlarged again with left AICD. No new cardiopulmonary abnormalities. - 4L oxymizer 92% - Lung sounds coarse - + aspiration - ST eval - made NPO - Unable to even swallow meds w/o aspiration - Family opted for no further evaluation by ST. - CBC, CMP reviewed - Family wants hospice - IV antibiotics- Pt family refused meds Code(s): J69.0 - PNEUMONITIS DUE TO INHALATION OF FOOD AND VOMIT (2) Shortness of breath Current Visit: No Status: Acute Assessment & Plan: - 2:2 pneumonia/ CHF Code(s): R06.02 - SHORTNESS OF BREATH (3) UTI (urinary tract infection) Current Visit: Yes Status: Acute Assessment & Plan: - UC + yeast - Diflucan Code(s): N39.0 - URINARY TRACT INFECTION, SITE NOT SPECIFIED (4) Confusion Current Visit: Yes Status: Acute Assessment & Plan: - Hospital related- Delirium - Continues to be confused despite Seroquel stopped Code(s): R41.0 - DISORIENTATION, UNSPECIFIED (5) Weakness Current Visit: Yes Status: Acute Assessment & Plan: - Acute on chronic - 2:2 UTI/pneumonia - PT eval Code(s): R53.1 - WEAKNESS (6) Anemia Current Visit: No Status: Chronic Assessment & Plan: - Hgb 7.8- chronic - Fe+ def= ferrous sulfate - Vitamnin b12 - yanocobalamin PO 2000 mcg daily- Code(s): D64.9 - ANEMIA, UNSPECIFIED (7) HLD (hyperlipidemia) Current Visit: No Status: Chronic Assessment & Plan: - continue statin Code(s): E78.5 - HYPERLIPIDEMIA, UNSPECIFIED (8) HTN (hypertension) Current Visit: No Status: Chronic Assessment & Plan: - Continue home BP meds - BP stable Code(s): I10 - ESSENTIAL (PRIMARY) HYPERTENSION (9) Hypothyroidism Current Visit: Yes Status: Chronic Assessment & Plan: - Continue synthroid Code(s): E03.9 - HYPOTHYROIDISM, UNSPECIFIED (10) CHF (congestive heart failure) Current Visit: No Status: Chronic Assessment & Plan: - Continue home meds - Echo 09/13/24 EF 30-35% Code(s): I50.9 - HEART FAILURE, UNSPECIFIED (11) Vitamin B12 deficiency (dietary) anemia Current Visit: Yes Status: Acute Assessment & Plan: - cyanocobalamin PO 2000 mcg daily Code(s): D51.8 - OTHER VITAMIN B12 DEFICIENCY ANEMIAS (12) Hypocalcemia Current Visit: No Status: Chronic Assessment & Plan: - Corrected Ca+ 8.5- ok Code(s): E83.51 - HYPOCALCEMIA (13) PB (acute kidney injury) Current Visit: Yes Status: Resolved Assessment & Plan: - resolved Code(s): N17.9 - ACUTE KIDNEY FAILURE, UNSPECIFIED (14) Dysphagia Current Visit: Yes Status: Acute Assessment & Plan: - NPO - ST eval - Family refuses any further eval and wants hospice Code(s): R13.10 - DYSPHAGIA, UNSPECIFIED (15) Hypokalemia Current Visit: Yes Status: Resolved Assessment & Plan: - resolved D/C plan took > 35 minutes. Code(s): E87.6 - HYPOKALEMIA - Discharge Discharge Date: 10/03/24 (Hosp[facility]) Disposition: XFER OTHER Condition: Serious Prescriptions: Continue Spironolactone 25 mg [Aldactone 25 MG] 25 mg PO DAILY Rosuvastatin Calcium 20 mg PO HS Levothyroxine Sodium 25 Mcg [Synthroid 25 Mcg] 50 mcg PO DAILY Carvedilol [Coreg ] 6.25 mg PO BID Amiodarone HCl 200 mg [Cordarone 200 MG] 200 mg PO DAILY Nitroglycerin 0.4 mg (Ed) [Nitrostat 0.4 MG (ED)] 0.4 mg SL Q5MIN PRN MR X 3 PRN PRN Reason: Chest Pain Aspirin 81 mg PO DAILY Leflunomide [Arava] 20 mg PO 3XW Furosemide [Lasix] 20 mg PO DAILY PRN PRN PRN Reason: Shortness Of Breath Sacubitril/Valsartan [Entresto 49 mg-51 mg Tablet] 1 tablet PO HS Dicyclomine HCl 20 mg [Bentyl 20 mg] 40 mg PO BID Ondansetron ODT 4 MG [Zofran Odt 4 mg] 4 mg PO Q4-6HPRN PRN PRN Reason: Nausea Ferrous Sulfate 325 mg PO DAILY 30 Days #30 tablet PANTOPRAZOLE 40 mg Tablet [Protonix 40MG Tablet] 40 mg PO DAILY 30 Days #30 tablet Instructions: Vitamin B12 deficiency and folate deficiency, Urinary tract infection - Discharge instructions Additional Instructions: [facility] TO ASSUME CARE OXYGEN AT 4L/OXYMASK PUREED DIET WITH NECTAR THICK LIQUIDS GIVE PILLS CRUSHED AND IN APPLESAUCE SEE ATTACHED MED LIST Follow up with: KRISTIN CARPENTER [ACTIVE STAFF] - 10/12/24 1:45 pm
[2024-10-03 23:45] VITALS: BP 177/86; PULSE 63; RESP 18; TEMP 97.3; O2SAT 95
== END 2024-10-03 18:05 | DRG 178 ==
LOC: ED 13:47 → MED SURG 17:02 → OBSVTOIN 09-25 10:59 → MED SURG 09-26 01:46
PROVIDERS: ADMIT Internal Medicine; ATTEND Internal Medicine
PROC: 05HB33Z Insertion of Infusion Device into Right Basilic Vein, Percutaneous Approach (ICD-10-PCS; principal; 2024-09-26)
DX: J69.0 Pneumonitis due to inhalation of food and vomit (principal); N17.9 Acute kidney failure, unspecified; N39.0 Urinary tract infection, site not specified; R06.02 Shortness of breath; R41.0 Disorientation, unspecified; R53.1 Weakness; D64.9 Anemia, unspecified; E78.5 Hyperlipidemia, unspecified; E03.9 Hypothyroidism, unspecified; I11.0 Hypertensive heart disease with heart failure; I50.9 Heart failure, unspecified; D51.8 Other vitamin B12 deficiency anemias; E83.51 Hypocalcemia; R13.10 Dysphagia, unspecified; E87.6 Hypokalemia; I25.10 Atherosclerotic heart disease of native coronary artery without angina pectoris; Z79.899 Other long term (current) drug therapy
CPT/HCPCS: 0241U; 36415; 70450; 71045; 71260; 80053; 80202; 81001; 82607; 82728; 82746; 83540; 83550; 83605; 83735; 83880; 84132; 84134; 84145; 85025; 85027; 87040; 87070; 87086; 93005; 93268; 94640; 94760; 99285; J0692; J0696; J1630; J1940; J2919; J3370; J3480; Q3014; 97110-GP; A9270-GY; G0378